=== PATIENT | female | born 1970 | race Caucasian/White ===

== ENCOUNTER → 2017-06-21 13:30 | Outpatient (CLI) | payer BC, SELFPAY | PROVIDERS: Family Provider Family Medicine; PCP Family Medicine; Visit Provider Obstetrics & Gynecology | DX: Z12.4 Encounter for screening for malignant neoplasm of cervix (principal) ==

== ENCOUNTER → 2017-08-01 10:48 | Outpatient (CLI) | payer BC, SELFPAY ==
[2017-06-20 10:54] VITALS: BP 117/71; BMI 25.2
--- NOTE | 2017-08-01 10:50 | HPBI_ITS ---
MAMMOGRAPHY - BILATERAL SCREENING 3-D DANIEL SYNTHESIS REASON FOR EXAM: Female, 47 years old. Bilateral Screening 3-D tomosynthesis PERTINENT HISTORY: Aunt with breast cancer.. TECHNIQUE: 2-D mammograms and 3-D Daniel synthesis of the breast (s) were performed. CAD was performed. COMPARISON: 05/24/2016 FINDINGS: The breast composition is heterogeneously dense that can obscure small breast masses. Scattered benign calcifications are seen. No dense spiculated masses or suspicious microcalcifications are identified. No architectural distortion is identified. There is no skin thickening or retraction. There has been no significant change since the prior study. HPBI/SCREENING MAMM (CAD), BILAT IMPRESSION: No mammographic signs of malignancy. Routine yearly mammograms recommended. ASSESSMENT CATEGORY: BIRADS Category 2: Benign. A letter regarding these results will be sent to the patient by the facility within 30 days. FOLLOW UP RECOMMENDATION: Yearly follow up mammogram recommended. (A) Approximately 10% of breast cancers are not detected by mammography. A normal mammogram should not delay biopsy of a clinically suspicious abnormality. Electronically Signed: Pete Aguiar MD at 9:35 EDT , Service support ,
== END ==
PROVIDERS: Family Provider Family Medicine; PCP Family Medicine; Visit Provider Obstetrics & Gynecology
DX: Z12.31 Encounter for screening mammogram for malignant neoplasm of breast (principal)
CPT/HCPCS: 77063; 77067

== ENCOUNTER → 2018-01-27 15:52 | Outpatient (CLI) | payer BC, SELFPAY | PROVIDERS: Family Provider Family Medicine; PCP Family Medicine; Visit Provider Nurse Practitioner Women's Health | DX: N76.0 Acute vaginitis (principal) | CPT/HCPCS: 87070; 87205 ==

== ENCOUNTER → 2018-01-29 08:58 | Outpatient (CLI) | payer BC, SELFPAY ==
--- NOTE | 2018-01-29 09:02 | BI_ITS ---
MAMMOGRAPHY - UNILATERAL DIAGNOSTIC: RIGHT BREAST REASON FOR EXAM: Female, 47 years old. 7 day history of right breast lump. History of prior breast aspiration. PERTINENT HISTORY: Aunt with breast cancer. TECHNIQUE: Digital unilateral breast richard (3D mammographic acquisition) in the CC and MLO projections. 2-D mediolateral oblique (MLO) and craniocaudad (CC) views of both breasts were obtained. CAD: Full Field Digital Mammography with Computer Added Detection was performed. COMPARISON: Comparison is made with prior examination dated August 01, 2017. FINDINGS: Breast Composition: The breasts are extremely dense, which lowers the sensitivity of mammography. The palpable abnormality corresponds to a 2.4 cm x 2.2 cm well-defined nodule in the inferior medial aspect of the right breast. Correlation with ultrasound is recommended. There is also evidence of a 2.5 cm x 1.9 cm well-defined nodule in the upper midportion of the right breast. No other significant abnormalities are identified. BI/DIAG MAMM W/CAD, UNILAT IMPRESSION: Nodular densities in the right breast as described. Correlation with ultrasound is recommended. ASSESSMENT CATEGORY: BIRADS Category 0: Incomplete. Need additional imaging evaluation. A letter regarding these results will be sent to the patient by the facility within 30 days. Approximately 10% of breast cancers are not detected by mammography. A normal mammogram should not delay biopsy of a clinically suspicious abnormality. Electronically Signed: Avery Figueroa MD at 11:11 EDT Tel [phone], Service support ,
--- NOTE | 2018-01-29 09:02 | US_ITS ---
STUDY: ULTRASOUND BREAST - RIGHT REASON FOR EXAM: Female, 47 years old. Palpable lump in the right breast. TECHNIQUE: Axial and longitudinal images of the RIGHT breast were performed with a high resolution ultrasound transducer. COMPARISON: Comparison is made with prior ultrasound of the right breast dated May 24, 2016 and prior mammogram done earlier in the day. FINDINGS: RIGHT Breast: There is a 2.2 cm x 1.7 cm x 2.2 cm cyst at the 3:00 position of the breast at 3 cm from the nipple. This also evidence of a 6 mm x 5 mm x 4 mm cyst at the 1:00 position of the breast at 2 cm from the nipple. US/Breast Limited Unilateral IMPRESSION: Dominant 2.2 cm x 1.7 cm x 2.2 cm cyst at the 3:00 position of the breast at 3 cm from the nipple. ASSESSMENT CATEGORY: BIRADS Category 2: Benign. A letter regarding these results will be sent to the patient by the facility within 30 days. Electronically Signed: Avery Figueroa MD at 10:32 EDT Tel [phone], Service support ,
== END ==
PROVIDERS: Family Provider Family Medicine; PCP Family Medicine; Visit Provider Nurse Practitioner Women's Health
DX: N63.10 Unspecified lump in the right breast, unspecified quadrant (principal)
CPT/HCPCS: 76642; 77061; 77065; G0279

== ENCOUNTER → 2018-02-14 06:37 | Outpatient (CLI) | payer BC, SELFPAY ==
--- NOTE | 2018-02-14 08:45 | BRBX_PTH ---
PATIENT: JUVENAL AMARO [id number] AGE/SX: 54/F ROOM: RE02/14/[address]: Dr. Antwan Eubanks MD : 1970 BED: DIS: SPEC #: [id number] RECD: 02/14/18 12:07 STATUS: ANDREA CHANELLE #: [id number] CAMPBELL: 02/14/18 08:[address]: Antwan Eubanks DEPT: SURGICAL PATHOLOGY RECD BY: Ulises Serrato ENTERED: 02/16/18 11:58 SP TYPE: BREAST BX OTHR DR: Dr. Warren Duarte III, MD Tissues: Right breast, NOS Procedures: Surgery Specimen Level IV HEADER OPERATION: Needle core biopsy and aspiration of right breast PRE-OP DIAGNOSIS: Abnormal mammogram of right breast TISSUE SUBMITTED: Right breast tissue ISCHEMIC TIME: 1 minute FIXATION TIME: 57.5 hours MICROSCOPIC DIAGNOSIS Right breast tissue, needle core biopsy: Fragments of benign breast tissue with acute and chronic inflammation. Negative for atypia or malignancy. SJ:marion 02/17/18 COMMENT Correlation with clinical, radiologic findings and appropriate follow up are necessary. Please also correlate with corresponding cytology ([id number]). MICROSCOPIC DESCRIPTION Slides are reviewed. GROSS DESCRIPTION Received in fixative is one container labeled with the patient's name and designated right breast. The specimen consists of two elongated fragments of zayas soft tissue measuring 0.3 and 1 cm in length and 0.1 cm in diameter. The entire specimen is submitted in one cassette. / MELISSA:marion 02/16/18 TC:3 CPT: 84980
--- NOTE | 2018-02-14 08:45 | FLU_PTH ---
PATIENT: JUVENAL AMARO [facility] U[facility][id number] AGE/SX: 54/F ROOM: RE02/14/[address]: Dr. Antwan Eubanks MD : 1970 BED: DIS: SPEC #: [id number] RECD: 02/14/18 12:07 STATUS: ANDREA CHANELLE #: [id number] CAMPBELL: 02/14/18 08:[address]: Antwan Eubanks DEPT: CYTOLOGY RECD BY: Ulises Serrato ENTERED: 02/16/18 11:14 SP TYPE: Fluid OTHR DR: Dr. Warren Duarte III, MD Tissues: Right breast, NOS Procedures: Pap Stain (control) Special Stain Group II Surgery Specimen Level IV Cell Block Cytospin Fluid HEADER OPERATION: Needle core biopsy and aspiration of right breast PRE-OP DIAGNOSIS: Abnormal mammogram of right breast TISSUE SUBMITTED: Right breast aspiration fluid for cytology DIAGNOSIS CYTOLOGY Right breast fluid, FNA (cytospin and cell block): Negative for malignant cells. Acute inflammation. See comment. SJ:rg 02/17/18 COMMENT Please also correlate with corresponding surgical specimen ([id number]), right breast tissue, needle core biopsy with diagnosis of fragments of benign breast tissue with acute and chronic inflammation and negative for malignancy. CYTOLOGY STUDY Slides are reviewed. The specimen predominantly consists of neutrophils and a few macrophages. CYTOLOGY GROSS Received is 4 ml of yellow cloudy fluid labeled with the patient's name and and designated per the requisition as right breast. Submitted for cytology preparation including cell block. / 02/16/18 TC:2 CPT: 75998, 60923
== END ==
PROVIDERS: Family Provider Family Medicine; PCP Family Medicine; Referring Provider Surgery; Visit Provider Surgery
DX: R92.8 Other abnormal and inconclusive findings on diagnostic imaging of breast (principal)
CPT/HCPCS: 88108; 88305; 88313

== ENCOUNTER → 2019-10-19 | Outpatient (CLI) | payer BC, SELFPAY ==
[2019-10-19 15:13] VITALS: BMI 25.2
[2019-10-23 11:29] LABS: HPV APTIMA, High Risk Negative (Negative)
== END | disposition home or self-care (01) ==
LOC: LABSPEC 17:28
PROVIDERS: PCP Family Medicine; Referring Provider Nurse Practitioner Women's Health; Visit Provider Nurse Practitioner Women's Health
DX: Z12.4 Encounter for screening for malignant neoplasm of cervix (principal)
CPT/HCPCS: 87624; 88175; G0145

== ENCOUNTER → 2020-02-15 | Outpatient (CLI) | payer BC, SELFPAY ==
[2019-10-19 15:13] VITALS: BMI 25.2
--- NOTE | 2020-02-15 13:51 | US_ITS ---
STUDY: ULTRASOUND BREAST - LEFT REASON FOR EXAM: Female, 49 years old. Palpable lump at the lateral inferior aspect of the left breast TECHNIQUE: Axial and longitudinal images of the LEFT breast were performed with a high resolution ultrasound transducer. # OF IMAGES: 23 COMPARISON: None. FINDINGS: LEFT Breast: There is a complex cystic lesion #1 in the lower outer quadrant. The lesion thick salvador and measures 14 x 13 x 5 mm in size. Clock notation: 3:30 o''clock position. Distance from nipple: 3 cm. Posterior Enhancement: Yes. Posterior Shadowing: None. Margins: Sharp and jagged. Echogenicity: Hypoechoic. Compression effect on Shape: No change. There is a complex cystic lesion # 2 in the lower outer quadrant. The lesion has thick salvador and measures 6 x 6 x 6 mm in size. Clock notation: 3:30 o''clock position. Distance from nipple: 4 cm. Posterior Enhancement: Yes. Posterior Shadowing: None. Margins: Sharp and jagged. Echogenicity: Hypoechoic. Compression effect on Shape: No change. US/Breast Limited Unilateral IMPRESSION: Complex cysts in the left breast. Ultrasound-guided aspiration is recommended. Should there be a soft tissue remaining after aspiration core biopsy would be recommended. ASSESSMENT CATEGORY: BIRADS Category 4: Suspicious - Biopsy Should Be Considered. A letter regarding these results will be sent to the patient by the facility within 30 days. Electronically Signed: Jeannine Valero, at 15:35 EDT Tel , Service support ,
--- NOTE | 2020-02-15 13:51 | BI_ITS ---
MAMMOGRAPHY - BILATERAL DIAGNOSTIC REASON FOR EXAM: Female, 49 years old. RT LUMP 2018 WITH TENDERNESS SAME AREA CYST 2017 ASPIRATED IN 2017 2019 LT LUMP SINCE 07/2019 LT MOLES MARKED PERTINENT HISTORY: FAM HX PAT AUNT AGE 76 TECHNIQUE: Digital bilateral breast richard (3D mammographic acquisition) in the CC and MLO projections. 2-D mediolateral oblique (MLO) and craniocaudad (CC) views of both breasts were obtained. CAD: Full Field Digital Mammography with Computer Added Detection was performed. COMPARISON: None. FINDINGS: Breast Composition: The breasts are extremely dense, which lowers the sensitivity of mammography. There are no dominant masses or suspicious calcifications. No other significant abnormalities are identified. BI/DIAG MAMM W/CAD, BILAT IMPRESSION: Further mammographic evaluation recommended, as described above. (E) ASSESSMENT CATEGORY: BIRADS Category 0: Incomplete. Need additional imaging evaluation. A letter regarding these results will be sent to the patient by the facility within 30 days. Approximately 10% of breast cancers are not detected by mammography. A normal mammogram should not delay biopsy of a clinically suspicious abnormality. Electronically Signed: Jeannine Valero, at 15:46 EDT Tel , Service support ,
== END | disposition home or self-care (01) ==
LOC: OPBI 13:51
PROVIDERS: PCP Family Medicine; Referring Provider Nurse Practitioner Women's Health; Visit Provider Nurse Practitioner Women's Health
DX: N63.20 Unspecified lump in the left breast, unspecified quadrant (principal)
CPT/HCPCS: 76642; 77062; 77066; G0279

== ENCOUNTER → 2020-11-10 07:33 | Outpatient (CLI) | payer BC, SELFPAY ==
[2020-10-30 15:01] VITALS: BMI 28.1
--- NOTE | 2020-11-10 07:42 | US_ITS ---
STUDY: ULTRASOUND OF THE FEMALE PELVIS - COMPLETE REASON FOR EXAM: Female, 50 years old. Increased abd growth LMP: 11/02/2020. TECHNIQUE: Transabdominal and Transvaginal TECHNICAL QUALITY: Adequate. COMPARISON: None. FINDINGS: The uterus is anteverted and is in a midline position. The uterus measures 7.5 cm x 5.4 cm x 3.9 cm. There is a Nabothian cyst of the cervix. The endometrium measures 2.1 mm in thickness, and is hyperechoic. There is no demonstrated endometrial mass. Heterogeneous echotexture of the uterus. Several small fibroids are seen. The largest measures 3 cm x 2.4 cm x 2.6 cm. I.U.D. - The patient does not have an I.U.D. The right ovary is visualized. The right ovary measures 2.6 cm x 2.1 cm x 1.2 cm. There is no right ovarian cyst or ovarian mass. There is no visualized right adnexal mass or complex lesion. There is normal arterial and normal venous vascularity. The left ovary is visualized. The left ovary measures 1.9 cm x 1.3 cm x 1.1 cm. There is no left ovarian cyst or ovarian mass. There is no visualized left adnexal mass or complex lesion. There is normal arterial and normal venous vascularity. There is no fluid in the cul-de-sac. The pre void volume of the bladder was 524 ml. US/Pelvic (Non ) IMPRESSION: Uterine fibroids. Electronically Signed: Avery Figueroa MD at 10:13 EDT , Service support ,
--- NOTE | 2020-11-10 07:42 | BI_ITS ---
MAMMOGRAPHY - BILATERAL SCREENING REASON FOR EXAM: Female, 50 years old. Routine annual screening examination. PERTINENT HISTORY: Non-contributory. TECHNIQUE: Digital bilateral breast daniel (3D mammographic acquisition) in the CC and MLO projections. 2-D mediolateral oblique (MLO) and craniocaudad (CC) views of both breasts were obtained. CAD: Full Field Digital Mammography with Computer Added Detection was performed. COMPARISON: Comparison is made with prior study dated 08/01/2017 and 05/24/2016. FINDINGS: Breast Composition: The breasts are extremely dense, which lowers the sensitivity of mammography. There are no dominant masses or suspicious calcifications. No other significant abnormalities are identified. There has been no significant change since the prior study. BI/SCRN MAMM (CAD)W/DANIEL BILAT IMPRESSION: Stable bilateral screening mammogram. Yearly follow-up mammogram recommended. (A) ASSESSMENT CATEGORY: BIRADS Category 1: Negative. A letter regarding these results will be sent to the patient by the facility within 30 days. Approximately 10% of breast cancers are not detected by mammography. A normal mammogram should not delay biopsy of a clinically suspicious abnormality. [id number] Electronically Signed: Avery Figueroa MD at 9:19 EDT , Service support ,
--- NOTE | 2020-11-10 07:42 | US_ITS ---
STUDY: ULTRASOUND OF THE FEMALE PELVIS - COMPLETE REASON FOR EXAM: Female, 50 years old. Increased abd growth LMP: 11/02/2020. TECHNIQUE: Transabdominal and Transvaginal TECHNICAL QUALITY: Adequate. COMPARISON: None. FINDINGS: The uterus is anteverted and is in a midline position. The uterus measures 7.5 cm x 5.4 cm x 3.9 cm. There is a Nabothian cyst of the cervix. The endometrium measures 2.1 mm in thickness, and is hyperechoic. There is no demonstrated endometrial mass. Heterogeneous echotexture of the uterus. Several small fibroids are seen. The largest measures 3 cm x 2.4 cm x 2.6 cm. I.U.D. - The patient does not have an I.U.D. The right ovary is visualized. The right ovary measures 2.6 cm x 2.1 cm x 1.2 cm. There is no right ovarian cyst or ovarian mass. There is no visualized right adnexal mass or complex lesion. There is normal arterial and normal venous vascularity. The left ovary is visualized. The left ovary measures 1.9 cm x 1.3 cm x 1.1 cm. There is no left ovarian cyst or ovarian mass. There is no visualized left adnexal mass or complex lesion. There is normal arterial and normal venous vascularity. There is no fluid in the cul-de-sac. The pre void volume of the bladder was 524 ml. US/Transvaginal Non- IMPRESSION: Uterine fibroids. Electronically Signed: Avery Figueroa MD at 10:13 EDT , Service support ,
[2020-11-10 07:46] LABS: Absolute Lymphocyte Count 2.81 X10^3/uL (0.83-4.51); Absolute Neutrophil Count 3.7 X10^3/uL (2.0-7.7); Basophil# 0.05 X10^3/uL; Basophil% 0.7 % (0-1); Eosinophils% 1.3 % (0-5); Hematocrit 34.8 % (37-47); Hemoglobin 11.1 g/dL (12.0-15.0); Lymphocyte # 2.81 X10^3/ul (0.83-4.51); Lymphocyte % 37.2 % (19-41); Mean Corp Hgb Conc 31.9 g/dL (32-36); Mean Corpuscular Hgb 28.2 pg (27.0-32.0); Mean Corpuscular Volume 88.3 fL (81-99); Mean Platelet Vol. 9.8 fl (6.2-12.0); Monocyte# 0.91 X10^3/uL; Monocyte% 12.1 % (0-10); NRBC Flagged by Analyzer 0 % (0-5); Neutrophil # 3.66 X10^3/uL (2.7-7.7); Neutrophil % 48.4 % (47-70); Platelet Count 355 K/mm3 (150-450); RBC Distribution Width CV 13.6 % (11.6-14.6); RBC Distribution Width SD 43.9 fl (35.1-43.9); Red Blood Count 3.94 M/mm3 (4.2-5.4); White Blood Count 7.6 K/mm3 (4.4-11.0)
[2020-11-10 08:23] LABS: ALB/GLOB Ratio 1.1 RATIO (0.9-2.4); AST(SGOT) 17 U/L (15-37); Alanine Aminotransfer ALT/SGPT 22 U/L (13-56); Albumin, Serum 3.8 g/dL (3.2-5.0); Alkaline Phosphatase 54 U/L (45-117); Anion Gap 5 (5-15); BUN 15 mg/dL (7-18); BUN/Creat Ratio 18.6 RATIO (10-20); Calcium,Total 8.8 mg/dL (8.5-10.1); Chloride 102 mmol/L (98-107); Cholesterol 250 mg/dL (200); Creatinine, Serum 0.81 mg/dL (0.55-1.02); EST Glomerular Filtration Rate 80 mL/min (>60); Est Glom Filt Rate - Afr Amer 97 mL/min (>60); Globulin 3.6 g/dL (2.2-4.2); Glucose 104 mg/dL (74-106); High Density Lipoprotein 63 mg/dL; Potassium 4.1 mmol/L (3.5-5.1); Protein, Total 7.4 g/dL (6.4-8.2); Sodium Level 135 mmol/L (136-145); T4 Free Direct 0.86 ng/dL (0.76-1.46); Thyroid Stim Hormone (TSH) 2.31 uIU/mL (0.358-3.74); Triglycerides 284 mg/dL; Very Low Density Lipoprotein 57 mg/dL (5-40)
== END ==
PROVIDERS: PCP Family Medicine; Referring Provider Obstetrics & Gynecology; Visit Provider Obstetrics & Gynecology
DX: R19.8 Other specified symptoms and signs involving the digestive system and abdomen (principal); Z12.31 Encounter for screening mammogram for malignant neoplasm of breast
CPT/HCPCS: 36415; 76830; 76856; 77063; 77067; 80053; 80061; 84439; 84443; 85025

== ENCOUNTER 2021-10-22 00:09 | Observation (INO) | payer BC, SELFPAY ==
[2021-10-22] VITALS (16 sets, daily range): BP systolic 110–126; BP diastolic 62–84; PULSE 17–103; RESP 16–23; TEMP 36.6–37.1; O2SAT 92–98; BMI 29.7; BMI 28.8
--- NOTE | 2021-10-22 00:40 | TELEMED_ITS ---
[facility] has confirmed receipt of a request for visit. This document confirms receipt of the order initiating the consult. To find the results of the consultation, please view the patient's reports for the scanned Telemed Consult.
--- NOTE | 2021-10-22 00:40 | EKG12_ITS ---
Test Reason : STROKE Blood Pressure : / mmHG Vent. Rate : 097 BPM Atrial Rate : 097 BPM P-R Int : 136 ms QRS Dur : 068 ms QT Int : 354 ms P-R-T Axes : 029 032 037 degrees QTc Int : 449 ms Normal sinus rhythm Low voltage QRS Borderline ECG Confirmed by GA BANKS, VASQUEZ ([id number]), assignment desk editor ANGELICA GREEN ([id number]) on 10/22/2021 11:22:35 AM Referred By: LORI Confirmed By:VASQUEZ KOROMA MD
--- NOTE | 2021-10-22 00:40 | RAD_ITS ---
EXAM: XR CHEST, 1 VIEW CLINICAL INDICATION: Neuro deficit, acute, stroke suspected TECHNIQUE: Frontal view of the chest. This report was created using [employer] report generation technology. COMPARISON: None. FINDINGS: LUNGS AND PLEURAL SPACES: Unremarkable. No consolidation or edema. No pneumothorax. No effusion. HEART: Unremarkable. Cardiac silhouette not enlarged. MEDIASTINUM: Central airways and mediastinal contour are unremarkable. BONES/JOINTS: Unremarkable. SOFT TISSUES: Unremarkable. RAD/Chest 1 View IMPRESSION: No radiographic evidence of acute cardiopulmonary disease. Electronically Signed: Ramya Josue MD at 3:11 EDT ,
--- NOTE | 2021-10-22 00:40 | CT_ITS ---
EXAM: CT HEAD WITHOUT INTRAVENOUS CONTRAST CLINICAL INDICATION: Neuro deficit, acute, stroke suspected. Difficulty finding words, other transient or resolving symptoms. TECHNIQUE: Multiple axial images were obtained of the head without intravenous contrast. This CT exam was performed using one or more of the following dose reduction techniques: automated exposure control, adjustment of the mA and/or kV according to patient size, and/or use of iterative reconstruction technique. This report was created using [employer] report generation technology. RADIATION DOSE: CTDIvol = 44.99 mGy, DLP = 779.24 mGy-cm. COMPARISON: None. FINDINGS: BRAIN AND EXTRA-AXIAL SPACES: Slight asymmetric positioning. No significant edema, hemorrhage, mass or mass effect. No dense artery sign. Posterior fossa structures are unremarkable. Ventricles are appropriate for age. No hydrocephalus. Basal cisterns are patent. BONES/JOINTS: Unremarkable. No discrete lytic or blastic abnormalities. SINUSES: Unremarkable as visualized. Clear. MASTOID AIR CELLS: Unremarkable. Clear. ORBITS: Visualized globes, extraocular muscles, optic nerves and retrobulbar fat appear unremarkable. CT/STROKE Brain/Head without Cont IMPRESSION: No acute intracranial abnormality. N.B. : The above Results were Read Back by Ramya Josue MD to Dr. Armaan MD, and understanding confirmed on 10/22/2021 01:17:47 (ET). Electronically Signed: Ramya Josue MD at 1:17 EDT ,
--- NOTE | 2021-10-22 00:44 | EX.ED.DYSGE1 ---
HPI History of Present Illness Chief Complaint: Weakness Informant: patient, spouse/S.O. and family Narrative Narrative: Patient had an episode that started not long before arrival. She had been cleaning some things in the kitchen. She came out side. People were over enjoying the evening. She had had a few glasses of wine. She evidently had an episode where she kind of shake to her vibrated all of her extremities and was kind of stiff but she remained alert. She was having trouble speaking. She was having trouble directly following commands but extremities were moving. That has gotten better and she seems to be improving now. She is now moving extremities. She is talking but she is having trouble finding the right words. It sounds like she never had any unilateral weakness. She denies any headaches chest pain or palpitations. No recent illness. They are decreasing her citalopram and starting Pristiq recently and she has had some challenges with this but nothing like this is ever happened before. She has never had a seizure. She has never had stroke or heart disease. Nothing seems to make this better or worse. Nothing specific seem to bring it on. [facility] Medical History Abnormal Pap smear of cervix Anxiety Anxiety GERD (gastroesophageal reflux disease) History of cyst of breast CHLOE III (vulvar intraepithelial neoplasia III) Home Medications sumatriptan succinate 50 mg PO PRN PRN 07/28/15 [History Last Taken Unknown] citalopram 10 mg tablet 20 mg PO QDAY tab 01/27/18 [History Last Taken Unknown] esomeprazole magnesium 40 mg capsule,delayed release 40 mg PO DAILY 10/30/20 [History Last Taken Unknown] bupropion HCl 150 mg PO DAILY 10/22/21 [History Last Taken Unknown] buspirone 5 mg PO DAILY 10/22/21 [History Last Taken Unknown] desvenlafaxine succinate 25 mg PO DAILY 10/22/21 [History Last Taken Unknown] famotidine 20 mg PO BID 10/22/21 [History Last Taken Unknown] naproxen sodium 220 mg PO Q8H PRN 10/22/21 [History Last Taken Unknown] Allergy/AdvReac Type Severity Reaction Status Date / Time No Known Allergies Allergy Verified 04/15/21 12:06 Family History Grandmother Colon cancer Heart disease Grandfather CVA (cerebral vascular accident) Cancer bladder Aunt Breast cancer Surgical History History of endometrial ablation History of tonsillectomy and adenoidectomy History of wisdom tooth extraction, class II edentulism Hx of appendectomy hx of cyst aspirartion Social History Smoking Status: Never smoker alcohol intake: current details: social substance use type: does not use caffeine: Yes what type of physical activity do you participate in: none seatbelt use: always do you feel safe at home: Yes additional social history: [employer] Patient works at [email or web address] ROS ROS ED Constitutional Constitutional ED: Denies chills or fever(s) Eyes Eyes: Denies blurry vision, change in vision or diplopia ENT ENT ED: Denies rhinorrhea Cardiovascular Cardiovascular: Denies chest pain, palpitations or racing heartbeat Respiratory/Chest Respiratory/Chest: Denies cough or dyspnea Gastrointestinal Gastrointestinal: Denies abdominal pain, nausea or vomiting Genitourinary Genitourinary ED: Denies dysuria Musculoskeletal Musculoskeletal: Denies back pain or neck pain Integumentary Denies rash Neurologic Neurologic: Reports other Details: See history of present illness. ; Denies headache(s) Psychiatric Psychiatric: Reports anxiety and other Details: Patient does have a history of significant anxiety and is going through some medication changes at this time. Endocrine Endocrinology: Denies polydipsia or polyuria Allergic/Immunologic Allergic/Immunologic ED: Denies urticaria EXAM Physical Exam Const Vital Signs: 10/22/21 00:11 10/22/21 00:18 10/22/21 00:40 Temperature 98.5 F Temperature Source Temporal Pulse Rate 95 92 Respiratory Rate 18 20 H Respiratory Effort Normal Respiratory Pattern Normal Blood Pressure 126/84 H 121/75 H Blood Pressure Mean 98 90 Pulse Ox 95 95 Oxygen Delivery Method Room Air Room Air Oxygen Flow Rate (L/min) 10/22/21 01:00 10/22/21 01:05 10/22/21 01:10 Temperature Temperature Source Pulse Rate 98 94 Respiratory Rate 20 H 16 Respiratory Effort Respiratory Pattern Blood Pressure 121/75 H 120/70 Blood Pressure Mean 90 86 Pulse Ox 95 96 Oxygen Delivery Method Room Air Room Air Nasal Cannula Oxygen Flow Rate (L/min) 2 10/22/21 01:30 Temperature Temperature Source Pulse Rate 90 Respiratory Rate 16 Respiratory Effort Respiratory Pattern Blood Pressure 119/82 H Blood Pressure Mean 94 Pulse Ox 95 Oxygen Delivery Method Nasal Cannula Oxygen Flow Rate (L/min) 2 Positive well nourished and well developed General Appearance ED: well developed and NAD; Negative for cyanotic or diaphoretic HEENT Reports moist mucous membranes Eyes General Eye ED: Negative for pale conjunctiva or scleral icterus Neck no JVD Chest Wall inspection of chest normal Resp normal respiratory effort and clear to auscultation bilaterally Effort and Inspection: Negative for pain with movement Auscultation: Negative for rales, rhonchi or wheezes Cardio regular rate and regular rhythm Rate: other Other Details: Normal peripheral pulses x4. GI normal to inspection, nondistended, normoactive bowel sounds and non-tender Palpation: soft Back/Spine no CVA tenderness Neuro oriented x3 Neuro Narrative: Patient patient is oriented x3. Every time I ask her to do an action she says U huh. But she does not do the actions. When I asked the third time she is able to do the action. This happens with both legs both arms and trying to close her eyes tightly. Everything that I ask occurs on the third request. However, it is then done correctly and normally. I get no lateralizing findings. She does sometimes have trouble finding the word for a medication. She could not remember the name of the new medicine. But she states that it is the square 1. There is no significant dysarthria. There is a little bit of receptive and expressive aphasia but then she is able to resolve that after several attempts and do well. Sensorium / Orientation: alert Psych Attitude: No agitated Mood & Affect: Negative for tearful Skin no rashes or lesions noted MDM MDM MDM Narrative Medical decision making narrative: Patient CBC shows mild anemia. Electrolytes were overall unremarkable. Lactic acid was normal. Prolactin was normal. CT of the head and CTA showed no acute process. Chest x-ray showed no acute process. I did discuss case with stroke neurologist on the telemetry stroke system. He felt tPA was not right for this patient. She was making marked improvements already and her symptoms may be more related to metabolic medication etc. Patient's symptoms did rule almost resolved here. Her speech is much more fluid. Her states its not 100% back to normal but it is close. She is still having some intermittent spasms. She will be placed in observation for further work-up. Lab Data Attestation: I reviewed the patient's lab results. Labs: Laboratory Results - last 24 hr 10/22/21 10/22/21 10/22/21 00:49 01:10 01:10 WBC 6.2 RBC 3.38 L Hgb 10.2 L Hct 31.2 L MCV 92.3 MCH 30.2 MCHC 32.7 RDW Std Deviation 42.5 RDW Coeff of Giorgio 12.7 Plt Count 336 MPV 10.0 Immature Gran % (Auto) 0.200 Neut % (Auto) 42.6 L Lymph % (Auto) 45.6 H [place] % (Auto) 8.7 Eos % (Auto) 1.9 Baso % (Auto) 1.0 Absolute Neuts (auto) 2.6 Absolute Lymphs (auto) 2.82 Nucleated RBC % 0 PT Cancelled INR Cancelled APTT Cancelled Sodium Potassium Chloride Carbon Dioxide Anion Gap BUN Creatinine Estim Creat Clear Calc Est GFR (MDRD) Af Amer Est GFR (MDRD) Non-Af BUN/Creatinine Ratio Glucose Lactic Acid Calcium Troponin I High Sens Prolactin Ethyl Alcohol POC Glucose 104 10/22/21 10/22/21 10/22/21 01:10 01:10 01:10 WBC RBC Hgb Hct MCV MCH MCHC RDW Std Deviation RDW Coeff of Giorgio Plt Count MPV Immature Gran % (Auto) Neut % (Auto) Lymph % (Auto) [place] % (Auto) Eos % (Auto) Baso % (Auto) Absolute Neuts (auto) Absolute Lymphs (auto) Nucleated RBC % PT INR APTT Sodium 140 Potassium 3.6 Chloride 109 H Carbon Dioxide 23.0 Anion Gap 8 BUN 16 Creatinine 1.05 H Estim Creat Clear Calc 59.34 Est GFR (MDRD) Af Amer 71 Est GFR (MDRD) Non-Af 59 L BUN/Creatinine Ratio 15.2 Glucose 91 Lactic Acid 1.7 Calcium 7.8 L Troponin I High Sens < 3 L Prolactin 26.7 Ethyl Alcohol 140.0 POC Glucose 10/22/21 01:35 WBC RBC Hgb Hct MCV MCH MCHC RDW Std Deviation RDW Coeff of Giorgio Plt Count MPV Immature Gran % (Auto) Neut % (Auto) Lymph % (Auto) [place] % (Auto) Eos % (Auto) Baso % (Auto) Absolute Neuts (auto) Absolute Lymphs (auto) Nucleated RBC % PT 12.7 INR 1.0 APTT 27.0 Sodium Potassium Chloride Carbon Dioxide Anion Gap BUN Creatinine Estim Creat Clear Calc Est GFR (MDRD) Af Amer Est GFR (MDRD) Non-Af BUN/Creatinine Ratio Glucose Lactic Acid Calcium Troponin I High Sens Prolactin Ethyl Alcohol POC Glucose Radiography Diagnostic Testing: Clinical Impression(s) from Imaging Studies Brain CT 10/22/21 00:40 IMPRESSION: No acute intracranial abnormality. N.B. : The above Results were Read Back by Ramya Josue MD to Dr. Armaan MD, and understanding confirmed on 10/22/2021 01:17:47 (ET). Electronically Signed: Ramya Josue MD at 1:17 EDT , Chest X-Ray 10/22/21 00:40 IMPRESSION: No radiographic evidence of acute cardiopulmonary disease. Electronically Signed: Ramya Josue MD at 3:11 EDT , Head/Neck CTA 10/22/21 01:07 IMPRESSION: Negative CTA carotid and CTA brain. C5-6 degenerative change and prominent left neural foraminal stenosis at C5-6 and C6-7. Electronically Signed: Ramya Josue MD at 1:30 EDT , ADDENDUM: 10/22/21 0142 IMPRESSION: Negative CTA carotid and CTA brain. C5-6 degenerative change and prominent left neural foraminal stenosis at C5-6 and C6-7. N.B. : The above Results were Read Back by Ramya Josue MD to Dr. Armaan MD, and understanding confirmed on 10/22/2021 01:35:26 (ET). Electronically Signed: Ramya Josue MD at 1:30 EDT , Discharge Plan Triage Chief Complaint: Weakness ED Provider: Nolan Crook Dx/Rx/DC Orders Clinical Impression: Aphasia, Muscle spasm Primary Care Provider: Mak Quezada Disposition Disposition: Acute Care Hospital [facility] Discharge Date/Time: 10/22/21 03:10
--- NOTE | 2021-10-22 00:49 | ED.RN ---
upon seeing physician orders, this RN inquires if patient is a stroke alert. Dr Crook states go ahead and call it
--- NOTE | 2021-10-22 00:59 | ED.RN ---
Physician entered order for SOC consult in error. SOC consult called and was told to cancel.
--- NOTE | 2021-10-22 01:07 | CT_ITS ---
We are attempting to reach an attending provider to discuss findings. An addendum with communication details will be sent when the communication is complete. EXAM: CT ANGIOGRAPHY HEAD AND NECK WITH INTRAVENOUS CONTRAST CLINICAL INDICATION: Neuro deficit, acute, stroke suspected TECHNIQUE: [place] [facility] [place]/head and neck CT angiography protocol performed with intravenous contrast. This CT exam was performed using one or more of the following dose reduction techniques: automated exposure control, adjustment of the mA and/or kV according to patient size, and/or use of iterative reconstruction technique. This report was created using [employer] report generation technology. MIP reconstructed images were created and reviewed. CONTRAST: IV 100mL [id number] RADIATION DOSE: CTDIvol = 22.43 mGy, DLP = 750.43 mGy-cm COMPARISON: None. FINDINGS: HEAD: RIGHT ANTERIOR CEREBRAL ARTERY: Unremarkable. No significant stenosis at the visualized segments. Anterior communicating artery is present. No aneurysm. RIGHT MIDDLE CEREBRAL ARTERY: Unremarkable. No significant stenosis at the visualized segments. No aneurysm. RIGHT POSTERIOR CEREBRAL ARTERY: Unremarkable. No occlusion or significant stenosis. No aneurysm. RIGHT INTRACRANIAL INTERNAL CAROTID ARTERY: Unremarkable. No significant stenosis. No dissection or occlusion. RIGHT INTRACRANIAL VERTEBRAL ARTERY: Unremarkable. No significant stenosis. No dissection or occlusion. LEFT ANTERIOR CEREBRAL ARTERY: Unremarkable. No significant stenosis at the visualized segments. No aneurysm. LEFT MIDDLE CEREBRAL ARTERY: Unremarkable. No significant stenosis at the visualized segments. No aneurysm. LEFT POSTERIOR CEREBRAL ARTERY: Unremarkable. No occlusion or significant stenosis. No aneurysm. LEFT INTRACRANIAL INTERNAL CAROTID ARTERY: Unremarkable. No significant stenosis. No dissection or occlusion. LEFT INTRACRANIAL VERTEBRAL ARTERY: Unremarkable. No significant stenosis. No dissection or occlusion. BASILAR ARTERY: Unremarkable. No significant stenosis. No aneurysm. OTHER VASCULATURE: No vascular malformation. The posterior inferior cerebellar arteries are patent, better seen on the right. NECK: RIGHT COMMON CAROTID ARTERY: Unremarkable. No significant stenosis. No dissection or occlusion. RIGHT EXTRACRANIAL INTERNAL CAROTID ARTERY: Unremarkable. No significant stenosis. No dissection or occlusion. RIGHT EXTERNAL CAROTID ARTERY: Unremarkable. No occlusion. RIGHT EXTRACRANIAL VERTEBRAL ARTERY: Unremarkable. No significant stenosis. No dissection or occlusion. LEFT COMMON CAROTID ARTERY: Unremarkable. No significant stenosis. No dissection or occlusion. LEFT EXTRACRANIAL INTERNAL CAROTID ARTERY: Unremarkable. No significant stenosis. No dissection or occlusion. LEFT EXTERNAL CAROTID ARTERY: Unremarkable. No occlusion. LEFT EXTRACRANIAL VERTEBRAL ARTERY: Unremarkable. No significant stenosis. No dissection or occlusion. GREAT VESSELS OF AORTIC ARCH: Unremarkable as visualized. Normal anatomy, patent. LUNG APICES: Unremarkable as visualized. HEAD and NECK: BONES/JOINTS: Moderate disc space narrowing at C5-C6 and moderate-marked bilateral C5-6 and C6-7 left neural foraminal stenosis. No discrete lytic or blastic abnormalities. SOFT TISSUES: Unremarkable. CAROTID STENOSIS REFERENCE USING NASCET CRITERIA: % ICA stenosis = (1 - narrowest ICA diameter/diameter of distal cervical ICA) x 100. Mild - <50% stenosis. Moderate - 50-69% stenosis. Severe - 70-94% stenosis. Near occlusion - 95-99% stenosis. Occluded - 100% stenosis. CT/STROKE CTA Head AND Neck W/Con IMPRESSION: Negative CTA carotid and CTA brain. C5-6 degenerative change and prominent left neural foraminal stenosis at C5-6 and C6-7. Electronically Signed: Ramya Josue MD at 1:30 EDT ,
[2021-10-22 01:11] LABS: Bedside Glucose 104 mg/dL (74-106)
[2021-10-22 01:20] LABS: Absolute Lymphocyte Count 2.82 X10^3/uL (0.83-4.51); Absolute Neutrophil Count 2.6 X10^3/uL (2.0-7.7); Basophil# 0.06 X10^3/uL; Eosinophil# 0.12 X10^3/uL; Eosinophils% 1.9 % (0-5); Hematocrit 31.2 % (37-47); Hemoglobin 10.2 g/dL (12.0-15.0); Lymphocyte # 2.82 X10^3/ul (0.83-4.51); Lymphocyte % 45.6 % (19-41); Mean Corp Hgb Conc 32.7 g/dL (32-36); Mean Corpuscular Hgb 30.2 pg (27.0-32.0); Mean Corpuscular Volume 92.3 fL (81-99); Monocyte# 0.54 X10^3/uL; Monocyte% 8.7 % (0-10); NRBC Flagged by Analyzer 0 % (0-5); Neutrophil # 2.64 X10^3/uL (2.7-7.7); Neutrophil % 42.6 % (47-70); Platelet Count 336 K/mm3 (150-450); RBC Distribution Width CV 12.7 % (11.6-14.6); RBC Distribution Width SD 42.5 fl (35.1-43.9); Red Blood Count 3.38 M/mm3 (4.2-5.4); White Blood Count 6.2 K/mm3 (4.4-11.0)
[2021-10-22 01:38] LABS: Anion Gap 8 (5-15); BUN 16 mg/dL (7-18); BUN/Creat Ratio 15.2 RATIO (10-20); Calcium,Total 7.8 mg/dL (8.5-10.1); Chloride 109 mmol/L (98-107); Creatinine, Serum 1.05 mg/dL (0.55-1.02); EST Glomerular Filtration Rate 59 mL/min (>60); Est Glom Filt Rate - Afr Amer 71 mL/min (>60); Estimated Creatinine Clearance 59.34 ml/min; Glucose 91 mg/dL (74-106); Potassium 3.6 mmol/L (3.5-5.1); Prolactin 26.7 ng/mL; Sodium Level 140 mmol/L (136-145); Troponin-I HS < 3 pg/mL (3.0-54.0)
[2021-10-22 01:46] LABS: Lactic Acid 1.7 mmol/L (0.4-1.9)
[2021-10-22 01:52] LABS: Prothrombin Time (Protime)PT. 12.7 SECONDS (11.7-14.9)
--- NOTE | 2021-10-22 02:09 | PCM.HP.STD ---
HPI - General HPI Narrative JUVENAL AMARO, is a 51 F with a significant history of anxiety disorder who presents after emergency department with shakiness of bilateral legs. Reportedly friends came over to the patient's home. As her friends were leaving patient legs began to shake. Patient's felt trapped in her body and she could not move her arms or her legs. She had difficulty finding her words. Also patient had muscle spasms. Patient denies any urinary symptoms. She reports a diagnosis of plantar fascitis and bone spurs in her left lower extremity. Of note few hours before presentation and before her symptoms started the patient taking 4 glasses of wine. Of notes patient's is being weaned off citalopram and has been started on desvenlafaxine. She is supposed to take her previous buspirone 3 times in a day as needed; and in the last 24 hours before presentation she took her buspirone 2 times. Also patient stopped taking her bupropion. [facility] Medical History Abnormal Pap smear of cervix Anxiety Anxiety GERD (gastroesophageal reflux disease) History of cyst of breast CHLOE III (vulvar intraepithelial neoplasia III) Home Medications sumatriptan succinate 50 mg PO PRN PRN 07/28/15 [History Last Taken Unknown] citalopram 10 mg tablet 20 mg PO QDAY tab 01/27/18 [History Last Taken Unknown] esomeprazole magnesium 40 mg capsule,delayed release 40 mg PO DAILY 10/30/20 [History Last Taken Unknown] bupropion HCl 150 mg PO DAILY 10/22/21 [History Last Taken Unknown] buspirone 5 mg PO DAILY 10/22/21 [History Last Taken Unknown] desvenlafaxine succinate 25 mg PO DAILY 10/22/21 [History Last Taken Unknown] famotidine 20 mg PO BID 10/22/21 [History Last Taken Unknown] naproxen sodium 220 mg PO Q8H PRN 10/22/21 [History Last Taken Unknown] Allergy/AdvReac Type Severity Reaction Status Date / Time No Known Allergies Allergy Verified 04/15/21 12:06 Family History Grandmother Colon cancer Heart disease Grandfather CVA (cerebral vascular accident) Cancer bladder Aunt Breast cancer Surgical History History of endometrial ablation History of tonsillectomy and adenoidectomy History of wisdom tooth extraction, class II edentulism Hx of appendectomy hx of cyst aspirartion Social History Smoking Status: Never smoker alcohol intake: current details: social substance use type: does not use caffeine: Yes what type of physical activity do you participate in: none seatbelt use: always do you feel safe at home: Yes additional social history: [employer] Patient works at [employer] ROS ROS Narrative Pertinent positives and pertinent negatives as noted in HPI. All other systems were reviewed and are negative. Vital Signs Vital Signs Vital Signs: 10/22/21 00:11 10/22/21 00:18 10/22/21 00:40 Temperature 98.5 F Temperature Source Temporal Pulse Rate 95 92 Respiratory Rate 18 20 H Respiratory Effort Normal Respiratory Pattern Normal Blood Pressure 126/84 H 121/75 H Blood Pressure Mean 98 90 Pulse Ox 95 95 Oxygen Delivery Method Room Air Room Air Oxygen Flow Rate (L/min) 10/22/21 01:00 10/22/21 01:05 10/22/21 01:10 Temperature Temperature Source Pulse Rate 98 94 Respiratory Rate 20 H 16 Respiratory Effort Respiratory Pattern Blood Pressure 121/75 H 120/70 Blood Pressure Mean 90 86 Pulse Ox 95 96 Oxygen Delivery Method Room Air Room Air Nasal Cannula Oxygen Flow Rate (L/min) 2 10/22/21 01:30 Temperature Temperature Source Pulse Rate 90 Respiratory Rate 16 Respiratory Effort Respiratory Pattern Blood Pressure 119/82 H Blood Pressure Mean 94 Pulse Ox 95 Oxygen Delivery Method Nasal Cannula Oxygen Flow Rate (L/min) 2 Weight Weight: 83.4 kg Body Mass Index (BMI) 29.7 Physical Exam Narrative Physical exam: General: Well-nourished, well-developed. Head: Normocephalic, atraumatic, no tenderness Eyes: Vision is grossly intact. EOMI ENT, no trauma, moist mucous membranes, no rhinorrhea Neck: Nontender, full range of motion. CVS: Regular rate and rhythm. S1-S2 present. No murmur, gallop or rub. Respiratory : clear to auscultation bilaterally, chest wall nontender, no wheezing Abdomen: Soft, nontender, nondistended, normal bowel sounds, no masses : Deferred Back: Nontender, no CVA tenderness, no midline spinal tenderness, deformities, step-offs Extremities: Nontender full range of motion, no trauma Skin: Normal color, no trauma, abrasions Neuro: Alert, oriented, cranial nerves II through XII grossly intact. Strength in left upper and left lower extremity 4 out of 5. Strength in right upper and right lower extremity 5 out of 5. No dysmetria with [id number] test and [id number] test. Psychiatry: Normal mood. Normal affect. Not depressed. Not anxious. Results Lab / Micro Data Result Diagrams: 10/22/21 01:10 10/22/21 01:10 Labs: Laboratory Results - last 24 hr 10/22/21 00:49: POC Glucose 104 10/22/21 01:10: WBC 6.2, RBC 3.38 L, Hgb 10.2 L, Hct 31.2 L, MCV 92.3, MCH 30.2, MCHC 32.7, RDW Std Deviation 42.5, RDW Coeff of Giorgio 12.7, Plt Count 336, MPV 10.0, Immature Gran % (Auto) 0.200, Neut % (Auto) 42.6 L, Lymph % (Auto) 45.6 H, [place] % (Auto) 8.7, Eos % (Auto) 1.9, Baso % (Auto) 1.0, Absolute Neuts (auto) 2.6, Absolute Lymphs (auto) 2.82, Nucleated RBC % 0 10/22/21 01:10: PT Cancelled, INR Cancelled, APTT Cancelled 10/22/21 01:10: Sodium 140, Potassium 3.6, Chloride 109 H, Carbon Dioxide 23.0, Anion Gap 8, BUN 16, Creatinine 1.05 H, Estim Creat Clear Calc 59.34, Est GFR (MDRD) Af Amer 71, Est GFR (MDRD) Non-Af 59 L, BUN/Creatinine Ratio 15.2, Glucose 91, Calcium 7.8 L, Troponin I High Sens < 3 L, Prolactin 26.7 10/22/21 01:10: Ethyl Alcohol 140.0 10/22/21 01:10: Lactic Acid 1.7 10/22/21 01:35: PT 12.7, INR 1.0, APTT 27.[address] 10/22/21 00:40 IMPRESSION: No acute intracranial abnormality. N.B. : The above Results were Read Back by Ramya Josue MD to Dr. rAmaan MD, and understanding confirmed on 10/22/2021 01:17:47 (ET). Electronically Signed: Ramya Josue MD at 1:17 EDT , Head/Neck CTA 10/22/21 01:07 IMPRESSION: Negative CTA carotid and CTA brain. C5-6 degenerative change and prominent left neural foraminal stenosis at C5-6 and C6-7. Electronically Signed: Ramya Josue MD at 1:30 EDT , ADDENDUM: 10/22/21 0142 IMPRESSION: Negative CTA carotid and CTA brain. C5-6 degenerative change and prominent left neural foraminal stenosis at C5-6 and C6-7. N.B. : The above Results were Read Back by Ramya Josue MD to Dr. Armaan MD, and understanding confirmed on 10/22/2021 01:35:26 (ET). Electronically Signed: Ramya Josue MD at 1:30 EDT , Assessment & Plan Assessment/Plan (1) Stroke-like symptoms: PLAN: Strokelike symptoms Etiology could be TIA/stroke; combination of anxiety medication and alcohol; seizure or other. Serial NINDS NIH Scale ordered Impression of head CT by radiology: No acute intracranial abnormality. Upon my personal head CT image review: I agree with radiologist interpretation Head and neck CTA is negative. Review of labs 11/10/2020 showed triglyceride of 284; cholesterol 250; LDL cholesterol 130; VLDL of 57 and HDL of 63. Lipid profile and A1c ordered. On presentation because a seizure was in the differential a prolactin level was obtained. Prolactin level of 26.7 ordered. Lactic acid normal at 1.7. Physical therapy, occupational therapy and speech therapy to work with patient. N.p.o. until bedside swallow eval. Received full dose aspirin at the emergency department. Permissive hypertension. Control blood pressure with labetalol for systolic blood pressure of more than 220 or diastolic blood pressure of more than 120. Telemetry neurologist notes were reviewed. Per recommendations MRI of brain ordered. Aspirin and high intensity statin ordered Echocardiogram ordered. Hypocalcemia Calcium 7.8. Will check albumin level. Anxiety disorder Continue home medications of buspirone. Although patient is allowed buspirone 5 mg 3 times daily as needed discussed with patient that buspirone will be ordered 5 mg p.o. daily as needed. Ordered as stated Continue a taper dose of citalopram. Desvenlafaxine continued DVT prophylaxis SCD ordered. Charges/Coding Visit Charges OBSV E&M: 87804 Initial observation care L3
[2021-10-22] MEDS: Aspirin 325 MG Tablet PO (02:20)
--- NOTE | 2021-10-22 02:50 | ED.RN ---
Per Dr Crook we can stop NIH in ER and patient is awaiting admit to floor.
--- NOTE | 2021-10-22 03:32 | MRI_ITS ---
STUDY: MRI BRAIN WITHOUT CONTRAST REASON FOR EXAM: Female, 51 years old. CVA TECHNIQUE: Standardized multiplanar fat and water weighted pulse sequences were obtained. COMPARISON: CT earlier today FINDINGS: Normal size of the ventricles and extra-axial spaces for the patient''s age. Normal white matter tracts of the supratentorial brain. There is no evidence for recent intracranial ischemia or other cause of cytotoxic edema on diffusion weighted imaging (DWI). Normal T2* images of the brain without demonstrated susceptibility artifact. There is no demonstrated hemosiderin stain. Normal bilateral basal ganglia. Normal thalami. There is no extra-axial fluid accumulation. Normal flow voids within the major intracranial circulation suggesting patency by spin echo criteria. Normal sella turcica, pituitary gland, infundibular stalk, optic chiasm and hypothalamus. Normal tectal plate and pineal gland. Normal midbrain, darby and medulla. Normal cerebellum. Normal basal cisterns. 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 Normal bilateral internal auditory canals. No demonstrated orbital abnormality, within the constraints of a routine brain study. Normal visualized paranasal sinuses. Normal calvarium and skull base. Normal visualized soft tissue structures. Normal visualized upper cervical spine. MRI/Brain without Contrast IMPRESSION: Normal unenhanced MRI of the brain. Electronically Signed: Corona Marsh MD at 13:55 EDT ,
--- NOTE | 2021-10-22 03:32 | ECHOCS_ITS ---
Reason For Study: TIA/CVA Procedure This was a 2D Doppler, Color Flow transthoracic echocardiogram. The study was technically difficult. Contrast injection was performed. Exam performed portable in patient room. Left Ventricle Normal LV size. The estimated ejection fraction is 65 %. Normal diastology for age. No regional wall motion abnormalities noted. Right Ventricle Normal RV size. Normal systolic function. Atria Normal left atrium. Normal right atrium. Bubble contrast study negative for right to left interatrial shunt. Mitral Valve Normal mitral valve. Tricuspid Valve Normal tricuspid valve. Aortic Valve Normal aortic valve. Trisinus/trileaflet aortic valve. Pulmonic Valve Normal pulmonic valve. Great Vessels Normal aortic root. The pulmonary artery is normal size. Normal inferior vena cava. Pericardium/Pleural No pericardial effusion. Medication Diluted definity 2ml given slow IV push to enhance endocardial definition. MMode/2D Measurements & Calculations RVDd: 2.6 cm Ao root diam: 2.9 cm LAV(MOD-sp2): 33.5 ml LVAd ap4: 22.5 cm2 SV(MOD-sp4): 45.5 ml SV(sp4-el): 46.9 ml LVLd ap4: 6.6 cm EDV(MOD-sp4): 63.0 ml EDV(sp4-el): 65.1 ml LVAs ap4: 11.3 cm2 LVLs ap4: 5.9 cm ESV(MOD-sp4): 17.5 ml ESV(sp4-el): 18.3 ml EF(MOD-sp4): 72.2 % EF(sp4-el): 71.9 % LA A4 area: 16.8 cm2 LA dimension(2D): 3.6 cm RA A4 area: 11.7 cm2 Doppler Measurements & Calculations MV E max margarito: 104.4 cm/sec Lat Peak E' Margarito: 9.8 cm/sec Med Peak E' Margarito: 9.5 cm/sec MV A max margarito: 101.8 cm/sec E/E' lat: 10.6 E/E' med: 11.0 MV E/A: 1.0 Ao V2 max: 166.6 cm/sec LV V1 max: 144.6 cm/sec PA V2 max: 109.8 cm/sec Ao max P.1 mmHg LV V1 max P.4 mmHg ECHO/Echo Complete W/ Contrast Interpretation Summary Normal LV size. The estimated ejection fraction is 65 %. No regional wall motion abnormalities noted. Bubble contrast study negative for right to left interatrial shunt. Normal diastology for age. Ordering Physician: Stefan Lofton Performed By: Darleen Parham RCS
[2021-10-22 05:22] LABS: Absolute Lymphocyte Count 2.95 X10^3/uL (0.83-4.51); Absolute Neutrophil Count 2.4 X10^3/uL (2.0-7.7); Basophil# 0.07 X10^3/uL; Basophil% 1.1 % (0-1); Eosinophil# 0.15 X10^3/uL; Eosinophils% 2.4 % (0-5); Hematocrit 31.8 % (37-47); Hemoglobin 10.3 g/dL (12.0-15.0); Lymphocyte # 2.95 X10^3/ul (0.83-4.51); Lymphocyte % 47.7 % (19-41); Mean Corp Hgb Conc 32.4 g/dL (32-36); Mean Corpuscular Hgb 29.9 pg (27.0-32.0); Mean Corpuscular Volume 92.4 fL (81-99); Mean Platelet Vol. 9.8 fl (6.2-12.0); Monocyte# 0.58 X10^3/uL; Monocyte% 9.4 % (0-10); NRBC Flagged by Analyzer 0 % (0-5); Neutrophil # 2.42 X10^3/uL (2.7-7.7); Neutrophil % 39.2 % (47-70); POSITIVE MORPHOLOGY YES; Platelet Count 329 K/mm3 (150-450); RBC Distribution Width CV 12.7 % (11.6-14.6); RBC Distribution Width SD 42.5 fl (35.1-43.9); Red Blood Count 3.44 M/mm3 (4.2-5.4); White Blood Count 6.2 K/mm3 (4.4-11.0)
[2021-10-22 05:37] LABS: Differential Indicated SCAN CRITERIA MET
[2021-10-22 06:03] LABS: ALB/GLOB Ratio 1.1 RATIO (0.9-2.4); AST(SGOT) 20 U/L (15-37); Alanine Aminotransfer ALT/SGPT 24 U/L (13-56); Albumin, Serum 3.4 g/dL (3.2-5.0); Alkaline Phosphatase 60 U/L (45-117); Anion Gap 7 (5-15); BUN 15 mg/dL (7-18); BUN/Creat Ratio 17.4 RATIO (10-20); Calcium,Total 8.4 mg/dL (8.5-10.1); Chloride 108 mmol/L (98-107); Cholesterol 221 mg/dL (200); Creatinine, Serum 0.86 mg/dL (0.55-1.02); EST Glomerular Filtration Rate 74 mL/min (>60); Est Glom Filt Rate - Afr Amer 89 mL/min (>60); Estimated Creatinine Clearance 72.45 ml/min; Globulin 3.2 g/dL (2.2-4.2); Glucose 93 mg/dL (74-106); High Density Lipoprotein 36 mg/dL; Potassium 3.9 mmol/L (3.5-5.1); Protein, Total 6.6 g/dL (6.4-8.2); Sodium Level 139 mmol/L (136-145); Triglycerides 630 mg/dL
[2021-10-22 06:15] LABS: Differential Comment SCANNED
[2021-10-22 07:42] LABS: Hemoglobin A1c 5.6 % (3.8-5.6)
[2021-10-22] MEDS: Famotidine 20 MG Tablet PO (07:49)
[2021-10-22] MEDS: Aspirin 81 MG TAB.CHEW PO (07:49)
[2021-10-22] MEDS: busPIRone 5 MG Tablet PO (12:40)
--- NOTE | 2021-10-22 15:13 | CHAPLAIN ---
Type of Pastoral Visit _x__ Initial Visit ___ Follow-up Visit ___ On-call Visit ___ General Patient Visit ___ Spiritual Assessment ___ Family Conference ___ Bereavement ___ Rapid Response ___ Code Blue ___ Other (describe below) Pastoral Care Referral From _x__ Patient ___ Family ___ Nurse ___ Physician ___ Range Mechanic ___ Business Control Specialist ___ Other (describe below) Sacrament/Intervention _x__ Active listening ___ Anointing ___ Tenriism ___ Bereavement ___ Communion ___ Kirsten exploration ___ ___ Life review _x__ Prayer ___ Reconciliation ___ Sacrament of Sick ___ Supportive presence ___ Wedding ___ Other (describe below) Pastoral Comments patient feels like much of her problem is from anxiety and she talks about some of the causes of that anxiety; pt mostly hopeful about getting home and things improving for her health; pt welcomes presence and prayer
--- NOTE | 2021-10-22 15:36 | PCM.DC ---
Discharge Instructions Diet Discharge Diet: No restrictions Activity Discharge Activity: Return to Normal Activity Weight Bearing Status: Full weight bearing Follow Up Care Test Results: Test results from this visit will be discussed in further detail at your follow-up appointment, if applicable. Discharge Plan Admission Admit Date/Time: 10/22/21 02:00 Primary Reason for Your Visit: parathesias of the legs Attending Provider: Fitz Doran Primary Care Provider: Mak Quezada Consulting Providers: Stefan Lofton Discharge Orders/Prescriptions Prescriptions: New citalopram 10 mg Tablet 10 mg PO DAILY Qty: 0 RF: 0 Continued esomeprazole magnesium [Nexium] 40 mg capsule,delayed release(DR/EC) 40 mg PO DAILY RF: 0 sumatriptan succinate 50 MG tablet 50 mg PO PRN PRN (Reason: Headache) RF: 0 buspirone 5 mg tablet 5 mg PO DAILY RF: 0 famotidine 20 mg tablet 20 mg PO BID RF: 0 naproxen sodium 220 mg Tablet 220 mg PO Q8H PRN (Reason: Pain) RF: 0 bupropion HCl 150 mg tablet extended release 24 hr 150 mg PO DAILY RF: 0 desvenlafaxine succinate 25 mg tablet extended release 24 hr 25 mg PO DAILY RF: 0 Discontinued citalopram [Celexa] 10 mg tablet 20 mg PO QDAY RF: 0 Referrals / Follow Up: Mak Quezada MD [Primary Care Provider] - In 1 Week Disposition Disposition (needs filled in before D/C Order can be placed): Home, Self Care
--- NOTE | 2021-10-22 15:57 | CASEMGMT ---
Per therapy, no further therapy recommended. SStaten RN CM
--- NOTE | 2021-10-22 20:20 | PCM.DC.SUM ---
Providers Date of Admission: 10/22/21 Date of Discharge: 10/22/21 Primary Care Physician: Dr. Mak Quezada MD Reason For Visit: STROKE-LIKE SYMPTOMS Diagnosis Discharge Diagnosis (1) Stroke-like symptoms: Status: Acute Code(s): R29.90 - Unspecified symptoms and signs involving the nervous system Plan: 1. Conversion disorder #2 chronic anxiety disorder Medications at Discharge Home Medications sumatriptan succinate 50 mg tablet 50 mg PO PRN PRN Headache 07/28/15 esomeprazole magnesium 40 mg capsule,delayed release (Nexium) 40 mg PO DAILY reflux 10/30/20 bupropion HCl 150 mg 24 hr tablet, extended release 150 mg PO DAILY 10/22/21 buspirone 5 mg tablet 5 mg PO DAILY mental health 10/22/21 citalopram 10 mg tablet 10 mg PO DAILY #0 tabs 10/22/21 desvenlafaxine succinate 25 mg tablet,extended release 24 hr 25 mg PO DAILY mental health 10/22/21 famotidine 20 mg tablet 20 mg PO BID reflux 10/22/21 naproxen sodium 220 mg tablet 220 mg PO Q8H PRN Pain 10/22/21 Hospital Course Operations None Procedures 2-D Echocardiogram Summary of Care Provided Minutes Spent on Discharge: 30 Hospital Course: This 51-year-old white female was seen in the emergency room at [facility] for evaluation of shakiness and tremor in her legs, work-up was performed in the emergency room including a CT of the head which showed no acute abnormality, patient also had a CTA of the neck and had that was also negative. Patient's labs were largely unremarkable, patient was placed in observation status on PCU and underwent an MRI of the brain which showed no evidence of acute stroke. On 10/22/2021, patient was seen and examined: On examination she appeared in good health and spirits, she does not appear to be in any distress. Vital signs as documented. Skin warm and dry and without overt rashes. Neck without JVD, thyroid appears normal, trachea is midline, neck is supple. Lungs clear, normal air movement was noted. Heart exam notable for regular rhythm, normal sounds and absence of murmurs, rubs or gallops. Abdomen unremarkable and without evidence of organomegaly, masses, or abdominal aortic enlargement, bowel sounds are present in all 4 quadrants, no abdominal tenderness was noted. Extremities nonedematous, no cyanosis was noted, no clubbing was noted. Neuro: Cranial nerves II through XII are grossly intact, no focal motor deficits were noted, sensation to light touch and pinprick is intact, motor exam 5/5 throughout. Psych: Patient is alert and oriented x3, she does not appear anxious or depressed, she does not appear agitated. Patient was discharged home in stable condition on 10/22/2021 Weight / BMI Weight Weight: 81.1 kg Body Mass Index (BMI) 28.8 ABG / Lab / Microbiology Data Result Diagrams: 10/22/21 05:10 10/22/21 05:10 Laboratory: Laboratory Results - last 24 hr 10/22/21 00:49: POC Glucose 104 10/22/21 01:10: WBC 6.2, RBC 3.38 L, Hgb 10.2 L, Hct 31.2 L, MCV 92.3, MCH 30.2, MCHC 32.7, RDW Std Deviation 42.5, RDW Coeff of Giorgio 12.7, Plt Count 336, MPV 10.0, Immature Gran % (Auto) 0.200, Neut % (Auto) 42.6 L, Lymph % (Auto) 45.6 H, Otoe % (Auto) 8.7, Eos % (Auto) 1.9, Baso % (Auto) 1.0, Absolute Neuts (auto) 2.6, Absolute Lymphs (auto) 2.82, Nucleated RBC % 0 10/22/21 01:10: PT Cancelled, INR Cancelled, APTT Cancelled 10/22/21 01:10: Sodium 140, Potassium 3.6, Chloride 109 H, Carbon Dioxide 23.0, Anion Gap 8, BUN 16, Creatinine 1.05 H, Estim Creat Clear Calc 59.34, Est GFR (MDRD) Af Amer 71, Est GFR (MDRD) Non-Af 59 L, BUN/Creatinine Ratio 15.2, Glucose 91, Calcium 7.8 L, Troponin I High Sens < 3 L, Prolactin 26.7 10/22/21 01:10: Ethyl Alcohol 140.0 10/22/21 01:10: Lactic Acid 1.7 10/22/21 01:35: PT 12.7, INR 1.0, APTT 27.0 10/22/21 05:10: WBC 6.2, RBC 3.44 L, Hgb 10.3 L, Hct 31.8 L, MCV 92.4, MCH 29.9, MCHC 32.4, RDW Std Deviation 42.5, RDW Coeff of Giorgio 12.7, Plt Count 329, MPV 9.8, Immature Gran % (Auto) 0.200, Neut % (Auto) 39.2 L, Lymph % (Auto) 47.7 H, Otoe % (Auto) 9.4, Eos % (Auto) 2.4, Baso % (Auto) 1.1 H, Absolute Neuts (auto) 2.4, Absolute Lymphs (auto) 2.95, Nucleated RBC % 0, Differential Comment SCANNED 10/22/21 05:10: Sodium 139, Potassium 3.9, Chloride 108 H, Carbon Dioxide 24.0, Anion Gap 7, BUN 15, Creatinine 0.86, Estim Creat Clear Calc 72.45, Est GFR (MDRD) Af Amer 89, Est GFR (MDRD) Non-Af 74, BUN/Creatinine Ratio 17.4, Glucose 93, Calcium 8.4 L, Total Bilirubin 0.10 L, AST 20, ALT 24, Alkaline Phosphatase 60, Total Protein 6.6, Albumin 3.4, Globulin 3.2, Albumin/Globulin Ratio 1.1, Triglycerides 630 H, Cholesterol 221 H, LDL Cholesterol TNP, VLDL Cholesterol TNP, HDL Cholesterol 36 L 10/22/21 05:10: Hemoglobin A1c 5.6 Radiography Diagnostic Testing: Radiology Impression Brain CT 10/22/21 00:40 IMPRESSION: No acute intracranial abnormality. N.B. : The above Results were Read Back by Ramya Josue MD to Dr. Armaan MD, and understanding confirmed on 10/22/2021 01:17:47 (ET). Electronically Signed: Ramya Josue MD at 1:17 EDT Reading Location ID and State: [facility] / [place] Tel , Service support , Chest X-Ray 10/22/21 00:40 IMPRESSION: No radiographic evidence of acute cardiopulmonary disease. Electronically Signed: Ramya Josue MD at 3:11 EDT , Head/Neck CTA 10/22/21 01:07 IMPRESSION: Negative CTA carotid and CTA brain. C5-6 degenerative change and prominent left neural foraminal stenosis at C5-6 and C6-7. Electronically Signed: Ramya Josue MD at 1:30 EDT , ADDENDUM: 10/22/21 0142 IMPRESSION: Negative CTA carotid and CTA brain. C5-6 degenerative change and prominent left neural foraminal stenosis at C5-6 and C6-7. N.B. : The above Results were Read Back by Ramya Josue MD to Dr. Armaan MD, and understanding confirmed on 10/22/2021 01:35:26 (ET). Electronically Signed: Ramya Josue MD at 1:30 EDT , Brain MRI 10/22/21 03:32 IMPRESSION: Normal unenhanced MRI of the brain. Electronically Signed: Corona Marsh MD at 13:55 EDT , Echocardiogram 10/22/21 03:32 Interpretation Summary Normal LV size. The estimated ejection fraction is 65 %. No regional wall motion abnormalities noted. Bubble contrast study negative for right to left interatrial shunt. Normal diastology for age. Ordering Physician: Stefan Lofton Performed By: Darleen Parham RCS D/C Instructions Discharge Diet: No restrictions Weight Bearing Status: Full weight bearing Meaningful Use Info Meaningful Use Diagnoses (Choose all that apply): None applicable Discharge Plan Admission Admit Date/Time: 10/22/21 02:00 Primary Reason for Your Visit: parathesias of the legs Attending Provider: Fitz Doran Primary Care Provider: Mak Quezada Consulting Providers: Stefan Lofton Discharge Orders/Prescriptions Prescriptions: New citalopram 10 mg Tablet 10 mg PO DAILY Qty: 0 0RF Continued esomeprazole magnesium [Nexium] 40 mg capsule,delayed release(DR/EC) 40 mg PO DAILY sumatriptan succinate 50 MG tablet 50 mg PO PRN PRN (Reason: Headache) buspirone 5 mg tablet 5 mg PO DAILY famotidine 20 mg tablet 20 mg PO BID Label Comments: TAKE 1 TABLET BY MOUTH TWICE A DAY naproxen sodium 220 mg Tablet 220 mg PO Q8H PRN (Reason: Pain) bupropion HCl 150 mg tablet extended release 24 hr 150 mg PO DAILY Label Comments: TAKE 1 TABLET BY MOUTH EVERY DAY desvenlafaxine succinate 25 mg tablet extended release 24 hr 25 mg PO DAILY Label Comments: TAKE 1 TABLET BY MOUTH EVERY DAY Discontinued citalopram [Celexa] 10 mg tablet 20 mg PO QDAY Referrals / Follow Up: Mak Quezada MD [Primary Care Provider] - In 1 Week Disposition Disposition (needs filled in before D/C Order can be placed): Home, Self Care Charges/Coding Visit Charges OBSV E&M: 54651 Observation care discharge
== END 2021-10-22 15:43 | disposition home or self-care (01) ==
LOC: ED 01:39 → PCU 02:59
PROVIDERS: Admitting Provider Hospitalist; Emergency Provider Emergency Medicine; PCP Family Medicine; Visit Provider Internal Medicine
DX: R20.2 Paresthesia of skin (principal); R47.01 Aphasia; M47.812 Spondylosis without myelopathy or radiculopathy, cervical region; M62.838 Other muscle spasm; D64.9 Anemia, unspecified; F41.9 Anxiety disorder, unspecified; Z79.899 Other long term (current) drug therapy; K21.9 Gastro-esophageal reflux disease without esophagitis; E83.51 Hypocalcemia; I10 Essential (primary) hypertension; R53.1 Weakness; R41.82 Altered mental status, unspecified; R29.701 NIHSS score 1
CPT/HCPCS: 36415; 70450; 70496; 70498; 70551; 71045; 80048; 80053; 80061; 82077; 82962; 83036; 83605; 84146; 84484; 85025; 85610; 85730; 92610; 93005; 93306; 94762; 97161; 97166; 99218; 99285; Q9957; A4216; C8929; G0378

== ENCOUNTER → 2021-11-01 | Outpatient (CLI) | payer BC, SELFPAY ==
--- NOTE | 2021-11-01 | VUL_PTH ---
PATIENT: JUVENAL AMARO LOC: [facility] U#:[id number] AGE/SX: 51/F ROOM: RE11/01/[address]: Dr. Sandra Kemp MD : 1970 BED: DIS: 11/01/2021 SPEC #: [id number] RECD: 11/01/21 10:18 STATUS: ANDREA REElias #: [id number] CAMPBELL: 11/01/21 00:[address]: Sandar Kemp DEPT: SURGICAL PATHOLOGY RECD BY: Celena Hayden ENTERED: 11/01/21 11:58 SP TYPE: VULVA BX OTHR DR: Dr. Mak Quezada MD Tissues: Vulva, NOS Procedures: Surgery Specimen Level IV HEADER OPERATION: Vulvar biopsy PRE-OP DIAGNOSIS: Vulvar lesion TISSUE SUBMITTED: Vulva MICROSCOPIC DIAGNOSIS Vulvar lesion, biopsy: Acanthosis, extensive hyperkeratosis and parakeratosis. Negative for dysplasia/malignancy. See comment. SJ:marion 11/02/2021 COMMENT Clinical correlation and appropriate follow up are necessary. MICROSCOPIC DESCRIPTION Slides are reviewed. GROSS DESCRIPTION Received is one container labeled with the patient's name and not further designated. The specimen consists of a piece of zayas-white skin measuring 0.3 x 0.3 x 0.1 cm. The specimen is totally submitted in one cassette. / MELISSA:marion 11/01/2021 TC:5 CPT: 31911
[2021-11-05 17:19] LABS: HPV APTIMA, High Risk Negative (Negative)
== END | disposition home or self-care (01) ==
LOC: LABSPEC 11-08 12:30
PROVIDERS: PCP Family Medicine; Visit Provider Obstetrics & Gynecology
DX: Z12.4 Encounter for screening for malignant neoplasm of cervix (principal); N76.89 Other specified inflammation of vagina and vulva
CPT/HCPCS: 87624; 88175; 88305; G0145

== ENCOUNTER → 2021-11-13 | Outpatient (CLI) | payer BC, SELFPAY ==
--- NOTE | 2021-11-13 08:26 | BI_ITS ---
MAMMOGRAPHY - BILATERAL SCREENING REASON FOR EXAM: Female, 51 years old. Routine annual screening examination. PERTINENT HISTORY: Aunt with breast cancer. TECHNIQUE: Digital bilateral breast daniel (3D mammographic acquisition) in the CC and MLO projections. 2-D mediolateral oblique (MLO) and craniocaudad (CC) views of both breasts were obtained. CAD: Full Field Digital Mammography with Computer Added Detection was performed. COMPARISON: Comparison is made with prior study dated 11/10/2020 and 02/15/2020. FINDINGS: Breast Composition: The breasts are extremely dense, which lowers the sensitivity of mammography. There are no dominant masses or suspicious calcifications. Stable bilateral scattered calcifications No other significant abnormalities are identified. There has been no significant change since the prior study. BI/SCRN MAMM (CAD)W/DANIEL BILAT IMPRESSION: Stable bilateral screening mammogram. Yearly follow-up mammogram recommended. (A) ASSESSMENT CATEGORY: BIRADS Category 2: Benign. A letter regarding these results will be sent to the patient by the facility within 30 days. Approximately 10% of breast cancers are not detected by mammography. A normal mammogram should not delay biopsy of a clinically suspicious abnormality. [id number] Electronically Signed: Avery Figueroa MD at 9:41 EDT ,
== END | disposition home or self-care (01) ==
LOC: OPBI 08:24
PROVIDERS: PCP Family Medicine; Visit Provider Obstetrics & Gynecology
DX: Z12.31 Encounter for screening mammogram for malignant neoplasm of breast (principal)
CPT/HCPCS: 77063; 77067

== ENCOUNTER 2024-12-29 21:35 | Observation (INO) | payer BC, SELFPAY ==
[2024-12-29 21:35] VITALS: BP 109/68; PULSE 90; RESP 14; TEMP 36.8; O2SAT 94; BMI 27.1
[2024-12-29 22:09] LABS: Hematocrit 38.3 % (37-47); Hemoglobin 13.2 g/dL (12.0-15.0); Immature Granulocytes Count 0.050 X10^3/uL (0.0-0.0); Mean Corp Hgb Conc 34.5 g/dL (32-36); Mean Corpuscular Volume 92.1 fL (81-99); Mean Platelet Vol. 9.9 fl (6.2-12.0); NRBC Flagged by Analyzer 0 % (0-5); Platelet Count 385 K/mm3 (150-450); RBC Distribution Width CV 12.4 % (11.6-14.6); RBC Distribution Width SD 41.6 fl (35.1-43.9); Red Blood Count 4.16 M/mm3 (4.2-5.4); White Blood Count 14.9 K/mm3 (4.4-11.0)
[2024-12-29 22:17] LABS: AST(SGOT) 12 U/L (<=31); Alanine Aminotransfer ALT/SGPT 14 U/L (<=34); Albumin, Serum 4.3 g/dL (3.5-5.0); Alkaline Phosphatase 55 U/L (35-104); Anion Gap 15 (5-15); BUN 10 mg/dL (4-19); BUN/Creat Ratio 11.5 RATIO (10-20); Calcium,Total 9.7 mg/dL (7.6-11.0); Carbon Dioxide 20.8 mmol/L (21.0-32.0); Chloride 101 mmol/L (98-108); Estimated Creatinine Clearance 75.36 ml/min (50-250); Globulin 3.2 g/dL (2.2-4.2); Glucose 131 mg/dL (70-99); Lipase 11 U/L (13-75); Potassium 4.2 mmol/L (3.3-5.1)
[2024-12-29 22:23] LABS: Internal QC Validated? YES +Cl - CLEAR BKGD; Pregnancy, Serum, hCG Quali. NEGATIVE Negative; Record Kit Lot#, Serum Preg. 962302
[2024-12-29] MEDS: 0.9% Normal Saline (1000mL) 1,000 ML 999 ML IV (22:35)
--- OUTSIDE RECORDS SUMMARY | 2024-12-29 22:37 | XMS RPT_ITS | CCD ---
Author Organization [facility] Care Team Providers Care Pencil Sorter Name Role Phone Mak Luevano MD Primary Care Provider Dr. Mak Luevano Primary Care Provider Dr. Nolan Crook Emergency Provider Dr. Stefan Lofton Admit Provider Dr. Stefan Lofton Attending Provider Dr. Stefan Lofton Other Provider Dr. Vince Chacon Attending Provider Dr. Mak Luevano Referring Provider Dr. Sandra Kemp Attending Provider Mak Luevano MD Primary Care Provider Mak Luevano MD Primary Care Provider Mak Luevano MD Primary Care Provider Mak Luevano MD Primary Care Provider Mak Luevano Primary Care Unavailable Judah Martínez Attending Unavailable Mak Luevano Referring Unavailable Judah Martínez Attending Unavailable Mak Luevano Referring Unavailable Mak Luevano Primary Care Unavailable Sandra Kemp Attending Unavailable Mak Luevano Referring Unavailable Mak Luevano Primary Care Unavailable Mak Luevano Primary Care Unavailable Judah Martínez Referring Unavailable Judah Martínez Attending Unavailable Hajody 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.DIRECTOR STATE [facility]ARMAC[facility], Dee Unavailable Suppan 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.DIRECTOR STATE PHARMACY, Elsie A Unavailable Suppan 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.DIRECTOR STATE PHARMACY, Elsie A Unavailable MAK LUEVANO Primary Care Unavailable YULIET KRUSE Referring Unavailable DEE SEAMAN Referring Unavailable YULIET KRUSE Attending Unavailable MAK LUEVANO Primary Care Unavailable DEE SEAMAN Attending Unavailable MAK LUEVANO Primary Care Unavailable MAK LUEVANO Primary Care Unavailable YULIET KRUSE Referring Unavailable Medications Current Medications Medication Drug Class(es) Dates Sig (Normalized) Sig (Original) acetaminophen 500 mg oral tablet (20 sources) acetaminophen (TYLENOL ORAL) Take 500 mg by mouth as needed. Active Comment on above: Take 500 mg by mouth as needed. amoxicillin 875 mg oral tablet (5 sources) Penicillin-class Antibacterial Start: 08-15-2021 End: 08-25-2021 take 1 tablet by mouth twice daily amoxicillin (AMOXIL) 875 mg tablet Indications: Acute sinusitis, recurrence not specified, unspecified location Take 1 tablet by mouth twice daily for 10 days. 20 tablet 0 08/15/2021 08/25/2021 Active Comment on above: Take 1 tablet by nargis th twice daily for 10 days. busPIRone hydrochloride 5 mg oral tablet (11 sources) Start: 10-22-2021 End: 11-01-2021 take 5 mg by mouth once daily Buspirone Active 5 MG PO DAILY October 22, 2021 12:20am Start: 10-01-2021 End: 01-29-2022 take 1 tablet by mouth three times daily busPIRone (BUSPAR) 5 mg tablet Take 1 tablet by mouth three times daily. 30 tablet 2 10/01/2021 01/29/2022 Discontinued Comment on above: Take 1 tablet by nargis three times daily. citalopram 10 mg oral tablet (20 sources) Serotonin Reuptake Inhibitor Start: 10-22-2021 End: 11-01-2021 take 10 mg by mouth once daily Citalopram Active 10 MG PO DAILY 0 October 22, 2021 3:40pm Start: 02-19-2021 End: 01-29-2022 take 1 tablet by mouth once daily citalopram (CELEXA) 20 mg tablet Take 1 tablet by mouth once daily. 90 tablet 3 02/19/2021 01/29/2022 Discontinued Start: 01-27-2018 End: 10-22-2021 take 2 tablets by mouth once daily Citalopram (Celexa) 10 mg tablet Discontinued 20 MG PO daily January 27, 2018 1:20pm October 22, 2021 3:42pm Start: 06-20-2017 End: 01-27-2018 take 1 tablet by mouth once daily Citalopram (Celexa) 10 mg tablet Discontinued 10 MG PO daily June 20, 2017 11:54am January 27, 2018 1:20pm Comment on above: Take 1 tablet by nargis th once daily. CPAP (17 sources) Start: 07-02-2023 CPAP Indications: JOSE (obstructive sleep apnea) Initiate Auto PAP @ 5-20 cm of water with humidification. Mask (per patient preference) optional chin strap (if indicated) , filters, tubing, humidifier and lifetime supplies. 1 Each 07/02/2023 Active Start: 07-02-2023 CPAP Indicatio ns: JOSE (obstructive sleep apnea) Initiate Auto PAP @ 5-20 cm of water with humidification. Mask (per patient preference) optional chin strap (if indicated) , filters, tubing, humidifier and lifetime supplies. 1 Each 0 07/02/2023 Active Comment on above: Initiate Auto PAP @ 5-20 cm of water with humidification. Mask (per patient preference) optional chin strap (if indicated) , filters, tubing, humidifier and lifetime supplies. CPAP/BIPAP/OTHER (6 sources) Start: 03-15-2024 End: 07-31-2051 CPAP/BIPAP/OTHER autoCPAP 5-10 cmH2O DME DASCO 1 Each 03/15/2024 07/31/2051 Active Start: 04-18-2023 End: 07-02-2023 CPAP/BIPAP/OTHER Indications : JOSE (obstructive sleep apnea) Type .CPAPSettings into a note to see current settings/supplies/DME information. 1 Each 0 04/18/2023 07/02/2023 Discontinued Comment on above: Type .CPAPSettings i nto a note to see current settings/supplies/DME information. 24 hr desvenlafaxine succinate 50 mg extended release oral tablet (20 sources) Serotonin and Norepinephrine Reuptake Inhibitor Start: 2021 End: 2023 take 1 tablet by mouth once daily desvenlafaxine ER (PRISTIQ) 50 mg 24 hr tablet Indications: Anxiety Take 1 tablet by mouth once daily. 90 tablet 3 03/15/2024 Active Start: 10-01-2021 End: 01-29-2022 take 1 tablet by mouth once daily desvenlafaxine ER (PRISTIQ) 25 mg 24 hr tablet Take 1 tablet by mouth once daily. 30 tablet 2 10/01/2021 12/31/2021 Discontinued Comment on above: Take 1 tablet by nargis th once daily. doxycycline hyclate 100 mg oral tablet (1 source) Tetracycline-class Drug Start: 3 End: 3 take 1 tablet by mouth twice daily doxycycline (VIBRA-TABS) 100 mg tablet Indications: Sinobronchitis Take 1 tablet by mouth twice daily for 10 days. 20 tablet 0 07/05/2022 07/15/2022 Active Comment on above: Take 1 tablet by nargis th twice daily for 10 days. esomeprazole 40 mg delayed release oral capsule (3 sources) Proton Pump Inhibitor Start: 1 take 1 capsule by mouth once daily Esomeprazole Magnesium (Nexium) 40 mg capsule,delayed release(DR/EC) Active 40 MG PO DAILY October 30, 2020 3:07pm estradiol 1 mg oral tablet (20 sources) Estrogen Start: 4 End: 5 take 1.5 tablets by mouth once daily estradiol (ESTRACE) 1 mg tablet Take 1.5 tablets by mouth once daily. 135 tablet 1 11/20/2023 Active Start: 07-05-2022 take 3 tablets by mo uth once daily Estradiol (ESTRACE) 0.5 mg tablet Take 3 tablets by mouth once daily. 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 180 tablet 5 03/15/2024 Active Comment on above: Take 1 tablet by nargis th twice daily. Take 1 tablet by nargis th two times a day. naproxen sodium 220 mg oral tablet (3 sources) Nonsteroidal Anti-inflammatory Drug Start: 10-23-19 End: 11-02-19 take 220 mg by mouth every eight hours Naproxen Sodium Active 220 MG PO Q8H October 22, 2021 12:21am omeprazole 40 mg delayed release oral capsule (20 sources) Proton Pump Inhibitor Start: 02-20-20 End: 03-15-20 take 1 capsule by mouth twice daily omeprazole (PRILOSEC) 40 mg capsule Indications: Gastroesophageal reflux disease with esophagitis Take 1 capsule by mouth two times a day. 180 capsule 5 03/15/2024 Active Comment on above: Take 1 capsule by mo uth twice daily. Take 1 capsule by mo uth two times a day. SUMAtriptan 50 mg oral tablet (20 sources) Serotonin-1b and Serotonin-1d Receptor Agonist Start: 07-15-19 End: 03-15-20 take 1 tablet by mouth every two hours SUMAtriptan (IMITREX) 50 mg tablet Indications: Migraine without status migrainosus, not intractable, unspecified migraine type TAKE 1 TABLET BY MOUTH. START AT ONSET OF HEADACHE. MAY REPEAT DOSE AFTER 2 HOURS. 9 tablet 11 03/15/2024 Active Start: 07-28-2015 End: 06-03-2022 take 1 tablet by mouth every two hours SUMAtriptan (IMITREX) 50 mg tablet Indications: Migraine without status migrainosus, not intractable, unspecified migraine type TAKE 1 TABLET BY MOUTH. START AT ONSET OF HEADACHE. MAY REPEAT DOSE AFTER 2 HOURS. 9 tablet 11 04/17/2021 06/03/2022 Discontinued Comment on above: TAKE 1 TABLET BY NARGIS TH. START AT ONSET OF HEADACHE. MAY REPEAT DOSE AFTER 2 HOURS. Completed/Discontinued Medications Medication Drug Class(es) Dates Sig (Normalized) Sig (Original) benzonatate 100 mg oral capsule (4 sources) Non-narcotic Antitussive Start: 07-05-2022 End: 03-10-2023 take 1 capsule by mouth three times daily as needed for cough benzonatate (TESSALON PERLES) 100 mg capsule Indications: Acute cough , Sinobronchitis Take 1 capsule by mouth three times daily as needed for cough. 20 capsule 1 07/05/2022 03/10/2023 Discontinued Comment on above: Take 1 capsule by mo [facility] three times daily as needed for cough. 24 hr buPROPion hydrochloride 150 mg extended release oral tablet (13 sources) Aminoketone Start: 08-15-2021 End: 08-15-2022 take 1 tablet by mouth once daily buPROPion XL (WELLBUTRIN XL) 150 mg 24 hr tablet Indications: Anxiety , Fatigue, unspecified type Take 1 tablet by mouth once daily. 30 tablet 11 08/15/2021 10/25/2021 Discontinued (Discontinued by another Health Care Provider) Comment on above: Take 1 tablet by nargis once daily. cimetidine 200 mg oral tablet (3 sources) Histamine-2 Receptor Antagonist Start: 06-20-2017 End: 10-30-2020 take 200 mg by mouth once Cimetidine Discontinued 200 MG PO ONCE June 20, 2017 11:55am October 30, 2020 3:07pm fluconazole 150 mg oral tablet (3 sources) Azole Antifungal Start: 01-27-2018 End: 10-19-2019 Fluconazole Discontinued 150 MG PO .COMPLEX 2 January 27, 2018 3:51pm October 19, 2019 2:57pm 150 mg PO take one po now and repeat in 3 days ibuprofen 400 mg oral tablet (20 sources) Nonsteroidal Anti-inflammatory Drug Start: 07-28-2015 End: 10-30-2020 take 400 mg by mouth every four hours as needed Ibuprofen Discontinued 400 MG PO EVERY 4 HOURS NEEDED July 28, 2015 10:22am October 30, 2020 3:07pm take 1 tablet by nargis every six hours as needed ibuprofen (ADVIL) 200 mg tablet Take 200 mg by mouth every 6 hours as needed. Active Comment on above: Take 200 mg by mouth every 6 hours as needed. IBUPROFEN/DIPHENHYDRAM INE CIT (ADVIL PM ORAL) (7 sources) End: 10-01-2021 IBUPROFEN/DIPHENHYDRAMINE CIT (ADVIL PM ORAL) Take by mouth once daily. 0 10/01/2021 Discontinued (Discontinued by Patient) IBUPROFEN/DIPHEN HYDRAMINE CIT (ADVIL PM ORAL) Take by mouth once daily. 0 Active Comment on above: Take by mouth once d aily. pantoprazole 40 mg delayed release oral tablet (3 sources) Proton Pump Inhibitor Start: 6 End: 1 take 40 mg by mouth once daily Pantoprazole Discontinued 40 MG PO DAILY July 28, 2015 10:22am October 30, 2020 3:07pm polyethylene glycol 3350 47290 mg powder for oral solution (20 sources) Osmotic Laxative Start: 8 End: 1 Polyethylene Glycol 3350 (Miralax) 17 gram/dose powder Discontinued 17 GM PO Q10M June 20, 2017 11:54am October 30, 2020 3:07pm Comment on above: Take 17 g by mouth o nce daily. Take 17 g by mouth a s needed. 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] Onset: 4 08-13-2013 Chronic Deficiency and other anemia (1 source) Anemia; Translations: [Anemia, unspecified] Episodic Disorders of lipid metabolism (2 sources) Hypertriglyceridemia; Translations: [Pure hyperglyceridemia] Onset: 4 03-15-2024 Chronic Disorders of teeth and jaw (4 sources) Temporomandibular joint disorder; Translations: [Unspecified temporomandibular joint disorder, unspecified side] Episodic Esophageal disorders (20 sources) Gastroesophageal reflux disease; Translations: [Gastro-esophageal reflux disease without esophagitis] Onset: 0 05-03-2010 Chronic Headache; including migraine (20 sources) Migraine; Translations: [Migraine, unspecified, not intractable, without status migrainosus] Onset: 0 05-03-2010 Chronic Immunizations and screening for infectious disease (1 source) Patient encounter status; Translations: [Encounter for immunization] 03-10-2023 Episodic Malaise and fatigue (1 source) Fatigue; Translations: [Other fatigue] Episodic Miscellaneous mental health disorders (1 source) Psychologic conversion disorder; Translations: [Dissociative and conversion disorder, unspecified] Chronic Other connective tissue disease (1 source) Plantar fasciitis; Translations: [Plantar fascial fibromatosis] Episodic Other connective tissue disease (2 sources) Pain of left heel; Translations: [Pain in left foot] Episodic Other connective tissue disease (3 sources) Neurological symptom; Translations: [Unspecified symptoms and signs involving the nervous system] Episodic Other connective tissue disease (3 sources) Unspecified symptoms and signs involving the nervous system; Translations: [Other symptoms involving nervous and musculoskeletal systems] Episodic Other connective tissue disease (2 sources) Spasm; Translations: [Other muscle spasm] Episodic Other connective tissue disease (2 sources) Other muscle spasm; Translations: [Spasm of muscle] Episodic Other connective tissue disease (1 source) Diastasis recti; Translations: [Separation of muscle (nontraumatic), other site] Episodic Other eye disorders (20 sources) Exophthalmos; 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] Onset: 1 01-24-2021 Chronic Other gastrointestinal disorders (3 sources) Finding of measures of abdomen; Translations: [Other specified symptoms and signs involving the digestive system and abdomen] Episodic Other lower respiratory disease (1 source) Cough; Translations: [Acute cough] Episodic Other nervous system disorders (2 sources) Aphasia; Translations: [Aphasia] Chronic Other nervous system disorders (2 sources) Aphasia; Translations: [Aphasia] Chronic Other nutritional; endocrine; and metabolic disorders (1 source) Body mass index 30+ - obesity; Translations: [Body mass index (BMI) 30.0-30.9, adult] Chronic Other skin disorders (3 sources) H/O: breast problem; Translations: [Personal history of diseases of the skin and subcutaneous tissue] Episodic Other upper respiratory disease (20 sources) Allergic rhinitis; Translations: [Allergic rhinitis, unspecified] Onset: 2 11-01-2011 Chronic Other upper respiratory infections (1 source) Chronic sinusitis; Translations: [Chronic sinusitis, unspecified] Chronic Other upper respiratory infections (1 source) Acute sinusitis; Translations: [Acute sinusitis, unspecified] Episodic Otitis media and related conditions (1 source) Dysfunction of bilateral eustachian tubes; Translations: [Other specified disorders of Eustachian tube, bilateral] Episodic Residual codes; unclassified (4 sources) Obstructive sleep apnea syndrome; Translations: [Obstructive sleep apnea (adult) (pediatric)] 03-10-2023 Chronic Residual codes; unclassified (3 sources) Hypersomnia; Translations: [Hypersomnia, unspecified] 03-15-2024 Chronic Residual codes; unclassified (1 source) Hypersomnia, unspecified; Translations: [Hypersomnia] Onset: 4 Chronic Residual codes; unclassified (1 source) Obstructive sleep apnea (adult) (pediatric); Translations: [JOSE (obstructive sleep apnea)] Onset: 4 Chronic Thyroid disorders (20 sources) Graves' disease; Translations: [Thyrotoxicosis with diffuse goiter without thyrotoxic crisis or storm] Onset: 0 01-24-2021 Chronic Viral infection (3 sources) Disease caused by 2019-nCoV; Translations: [COVID-19] Episodic Past or Other Problems Problem Classification Problem Date Documented Da te Episodic/Chronic Anal and rectal conditions (17 sources) Anal fissure; Translations: [Anal fissure, unspecified] Onset: 06-26-2012 Resolved: 02-20-2017 02-20-2017 Episodic Esophageal disorders (17 sources) Esophagitis; Translations: [Esophagitis, unspecified] Onset: 07-03-2012 Resolved: 01-06-2019 01-06-2019 Episodic Hemorrhoids (17 sources) Hemorrhoids; Translations: [Unspecified hemorrhoids] Onset: 06-26-2012 Resolved: 01-06-2019 01-06-2019 Episodic Nonmalignant breast conditions (17 sources) Breast lump; Translations: [Unspecified lump in unspecified breast] Onset: 07-25-2017 Resolved: 01-06-2019 01-06-2019 Episodic Other and unspecified benign neoplasm (20 sources) Benign neoplasm of stomach; Translations: [Benign neoplasm of stomach] Onset: 07-03-2012 07-03-2012 Episodic Other connective tissue disease (17 sources) Tendinitis of hand; Translations: [Other enthesopathies, not elsewhere classified] Onset: 12-24-2013 Resolved: 01-06-2019 01-06-2019 Episodic Other connective tissue disease (17 sources) Impingement syndrome of left shoulder region; Translations: [Impingement syndrome of left shoulder] Onset: 09-18-2019 Resolved: 01-24-2021 01-24-2021 Episodic Other eye disorders (17 sources) Pain of left eye; Translations: [Ocular pain, left eye] Onset: 09-18-2019 Resolved: 01-24-2021 01-24-2021 Episodic Other gastrointestinal disorders (17 sources) Chronic constipation; Translations: [Other constipation] Onset: 06-26-2012 Resolved: 01-06-2019 01-06-2019 Episodic Other nervous system disorders (17 sources) Carpal tunnel syndrome of left wrist; Translations: [Carpal tunnel syndrome, left upper limb] Onset: 12-24-2013 Resolved: 01-06-2019 01-06-2019 Chronic Other screening for suspected conditions (not mental disorders or infectious disease) (12 sources) Abnormal cervical Papanicolaou smear; Translations: [Unspecified abnormal cytological findings in specimens from cervix uteri] Onset: 03-15-2024 Episodic Residual codes; unclassified (20 sources) Family history of cancer of colon; Translations: [Family history of malignant neoplasm of digestive organs] Onset: 10-31-2017 10-31-2017 Episodic Spondylosis; intervertebral disc disorders; other back problems (20 sources) Cervical radiculopathy; Translations: [Radiculopathy, cervical region] Onset: 09-18-2019 09-18-2019 Episodic Sprains and strains (17 sources) Strain of neck muscle; Translations: [Strain of muscle, fascia and tendon at neck level, initial encounter] Onset: 09-18-2019 Resolved: 01-24-2021 01-24-2021 Episodic Unclassified (3 sources) GERDS Unclassified (3 sources) hx of cyst aspirartion Unclassified (3 sources) uterine ablation Unclassified (1 source) Patient encounter status 09-21-2024 Results Test Name Value Interpretation Reference Range Facility [facility] 06-24-2024 CNPN Telephone (SLEWST) JUVENAL AMARO ([id number]) 1970 F NFR Date Time Provider Department 06/24/24 YULIET KRUSE During your visit today, we recorded the following information about you: Yuliet Kruse APRN.ANIBAL 06/24/2024 3:20 PM Signed ----- Message from Gloria Nunez sent at 06/24/2024 3:15 PM EST ----- Regarding: actigraphy Hi, This patient already completed an actigraphy but rescheduled her PSG/MSLT. Do you want her to repeat again? If so, we will need a new order. Thanks, Yuliet Montelongo APRN.CNP 06/24/2024 3:23 PM Signed Actigraphy ordered, she will be able to get at least a week before the MSLT Yuliet Kruse APRN.CNP Allergies As of Date: 06/24/2024 (No Known Allergies) Date Reviewed: 03/15/2024 Reviewed by: Yuliet Kruse APRN.CNP - Fully Assessed Primary Visit Diagnosis:Hypersomnia [G47.10] Order(s):ACTIGRAPHY TESTING [[id number]] Order #: [id number] FUTURE Prescriptions as of 06/24/2024 - omeprazole (PRILOSEC) 40 mg capsule Take 1 capsule by mouth two times a day. - famotidine (PEPCID) 20 mg tablet Take 1 tablet by mouth two times a day. - desvenlafaxine ER (PRISTIQ) 50 mg 24 hr tablet Take 1 tablet by mouth once daily. - SUMAtriptan (IMITREX) 50 mg tablet TAKE 1 TABLET BY MOUTH. START AT ONSET OF HEADACHE. MAY REPEAT DOSE AFTER 2 HOURS. - CPAP/BIPAP/OTHER autoCPAP 5-10 cmH2O DME DASCO - estradiol (ESTRACE) 1 mg tablet Take 1.5 tablets by mouth once daily. - CPAP Initiate Auto PAP @ 5-20 cm of water with humidification. Mask (per patient preference) optional chin strap (if indicated) , filters, tubing, humidifier and lifetime supplies. - acetaminophen (TYLENOL ORAL) Take 500 mg by mouth as needed. - ibuprofen (ADVIL) 200 mg tablet Take 200 mg by mouth every 6 hours as needed. - polyethylene glycol 3350 (MIRALAX, GLYCOLAX) 17 gram packet Take 17 g by mouth as needed. Meds Comments as of 01/24/2021: OTC use of Melatonin. Occasional Tylenol/Ibuprofen Problem List As Of Date 06/24/2024 Noted Resolved Migraine headache [G43.909] 05/03/2010 GERD (gastroesophageal reflux disease) [K21.9] 05/03/2010 Allergic rhinitis [J30.9] 11/01/2011 Hemorrhoids [K64.9] 06/26/2012 01/06/2019 Perineal fissure [K60.2] 06/26/2012 02/20/2017 Constipation, chronic [K59.09] 06/26/2012 01/06/2019 Benign neoplasm of stomach [D13.1] 07/03/2012 Esophagitis, unspecified [K20.90] 07/03/2012 01/06/2019 BRIAN III (vulvar intraepithelial neoplasia III) *08/13/2013 Carpal tunnel syndrome of left wrist [G56.02] 12/24/2013 01/06/2019 Tendinitis of thumb [M77.8] 12/24/2013 01/06/2019 Anxiety [F41.9] 07/25/2017 Breast lump [N63.0] 07/25/2017 01/06/2019 Family history of colon cancer [Z80.0] 10/31/2017 Eye pain, left [H57.12] 09/18/2019 01/24/2021 Cervical radiculopathy [M54.12] 09/18/2019 Cervical strain [S16.1XXA] 09/18/2019 01/24/2021 Shoulder impingement syndrome, left [M75.42] 09/18/2019 01/24/2021 New daily persistent headache [G44.52] 09/18/2019 Graves disease [E05.00] 04/04/2020 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 [facility] Comment on above: Performed By: #### L [id number] #### [facility] [address] [place], [place], [id number] QFT NIL VALUE 0.02 IU/mL Normal . [facility] Comment on above: Performed By: #### L [id number] #### [facility] [address] [place], [place], [id number] QFT TB GOLD+ Comment Normal . [facility] Comment on above: Result Comment: Cole tiFERON-TB Gold Plus is a qualitative indirect test for M tuberculosis infection (including disease) and is intended for use in conjunction with risk assessment, radiography, and other medical and diagnostic evaluations. The QuantiFERON-TB Gold Plus result is determined by subtracting the Nil value from either TB antigen (Ag) value. The Mitogen tube serves as a control for the test. Performed By: #### L [id number] #### [facility] [address] [place], [address] (738 QFT TB POS CRIT Negative Normal Negative [facility] Comment on above: Result Comment: No r esponse to M tuberculosis antigens detected. Infection with M tuberculosis is unlikely, but high risk individuals should be considered for additional testing (ATS/IDSA/CDC Clinical Practice Guidelines, 2017). The reference range is an Antigen minus Nil result of <0.35 IU/mL. The specimen received for QuantiFERON testing was incubated by the ordering institution. Specific procedures outlined in our Directory of Services and in the package insert for the QuantiFERON Gold (In Tube) test must be followed to enable for proper stimulation of cells for the production of interferon gamma. Chemiluminescence immunoassay methodology Performed at: [facility] [id number] Critical Power Install Technician: Carrington Osman PhD, Phone: [phone] Performed By: #### L [id number] #### [facility] [address] [place], [place], [id number] ([address] QFT TB1+ AG BERHANE 0.04 IU/mL Normal . [facility] [facility] Comment on above: Performed By: #### L 3400.8000 #### [facility] [address] [place], [place], [address] QFT TB2+ AG BERHANE 0.09 IU/mL Normal . [facility] Comment on above: Performed By: #### L 3400.8000 #### [facility] [address] [place], [address] Office Visit Reporton 2023 Office Visit Report [facility] [address] [place] [address] OFFICE VISIT Date of Service: 04/05/24 MR#: [id number] Acct: [id number] Patient: JUVENAL AMARO Rep #: [id number] : 1970 Provider: BRENDAN Rush Age/Sex: 53/F Location: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 average risk for developing breast cancer - guidelines that are based on both evidence and opinion, yet differ on when to start and how often to screen for breast cancer. With representation from Breast Imaging, Internal Medicine, Women's Health, Family Medicine, and Medical/Surgical Oncology, the [facility] has carefully reviewed the data and reached the following consensus: 1) All women should engage in shared decision-making with their providers to decide when to start and how often to screen; 2) All women should have the opportunity to start screening mammography at age 40; 3) For women ages 45-55, we recommend annual screening mammograms; 4) For women ages 55 and over, we support both the transition from an annual to a biennial interval if this aligns more with patient's values and preferences, or continuation with annual screening; 5) All women should discuss with their providers when to stop screening mammograms. Copier Technician: Deangelo Transcribe Date/Time: Oct 22 2023 9:11A Dictated by : ANTWAN ALCALA MD This examination was interpreted and the report reviewed and electronically signed by: ANTWAN ALCALA MD on Oct 22 2023 9:19AM EST DIVISION OF RADIOLOGY * * *Final Report* * * DATE OF EXAM: Oct 22 2023 9:11AM [facility] [id number] - [facility] US BREAST LTD RT / PROCEDURE REASON: Inconclusive mammogram * * * * Physician Interpretation * * * * #[id number] - [facility] BREAST [facility] RT LIMITED ULTRASOUND OF RIGHT BREAST: 10/22/2023 HISTORY: Inconclusive Mammogram. RESULT: Comparison is made to exams dated: 10/22/2023 mammogram, 04/15/2023 mammogram, and 04/15/2023 [facility]. Color flow and real-time ultrasound of the right breast 4 o'clock region were performed. Aponte scale images of the real-time examination were reviewed. There is a 0.7 cm x 0.3 cm x 0.6 cm lobulated cyst with a septated internal wall in the right breast at 4 o'clock posterior depth 4 cm from the nipple. This lobulated cyst is hypoechoic with internal echoes and posterior acoustic enhancement. This abnormality is not significantly changed. Color flow imaging demonstrates that there is no vascularity present. DIVISION OF RADIOLOGY Provider, [facility] - 10/22/2023 * * *Final Report* * * DATE OF EXAM: Oct 22 2023 9:11AM [facility] 0594 - [facility] manetch BREAST [facility] RT / PROCEDURE REASON: Inconclusive mammogram * * * * Physician Interpretation * * * * #[id number] - [facility] BREAST [facility] RT LIMITED ULTRASOUND OF RIGHT BREAST: 10/22/2023 HISTORY: Inconclusive Mammogram. RESULT: Comparison is made to exams dated: 10/22/2023 mammogram, 04/15/2023 mammogram, and 04/15/2023 [facility]. Color flow and real-time ultrasound of the right breast 4 o'clock region were performed. Aponte scale images of the real-time examination were reviewed. There is a 0.7 cm x 0.3 cm x 0.6 cm lobulated cyst with a septated internal wall in the right breast at 4 o'clock posterior depth 4 cm from the nipple. This lobulated cyst is hypoechoic with internal echoes and posterior acoustic enhancement. This abnormality is not significantly changed. Color flow imaging demonstrates that there is no vascularity present. IMPRESSION IMPRESSION: PROBABLY BENIGN - SHORT TERM INTERVAL FOLLOW-UP RECOMMENDED The 0.7 cm x 0.3 cm x 0.6 cm lobulated cyst in the right breast is consistent with a complicated cyst and is probably benign. A follow-up mammogram and an ultrasound in 6 months is recommended to demonstrate stability. Antwan oleary/deangelo:10/22/2023 09:19:58 Government Professor(s): [facility] Ultrasound BI-RADS: 3 Probably benign finding - short term interval follow-up recommended Multiple national specialty organizations have released breast cancer screening guidelines for women at average risk for developing breast cancer - guidelines that are based on both evidence and opinion, yet differ on when to start and how often to screen for breast cancer. With representation from Breast Imaging, Internal Medicine, Women's Health, Family Medicine, and Medical/Surgical Oncology, the [facility] has carefully reviewed the data and reached the following consensus: 1) All women should engage in shared decision-making with their providers to decide when to start and how often to screen; 2) All women should have the opportunity to start screening mammography at age 40; 3) For women ages 45-55, we recommend annual screening mammograms; 4) For women ages 55 and over, we support both the transition from an annual to a biennial interval if this aligns more with patient's values and preferences, or continuation with annual screening; 5) All women should discuss with their providers when to stop screening mammograms. Copier Technician: Deangelo Transcribe Date/Time: Oct 22 2023 9:11A Dictated by : ANTWAN ALCALA MD This examination was interpreted and the report reviewed and electronically signed by: ANTWAN ALCALA MD on Oct 22 2023 9:19AM EST [facility] US Breast - right limitedOrd ered By: [facility] Provider on 10-22-2023 [facility] KESHIA LEEon 12-0 [facility] Cervical or vagninal specime n microscopic examination by cytology stain (reported ason 11-01-2021 Cytology report Cyto stain Doc (Cvx/Vag) Comment . [facility] Work Phone: Comment on above: The Pap smear is a s creening test designed to aid in thedetection of premalignant and malignant conditions of theuterine cervix. It is not a diagnostic procedure andshould not be used as the sole means of detecting cervicalcancer. Both false-positive and false-negative reports dooccur. Detection in cervical specim en of any of human papilloma virus (HPV) 16, 18, 31, 33,on 11-01-2021 HPV 16+18+31+33+35+39+45 +51+52+56+58+59+66+6 8 DNA Probe+sig amp Ql (Cvx) Negative Negative [facility] Work Phone: Comment on above: This nucleic acid am plification test detects fourteen high- risk HPV types (16,18,31,33,35,39,45,51,52,56,58,59,66,68)without differentiation.Performed at: - [facility] [id number] Director: Terra Mcgovern MD, Phone: [phone] at: = - [facility] [address] [id number] Director: Terra Mcgovern MD, Phone: [phone] Laboratory - Cytologyon 10-11 [facility] Cyto stain Nom (Cvx/Vag) [ID] Comment . [facility] Work Phone: Comment on above: Mary Vazquez, Cytot echnologist (ASCP) Laboratory - Miscellaneous t estson 11-01-2021 Service comment (Unsp spec) [Interp] Comment . [facility] Work Phone: Comment on above: This liquid based Th inPrep(R) pap test was screened withthe use of an image guided system. Service comment (Unsp spec) [Interp] . . [facility] Work Phone: No Panel Informationon 11-01 Pap Smear QC Review Comment . [facility] Work Phone: Comment on above: Elias Babcock totechnologist (ASCP) Pathology report final diagnosis Narrative Comment . [facility] Work Phone: Comment on above: NEGATIVE FOR INTRAEP ITHELIAL LESION OR MALIGNANCY.THIS SPECIMEN WAS RESCREENED PART OF OUR LEAD PROGRAMMER ANALYST PROGRAM. Absolute lymphocyte counton 10-22-2021 Lymphocytes Auto (Unsp spec) [#/Vol] 2.95 10*3/uL 0.83-4.[address] [facility] Work Phone: Lymphocytes Auto (Unsp spec) [#/Vol] 2.82 10*3/uL 0.83-4.[address] [facility] Work Phone: Basophil percentageon 2021 Basophils/100 WBC (Bld) 1.1 % 0-[address] [facility] Work Phone: Bilirubin [Mass/Vol] 0.10 mg/dL 0.20-1.00 [facility] Work Phone: Comment on above: For patients on eltr ombopag therapy, use of Dimension [place] TBIL is not recommended. Chloride [Moles/Vol] 108 mmol/L 98-107 [facility] Work Phone: Cholesterol [Mass/Vol] 221 mg/dL <[address] [facility] Work Phone: Comment on above: <200 mg/dL Desirable 200-240 mg/dL Borderline >240 mg/dL High Risk Eosinophils/100 WBC (Bld) 2.4 % 0-[address] [facility] Work Phone: Glucose [Mass/Vol] 93 mg/dL 74-106 [facility] Work Phone: Neutrophils (Bld) [#/Vol] 2.4 10*3/uL 2.0-7.[address] [facility] Work Phone: Neutrophils/100 WBC (Bld) 39.2 % 47-[address] [facility] Work Phone: Potassium [Moles/Vol] 3.9 mmol/L 3.5-5.[address] [facility] Work Phone: Comment on above: Slight Hemolysis, Re sult may be falsely increased. Protein [Mass/Vol] 6.6 g/dL 6.4-8.2 [facility] Work Phone: Sodium [Moles/Vol] 139 mmol/L 136-145 [facility] Work Phone: Triglyceride [Mass/Vol] 630 mg/dL <[address] [facility] Work Phone: Comment on above: The drugs N-Acetylcy steine and Metamizole may falsely depress this assay. TRIGLYCERIDE IS GREATER THAN 400 mg/dL. LDL RESULT IS INVALID AND WILL NOT BE REPORTED.Serum Triglycerides Reference Interval Normal <150 mg/dL Borderline high 150 - 199 mg/dL High 200 - 499 mg/dL Very High > or = 500 mg/dL WBC (Bld) [#/Vol] 6.2 10*3/uL 4.4-11.0 [facility] Work Phone: Basophils/100 WBC (Bld) 1.0 % 0-[address] [facility] Work Phone: Chloride [Moles/Vol] 109 mmol/L 98-107 [facility] Work Phone: Eosinophils/100 WBC (Bld) 1.9 % 0-[address] [facility] Work Phone: Glucose [Mass/Vol] 91 mg/dL 74-106 [facility] Work Phone: Lactate [Moles/Vol] 1.7 mmol/L 0.4-2.0 [facility] Work Phone: Neutrophils (Bld) [#/Vol] 2.6 10*3/uL 2.0-7.[address] [facility] Work Phone: Neutrophils/100 WBC (Bld) 42.6 % 47-[address] [facility] Work Phone: Potassium [Moles/Vol] 3.6 mmol/L 3.5-5.[address] [facility] Work Phone: Sodium [Moles/Vol] 140 mmol/L 136-145 [facility] Work Phone: WBC (Bld) [#/Vol] 6.2 10*3/uL 4.4-11.0 [facility] Work Phone: Blood erythrocytes count (nu mber/volume)on 10-22-2021 RBC (Bld) [#/Vol] 3.44 10*6/uL 4.2-5.4 [facility] Work Phone: RBC (Bld) [#/Vol] 3.38 10*6/uL 4.2-5.4 [facility] Work Phone: Blood hemoglobin measurement (mass/volume)on 10-22-2021 Hemoglobin (Bld) [Mass/Vol] 10.3 g/dL 12.0-15.[address] [facility] Work Phone: Hemoglobin (Bld) [Mass/Vol] 10.2 g/dL 12.0-15.[address] [facility] Work Phone: Blood lymphocytes/100 leukoc yteson 10-22-2021 Lymphocytes/100 WBC (Bld) 47.7 % - [facility] Work Phone: Lymphocytes/100 WBC (Bld) 45.6 % - [facility] Work Phone: Blood manual differential co mment interpretation (narrative result)on 10-22-2021 Manual differential comment Anderson (Bld) [Interp] SCANNED [facility] Work Phone: Blood monocytes/100 leukocyt eson 10-22-2021 Monocytes/100 WBC (Bld) 9.4 % 0-[address] [facility] Work Phone: Monocytes/100 WBC (Bld) 8.7 % 0-[address] [facility] Work Phone: Blood platelet mean volumeon 10-22-2021 Platelet mean volume (Bld) [Entitic vol] 9.8 fL 6.2-12.[address] [facility] Work Phone: Platelet mean volume (Bld) [Entitic vol] 10.0 fL 6.2-12.[address] [facility] Work Phone: Determination of erythrocyte mean corpuscular volume (MCV)on 10-22-2021 MCV (RBC) [Entitic vol] 92.4 fL 81-[address] [facility] Work Phone: MCV (RBC) [Entitic vol] 92.3 fL 81-[address] [facility] Work Phone: Glucose Glucometer (BldC) [M ass/Vol]on 10-22-2021 Glucose [Mass/Vol] 104 mg/dL 74-106 [facility] Work Phone: Comment on above: MANAGEMENT OF PATIEN T CARE PER NURSING PROTOCOL Hematocrit Auto (Bld) [Volum e fraction]on 10-22-2021 Hematocrit (Bld) [Volume fraction] 31.8 % 37-[address] [facility] Work Phone: Hematocrit (Bld) [Volume fraction] 31.2 % 37-[address] [facility] Work Phone: INR in Blood by Coagulation assayon 10-22-2021 INR Coag (Bld) [Relative time] 1.0 {INR} [facility] Work Phone: Laboratory - Chemistry and C hemistry - challengeon 10-22-2021 ALP [Catalytic activity/Vol] 60 U/L 45-[address] [facility] Work Phone: ALT [Catalytic activity/Vol] 24 U/L 13-[address] [facility] Work Phone: CO2 [Moles/Vol] 24.0 mmol/L 21.0-32.[address] [facility] Work Phone: Globulin (S) [Mass/Vol] 3.2 g/dL 2.2-4.[address] [facility] Work Phone: Urea nitrogen/Creatinine [Mass ratio] 17.4 mg/mg [address] [facility] Work Phone: CO2 [Moles/Vol] 23.0 mmol/L 21.0-32.[address] [facility] Work Phone: Urea nitrogen/Creatinine [Mass ratio] 15.2 mg/mg [address] [facility] Work Phone: Laboratory - Coagulationon 0 10-22-2021 aPTT Coag (Bld) [Time] 27.0 s 24.1-36.[address] [facility] Work Phone: PT Coag (PPP) [Time] 12.7 s 11.7-14.9 [facility] Work Phone: Laboratory - Hematology and Cell countson 10-22-2021 Erythrocyte distribution width (RBC) [Entitic vol] 42.5 fL 35.1-43.[address] [facility] Work Phone: Erythrocyte distribution width (RBC) [Ratio] 12.7 % 11.6-14.[address] [facility] Work Phone: Immature granulocytes/100 WBC (Bld) 0.200 % 0.0-0.[address] [facility] Work Phone: Comment on above: IG% - Immature Granu locytes (promyelocytes, myelocytes and metamyelocytes) > 1% indicates that a LEFT SHIFT is Present. MCH (RBC) [Entitic mass] 29.9 pg 27.0-32.[address] [facility] Work Phone: Nucleated RBC/100 WBC (Bld) [Ratio] 0 % 0-[address] [facility] Work Phone: Erythrocyte distribution width (RBC) [Entitic vol] 42.5 fL 35.1-43.[address] [facility] Work Phone: Erythrocyte distribution width (RBC) [Ratio] 12.7 % 11.6-14.[address] [facility] Work Phone: Immature granulocytes/100 WBC (Bld) 0.200 % 0.0-0.[address] [facility] Work Phone: Comment on above: IG% - Immature Granu locytes (promyelocytes, myelocytes and metamyelocytes) > 1% indicates that a LEFT SHIFT is Present. MCH (RBC) [Entitic mass] 30.2 pg 27.0-32.[address] [facility] Work Phone: Nucleated RBC/100 WBC (Bld) [Ratio] 0 % 0-[address] [facility] Work Phone: MCHC Auto (RBC) [Mass/Vol]on 10-22-2021 MCHC (RBC) [Mass/Vol] 32.4 g/dL 32-[address] [facility] Work Phone: MCHC (RBC) [Mass/Vol] 32.7 g/dL - [facility] Work Phone: No Panel Informationon 10-22 Estimated Creatinine Clearance Calc 72.45 ml/min [facility] Work Phone: Estimated GFR (MDRD) Amer 89 mL/min >[address] [facility] Work Phone: Comment on above: GFR Calc Estimated GFR (MDRD) Non-Af Amer 74 mL/min >[address] [facility] Work Phone: Comment on above: Non- GFR Calc Estimated Creatinine Clearance Calc 59.34 ml/min [facility] Work Phone: Estimated GFR (MDRD) Amer 71 mL/min >[address] [facility] Work Phone: Comment on above: GFR Calc Estimated GFR (MDRD) Non-Af Amer 59 mL/min >[address] [facility] Work Phone: Comment on above: Non- GFR Calc Ethyl Alcohol Level 140.0 mg/dL [facility] Work Phone: Comment on above: The serum:whole bloo d ethanol ratio is approximately 1.14and varies slightly with hematocrit. Medical Alcohol reference interval and critical value innon-tolerant individuals; 50 - 100 Impairment 100 Intoxication 100 - 250 Severe Poisoning 250 - 400 Deep/possible fatal coma Troponin I High Sensitivity < 3 pg/mL 3.0-54.[address] [facility] Work Phone: Comment on above: Please Note: New Tara t Units and Gender Specific Reference Ranges. For more information see Policy Stat Procedure [place] High Sensitivity Troponin (TNIH) and attachments. Platelets bldon 10-22-2021 Platelets (Bld) [#/Vol] 329 10*3/uL 150-[address] [facility] Work Phone: Platelets (Bld) [#/Vol] 336 10*3/uL 150-[address] [facility] Work Phone: Serum or plasma albumin tom urement (mass/volume)on 10-22-2021 Albumin [Mass/Vol] 3.4 g/dL 3.2-5.0 [facility] Work Phone: Serum or plasma albumin/glob ulin mass ratioon 10-22-2021 Albumin/Globulin [Mass ratio] 1.1 {ratio} 0.9-2.[address] [facility] Work Phone: Serum or plasma calcium tom urement (mass/volume)on 10-22-2021 Calcium [Mass/Vol] 8.4 mg/dL 8.5-10.1 [facility] Work Phone: Calcium [Mass/Vol] 7.8 mg/dL 8.5-10.1 [facility] [place] Work Phone: Serum or plasma cholesterol in HDL measurement (mass/volume)on 10-22-2021 Cholesterol in HDL [Mass/Vol] 36 mg/dL >[address] [facility] Work Phone: Comment on above: The drugs N-Acetylcy steine and Metamizole may falsely depress this assay. Reference Range HDL <40 mg/dL Low HDL Cholesterol HDL >or= 60 mg/dL High HDL Cholesterol Serum or plasma cholesterol in VLDL measurement (mass/volume)on 10-22-2021 Cholesterol in VLDL [Mass/Vol] TNP [facility] Work Phone: Comment on above: Test not performed Serum or plasma creatinine m easurement (mass/volume)on 10-22-2021 Creatinine [Mass/Vol] 0.86 mg/dL 0.55-1.[address] [facility] Work Phone: Comment on above: The validity of the calculated GFR & GFRAA in patients over 70 years has not been determined. Clinical correlation is essential. Creatinine [Mass/Vol] 1.05 mg/dL 0.55-1.[address] [facility] Work Phone: Comment on above: The validity of the calculated GFR & GFRAA in patients over 70 years has not been determined. Clinical correlation is essential. Serum or plasma low density lipoprotein (LDL) cholesterol measurement (mass/volume)on 10-22-2021 Cholesterol in LDL [Mass/Vol] TNP [facility] Work Phone: Comment on above: Test not performed Serum or plasma prolactin me asurement (mass/volume)on 10-22-2021 Prolactin [Mass/Vol] 26.7 ng/mL [facility] Work Phone: Comment on above: NORMAL REFERENCE RAN GES FEMALE NON- 2.2 - 30.3 ng/mL 8.1 - 347.6 ng/mL POST-MENOPAUSAL 0.7 - 31.5 ng/mL MALE 2.5 - 17.4 ng/mL Serum or plasma urea nitroge n measurement (mass/volume)on 10-22-2021 Urea nitrogen [Mass/Vol] 15 mg/dL 7-[address] [facility] Work Phone: Urea nitrogen [Mass/Vol] 16 mg/dL -[address] [facility] Work Phone: Thin prep Papanicolaou smear with manual screeningon 10-22-2021 Thin prep Papanicolaou smear with manual screening 20 U/L 15-[address] [facility] Work Phone: Comment on above: Slight Hemolysis, Re sult may be falsely increased. Thin prep Papanicolaou smear with manual screening 7 5-[address] [facility] Work Phone: Thin prep Papanicolaou smear with manual screening 8 5-[address] [facility] Work Phone: Whole blood hemoglobin A1c/t otal hemoglobin ratio (mass fraction)on 10-22-2021 HbA1c (Bld) [Mass fraction] 5.6 % 3.8-5.[address] [facility] Work Phone: Comment on above: Normal < 5.7 % Predi abetic 5.7 - 6.4 % Diabetic >or= 6.5 % Please note range changes. XR CALCANEUS 2V AXIAL/LAT LE FTon 10-01-2021 [facility] XR Calcaneus - left 2 Viewso n 10-01-2021 IMPRESSION: Plantar calcaneal enthesopathy. Copier Technician: MIREYA Transcribe Date/Time: Oct 01 2021 1:43P Dictated by : YUE PRASAD MD This examination was interpreted and the report reviewed and electronically signed by: YUE PRASAD MD on Oct 01 2021 1:44PM EST [facility]_DO_NOT_USE _DIVISION OF RADIOLOGY * * *Final Report* * * DATE OF EXAM: Oct 01 2021 9:57AM [facility]OX [id number] - XR CALCANEUS 2V AXIAL/LAT LT / PROCEDURE REASON: Pain of left heel * * * * Physician Interpretation * * * * CLINICAL INDICATION: Heel pain TECHNIQUE: Two-view radiographic study of the left calcaneus. COMPARISON: None FINDINGS: No acute fracture or dislocation identified. Miniscule plantar calcaneal enthesophyte. [facility]_DO_NOT_USE _DIVISION OF RADIOLOGY Provider, Elsa Padilla - 10/01/2021 * * *Final Report* * * DATE OF EXAM: Oct 01 2021 9:57AM [facility] [id number] - XR CALCANEUS 2V AXIAL/LAT LT / PROCEDURE REASON: Pain of left heel * * * * Physician Interpretation * * * * CLINICAL INDICATION: Heel pain TECHNIQUE: Two-view radiographic study of the left calcaneus. COMPARISON: None FINDINGS: No acute fracture or dislocation identified. Miniscule plantar calcaneal enthesophyte. IMPRESSION IMPRESSION: Plantar calcaneal enthesopathy. Copier Technician: MIREYA Transcribe Date/Time: Oct 01 2021 1:43P Dictated by : YUE PRASAD MD This examination was interpreted and the report reviewed and electronically signed by: YUE PRASAD MD on Oct 01 2021 1:44PM EST [facility] Radiology Study observation (narrative) [facility] XR Calcaneus - left 2 ViewsO rdered By: [facility] Provider on 10-01-2021 [facility] Vital Signs Date Time Vital Sign Value Performing Clinician Joseph sarabia 03-15-2024 15:53-0500 Body mass index (BMI) [Ratio] 29.04 kg/m2 Dee Seaman APRN.CNP Work Phone: [facility] 03-15-2024 15:53-0500 Body weight 83.92 kg Dee Seaman APRN.CNP Work Phone: [facility] 03-15-2024 15:53-0500 Diastolic blood pressure 90 mm[Hg] Dee Haagen 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 Work Phone: [facility] 03-15-2024 15:53-0500 Heart rate 76 /min Dee Haagen 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.DIRECTOR [employer] Work Phone: [facility] 03-15-2024 15:53-0500 Respiratory rate 16 /min Dee Haagen 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.DIRECTOR [employer] Work Phone: [facility] 03-15-2024 15:53-0500 SaO2% (BldA) [Mass fraction] 92 % Dee Haagen 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.DIRECTOR [employer] Work Phone: [facility] 03-15-2024 15:53-0500 Systolic blood pressure 132 mm[Hg] Dee Haagen 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.DIRECTOR [employer] Work Phone: [facility] 03-15-2024 14:29-0500 Body mass index (BMI) [Ratio] 29.2 kg/m2 Yuliet Uriah 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.DIRECTOR [employer] Work Phone: [facility] 03-15-2024 14:29-0500 Body weight 84.4 kg Yuliet Uriah 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.DIRECTOR [employer] Work Phone: [facility] 03-15-2024 14:29-0500 Diastolic blood pressure 83 mm[Hg] Yuliet Uriah 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.DIRECTOR [employer] Work Phone: [facility] 03-15-2024 14:29-0500 Heart rate 98 /min Yuliet Uriah 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.DIRECTOR [employer] Work Phone: [facility] 03-15-2024 14:29-0500 Respiratory rate 16 /min Yuliet Uriah 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.DIRECTOR [employer] Work Phone: [facility] 03-15-2024 14:29-0500 SaO2% (BldA) [Mass fraction] 97 % Yuliet Uriah 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.[employer]OR [employer] Work Phone: [facility] 03-15-2024 14:29-0500 Systolic blood pressure 119 mm[Hg] Yuliet Uriah 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.[employer]OR [employer] Work Phone: [facility] 03-10-2023 15:27-0400 Body height 170 cm Dee Haagen 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.DIRECTOR [employer] Work Phone: [facility] 03-10-2023 15:27-0400 Body weight 82.56 kg Dee Haagen 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.[employer]OR [employer] Work Phone: [facility] 03-10-2023 15:27-0400 Diastolic blood pressure 80 mm[Hg] Dee Haagen 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.[employer]OR [employer] Work Phone: [facility] 03-10-2023 15:27-0400 Heart rate 101 /min Dee Haagen 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.DIRECTOR [employer] Work Phone: [facility] 03-10-2023 15:27-0400 Respiratory rate 16 /min Dee Haagen 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.DIRECTOR [employer] Work Phone: [facility] 03-10-2023 15:27-0400 SaO2% (BldA) [Mass fraction] 93 % Dee Haagen 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.DIRECTOR [employer] Work Phone: [facility] 03-10-2023 15:27-0400 Systolic blood pressure 108 mm[Hg] Dee Haagen 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.DIRECTOR [employer] Work Phone: [facility] 07-05-2022 11:06-0500 Body weight 81.97 kg Fitz Bragg MD Work Phone: [facility] 07-05-2022 11:06-0500 Diastolic blood pressure 74 mm[Hg] Fitz Bragg MD Work Phone: [facility] 07-05-2022 11:06-0500 Heart rate 84 /min Fitz Bragg MD Work Phone: [facility] 07-05-2022 11:06-0500 Respiratory rate 16 /min Fitz Bragg MD Work Phone: [facility] 07-05-2022 11:06-0500 SaO2% (BldA) [Mass fraction] 96 % Fitz Bragg MD Work Phone: [facility] 07-05-2022 11:06-0500 Systolic blood pressure 120 mm[Hg] Fitz Bragg MD Work Phone: [facility] 02-19-2022 08:11-0400 Body height 165.1 cm Myriam Myers MD Work Phone: [facility] 02-19-2022 08:11-0400 Body temperature 97.5 [degF] Myriam Myers MD Work Phone: [facility] 02-19-2022 08:11-0400 Body weight 84.37 kg Myriam Myers MD Work Phone: [facility] 02-19-2022 08:11-0400 Diastolic blood pressure 90 mm[Hg] Myriam Myers MD Work Phone: [facility] 02-19-2022 08:11-0400 Heart rate 95 /min Myriam Myers MD Work Phone: [facility] 02-19-2022 08:11-0400 SaO2% (BldA) [Mass fraction] 94 % Myriam Myers MD Work Phone: [facility] 02-19-2022 08:11-0400 Systolic blood pressure 128 mm[Hg] Myriam Myers MD Work Phone: [facility] 01-29-2022 16:44-0400 Body height 168.9 cm Mak Luevano MD Work Phone: [facility] 01-29-2022 16:44-0400 Body weight 84.01 kg Mak Luevano MD Work Phone: [facility] 01-29-2022 16:44-0400 Diastolic blood pressure 88 mm[Hg] Mak Luevano MD Work Phone: [facility] 01-29-2022 16:44-0400 Heart rate 93 /min Mak Luevano MD Work Phone: [facility] 01-29-2022 16:44-0400 SaO2% (BldA) [Mass fraction] 96 % Mak Luevano MD Work Phone: [facility] 01-29-2022 16:44-0400 Systolic blood pressure 118 mm[Hg] Mak Luevano MD Work Phone: [facility] 11-01-2021 08:44-0400 Body height 167.[address] Mak Luevano Work Phone: [facility] Work Phone: 11-01-2021 08:42-0400 Body mass index (BMI) [Ratio] 29.2 kg/m2 Dr. Mak Luevano Work Phone: [facility] Work Phone: 11-01-2021 08:42-0400 Body weight 82.[address] Mak Luevano Work Phone: [facility] Work Phone: 11-01-2021 08:42-0400 Diastolic blood pressure 82 mm[Hg] Dr. Mak Luevano Work Phone: [facility] Work Phone: 11-01-2021 08:42-0400 Systolic blood pressure 100 mm[Hg] Dr. Mak Luevano Work Phone: [facility] Work Phone: 10-25-2021 14:46-0400 Body weight 82.1 kg NA Kumari PA-C Work Phone: [facility] 10-25-2021 14:46-0400 Diastolic blood pressure 64 mm[Hg] NA Kumari PA-C Work Phone: [facility] 10-25-2021 14:46-0400 Heart rate 73 /min NA Kumari PA-C Work Phone: [facility] 10-25-2021 14:46-0400 Respiratory rate 16 /min NA Kumari PA-C Work Phone: [facility] 10-25-2021 14:46-0400 SaO2% (BldA) [Mass fraction] 96 % NA Kumari PA-C Work Phone: [facility] 10-25-2021 14:46-0400 Systolic blood pressure 116 mm[Hg] ISAIAH Kmuari PA-C Work Phone: [facility] 10-22-2021 16:14-0400 Body mass index (BMI) [Ratio] 28.8 kg/m2 Dr. Mak Luevano Work Phone: [facility] Work Phone: 10-22-2021 15:00-0400 Heart rate 78 /min Dr. Mak Luevano Work Phone: [facility] Work Phone: 10-22-2021 11:26-0400 Body temperature 97.9 [degF] Dr. Mak Luevano Work Phone: [facility] Work Phone: 10-22-2021 11:26-0400 Diastolic blood pressure 76 mm[Hg] Dr. Mak Luevano Work Phone: [facility] Work Phone: 10-22-2021 11:26-0400 Respiratory rate 16 /min Dr. Mak Luevano Work Phone: [facility] Work Phone: 10-22-2021 11:26-0400 SaO2% (BldA) [Mass fraction] 92 % Dr. Mak Luevano Work Phone: [facility] Work Phone: 10-22-2021 11:26-0400 Systolic blood pressure 120 mm[Hg] Dr. Mak Luevano Work Phone: [facility] Work Phone: 10-22-2021 03:28-0400 Body height 167.[address] Mak Luevano Work Phone: [facility] Work Phone: 10-22-2021 03:28-0400 Body weight 81.[address] Mak Luevano Work Phone: [facility] Work Phone: 10-22-2021 02:54-0400 Body temperature 98.7 [degF] Dr. Mak Luevano Work Phone: [facility] Work Phone: 10-22-2021 02:54-0400 Diastolic blood pressure 66 mm[Hg] Dr. Mak Luevano Work Phone: [facility] Work Phone: 10-22-2021 02:54-0400 Heart rate 17 /min Dr. Mak Luevano Work Phone: [facility] Work Phone: 10-22-2021 02:54-0400 Respiratory rate 16 /min Dr. Mak Luevano Work Phone: [facility] Work Phone: 10-22-2021 02:54-0400 SaO2% (BldA) [Mass fraction] 98 % Dr. Mak Luevano Work Phone: [facility] Work Phone: 10-22-2021 02:54-0400 Systolic blood pressure 114 mm[Hg] Dr. Mak Luevano Work Phone: [facility] Work Phone: 10-22-2021 01:30-0400 Inhaled oxygen flow rate 2 L/min Dr. Mak Luevano Work Phone: [facility] Work Phone: 10-22-2021 00:11-0400 Body height 167.[address] Mak Luevano Work Phone: [facility] Work Phone: 10-22-2021 00:11-0400 Body mass index (BMI) [Ratio] 29.7 kg/m2 Dr. Mak Luevano Work Phone: [facility] Work Phone: 10-22-2021 00:11-0400 Body weight 83.[address] Mak Luevano Work Phone: [facility] Work Phone: 10-01-2021 08:48-0400 Body weight 82.1 kg NA Kumari PA-C Work Phone: [facility] 10-01-2021 08:48-0400 Diastolic blood pressure 68 mm[Hg] NA Kumari PA-C Work Phone: [facility] 10-01-2021 08:48-0400 Heart rate 68 /min NA Kumari PA-C Work Phone: [facility] 10-01-2021 08:48-0400 Respiratory rate 16 /min NA Kumari PA-C Work Phone: [facility] 10-01-2021 08:48-0400 SaO2% (BldA) [Mass fraction] 98 % NA Kumari PA-C Work Phone: [facility] 10-01-2021 08:48-0400 Systolic blood pressure 120 mm[Hg] NA Kumari PA-C Work Phone: [facility] 08-15-2021 14:46-0400 Body weight 83.46 kg Mak Luevano MD Work Phone: [facility] 08-15-2021 14:46-0400 Diastolic blood pressure 70 mm[Hg] Mak Luevano MD Work Phone: [facility] 08-15-2021 14:46-0400 Heart rate 80 /min Mak Luevano MD Work Phone: [facility] 08-15-2021 14:46-0400 Systolic blood pressure 118 mm[Hg] Mak Luevano MD Work Phone: [facility] Encounters Encounter Date Encounter Type Care Provider Facility Start: 09-21-2024 End: 10-22-2024 ambulatory Mak Luevano MD Work Phone: [facility] Start: 06-24-2024 End: 06-25-2024 ambulatory MAK LUEVANO Facility:[facility] Start: 06-24-2024 End: 06-29-2024 Chart abstracting Actigraphy Neur (Hist) Neurology Start: 06-24-2024 End: 06-24-2024 Telephone encounter Yuliet Uriah 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.DIRECTOR [employer] Work Phone: Neurology Start: 05-06-2024 End: 05-18-2024 Chart abstracting Actigraphy Neur (Hist) Neurology Start: 05-06-2024 End: 05-07-2024 ambulatory MAK LUEVANO Facility:[facility] Start: 04-05-2024 End: 04-05-2024 ambulatory [facility] Facility:[facility] Start: 03-15-2024 End: 03-15-2024 Patient encounter status Dee Seaman APRN.DIRECTOR [employer] Work Phone: [facility] Start: 03-15-2024 End: 03-15-2024 Periodic preventive med est patient 40-64yrs Dee Seaman APRN.[employer]OR [employer] Work Phone: Family [facility] Comment on above: Wellness examination (Primary Dx); Gastroesophageal reflux disease with esophagitis; Anxiety; Migraine without status migrainosus, not intractable, unspecified migraine type; Elevated platelet count; Graves disease; Hypertriglyceridemia Start: 03-15-2024 End: 03-15-2024 Patient encounter procedure Yuliet Kruse APRN.DIRECTOR [employer] Work Phone: Neurology Comment on above: Hypersomnia (Primary Dx); JOSE (obstructive sleep apnea) Start: 03-15-2024 End: 03-15-2024 ambulatory [facility] Facility:[facility] Start: 03-15-2024 Encounter for genera l adult medical examination without abnormal findings [facility] Start: 12-26-2023 End: 12-26-2023 ambulatory Sandra Smallstoryjing Facility:[facility] Start: 11-20-2023 Refill Mak Luevano MD Work Phone: [facility] Comment on above: Refill Request Start: 11-19-2023 Refill Mak Luevano MD Work Phone: Family [facility] [place] Comment on above: Refill Request Start: 11-17-2023 Telephone encounter Dee vera APRN.[employer]OR [employer] Work Phone: [facility] [place] Comment on above: Orders Start: 10-22-2023 Telephone encounter Mak Luevano MD Work Phone: [facility] Comment on above: Results Start: 10-22-2023 End: 10-22-2023 Subsequent hospital visit by physician Diagnostic Mammo [facility] Comment on above: Inconclusive mammogr am [R92.2] Start: 09-03-2023 Refill Dee Seaman APRN.[employer]OR [employer] Work Phone: [facility] Comment on above: Refill Request [place] patient [place] Start: 09-01-2023 Refill Mak Luevano MD Work Phone: [facility] Comment on above: Refill Request Start: 07-02-2023 ambulatory Dee Seaman APRN.[employer]OR [employer] Work Phone: [facility] [place] Comment on above: Cpap and DME Start: 04-17-2023 Telephone encounter Palmer Kumari PA-C Work Phone: [facility] [place] Start: 04-15-2023 End: 04-15-2023 Subsequent hospital visit by physician Diagnostic [facility] Start: 04-04-2023 Chart abstracting [facility] Work Phone: Neurology Start: 03-21-2023 Documentation procedure Mammog tamar Coordinator [facility] Start: 03-21-2023 Letter encounter Mammography Coordinator [facility] Department Start: 03-10-2023 End: 03-10-2023 Patient encounter status Dee Seaman APRN.[employer]OR [employer] Work Phone: [facility] Start: 03-10-2023 End: 03-10-2023 Periodic preventive med est patient 40-64yrs Dee Seaman APRN.[employer]OR [employer] Work Phone: [facility] [place] Comment on above: Wellness examination (Primary Dx); JOSE (obstructive sleep apnea); Gastroesophageal reflux disease with esophagitis; Anxiety; Migraine without status migrainosus, not intractable, unspecified migraine type; Encounter for immunization; Graves disease Start: 03-10-2023 Telephone encounter Dee vera APRN.CNP Work Phone: [facility] [place] Comment on above: Orders Start: 03-04-2023 Get Medical Advice Mak Luevano MD Work Phone: [facility] [place] Comment on above: Medications that jamel alanis refilled Start: 07-05-2022 End: 07-05-2022 Patient encounter procedure Fitz Bragg MD Work Phone: [facility] [place] Comment on above: Sinobronchitis (Prim malia Dx); Acute cough Start: 06-05-2022 ambulatory Mak Luevano MD Work Phone: [facility] [place] Comment on above: omeprazole authoriza tion Start: 06-05-2022 E-mail encounter fro m caregiver Mak Luevano MD Work Phone: [facility] Start: 06-04-2022 Telephone encounter Mak Luevano MD Work Phone: [facility] [place] Comment on above: Insurance Authorizat ion (Omeprazole ) Start: 06-03-2022 Refill Mak Luevano MD Work Phone: [facility] [place] Comment on above: Refill Request Start: 03-01-2022 Refill Mak Luevano MD Work Phone: [facility] [place] Comment on above: Refill Request Start: 02-19-2022 End: 02-19-2022 Patient encounter procedure Myriam Myers MD Work Phone: General Surgery Comment on above: Umbilical hernia wit hout obstruction or gangrene; Rectus diastasis; BMI 30.0-30.9,adult Start: 01-29-2022 End: 01-29-2022 Patient encounter procedure Mak Luevano MD Work Phone: [facility] [place] Comment on above: Anxiety (Primary Dx) ; Umbilical hernia without obstruction or gangrene Start: 12-31-2021 Refill Palmer Boggs on PA-C Work Phone: [facility] [place] Comment on above: Refill Request Start: 11-20-2021 ambulatory Palmer Boggs on PA-C Work Phone: [facility] [place] Comment on above: Virtual Appt. Start: 11-20-2021 E-mail encounter fro m caregiver Mak Luevano MD Work Phone: [facility] Start: 11-20-2021 Follow-up encounter Mak Luevano MD Work Phone: [facility] Comment on above: Follow up Start: 11-13-[address] Mak Luevano Work Phone: [facility]-Outpatient Breast Imaging Start: 11-01-2021 End: 11-01-[address] Mak Luevano Work Phone: [facility]-Laboratory, Specimen Start: 11-01-2021 End: 11-01-[address] Mak Luevano Work Phone: [facility] Start: 10-25-2021 End: 10-25-2021 Patient encounter procedure Palmer Kumari PA-C Work Phone: [facility] Comment on above: Anxiety (Primary Dx) ; Conversion reaction Start: 10-22-2021 End: 10-22-2021 Evaluation and management of inpatient Dr. [facility] Start: 10-22-2021 Non-patient / Non-visit Dr. Ankur Luevano Work Phone: [facility] Start: 10-22-2021 Non-patient / Non-visit Dr. Ankur Luevano Work Phone: [facility] Start: 10-01-2021 End: 10-01-2021 Subsequent hospital visit by physician [facility] Work Phone: Radiology Comment on above: Pain of left heel [M 79.672] Start: 10-01-2021 End: 10-01-2021 Patient encounter procedure Palmer Kumari PA-C Work Phone: [facility] Comment on above: Exophthalmos (Primar y Dx); Graves disease; Anxiety; Gastroesophageal reflux disease with esophagitis without hemorrhage; Migraine without status migrainosus, not intractable, unspecified migraine type; TMJ dysfunction; Cervical radiculopathy; Plantar fasciitis; Pain of left heel Start: 08-27-2021 ambulatory Mak Luevano MD Work Phone: [facility] Comment on above: Ear issue Start: 08-21-2021 ambulatory Mak Luevano MD Work Phone: [facility] [place] Comment on above: Antibiotic Start: 08-17-2021 Chart abstracting Miriam WHITEHEAD Work Phone: Adult Psychology Start: 08-17-2021 Telephone encounter Mak Luevano MD Work Phone: [facility] [place] Comment on above: Results Start: 08-16-2021 Chart abstracting Miriam WHITEHEAD Work Phone: Adult [facility] Start: 08-15-2021 E-mail encounter fro m caregiver Dorcas Ramo [facility] Start: 08-15-2021 End: 08-15-2021 Patient encounter procedure Mak Luevano MD Work Phone: [facility] [place] Comment on above: Anxiety (Primary Dx) ; Fatigue, unspecified type; Acute sinusitis, recurrence not specified, unspecified location Appointment Procedures Date Procedure Procedure Detail Performing Clinician Start: 10-22-2023 breast uni real time with image limited Mak Luevano MD Work Phone: Start: 10-22-2023 Digital breast tomosynthesis unilateral Mak Luevano MD Work Phone: Start: 04-15-2023 Digital breast tomosynthesis unilateral M Chano Kumari PA-C Work Phone: Start: 03-10-2023 Lipid 1996 panel - Serum or Plasma Dee Seaman APRN.CNP Work Phone: Start: 11-13-2021 End: 11-13-[address] Mak Luevano Work Phone: Start: 10-25-2021 Adult depression screening assessment ISAIAH Kumari PA-C Work Phone: Start: 10-22-2021 MRI of brain without contrast Dr. Mak Luevano Work Phone: Start: 10-22-2021 CT angiography of head and neck Dr. Mak Luevano Work Phone: Start: 10-22-2021 CT of head without contrast Dr. Mak Luevano Work Phone: Start: 10-22-2021 Plain chest X-ray Dr. Mak Luevano Work Phone: Start: 10-01-2021 Radex calcaneus minimum 2 views M Chano Kumari PA-C Work Phone: Start: 08-15-2021 Lipid 1996 panel - Serum or Plasma Mak Luevano MD Work Phone: Start: 01-24-2021 Adult depression screening assessment Mak Luevano MD Work Phone: Start: 11-10-2020 Mammography Mak Luevano MD Work Phone: Start: 04-15-2016 Colonoscopy Mak Luevano MD Work Phone: History of appendectomy Hx of appendectom y Dr. Mak Luevano Work Phone: History of tonsillectomy History of tonsillectomy and adenoidectomy Dr. Mak Luevano Work Phone: Plan of Treatment Date Care Activity Detail Author Start: 03-10-2033 Urine microalbumin profile DTaP,Tdap,Td Vaccine (2 - Td or Tdap) [facility] Start: 03-10-2028 Lipid 1996 panel - Serum or Plasma Lipid Screening [facility] Start: 03-10-2028 Lipid panel Lipid Screening [facility] Start: 08-15-2026 Lipid 1996 panel - Serum or Plasma Lipid Screening [facility] Start: 08-15-2026 LIPID SCREEN LIPID SCREEN [facility] Start: 04-15-2026 Colonoscopy COLONOSCOPY [facility] Start: 04-15-2026 COLORECTAL CANCER SCREENING COLORECTAL CANCER SCREENING [facility] Start: 04-15-2026 Screening for malignant neoplasm of colon [facility] Start: 03-10-2026 Diabetes Screening Diabetes Screening [facility] Start: 03-15-2025 Covid-19 Vaccine ( season) Covid-19 Vaccine ( season) [facility] Comment on above: Postponed from 01/11/2024 (Declined at t his time) Start: 03-15-2025 Hepatitis B Vaccine (1 of 3 - 19+ 3-dose series) Hepatitis B Vaccine (1 of 3 - 19+ 3-dose series) [facility] Comment on above: Postponed from 1989 (Declined at t his time) Start: 01-10-2025 Influenza vaccination Influenza Vaccine (Season Ended) [facility] Start: 11-08-2024 Influenza vaccination Influenza Vaccine (#1) [facility] Comment on above: Postponed from 01/11/2024 (Declined at t his time) Start: 10-19-2024 HPV TESTING HPV TESTING [facility] Start: 10-19-2024 PAP TESTING PAP TESTING [facility] Start: 10-19-2024 Screening for malignant neoplasm of cervix [facility] Start: 09-12-2024 End: 12-12-2024 TOXICOLOGY SCREEN, ROUTINE URINE TOXICOLOGY SCREEN, ROUTINE URINE Lab Routine Hypersomnia Expected: 09/12/2024, Expires: 12/12/2024 [facility] Comment on above: Expected: 09/12/2024, Expires: Start: 08-15-2024 DIABETES SCREEN DIABETES SCREEN [facility] Start: 08-15-2024 Diabetes Screening Diabetes Screening [facility] Start: 07-05-2024 End: 07-05-2024 Patient encounter procedure 07/05/2024 8:15 AM EST Office Visit Neurology [address] [place] [address] [facility] Comment on above: [facility] Start: 07-04-2024 End: 07-04-2024 Patient encounter procedure 07/04/2024 9:00 PM EST Office Visit Neurology [address] [place] [address] Main, Psg Neur [address] [place] [address] PSG w/ [facility] Comment on above: PSG w/ [facility] Start: 06-25-2024 End: 06-25-2024 Patient encounter procedure 06/25/2024 8:00 AM EST Office Visit Neurology [address] [place] [address] [facility] Comment on above: [facility] Start: 03-20-2024 Mammography Mammogram Screening [facility] Start: 03-20-2024 Screening for malignant neoplasm of breast Mammogram Screening [facility] Start: 03-15-2024 End: 03-15-2024 Patient encounter procedure [facility] Comment on above: physical JOSE (obstructive sle ep apnea) [G47.33] Start: 03-15-2024 End: 06-14-2024 CBC W Auto Differential panel - Blood COMPLETE BLOOD COUNT AND DIFFERENTIAL Lab Routine Elevated platelet count Expected: 03/15/2024, Expires: 06/14/2024 [facility] Comment on above: Expected: 03/15/2024, Expires: Start: 03-15-2024 End: 06-14-2024 Comprehensive metabolic 2000 panel - Serum or Plasma COMPREHENSIVE METABOLIC PANEL Lab Routine Hypertriglyceridemia Expected: 03/15/2024, Expires: 06/14/2024 [facility] Comment on above: Expected: 03/15/2024, Expires: Start: 03-15-2024 End: 06-14-2024 Lipid 1996 panel - Serum or Plasma LIPID PANEL BASIC Lab Routine Hypertriglyceridemia Expected: 03/15/2024, Expires: 06/14/2024 [facility] Work Phone: Comment on above: Expected: 03/15/2024, Expires: Start: 03-15-2024 End: 06-14-2024 Magnesium [Mass/volume] in Serum or Plasma MAGNESIUM Lab Routine Gastroesophageal reflux disease with esophagitis Expected: 03/15/2024, Expires: 06/14/2024 [facility] Comment on above: Expected: 03/15/2024, Expires: Start: 03-15-2024 End: 06-14-2024 Thyrotropin [Units/volume] in Serum or Plasma THYROID STIMULATING HORMONE Lab Routine Graves disease Expected: 03/15/2024, Expires: 06/14/2024 [facility] Comment on above: Expected: 03/15/2024, Expires: Start: 03-10-2024 Covid-19 Vaccine (4 - 2023-24 season) Covid-19 Vaccine ( season) [facility] Comment on above: Postponed from 01/10/2023 (Declined at t his time) Start: 03-10-2024 Hepatitis B Vaccine (1 of 3 - 19+ 3-dose series) Hepatitis B Vaccine (1 of 3 - 19+ 3-dose series) [facility] Comment on above: Postponed from 1989 (Declined at t his time) Start: 03-10-2024 Hepatitis B Vaccine (1 of 3 - 3-dose series) Hepatitis B Vaccine (1 of 3 - 3-dose series) [facility] Comment on above: Postponed from 1970 (Declined at t his time) Start: 01-11-2024 Covid-19 Vaccine ( season) Covid-19 Vaccine ( season) [facility] Start: 01-11-2024 Influenza vaccination [facility] Start: 11-09-2023 Influenza vaccination Influenza Vaccine (#1) [facility] Comment on above: Postponed from 01/10/2023 (Declined at t his time) Start: 10-22-2023 End: 10-22-2023 Patient encounter procedure Mammogram Comment on above: Inconclusive mammogram [R92.2] Start: 10-17-2023 End: 05-16-2024 ALEJANDRO DIAGNOSTIC LEFT ALEJANDRO DIAGNOSTIC LEFT Radiology Routine Inconclusive mammogram Expected: 10/17/2023, Expires: 05/16/2024 [facility] Work Phone: Comment on above: Expected: 10/17/2023, Expires: Start: 10-17-2023 End: 05-16-2024 US BREAST LTD LEFT US BREAST LTD LEFT Radiology Routine Inconclusive mammogram Expected: 10/17/2023, Expires: 05/16/2024 [facility] Work Phone: Comment on above: Expected: 10/17/2023, Expires: Start: 05-12-2023 Behavioral Health Screening Behavioral Health Screening [facility] Start: 05-12-2023 Depression Assessment Depression Assessment [facility] Start: 03-10-2023 End: 06-09-2023 Thyrotropin [Units/volume] in Serum or Plasma TSH BLD Lab Routine Graves disease Expected: 03/10/2023, Expires: 06/09/2023 [facility] Work Phone: Comment on above: Expected: 03/10/2023, Expires: Start: 01-10-2023 Covid-19 Vaccine () Covid-19 Vaccine () [facility] Start: 01-10-2023 Influenza vaccination Influenza Vaccine (#1) [facility] Start: 11-13-2022 Mammography [facility] Start: 10-25-2022 Adult depression screening assessment DEPRESSION SCREENING [facility] Start: 05-12-2022 DEPRESSION ASSESSMENT DEPRESSION ASSESSMENT [facility] Start: 01-24-2022 Adult depression screening assessment DEPRESSION SCREENING [facility] Start: 01-10-2022 Influenza vaccination [facility] Start: 11-10-2021 Mammography MAMMOGRAM [facility] Start: 10-22-2021 Patient discharge [facility] Work Phone: Start: 10-22-2021 Admission procedure [facility] Work Phone: Start: 10-22-2021 Following clinical pathway protocol [facility] Work Phone: Start: 10-22-2021 Assessment of risk of venous thromboembolism [facility] Work Phone: Start: 10-22-2021 Cardiac monitoring [facility] Work Phone: Start: 10-22-2021 Catheterization of vein [facility] Work Phone: Start: 10-22-2021 Continuous pulse oximetry [facility] Work Phone: Start: 10-22-2021 Elevation of head of bed [facility] Work Phone: Start: 10-22-[address] [facility] Work Phone: Start: 10-22-2021 Implementation of planned interventions [facility] Work Phone: Start: 10-22-2021 Insertion of catheter into peripheral vein [facility] Work Phone: Start: 10-22-2021 Measuring intake and output [facility] Work Phone: Start: 10-22-2021 Notification of physician [facility] Work Phone: Start: 10-22-2021 Oxygen therapy [facility] Work Phone: Start: 10-22-2021 Providing care according to standard [facility] Work Phone: Start: 10-22-2021 Provision of activity privileges [facility] Work Phone: Start: 10-22-2021 Referral to occupational therapist [facility] Work Phone: Start: 10-22-2021 Referral to service [facility] Work Phone: Start: 10-22-2021 Speech therapy assessment [facility] Work Phone: Start: 10-22-2021 Tobacco use cessation education [facility] Work Phone: Start: 10-22-[address] [facility] Work Phone: Start: 10-22-2021 Plain chest X-ray Chest [address] [facility] Work Phone: Start: 10-22-[address] [facility] Work Phone: Start: 08-17-2021 End: 08-17-2022 CBC W Auto Differential panel - Blood CBC + DIFF Lab Routine Anemia, unspecified type Expected: 08/17/2021, Expires: 08/17/2022 [facility] Work Phone: Comment on above: Expected: 08/17/2021, Expires: Start: 08-17-2021 End: 08-17-2022 FERRITIN BLD FERRITIN BLD Lab Routine Anemia, unspecified type Expected: 08/17/2021, Expires: 08/17/2022 [facility] Work Phone: Comment on above: Expected: 08/17/2021, Expires: 3 Start: 08-17-2021 End: 08-17-2022 Folate [Mass/volume] in Serum or Plasma FOLATE SERUM Lab Routine Anemia, unspecified type Expected: 08/17/2021, Expires: 08/17/2022 [facility] Work Phone: Comment on above: Expected: 08/17/2021, Expires: 3 Start: 08-17-2021 End: 08-17-2022 Hemoglobin.gastrointest inal.lower [Presence] in Stool by Immunoassay FECAL OCCULT BLOOD TEST Lab Routine Anemia, unspecified type Expected: 08/17/2021, Expires: 08/17/2022 [facility] Work Phone: Comment on above: Expected: 08/17/2021, Expires: 3 Start: 08-17-2021 End: 08-17-2022 IRON + TIBC IRON + TIBC Lab Routine Anemia, unspecified type Expected: 08/17/2021, Expires: 08/17/2022 [facility] Work Phone: Comment on above: Expected: 08/17/2021, Expires: 3 Start: 08-17-2021 End: 08-17-2022 VITAMIN B12 BLOOD VITAMIN B12 BLOOD Lab Routine Anemia, unspecified type Expected: 08/17/2021, Expires: 08/17/2022 [facility] Work Phone: Comment on above: Expected: 08/17/2021, Expires: 3 Start: 08-15-2021 End: 10-15-2021 Heterophile Ab [Presence] in Serum by Latex agglutination MONOTEST, INFECTIOUS MONO Lab Routine Fatigue, unspecified type Expected: 08/15/2021, Expires: 10/15/2021 [facility] Work Phone: Comment on above: Expected: 08/15/2021, Expires: 2 Start: 05-12-2021 DEPRESSION ASSESSMENT DEPRESSION ASSESSMENT [facility] Start: 02-09-2021 COVID-19 VACCINE (4 - Booster for Pfizer series) COVID-19 VACCINE (4 - Booster for Pfizer series) [facility] Start: 01-25-2021 COVID-19 VACCINE (3 - Booster for Pfizer series) COVID-19 VACCINE (3 - Booster for Pfizer series) [facility] Start: 12-05-2020 COVID-19 VACCINE (4 - Booster for Pfizer series) COVID-19 VACCINE (4 - Booster for Pfizer series) [facility] Start: 2020 Pneumococcal Vaccine: 50+ (1 of 1 - PCV) Pneumococcal Vaccine: 50+ (1 of 1 - PCV) [facility] Start: 2020 SHINGRIX VACCINE (1 of 2) SHINGRIX VACCINE (1 of 2) [facility] Start: 04-08-2017 FECAL OCCULT BLOOD FECAL OCCULT BLOOD [facility] Start: 04-08-2017 Screening for malignant neoplasm of colon Fecal Occult Blood [facility] Start: 2015 COLOGUARD (FIT-DNA) COLOGUARD (FIT-DNA) [facility] Start: [address] COLONOGRAPHY [facility] Start: 2015 Screening for malignant neoplasm of colon [facility] Start: 2015 SIGMOIDOSCOPY SIGMOIDOSCOPY [facility] Start: 1989 Urine microalbumin profile [facility] Start: 1988 Depression Screening Depression Screening [facility] Start: 1988 HEPATITIS C SCREENING HEPATITIS C SCREENING [facility] Start: 1988 HIV SCREENING HIV SCREENING [facility] Start: 1970 HEPATITIS B (1 of 3 - 3-dose series) HEPATITIS B (1 of 3 - 3-dose series) [facility] Start: 1970 Hepatitis B Vaccine (1 of 3 - 3-dose series) Hepatitis B Vaccine (1 of 3 - 3-dose series) [facility] ACTIGRAPHY TESTING ACTIGRAPHY TE STING Procedures Routine Hypersomnia 1 Occurrences starting 03/15/2024 [facility] Comment on above: 1 Occurrences starting 03/15/2024 ACTIGRAPHY TESTING ACTIGRAPHY TE STING Procedures Routine Hypersomnia 1 Occurrences starting 06/24/2024 [facility] Work Phone: Comment on above: 1 Occurrences starting 06/24/2024 End: 10-21-2025 DBT Breast - bilateral screening ALEJANDRO SCREENING W DANIEL Radiology Routine Encounter for screening mammogram for breast cancer 1 Occurrences starting 09/21/2024 until 10/21/2025 [facility] Work Phone: Comment on above: 1 Occurrences starting 09/21/2024 until 10/21/2025 End: 03-09-2024 HOME SLEEP APNEA TEST (HSAT) HOME SLEEP APNEA TEST (HSAT) Procedures Routine JOSE (obstructive sleep apnea) 1 Occurrences starting 03/10/2023 until 03/09/2024 [facility] Work Phone: Comment on above: 1 Occurrences starting 03/10/2023 until 03/09/2024 End: 11-20-2024 MG Breast - bilateral Diagnostic ALEJANDRO DIAGNOSTIC BILATERAL Radiology Routine Abnormal mammogram 1 Occurrences starting 10/22/2023 until 11/20/2024 [facility] Comment on above: 1 Occurrences starting 10/22/2023 until 11/20/2024 End: 03-15-2025 MULTIPLE SLEEP LATENCY TEST MULTIPLE SLEEP LATENCY TEST Procedures Routine Hypersomnia 1 Occurrences starting 03/15/2024 until 03/15/2025 [facility] Comment on above: 1 Occurrences starting 03/15/2024 until 03/15/2025 Patient referral [facility] Work Phone: End: 03-15-2025 Polysomnogram POLYSOMNOGRAM (PSG) Procedures Routine Hypersomnia 1 Occurrences starting 03/15/2024 until 03/15/2025 [facility] Work Phone: Comment on above: 1 Occurrences starting 03/15/2024 until 03/15/2025 End: 11-20-2024 US Breast - left limited US BREAST LTD LEFT Radiology Routine Abnormal mammogram 1 Occurrences starting 10/22/2023 until 11/20/2024 [facility] Comment on above: 1 Occurrences starting 10/22/2023 until 11/20/2024 End: 11-20-2024 US Breast - right limited US BREAST LTD RIGHT Radiology Routine Abnormal mammogram 1 Occurrences starting 10/22/2023 until 11/20/2024 [facility] Work Phone: Comment on above: 1 Occurrences starting 10/22/2023 until 11/20/2024 [facility] Immunizations Immunization Date Immunization Notes Care Provider Nicole buck 03-10-2023 tetanus toxoid, redu tashia diphtheria toxoid, and acellular pertussis vaccine, adsorbed Dee Haagen 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.[employer] Work Phone: [facility] 10-10-2020 Covid (Pfizer) Dr. Mak poon Work Phone: [facility] 04-07-2018 influenza virus vacc ine, unspecified formulation Mak Luevano MD Work Phone: [facility] Payers Date Payer Category Payer Self-pay [id number] 2015 [employer] BLUE CARD PPO OOS [id number] 2015 Unknown ANTHEM BLUE CARD PPO OOS [id number] 2015-Present [phone] [place] [address] PPO [id number] 2015 Unknown [employer]THEM BLUE CARD PPO OOS [id number] 2015-Present [phone] [place] [id number] PPO [id number] 2015 Unknown [id number] Unknown [id number] Unknown [id number] Unknown [id number] Unknown [id number] Social History Date Type Detail Facility Start: 05-17-2011 End: 03-15-2024 Tobacco smoking status NHIS Ex-smoker [facility] End: 07-29-2002 History of tobacco use Current smoker [facility] Work Phone: Start: 08-15-2021 End: 03-15-2024 Alcohol intake Current drinker of alcohol (finding) [facility] Start: 01-24-2021 History SDOH Alcohol Frequency 4 [facility] Start: 01-24-2021 History SDOH Alcohol Std Drinks 1 [facility] Start: 01-24-2021 End: 04-19-2021 History SDOH Alcohol Binge 2 [facility] Start: 07-22-2014 History SDOH Alcohol Comment Occasionally [facility] Start: 01-24-2021 History SDOH Social Connections Phone 5 [facility] Start: 01-24-2021 History SDOH Social Connections Yazdanism 3 [facility] Start: 01-24-2021 History SDOH Physica l Activity DPW 0 [facility] Start: 09-17-2019 Education 15 [facility] Start: 1970 Sex Assigned At Female C [facility] Start: 08-05-2021 End: 02-19-2022 Exposure to SARS-CoV-2 (event) Not sure [facility] Start: 10-22-2021 End: 11-01-2021 Tobacco smoking status UTIS Unknown if ever smoked [facility] Work Phone: Start: 10-22-2021 Cigarettes [place] [facility] Work Phone: Start: 11-09-2021 End: 11-19-2021 Exposure to SARS-CoV-2 (event) Yes [facility] End: 07-29-2002 History of tobacco use Cigarette Smoker [facility] Start: 05-17-2011 End: 03-15-2024 Tobacco use and exposure Smokeless tobacco non-user [facility] Start: 01-24-2021 End: 03-10-2023 History of Social function [facility] Start: 01-24-2021 End: 03-10-2023 Social connection and isolation panel [facility] Are you now , , , , never or living with a partner? [facility] How often to you hav e a drink containing alcohol? 2-3 time sa week [facility] How many standard drinks containing alcohol do you have on a typical day? 1 or 2 [facility] How often do you hav e 6 or more drinks on 1 occasion? Less than monthly [facility] How hard is it for y ou to pay for the very basics like food, housing, medical care, and heating Not hard at all [facility] Do you feel stress - tense, restless, nervous, or anxious, or unable to sleep at night because your mind is troubled all the time - these days [OSQ] Very much [facility] (I/We) worried oumar er (my/our) food would run out before (I/we) got money to buy more. Never true [facility] In the past 12 month s, was there a time when you were not able to pay the mortgage or rent on time? No [facility] Start: 03-28-2020 Gender identity Identifies as female gender (finding) [facility] Start: 03-28-2020 Sexual orientation Heterosexual (vika daniel) [facility] How hard is it for y ou to pay for the very basics like food, housing, medical care, and heating Not very hard [facility] Do you feel stress - tense, restless, nervous, or anxious, or unable to sleep at night because your mind is troubled all the time - these days [OSQ] Rather much [facility] Goals Date Patient Goal Desired Activity /State Functional Status Date Assessment Result Facility 10-22-2021 Functional status Ambulates;Sunil r;Bathroom Privilege [facility] Work Phone: 09-16-2014 Are you deaf, or do you have serious difficulty hearing No 09/16/2014 10:52 AM Krystyna Madison Ma [facility] Work Phone: 09-16-2014 Are you blind, or do you have serious difficulty seeing, even when wearing glasses No 09/16/2014 10:52 AM Krystyna Madison Ma [facility] 09-16-2014 Do you have serious difficulty walking or climbing stairs No 09/16/2014 10:52 AM Krystyna Madison Ma [facility] 09-16-2014 Do you have difficul ty dressing or bathing No 09/16/2014 10:52 AM Krystyna Madison Ma [facility] 09-16-2014 Because of a physica l, mental, or emotional condition, do you have difficulty doing errands alone such as visiting a physician's office or shopping No 09/16/2014 10:52 AM Krystyna Madison Ma [facility] Mental Status Date Assessment Result Facility 10-22-2021 Cognitive function Voice/Name [facility] Work Phone: 10-22-2021 Cognitive function Voice/Name [facility] Work Phone: 09-16-2014 Because of a physica l, mental, or emotional condition, do you have serious difficulty concentrating, remembering, or making decisions No 09/16/2014 10:52 AM Krystyna Madison Ma [facility] Clinical Notes 09-18-2019 to 09-21-2024 Savana Aj - 06/29/2024 12:22 PM Everton Azevedo - 06/24/2024 3:12 PM ESTTelephone Encounter - Yuliet Kruse APRN.CNP - 06/24/2024 3:22 PM Gloria Antonio - 05/18/2024 10:48 AM EST Note Date & Type Note Facility 09-21-2024 Note Patient Outreach (FA MPWS) SWAPNAJUVENAL LINDSEY ([id number]) 1970 F NFR Date Time Provider Department 09/21/24 MAK LUEVANO During your visit today, we recorded the following information about you: Allergies As of Date: 09/21/2024 (No Known Allergies) Date Reviewed: 03/15/2024 Reviewed by: Yuliet Kruse APRN.[facility] - Fully Assessed Visit Diagnosis:Encounter for screening mammogram for breast cancer [Z12.31] Order(s):ALEJANDRO SCREENING W DANIEL [[id number]] Order #: [id number] FUTURE Prescriptions as of 10/22/2024 - omeprazole (PRILOSEC) 40 mg capsule Take 1 capsule by mouth two times a day. - famotidine (PEPCID) 20 mg tablet Take 1 tablet by mouth two times a day. - desvenlafaxine ER (PRISTIQ) 50 mg 24 hr tablet Take 1 tablet by mouth once daily. - SUMAtriptan (IMITREX) 50 mg tablet TAKE 1 TABLET BY MOUTH. START AT ONSET OF HEADACHE. MAY REPEAT DOSE AFTER 2 HOURS. - CPAP/BIPAP/OTHER autoCPAP 5-10 cmH2O DME DASCO - estradiol (ESTRACE) 1 mg tablet Take 1.5 tablets by mouth once daily. - CPAP Initiate Auto PAP @ 5-20 cm of water with humidification. Mask (per patient preference) optional chin strap (if indicated) , filters, tubing, humidifier and lifetime supplies. - acetaminophen (TYLENOL ORAL) Take 500 mg by mouth as needed. - ibuprofen (ADVIL) 200 mg tablet Take 200 mg by mouth every 6 hours as needed. - polyethylene glycol 3350 (MIRALAX, GLYCOLAX) 17 gram packet Take 17 g by mouth as needed. Meds Comments as of 01/24/2021: OTC use of Melatonin. 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] 07/03/2012 Esophagitis, unspecified [K20.90] 07/03/2012 01/06/2019 BRIAN III (vulvar intraepithelial neoplasia III) *08/13/2013 Carpal tunnel syndrome of left wrist [G56.02] 12/24/2013 01/06/2019 Tendinitis of thumb [M77.8] 12/24/2013 01/06/2019 Anxiety [F41.9] 07/25/2017 Breast lump [N63.0] 07/25/2017 01/06/2019 Family history of colon cancer [Z80.0] 10/31/2017 Eye pain, left [H57.12] 09/18/2019 01/24/2021 Cervical radiculopathy [M54.12] 09/18/2019 Cervical strain [S16.1XXA] 09/18/2019 01/24/2021 Shoulder impingement syndrome, left [M75.42] 09/18/2019 01/24/2021 New daily persistent headache [G44.52] 09/18/2019 Graves disease [E05.00] 04/04/2020 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 Service: ? Author Type: ? Type: Progress Notes Filed: 06/29/2024 12:23 Note Text: Returned no logs [facility] 06-29-2024 History of Present illness Narrative Returned no logs ACTIGRAPHY DEVICE # [id number] Date shipped out 06/24/2024 [employer] MAIL OUT TRACKING NUMBER [id number] [employer] RETURN TRACKING NUMBER [id number], Tina Sent via [employer]ex documented in this encounter [facility] 06-24-2024 Telephone encounter Note Actigraphy ordered, she will be able to get at least a week before the MSLT Yuliet Kruse APRN.CNP [facility] 06-24-2024 Miscellaneous Notes Actigraphy ordered, she will be able to get at least a week before the MSLT Yuliet Kruse APRN.CNP ----- Message from Gloria Nunez sent at 06/24/2024 3:15 PM EST ----- Regarding: actigraphy Hi, This patient already completed an actigraphy but rescheduled her PSG/MSLT. Do you want her to repeat again? If so, we will need a new order. Gloria Aranda documented in this encounter [facility] 06-24-2024 Telephone encounter Note ----- Message from Gloria Nunez sent at 06/24/2024 3:15 PM EST ----- Regarding: actigraphy Hi, This patient already completed an actigraphy but rescheduled her PSG/MSLT. Do you want her to repeat again? If so, we will need a new order. Gloria Aranda [facility] 06-24-2024 Note HNO ID: [id number] Author: ?, ?, ? Service: ? Author Type: ? Type: Progress Notes Filed: 06/29/2024 12:23 Note Text: ACTIGRAPHY DEVICE # [id number] Date shipped out 06/24/2024 [employer] MAIL OUT TRACKING NUMBER [id number] [employer] RETURN TRACKING NUMBER [id number], Tina Sent via [employer]ex [facility] 05-18-2024 Note HNO ID: [id number] Author: ?, ?, ? Service: ? Author Type: ? Type: Progress Notes Filed: 05/18/2024 11:55 Note Text: Returned with logs [facility] 05-18-2024 History of Present illness Narrative Returned with logs ACTIGRAPHY DEVICE # [id number] Date shipped out 05/06/2024 [employer] MAIL OUT TRACKING NUMBER [id number] [employer] RETURN TRACKING NUMBER [id number], Tina documented in this encounter [facility] 05-06-2024 Note HNO ID: [id number] Author: ?, ?, ? Service: ? Author Type: ? Type: Progress Notes Filed: 05/18/2024 11:55 Note Text: ACTIGRAPHY DEVICE # [id number] Date shipped out 05/06/2024 [employer] MAIL OUT TRACKING NUMBER [id number] [employer] RETURN TRACKING NUMBER [id number], Tina [facility] 03-15-2024 Instructions Dee Seaman APRN.[facility] - 03/15/2024 4:55 PM EST Get fasting labwork (10-12 hours, but you can have water and black coffee). Get mammogram in April. Check w/ insurance re: shingrix. Health Promotion: - Eat healthy -- go to ChooseMyPlate.gov to get started - Have a yearly physical - Mammogram yearly after age 40 - Get at least 30 minutes of physical activity daily - Get at least 7 to 8 hours of sleep each night - Reach and maintain a healthy weight - Get help to quit or don't start smoking - Limit alcohol use to one drink or less - Do not use illegal drugs or misuse prescription drugs - Wear a helmet when riding a bike and wear protective gear for sports - Wear a seatbelt in cars and not text and drive - Wear sunscreen documented in this encounter [facility] 03-15-2024 Note HNO ID: [id number] Author: DEE SEAMAN APRN.ANIBAL Service: ? Author Type: Nurse Practitioner Type: Progress Notes Filed: 03/16/2024 18:48 Note Text: This is a 53 year old female who presents today with: Patient presents with: Physical HISTORY OF PRESENT ILLNESS: Juvenal Amaro is a 53 year old female. Patient presents with: Physical Pt presents today for physical. No problems/concerns. She is currently being evaluated by sleep med for fatigue and sleep apnea. REVIEW OF SYSTEMS GENERAL: No weight loss, malaise or fevers/chills. +fatigue. HEENT: Negative for frequent or significant headaches, No changes in hearing or vision. + migraines (1-2 / month -- imitrex effective). NECK: Negative for lumps, goiter, pain and significant neck swelling RESPIRATORY: Negative for cough, hemoptysis, wheezing, dyspnea or shortness of breath CARDIOVASCULAR: Negative for chest pain, leg swelling, orthopnea, or palpitations GI: No nausea, vomiting, or diarrhea/constipation. No hematochezia/melena. + GERD - controlled w/ medication. Last colonoscopy 2015 -- 10 year clearance. : No history of dysuria, frequency or incontinence MUSCULOSKELETAL: Negative for joint pain or swelling. SKIN: Negative for lesions, rash, and itching ENDOCRINE: Negative for cold or heat intolerance, polyuria, polydipsia and goiter NEURO: No history of syncope, paralysis, seizures or tremors PAST MEDICAL HISTORY: 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 PAST SURGICAL HISTORY Procedure Laterality Date ADENOIDECTOMY HX APPENDECTOMY COLONOSCOPY FLX DX W/COLLJ SPEC WHEN PFRMD 04/15/2016 Colonoscopy ESOPHAGOGASTRODUODENOSCOPY TRANSORAL DIAGNOSTIC 07/03/2012 EGD ESOPHAGOGASTRODUODENOSCOPY TRANSORAL DIAGNOSTIC 04/15/2016 EGD EXTRACTION, ERUPTED TOOTH OR EXPOSED ROOT (ELEVATION AND/OR FORCEPS REMOVAL) S LASER CO2 08/2013 treatment BRIAN III SEPTOPLASTY TONSILLECTOMY HX ALLERGIES Patient has no known allergies. MEDICATIONS Current Outpatient Medications Medication Sig estradiol (ESTRACE) 1 mg tablet Take 1.5 tablets by mouth once daily. SUMAtriptan (IMITREX) 50 mg tablet TAKE 1 TABLET BY MOUTH. START AT ONSET OF HEADACHE. MAY REPEAT DOSE AFTER 2 HOURS. CPAP Initiate Auto PAP @ 5-20 cm of water with humidification. Mask (per patient preference) optional chin strap (if indicated) , filters, tubing, humidifier and lifetime supplies. (Patient not taking: Reported on 03/15/2024) omeprazole (PRILOSEC) 40 mg capsule Take 1 capsule by mouth two times a day. famotidine (PEPCID) 20 mg tablet Take 1 tablet by mouth two times a day. desvenlafaxine ER (PRISTIQ) 50 mg 24 hr tablet Take 1 tablet by mouth once daily. acetaminophen (TYLENOL ORAL) Take 500 mg by mouth as needed. ibuprofen (ADVIL) 200 mg tablet Take 200 mg by mouth every 6 hours as needed. polyethylene glycol 3350 (MIRALAX, GLYCOLAX) 17 gram packet Take 17 g by mouth as needed. No current facility-administered medications for this visit. FAMILY HISTORY Problem Relation Age of Onset None Mother other (migraine headache) Father other (colon polyps) Brother MAP(MYH-associated polyposis) Cancer Maternal Grandmother lung cancer,MA Cancer Maternal Grandfather prostate cancer,CVA Cancer Paternal Grandmother colon cancer other (bleeding disorder) Paternal Grandfather Breast Cancer Paternal Aunt Social History Tobacco Use Smoking status: Former Current packs/day: 0.00 Types: Cigarettes Quit date: 07/29/2002 Years since quittin.6 Smokeless tobacco: Never Vaping Use Vaping status: Never Used Substance Use Topics Alcohol use: Yes Alcohol/week: 3.0 - 4.0 standard drinks of alcohol Types: 3 - 4 Glasses of Wine (5oz) per week Comment: Occasionally Drug use: No EXAM: BP 132/90 Pulse 76 Resp 16 Wt 83.9 kg (185 lb) LMP 05/29/2021 SpO2 92% BMI 29.04 kg/m? PHYSICAL EXAM: General Appearance: Well appearing, alert, in no acute distress, well-hydrated, well nourished.. Skin: Skin color, texture, turgor normal, no suspicious rashes or lesions. Head: Normocephalic, no masses, lesions, tenderness or abnormalities. Eyes: Anicteric sclera. Pupils are equally round and reactive to light. Extraocular movements are intact. . Ears: External ears normal, canals clear. Normal TMs bilaterally. Oropharynx: Lips, mucosa, and tongue normal, teeth and gums normal, oropharynx normal. Neck: Supple, no adenopathy; thyroid symmetric, normal size, no bruits. Lungs: Lungs clear to auscultation. No wheezing, rhonchi, rales.. Heart: RRR without murmur, gallop, or rubs. No ectopy. Abdomen: Abdomen soft, non-tender. Bowel sounds no (more content not included)... [facility] 03-15-2024 History of Present illness Narrative This is a 53 year old female who presents today with: Patient presents with: Physical HISTORY OF PRESENT ILLNESS: Juvenal Amaro is a 53 year old female. Patient presents with: Physical Pt presents today for physical. No problems/concerns. She is currently being evaluated by sleep med for fatigue and sleep apnea. REVIEW OF SYSTEMS GENERAL: No weight loss, malaise or fevers/chills. +fatigue. HEENT: Negative for frequent or significant headaches, No changes in hearing or vision. + migraines (1-2 / month -- imitrex effective). NECK: Negative for lumps, goiter, pain and significant neck swelling RESPIRATORY: Negative for cough, hemoptysis, wheezing, dyspnea or shortness of breath CARDIOVASCULAR: Negative for chest pain, leg swelling, orthopnea, or palpitations GI: No nausea, vomiting, or diarrhea/constipation. No hematochezia/melena. + GERD - controlled w/ medication. Last colonoscopy 2015 -- 10 year clearance. : No history of dysuria, frequency or incontinence MUSCULOSKELETAL: Negative for joint pain or swelling. SKIN: Negative for lesions, rash, and itching ENDOCRINE: Negative for cold or heat intolerance, polyuria, polydipsia and goiter NEURO: No history of syncope, paralysis, seizures or tremors PAST MEDICAL HISTORY: 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 PAST SURGICAL HISTORY Procedure Laterality Date ADENOIDECTOMY HX APPENDECTOMY COLONOSCOPY FLX DX W/COLLJ SPEC WHEN PFRMD 04/15/2016 Colonoscopy ESOPHAGOGASTRODUODENOSCOPY TRANSORAL DIAGNOSTIC 07/03/2012 EGD ESOPHAGOGASTRODUODENOSCOPY TRANSORAL DIAGNOSTIC 04/15/2016 EGD EXTRACTION, ERUPTED TOOTH OR EXPOSED ROOT (ELEVATION AND/OR FORCEPS REMOVAL) S LASER CO2 08/2013 treatment BRIAN III SEPTOPLASTY TONSILLECTOMY HX ALLERGIES Patient has no known allergies. MEDICATIONS Current Outpatient Medications Medication Sig estradiol (ESTRACE) 1 mg tablet Take 1.5 tablets by mouth once daily. SUMAtriptan (IMITREX) 50 mg tablet TAKE 1 TABLET BY MOUTH. START AT ONSET OF HEADACHE. MAY REPEAT DOSE AFTER 2 HOURS. CPAP Initiate Auto PAP @ 5-20 cm of water with humidification. Mask (per patient preference) optional chin strap (if indicated) , filters, tubing, humidifier and lifetime supplies. (Patient not taking: Reported on 03/15/2024) omeprazole (PRILOSEC) 40 mg capsule Take 1 capsule by mouth two times a day. famotidine (PEPCID) 20 mg tablet Take 1 tablet by mouth two times a day. desvenlafaxine ER (PRISTIQ) 50 mg 24 hr tablet Take 1 tablet by mouth once daily. acetaminophen (TYLENOL ORAL) Take 500 mg by mouth as needed. ibuprofen (ADVIL) 200 mg tablet Take 200 mg by mouth every 6 hours as needed. polyethylene glycol 3350 (MIRALAX, GLYCOLAX) 17 gram packet Take 17 g by mouth as needed. No current facility-administered medications for this visit. FAMILY HISTORY Problem Relation Age of Onset None Mother other (migraine headache) Father other (colon polyps) Brother MAP(MYH-associated polyposis) Cancer Maternal Grandmother lung cancer,MA Cancer Maternal Grandfather prostate cancer,CVA Cancer Paternal Grandmother colon cancer other (bleeding disorder) Paternal Grandfather Breast Cancer Paternal Aunt Social History Tobacco Use Smoking status: Former Current packs/day: 0.00 Types: Cigarettes Quit date: 07/29/2002 Years since quittin.6 Smokeless tobacco: Never Vaping Use Vaping status: Never Used Substance Use Topics Alcohol use: Yes Alcohol/week: 3.0 - 4.0 standard drinks of alcohol Types: 3 - 4 Glasses of Wine (5oz) per week Comment: Occasionally Drug use: No EXAM: BP 132/90 Pulse 76 Resp 16 Wt 83.9 kg (185 lb) LMP 05/29/2021 SpO2 92% BMI 29.04 kg/m PHYSICAL EXAM: General Appearance: Well appearing, alert, in no acute distress, well-hydrated, well nourished.. Skin: Skin color, texture, turgor normal, no suspicious rashes or lesions. Head: Normocephalic, no masses, lesions, tenderness or abnormalities. Eyes: Anicteric sclera. Pupils are equally round and reactive to light. Extraocular movements are intact. . Ears: External ears normal, canals clear. Normal TMs bilaterally. Oropharynx: Lips, mucosa, and tongue normal, teeth and gums normal, oropharynx normal. Neck: Supple, no adenopathy; thyroid symmetric, normal size, no bruits. Lungs: Lungs clear to auscultation. No wheezing, rhonchi, rales.. Heart: RRR without murmur, gallop, or rubs. No ectopy. Abdomen: Abdomen soft, non-tender. Bowel sounds normal. No masses, organomegaly. Extremities: No deformities, edema, skin discoloration, clubbing or cyanosis. Good capillary refill. . Neurologic: Gait normal. ASSESSMENT/PLAN: 1. Wellness examination - ICD9: V70.0, ICD10: Z00.00 (primary diagnosis) Health Promotion: - Eat healthy -- go to [email or web address] to get started - Have a yearly physical - Mammogram yearly after age 40 - Get at least 30 minutes of physical activity daily - Get at least 7 to 8 hours of sleep each night - Reach and maintain a healthy weight - Get help to quit or don't start smoking - Limit alcohol use to one drink or less - Do not use illegal drugs or misuse prescription drugs - Wear a helmet when riding a bike and wear protective gear for sports - Wear a seatbelt in cars and not text and drive - Wear sunscreen 2. Gastroesophageal reflux disease with esophagitis - ICD9: 530.11, ICD10: K21.00 Stable. - MAGNESIUM - OMEPRAZOLE 40 MG CAPSULE,DELAYED RELEASE - FAMOTIDINE 20 MG TABLET 3. Anxiety - ICD9: 300.00, ICD10: F41.9 Controlled on current medication regimen. - DESVENLAFAXINE SUCCINATE ER 50 MG TABLET,EXTENDED RELEASE 24 HR 4. Migraine without status migrainosus, not intractable, unspecified migraine type - ICD9: 346.90, ICD10: G43.909 Stable. Refill: - SUMATRIPTAN 50 MG TABLET 5. Elevated platelet count - ICD9: 790.6, ICD10: R79.89 recheck - COMPLETE BLOOD COUNT AND DIFFERENTIAL 6. Graves disease - ICD9: 242.00, ICD10: E05.00 Stable. - THYROID STIMULATING HORMONE 7. Hypertriglyceridemia - ICD9: 272.1, ICD10: E78.1 - Control undetermined, due for labs - LIPID PANEL BASIC - COMPREHENSIVE METABOLIC PANEL Discussed treatment plan and patient voices understanding. Patient's questions answered appropriately. Medications and potential side effects were discussed and patient voices understanding. Return to the office as scheduled or as needed for worsening/no improvement. Dee Seaman APRN.[facility] [facility] documented in this encounter [facility] 03-15-2024 History of Present illness Narrative Images from the original note were not included. [facility] New Patient Evaluation PATIENT NAME: Juvenal Amaro DATE OF SERVICE: March 14,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 Indications for study: JOSE suspected without comorbid medical or sleep disorders Sleep study to be performed: Home Sleep Apnea Test (HSAT) Special instructions: None-follow laboratory protocol Gloria Agrawal Sleep Medicine Staff Note: I have read the above protocol, edited as needed, and agree to the plan. Adelina Del Real MD 12:56 PM, 04/09/2023 Nomad# [id number] , Date shipped out: 04/09/23 SENT FEDEX DELIVERY - FEDEX RETURN Tracking mailout: [phone] Tracking return: [phone] April 04, 2023 An order has been received for Home Sleep Apnea Test (HSAT) from Dee Cordero APRN.blanche BARNETT. [facility] Staff. Visit prep complete. Comments :No The sleep study is scheduled for 04/10. Insurance: Payor: ANTHEM / Plan: BLUE CARD PPO OOS / Product Type: PPO / Payer/Plan Subscr Sex Relation Sub. Ins. ID Effective Group Num 1. ANTHEM - BLUE* STEFAN AMARO 03/[birth year]/1969 Male Spouse [id number] 05/[birth year] [id number] [id number] Olive Figueroa documented in this encounter [facility] 03-21-2023 Miscellaneous Notes March 21, 2023 PID: [id number] Juvenal Amaro [address] [place] [address] Dear Ms. Amaro, Your recent breast imaging exam on 03/20/2023 showed a possible finding that requires additional imaging studies for a complete evaluation. Most such findings are probably benign (not cancer). Your mammogram demonstrates that you have dense breast tissue, which could hide abnormalities. Dense breast tissue, in and of itself, is a relatively common condition. Therefore, this information is not provided to cause undue concern; rather, it is to raise your awareness and promote discussion with your health care provider regarding the presence of dense breast tissue in addition to other risk factors. If you have a healthcare provider who ordered/prescribed your screening mammogram: Please call [phone] or [phone]: [phone] to schedule an appointment for your additional imaging (if you have not already done so). If you DO NOT have a healthcare provider (ie you did not have an order/prescription for your screening mammogram): Please call to schedule an appointment for your additional imaging (if you have not already done so). You must have an order/prescription from your physician when calling to schedule your appointment. If your order/prescription is not electronic, you must bring the hard copy with you on the day of your exam to avoid delays. Your imaging studies and reports are kept on file at [facility] as part of your permanent medical record, and are available for your continuing care. Thank you for allowing us to help in meeting your health care needs. Sincerely, Dr. 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 Spoke with Milvia and TSH order can be added to labs that have been drawn. Call ended 4:28 pm. Melody Frederick Ma Can we please see if lab can add a tsh onto today's labs. documented in this encounter [facility] 03-10-2023 History of Present illness Narrative This is a 52 year old female who presents today with: Patient presents with: Yearly Exam HISTORY OF PRESENT ILLNESS: Juvenal Amaro is a 52 year old female. Patient presents with: Yearly Exam Patient here for wellness exam. She was dx'd with Graves Disease 3 years ago. TSH is WNL. Her eyes give her trouble with orientation and having blurred vision. Got blood drawn earlier today. Patient refers to being chronically fatigued. She was on a vacation and a friend observed apneic episodes, she snores, and >50 years and wants to get a sleep study. Migraines: Doing well on medication. Does not maker her feel foggy or fatigued. Able to drive. Rarely has to take a second dose for relief. 2 migraines a month. GERD: Doing well on both prilosec and pepsid. Wants to keep treatment the same. 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 MEDICATIONS Current Outpatient Medications Medication Sig omeprazole (PRILOSEC) 40 mg capsule Take 1 capsule by mouth two times a day. famotidine (PEPCID) 20 mg tablet Take 1 tablet by mouth two times a day. desvenlafaxine ER (PRISTIQ) 50 mg 24 hr tablet Take 1 tablet by mouth once daily. Estradiol (ESTRACE) 0.5 mg tablet Take 3 tablets by mouth once daily. 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 START AT ONSET OF HEADACHE. MAY REPEAT DOSE AFTER 2 HOURS. acetaminophen (TYLENOL ORAL) Take 500 mg by mouth as needed. ibuprofen (ADVIL) 200 mg tablet Take 200 mg by mouth every 6 hours as needed. polyethylene glycol 3350 (MIRALAX, GLYCOLAX) 17 gram packet Take 17 g by mouth as needed. benzonatate (TESSALON PERLES) 100 mg capsule Take 1 capsule by mouth three times daily as needed for cough. No current facility-administered medications for this visit. FAMILY HISTORY Problem Relation Age of Onset None Mother other (migraine headache) Father other (colon polyps) Brother MAP(MYH-associated polyposis) Cancer Maternal Grandmother lung cancer,MA Cancer Maternal Grandfather prostate cancer,CVA Cancer Paternal Grandmother colon cancer other (bleeding disorder) Paternal Grandfather Breast Cancer Paternal Aunt Social History Tobacco Use Smoking status: Former Types: Cigarettes Quit date: 07/29/2002 Years since quittin.6 Smokeless tobacco: Never Vaping Use Vaping Use: Never used Substance Use Topics Alcohol use: Yes Alcohol/week: 7.5 - 10.0 standard drinks of alcohol Types: 3 - 4 Glasses of Wine (5oz) per week Comment: Occasionally Drug use: No REVIEW OF SYSTEMS PAIN ASSESSMENT: Negative for pain, history of chronic pain, or current treatment for a chronic pain condition. GENERAL: No weight loss, malaise or fevers HEENT: Negative for frequent or significant headaches, No changes in hearing or vision, no nose bleeds or other nasal problems NECK: Negative for lumps, goiter, pain and significant neck swelling RESPIRATORY: Negative for cough, hemoptysis, wheezing, COPD, dyspnea or shortness of breath CARDIOVASCULAR: Negative for chest pain, leg swelling, hypertension, CHF or palpitations GI: No nausea, vomiting, or diarrhea : No history of dysuria, frequency or incontinence SPRAY PAINTER HELPER: Negative for abnormal vaginal bleeding, abnormal vaginal discharge MUSCULOSKELETAL: Negative for joint pain or swelling, back pain or muscle pain SKIN: Negative for lesions, rash, and itching PSYCH: Negative for sleep disturbance, mood disorder and recent psychosocial stressors HEMATOLOGY/LYMPHOLOGY: Negative for prolonged bleeding, bruising easily or swollen nodes ENDOCRINE: Negative for cold or heat intolerance, polyuria, polydipsia and goiter NEURO: Migraine headaches All other reviewed and negative other than HPI. EXAM: BP 108/80 Pulse 101 Resp 16 Ht 170 cm (5' 6.93) Wt 82.6 kg (182 lb) LMP 05/29/2021 SpO2 93% BMI 28.57 kg/m PHYSICAL EXAM: General Appearance: Well appearing, alert, in no acute distress, well-hydrated, well nourished.. Skin: Skin color, texture, turgor normal, no suspicious rashes or lesions. Head: Normocephalic, no masses, lesions, tenderness or abnormalities. Eyes: Anicteric sclera. Pupils are equally round and reactive to light. Extraocular movements are intact. . Ears: External ears normal, canals clear.TM pearly nielson Nose/Sinuses: Nares normal, septum midline, mucosa normal, no drainage or sinus tenderness. Oropharynx: Lips, mucosa, and tongue normal, teeth and gums normal, oropharynx normal. Lungs: Lungs clear to auscultation. No wheezing, rhonchi, rales.. Heart: RRR without murmur, gallop, or rubs. No ectopy. Musculoskeletal: No joint swelling, deformity, or tenderness. Peripheral Pulses: Normal. Lymph Nodes: No cervical lymphadenopathy, No supraclavicular lymphadenopathy, No axillary lymphadenopathy., and No inguinal lymphadenopathy.. ASSESSMENT/PLAN: 1. Wellness examination - ICD9: V70.0, ICD10: Z00.00 (primary diagnosis) - Counseled on healthy diet and regular exercise - Calcium intake with supplements or by diet of 1000 mg/day for under 50, 2133-5065 mg/day for 50+ - Mammogram ordered - exam recommended once yearly. Has one ordered. Due since . - Follow up for annual exam in one year 2. JOSE (obstructive sleep apnea) - ICD9: 327.23, ICD10: G47.33 Chronic daytime fatigue, snoring >50 and observed apnea during sleep Home sleep study ordered. 3. Gastroesophageal reflux disease with esophagitis - ICD9: 530.11, ICD10: K21.00 Continue current medications, Prilosec and Pepsid 4. Anxiety - ICD9: 300.00, ICD10: F41.9 Mood is doing well. Continue on current treatment plan 5. Migraine without status migrainosus, not intractable, unspecified migraine type - ICD9: 346.90, ICD10: G43.909 Continue on current treatment plan Discussed treatment plan and patient voices understanding. Patient's questions answered appropriately. Medications and potential side effects were discussed and patient voices understanding. Return to the office as scheduled or as needed for worsening/no improvement. Dee Seaman APRN.DIRECTOR STATE PHARMACY documented in this encounter [facility] 07-05-2022 History of Present illness Narrative Chief Complaint Patient presents with: Illness HPI Juvenal Amaro is a 52 year old female who presents here today for illness. Pt c/o cough, head congestion, fatigue, sore throat, body aches, headaches, off and on left ear pain, wheezing and SOB x 1 week. She hears the wheezing at night when laying down. Had fever of 101.0 once last week the 2nd day of sx starting. Her tongue has some spots on, feels weird but no pain. She has some side pain from coughing. Pt has had covid vaccines. Her mother was not feeling well a few weeks ago but then her and child sick started getting sick about a week before her. She has been using OTC Nyquil and Dayquil, helps her sleep. She doesn't not feel worse but does not feel like its improving. She has not tested for covid, no as anyone else in the family. Non smoker. 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 Past medical history, appointments, medications, allergies reviewed. 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 Previous Surgical History PAST SURGICAL HISTORY Procedure Laterality Date ADENOIDECTOMY HX APPENDECTOMY COLONOSCOPY FLX DX W/COLLJ SPEC WHEN PFRMD 04/15/2016 Colonoscopy ESOPHAGOGASTRODUODENOSCOPY TRANSORAL DIAGNOSTIC 07/03/2012 EGD ESOPHAGOGASTRODUODENOSCOPY TRANSORAL DIAGNOSTIC 04/15/2016 EGD EXTRACTION, ERUPTED TOOTH OR EXPOSED ROOT (ELEVATION AND/OR FORCEPS REMOVAL) S LASER CO2 08/2013 treatment BRIAN III SEPTOPLASTY TONSILLECTOMY HX Family History FAMILY HISTORY Problem Relation Age of Onset None Mother other (migraine headache) Father other (colon polyps) Brother MAP(MYH-associated polyposis) Cancer Maternal Grandmother lung cancer,MA Cancer Maternal Grandfather prostate cancer,CVA Cancer Paternal Grandmother colon cancer other (bleeding disorder) Paternal Grandfather Breast Cancer Paternal Aunt Patient Allergies ALLERGIES No Known Allergies Current Medications Current Outpatient Medications on File Prior to Visit Medication Sig SUMAtriptan (IMITREX) 50 mg tablet TAKE 1 TABLET BY MOUTH. START AT ONSET OF HEADACHE. MAY REPEAT DOSE AFTER 2 HOURS. omeprazole (PRILOSEC) 40 mg capsule Take 1 capsule by mouth twice daily. famotidine (PEPCID) 20 mg tablet Take 1 tablet by mouth twice daily. acetaminophen (TYLENOL ORAL) Take 500 mg by mouth as needed. ibuprofen (ADVIL) 200 mg tablet Take 200 mg by mouth every 6 hours as needed. desvenlafaxine ER (PRISTIQ) 50 mg 24 hr tablet Take 1 tablet by mouth once daily. polyethylene glycol 3350 (MIRALAX, GLYCOLAX) 17 gram packet Take 17 g by mouth as needed. No current facility-administered medications on file prior to visit. Social History Social History Tobacco Use Smoking status: Former Types: Cigarettes Quit date: 07/29/2002 Years since quittin.9 Smokeless tobacco: Never Vaping Use Vaping Use: Never used Substance Use Topics Alcohol use: Yes Alcohol/week: 7.5 - 10.0 standard drinks Types: 3 - 4 Glasses of Wine (5oz) per week Comment: Occasionally Drug use: No EXAM: BP 120/74 Pulse 84 Resp 16 Wt 82 kg (180 lb 11.2 oz) LMP 05/29/2021 SpO2 96% BMI 30.07 kg/m General Appearance: Well appearing, alert, in no acute distress, well-hydrated, well nourished.. Ears: External ears normal, canals clear. Oropharynx: Oropharynx normal, some patchiness to tongue Neck: Supple, no adenopathy; thyroid symmetric, normal size, no bruits. Lungs: Lungs clear to auscultation. No wheezing, rhonchi, rales.. Heart: RRR without murmur, gallop, or rubs. No ectopy. Health Maintenance List HEPATITIS B(1 of 3 - 3-dose series) Never done DTAP,TDAP,TD(1 - Tdap) Never done SHINGRIX VACCINE(1 of 2) Never done COVID-19 VACCINE(4 - Booster for Pfizer series) due on 12/05/2020 INFLUENZA(1) due on 01/10/2022 DEPRESSION ASSESSMENT Never done MAMMOGRAM due on 11/13/2022 DIABETES SCREEN due on 08/15/2024 PAP TESTING due on 10/19/2024 HPV TESTING due on 10/19/2024 COLORECTAL CANCER SCREENING due on 04/15/2026 LIPID SCREEN due on 08/15/2026 HEPATITIS C SCREENING Completed HIV SCREENING Completed Data reviewed None ASSESSMENT/PLAN: 1. Sinobronchitis - ICD9: 473.9, 490, ICD10: J32.9, J40 (primary diagnosis) - Will begin treatment with Doxycycline - The patient should also be given tessalon for the cough - Supportive care with plenty of fluids, rest, and analgesia prn. - Call in 3-5 days if symptoms persist or worsen. - BENZONATATE 100 MG CAPSULE - DOXYCYCLINE HYCLATE 100 MG TABLET 2. Acute cough - ICD9: 786.2, ICD10: R05.1 - BENZONATATE 100 MG CAPSULE I agree with the Chief Complaint, ROS, and Past Histories independently gathered by the clinical application support consultant and the remaining scribed note accurately describes my personal service to the patient. Medical Decision Making: Problems: Low: Acute, uncomplicated illness or injury Risk: Moderate: Drug management Medical Decision Making Level: 3 - Low Fitz Bragg MD The documentation for this note was completed by Sara Oconnor Ma acting as scribe for Fitz Bragg MD. July 05, 2022 11:10 AM. Sara Oconnor Ma documented in this encounter [facility] 06-05-2022 Miscellaneous Notes Images from the original note were not included. PA approved and patient notified through mychart Gabbi Roberts Ma Prior Authorization has been completed online at [employer] for omeprazole, will await response. [id number] Please keep encounter open until final decision has been received and documented from insurance company. Gabbi Roberts MA documented in this encounter [facility] 06-03-2022 Miscellaneous Notes Patient MyChart message requesting the following refill. Requested Prescriptions Pending Prescriptions Disp Refills SUMAtriptan (IMITREX) 50 mg tablet 9 tablet 11 Sig: TAKE 1 TABLET BY MOUTH. START AT ONSET OF HEADACHE. MAY REPEAT DOSE AFTER 2 HOURS. Patient last appointment: 01/29/2022 Patient Phone numbers: [phone] (home) [phone] (work) Request is for script(s) to be escript to pharmacy. Adenike Neely documented in this encounter [facility] 03-01-2022 Miscellaneous Notes Patient has been identified by name and date of : Yes Patient phones for refill(s): Requested Prescriptions Pending Prescriptions Disp Refills omeprazole (PRILOSEC) 40 mg capsule 180 capsule 3 Sig: Take 1 capsule by mouth twice daily. famotidine (PEPCID) 20 mg tablet 180 tablet 3 Sig: Take 1 tablet by mouth twice daily. Date of last office visit with pcp: 01/29/2022 Future appt: none Last 2 Encounter Wt Readings: Date: Wt: 02/19/2022 84.4 kg (186 lb) 01/29/2022 84 kg (185 lb 3.2 oz) Previous labs/tests for medication: Blood Pressure: BUN (mg/dL) Date Value 08/15/2021 14 04/08/2016 9 Sodium (mmol/L) Date Value 08/15/2021 138 04/08/2016 139 Last 1 Encounter BP Readings: Date: BP: 02/19/2022 128/90 Liver Function: ALT (U/L) Date Value 08/15/2021 12 04/08/2016 9 AST (U/L) Date Value 08/15/2021 16 04/08/2016 14 Please advise. Thank you. Jennifer Chin RN documented in this encounter [facility] 02-19-2022 History of Present illness Narrative Juvenal Amaro 1970 REFERRING PHYSICIAN: Mak Luevano MD CHIEF COMPLAINT: Consult (Hernia umbilical) HPI: The patient is a 51 year old female presents with umbilical hernia. She denies pain in the area. She denies obstructive gastrointestinal or urinary symptoms. She is concerned about the protruding nature of the lesion. 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 ibuprofen (ADVIL) 200 mg tablet Take 200 mg by mouth every 6 hours as needed. desvenlafaxine ER (PRISTIQ) 50 mg 24 hr tablet Take 1 tablet by mouth once daily. SUMAtriptan (IMITREX) 50 mg tablet TAKE 1 TABLET BY MOUTH. START AT ONSET OF HEADACHE. MAY REPEAT DOSE AFTER 2 HOURS. omeprazole (PRILOSEC) 40 mg capsule Take 1 capsule by mouth twice daily. famotidine (PEPCID) 20 mg tablet Take 1 tablet by mouth twice daily. polyethylene glycol 3350 (MIRALAX, GLYCOLAX) 17 gram packet Take 17 g by mouth as needed. ALLERGIES: Patient has no known allergies. PERSONAL HISTORY: Social History Tobacco Use Smoking status: Former Types: Cigarettes Quit date: 07/29/2002 Years since quittin.5 Smokeless tobacco: Never Vaping Use Vaping Use: Never used Substance Use Topics Alcohol use: Yes Alcohol/week: 7.5 - 10.0 standard drinks Types: 3 - 4 Glasses of Wine (5oz) per week Comment: Occasionally Drug use: No FAMILY HISTORY Problem Relation Age of Onset None Mother other (migraine headache) Father other (colon polyps) Brother MAP(MYH-associated polyposis) Cancer Maternal Grandmother lung cancer,MA Cancer Maternal Grandfather prostate cancer,CVA Cancer Paternal Grandmother colon cancer other (bleeding disorder) Paternal Grandfather Breast Cancer Paternal Aunt The review of systems data was entered by the nurse and reviewed by me Nursing Notes: Babs OlesyaLUPIS 02/19/2022 8:12 AM Signed REVIEW OF SYSTEMS: General: The patient notes fatigue, denies weight loss, notes weight gain, notes feeling hot, and denies feelings of cold. Eyes: The patient denies glaucoma, denies eye injury/surgery, does not wear glasses or contacts. Ear/Nose/Throat: The patient denies allergies, denies hayfever, denies ear infections, and denies bloody noses. Cardiovascular: The patient denies chest pain, denies heart disease, denies high blood pressure,denies cardiac stent, denies prior heart attack, denies irregular heart beat, denies high cholesterol, denies poor circulation, denies heart failure, other cardiac issues, denies claudication, denies cold feet, denies peripheral arterial stent. Respiratory: The patient denies tuberculosis, denies pneumonia, denies frequent cough, denies pulmonary embolism, denies shortness of breath, and denies coughing up blood. Gastrointestinal: The patient denies difficulty swallowing, notes acid reflux, denies ulcers, denies vomiting, denies jaundice/hepatitis, denies gallbladder problems, denies black or tarry stools, denies hemorrhoids, denies bleeding from rectum, denies diverticulitis, denies constipation, denies diarrhea, denies loss of stool control, and denies hernias. Kidney/Bladder: The patient denies kidney stones, denies urine infections, and denies bloody urine. Skin: The patient denies a history of skin cancer, denies bleeding/changing moles, and denies a history of skin rash. Neurologic: The patient denies a history of epilepsy/convulsions, notes headaches, denies head/spinal injuries, and denies stroke/TIA. Psychiatric: The patient denies psychiatric medications, notes depression, and denies voices, denies substance abuse. Endocrine: The patient denies thyroid disorders, denies diabetes, and notes hormonal problems. Hematologic: The patient denies a history of bruising, denies bleeding, and notes anemia, denies blood clots. Infections: The patient denies a history of measles and mumps, denies rheumatic fever, and denies sexually transmitted diseases. Musculoskeletal: The patient denies back pain/injury, denies back problems, denies sciatica, notes knee/foot trouble, denies arthritis, or denies gout. When was patient's last Mammogram screening? 2021 Last Colonoscopy: 2015 Babs Dacosta LPN PHYSICAL EXAMINATION: General: The patient is 51 year old female, well nourished, well hydrated in no acute distress. The patient is oriented to time, place, and person. VITALS: Blood pressure 128/90, pulse 95, temperature 36.4 C (97.5 F), height 165.1 cm (5' 5), weight 84.4 kg (186 lb), last menstrual period 05/29/2021, SpO2 94 %. Body mass index is 30.95 kg/m . Head - Normocephalic. EOM intact with sclera clear and no icterus noted. Wearing glasses Neck - supple with no jugular venous distention noted. Trachea is midline. Lungs - clear to auscultation. Normal breath sounds. No rales/rhonchi/wheezing noted. No labored breathing noted, such as retractions. No cough heard. Heart - normal S1 and S2 auscultated. No rubs/clicks/murmurs noted. Regular rate. Abdomen - soft and benign. Rectus diastasis present, umbilical hernia reducible. Extremities - no calf tenderness noted. No pitting edema noted. Skin - normal skin integrity. Neurological - gait normal, no focal deficits noted. Psych - calm and appropriate Assessment IMPRESSION: umbilical hernia in the midst of rectus diastasis PLAN: I have discussed the above with the patient. I have offered umbilical hernia repair. I have explained the procedure to the patient. I have counseled the patient as to the risks of the procedure, including but not limited to: infection, bleeding, injury to any blood vessels/nerves, scar tissue, injury to any intrabdominal organs, injury to bowel/bladder, intraabdominal abscess/bleeding, recurrence of hernia, wound infections, complications of anesthesia, etc. - the patient understands. The patient will think about it. She did not schedule for any procedure during this patient encounter. I have answered all questions to the patient s satisfaction and the patient has no furtherquestions. I have confirmed and edited as necessary, the PFSH and ROS obtained by others. Consultation requested by Dr. Mak Luevano for an opinion regarding patient's umbilical hernia. My final recommendations will be communicated back to the requesting physician by way of shared Medical record or letter to requesting physician via [place] mail. . Diagnoses: (K42.9) Umbilical hernia without obstruction or gangrene (M62.08) Rectus diastasis (Z68.30) BMI 30.0-30.9,adult Return to Clinic: The patient is encouraged to return to clinic if any worsening signs/symptoms. I spent a total of 41 minutes on the date of the service which included preparing to see the patient with review of any pertinent laboratory studies/radiological imaging/medical records, [id number] patient care, obtaining oral medical history from the patient in this encounter, performing a medically appropriate examination, counseling and educating the patient/family/caregiver, and completing appropriate medical documentation. Myriam Myers MD documented in this encounter [facility] 02-19-2022 Nurse Note REVIEW OF SYSTEMS: General: The patient notes fatigue, denies weight loss, notes weight gain, notes feeling hot, and denies feelings of cold. Eyes: The patient denies glaucoma, denies eye injury/surgery, does not wear glasses or contacts. Ear/Nose/Throat: The patient denies allergies, denies hayfever, denies ear infections, and denies bloody noses. Cardiovascular: The patient denies chest pain, denies heart disease, denies high blood pressure,denies cardiac stent, denies prior heart attack, denies irregular heart beat, denies high cholesterol, denies poor circulation, denies heart failure, other cardiac issues, denies claudication, denies cold feet, denies peripheral arterial stent. Respiratory: The patient denies tuberculosis, denies pneumonia, denies frequent cough, denies pulmonary embolism, denies shortness of breath, and denies coughing up blood. Gastrointestinal: The patient denies difficulty swallowing, notes acid reflux, denies ulcers, denies vomiting, denies jaundice/hepatitis, denies gallbladder problems, denies black or tarry stools, denies hemorrhoids, denies bleeding from rectum, denies diverticulitis, denies constipation, denies diarrhea, denies loss of stool control, and denies hernias. Kidney/Bladder: The patient denies kidney stones, denies urine infections, and denies bloody urine. Skin: The patient denies a history of skin cancer, denies bleeding/changing moles, and denies a history of skin rash. Neurologic: The patient denies a history of epilepsy/convulsions, notes headaches, denies head/spinal injuries, and denies stroke/TIA. Psychiatric: The patient denies psychiatric medications, notes depression, and denies voices, denies substance abuse. Endocrine: The patient denies thyroid disorders, denies diabetes, and notes hormonal problems. Hematologic: The patient denies a history of bruising, denies bleeding, and notes anemia, denies blood clots. Infections: The patient denies a history of measles and mumps, denies rheumatic fever, and denies sexually transmitted diseases. Musculoskeletal: The patient denies back pain/injury, denies back problems, denies sciatica, notes knee/foot trouble, denies arthritis, or denies gout. When was patient's last Mammogram screening? 2021 Last Colonoscopy: 2015 Babs Dacosta LPN documented in this encounter [facility] 01-29-2022 History of Present illness Narrative Patient presents with: Anxiety: Follow up HPI: Patient presents today for office visit for 6 month follow up. Pristiq is not working. Is on a very small dose. No side effects. Still feeling anxiety. Having a lot of worrying. No suicidal ideation. No true depression. Belly button protruding X 1 year Does not hurt but is uncomfortable and is gross. MEDICATIONS: Current Outpatient Medications Medication Sig desvenlafaxine ER (PRISTIQ) 25 mg 24 hr tablet Take 1 tablet by mouth once daily. SUMAtriptan (IMITREX) 50 mg tablet TAKE 1 TABLET BY MOUTH. START AT ONSET OF HEADACHE. MAY REPEAT DOSE AFTER 2 HOURS. omeprazole (PRILOSEC) 40 mg capsule Take 1 capsule by mouth twice daily. famotidine (PEPCID) 20 mg tablet Take 1 tablet by mouth twice daily. polyethylene glycol 3350 (MIRALAX, GLYCOLAX) 17 gram packet Take 17 g by mouth once daily. No current facility-administered medications for this visit. 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 PAST SURGICAL HISTORY Procedure Laterality Date ADENOIDECTOMY HX APPENDECTOMY COLONOSCOPY FLX DX W/COLLJ SPEC WHEN PFRMD 04/15/2016 Colonoscopy ESOPHAGOGASTRODUODENOSCOPY TRANSORAL DIAGNOSTIC 07/03/2012 EGD ESOPHAGOGASTRODUODENOSCOPY TRANSORAL DIAGNOSTIC 04/15/2016 EGD EXTRACTION, ERUPTED TOOTH OR EXPOSED ROOT (ELEVATION AND/OR FORCEPS REMOVAL) S LASER CO2 08/2013 treatment BRIAN III SEPTOPLASTY TONSILLECTOMY HX FAMILY HISTORY Problem Relation Age of Onset None Mother other (migraine headache) Father other (colon polyps) Brother MAP(MYH-associated polyposis) Cancer Maternal Grandmother lung cancer,MA Cancer Maternal Grandfather prostate cancer,CVA Cancer Paternal Grandmother colon cancer other (bleeding disorder) Paternal Grandfather Breast Cancer Paternal Aunt Social History Tobacco Use Smoking status: Former Types: Cigarettes Quit date: 07/29/2002 Years since quittin.5 Smokeless tobacco: Never Substance Use Topics Alcohol use: Yes Alcohol/week: 7.5 - 10.0 standard drinks Types: 3 - 4 Glasses of Wine (5oz) per week Comment: Occasionally Drug use: No Reviewed current medications, allergies, past medical history, surgical history, family history and social history today. REVIEW OF SYSTEMS Has had more headaches with her anxiety. All other reviewed and negative other than HPI. HEALTH MAINTENANCE: Reviewed health maintenance issues today and recommended the following in detail. HEPATITIS B(1 of 3 - 3-dose series) Never done DTAP,TDAP,TD(1 - Tdap) Never done SHINGRIX VACCINE(1 of 2) Never done COVID-19 VACCINE(4 - Booster for Pfizer series) due on 02/09/2021 INFLUENZA(1) due on 01/10/2022 VITALS: BP 118/88 Pulse 93 Ht 168.9 cm (5' 6.5) Wt 84 kg (185 lb 3.2 oz) LMP 05/29/2021 SpO2 96% BMI 29.44 kg/m Last 4 Encounter Wt Readings: Date: Wt: 10/25/2021 82.1 kg (181 lb) 10/01/2021 82.1 kg (181 lb) 08/15/2021 83.5 kg (184 lb) 07/24/2021 83 kg (183 lb) PHYSICAL EXAMINATION: General appearance: Well appearing, alert, in no acute distress, well-hydrated, well nourished. Skin: Skin color, texture, turgor normal, no suspicious rashes or lesions Head: Normocephalic, no masses, lesions, tenderness or abnormalities Neck: Supple, no adenopathy; thyroid symmetric, normal size, no bruits Lungs: Lungs clear to auscultation. No wheezing, rhonchi, rales Heart: RRR without murmur, gallop, or rubs. No ectopy Abdomen: Abdomen soft, non-tender. Bowel sounds normal. No masses, organomegaly, easily reducible umbilical hernia. Nontender. Extremities: No deformities, edema, skin discoloration, clubbing or cyanosis. Good capillary refill. Musculoskeletal: No joint swelling, deformity, or tenderness ASSESSMENT/PLAN: 1. Anxiety - ICD9: 300.00, ICD10: F41.9 (primary diagnosis) - increase dose and follow up closely. - DESVENLAFAXINE SUCCINATE ER 50 MG TABLET,EXTENDED RELEASE 24 HR 2. Umbilical hernia without obstruction or gangrene - ICD9: 553.1, ICD10: K42.9 - Red flags for re-assessment reviewed with patient in detail. - see surgery. - CONSULT TO GENERAL SURGERY Mak Luevano MD documented in this encounter [facility] 12-31-2021 Miscellaneous Notes Duplicate request. Calvin Kumar LPN documented in this encounter [facility] 12-31-2021 Miscellaneous Notes Patient phones requesting refills as follows: Requested Prescriptions Pending Prescriptions Disp Refills desvenlafaxine ER (PRISTIQ) 25 mg 24 hr tablet 30 tablet 2 Sig: Take 1 tablet by mouth once daily. [place] 11/20/21 NOV 01/29/22 Please review and advise. Calvin Kumar LPN documented in this encounter [facility] 11-20-2021 Miscellaneous Notes Patient notified by Nikki. documented in this encounter [facility] 11-01-[address] [facility] Work Phone: Pap Smear Specimen Adequacy November 01, 2021 10:08am Comment . Satisfactory for evaluation. Endocervical and/or squamous metaplasticcells (endocervical component) are present. Comment on above: Satisfactory for irineo luation. Endocervical and/or squamous metaplasticcells (endocervical component) are present. 10-25-2021 History of Presen t illness Narrative 51 year old female with c/o here for follow-up on medication changes. Patient as directed stop bupropion, begin weaning Celexa while starting desvenlafaxine at the same time. She was given a prescription for BuSpar 5 mg to use up to 3 times daily as needed for anxiety. Patient has weaned down to Celexa 10 mg every other day, uses BuSpar intermittently with only a few times taking 3 doses in 1 day. Identifies she was enjoying an evening in the sun with her , having a few glasses of wine, suddenly anxiety significantly increased, became emotionally unstable, clenching teeth, legs shaking, difficulty forming words and coordinating ideas. Patient and identified that she was breathing rapidly, had to be reminded several times to slow breathing and take regular breaths. Patient did identify carpal spasms. took her to [facility] emergency department where she was evaluated for possible seizure or stroke. 10/22/2021: MRI of brain without contrast demonstrated normal size of ventricles, no evidence of recent intracranial ischemia or other cytotoxic edema, essentially normal unenhanced MRI brain. Noncontrast CT of head: No acute abnormality. CTA head and neck with contrast: Negative CTA carotid and CTA brain, C5-6 degenerative changes with prominent left neuroforaminal stenosis at C5-6 and C6-7. EKG demonstrated normal sinus rhythm, chest x-ray: No acute disease. Echocardiogram with contrast: LV size and LV SF WNL, EF 65%, no regional wall motion abnormalities. RV normal size and normal RVSF Bilateral atria normal with negative bubble study. No valvular heart disease. Normal appearing aortic root, pulmonary artery and vena cava. No pericardial effusion. Lab work essentially normal including CBC, chemistry profile, toxicology. 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 PAST SURGICAL HISTORY Procedure Laterality Date ADENOIDECTOMY HX APPENDECTOMY COLONOSCOPY FLX DX W/COLLJ SPEC WHEN PFRMD 04/15/2016 Colonoscopy ESOPHAGOGASTRODUODENOSCOPY TRANSORAL DIAGNOSTIC 07/03/2012 EGD ESOPHAGOGASTRODUODENOSCOPY TRANSORAL DIAGNOSTIC 04/15/2016 EGD EXTRACTION, ERUPTED TOOTH OR EXPOSED ROOT (ELEVATION AND/OR FORCEPS REMOVAL) S LASER CO2 08/2013 treatment BRIAN III SEPTOPLASTY TONSILLECTOMY HX Social History Tobacco Use Smoking status: Former Smoker Quit date: 07/29/2002 Years since quittin.2 Smokeless tobacco: Never Used Substance Use Topics Alcohol use: Yes Alcohol/week: 7.5 - 10.0 standard drinks Types: 3 - 4 Glasses of Wine (5oz) per week Comment: Occasionally Drug use: No ACTIVE PROBLEM LIST Migraine Headache Gerd (Gastroesophageal Reflux Disease) Allergic Rhinitis 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 30 tablet 2 busPIRone (BUSPAR) 5 mg tablet Take 1 tablet by mouth three times daily. 30 tablet 2 SUMAtriptan (IMITREX) 50 mg tablet TAKE 1 TABLET BY MOUTH. START AT ONSET OF HEADACHE. MAY REPEAT DOSE AFTER 2 HOURS. 9 tablet 11 omeprazole (PRILOSEC) 40 mg capsule Take 1 capsule by mouth twice daily. 180 capsule 3 famotidine (PEPCID) 20 mg tablet Take 1 tablet by mouth twice daily. 180 tablet 3 citalopram (CELEXA) 20 mg tablet Take 1 tablet by mouth once daily. 90 tablet 3 polyethylene glycol 3350 (MIRALAX, GLYCOLAX) 17 gram packet Take 17 g by mouth once daily. No current facility-administered medications for this visit. DTAP,TDAP,TD(1 - Tdap) Never done SHINGRIX VACCINE(1 of 2) Never done COVID-19 VACCINE(4 - Booster for Pfizer series) due on 02/09/2021 MAMMOGRAM due on 11/10/2021 EXAM: BP 116/64 Pulse 73 Resp 16 Wt 82.1 kg (181 lb) LMP 05/29/2021 SpO2 96% BMI 28.78 kg/m Pleasant overweight adult woman in no acute distress. Alert and oriented all spheres. Mildly anxious, congruent affect, goal oriented, rational, good judgment, easy rapport, good eye contact, positive interactions with .. Skin warm, dry, pink to lips and nailbeds. Normal turgor. Respirations regular and unlabored. HEENT: NCAT. No scleral icterus or conjunctival injection. TM's clear. Nose and oropharynx free from injection or lesion. Oral membranes moist and pink. No cervical lymph nodes. Thyroid non-tender, no masses, or enlargement. Carotids pulses 2+/4+ without bruits. No JVD with HOB at 30 degrees. Chest is normal shape. Lungs are clear to all [place] with good air exchange through out. HRRR without murmur or gallop. No lifts, heaves, or rubs. Extrem: no clubbing or cyanosis. Edema: none. Extremities are warm and pink with prompt capillary refill. Neuro: No evidence currently of tremor, rigidity, cogwheeling, myoclonus. ASSESSMENT/PLAN: 1. Anxiety - ICD9: 300.00, ICD10: F41.9 (primary diagnosis) 2. 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 I suspect this is more likely a conversion reaction with hyperventilation. I did express my sorrow that she has been through the symptoms. After long discussion with both she and her , we decided that she will continue to wean off Celexa, remain off all medications over a few weeks to see what her baseline is and then reconsider possibly reintroducing desvenlafaxine. This was the patient's idea. We also discussed a little bit about marital conflict. Patient has not been able to find a provider that we will do marital counseling. I did recommend marriage and family workbook. Also offered to do some intervention in terms of problem-solving and communication skills if they would like to do so. Will follow through with phone or virtual follow-up in 4 weeks on progress. Palmer Kumari PA-C documented in this encounter [facility] 10-25-2021 Instructions Palmer Kumari PA-C - 10/25/2021 3:18 PM EDT Weaning off all medicines on current schedule. Hold Pristiq (desvenlafaxine) and Buspar (buspirone). documented in this encounter [facility] 10-01-2021 History of Presen t illness Narrative Radiology Service Progress Note PATIENT NAME: Juvenal Amaro DATE OF SERVICE: October 01, 2021 TIME: 9:50 AM PATIENT IDENTITY VERIFICATION COMPLETED USING TWO (2) IDENTIFIERS: Name and Date of confirmed by patient verbally. FALL SCREENING: Has the patient had 2 falls in the last year or 1 fall with injury or currently using an Ambulatory Assistive Device (Walker, Cane, Wheelchair, Crutches, etc.)? No PATIENT GENDER DATA: Female. status: : No status: NO. PATIENT RELEVANT IMPLANT DATA REVIEWED: Not Applicable RADIOLOGY DEPARTMENT: General X-ray: Exam(s) Completed: Lower Extremity X-Ray(s): Heel, Left PERIPHERAL IV DATA: Not applicable SIGNED BY: RT Meggan(R) October 01, 2021 9:50 AM documented in this encounter [facility] 10-01-2021 Instructions M Chano Kumari PA-C - 10/01/2021 9:21 AM EDT Wean Celexa 20mg alterate 10 x 1 week, then 10mg daily x 1 week, then every x 1 week and off. Stop wellbutrin Start desvenlafaxine daily a t the same time Use Buspar as needed if high anxiety levels. Purchase and complete The Anxiety Workbook Desvenlafaxine: Patient drug information Access [employer] Online for additional drug information, tools, and databases. Copyright 0176-3618 [employer]. All rights reserved. (For additional information see Desvenlafaxine: Drug information) You must carefully read the Consumer Information Use and Disclaimer below in order to understand and correctly use this information. Brand Names: US Khedezla [DSC]; Pristiq Brand Names: Marko APO-Desvenlafaxine; Pristiq Warning Drugs like this one have raised the chance of suicidal thoughts or actions in children and young adults. The risk may be greater in people who have had these thoughts or actions in the past. All people who take this drug need to be watched closely. Call the doctor right away if signs like low mood (depression), nervousness, restlessness, grouchiness, panic attacks, or changes in mood or actions are new or worse. Call the doctor right away if any thoughts or actions of suicide occur. This drug is not approved for use in children. Talk with the doctor. What is this drug used for? It is used to treat low mood (depression). It may be given to you for other reasons. Talk with the doctor. What do I need to tell my doctor BEFORE I take this drug? If you are allergic to this drug; any part of this drug; or any other drugs, foods, or substances. Tell your doctor about the allergy and what signs you had. If you have narrow-angle glaucoma. If you are taking any of these drugs: Linezolid or methylene blue. If you have taken certain drugs for depression or Parkinson's disease in the last 14 days. This includes isocarboxazid, phenelzine, tranylcypromine, selegiline, or rasagiline. Very high blood pressure may happen. If you are taking another drug that has the same drug in it. If you are using another drug like this one. If you are not sure, ask your doctor or pharmacist. This is not a list of all drugs or health problems that interact with this drug. Tell your doctor and pharmacist about all of your drugs (prescription or OTC, natural products, vitamins) and health problems. You must check to make sure that it is safe for you to take this drug with all of your drugs and health problems. Do not start, stop, or change the dose of any drug without checking with your doctor. What are some things I need to know or do while I take this drug? Tell all of your health care providers that you take this drug. This includes your doctors, nurses, pharmacists, and dentists. It may take several months to see full effect. Avoid driving and doing other tasks or actions that call for you to be alert until you see how this drug affects you. To lower the chance of feeling dizzy or passing out, rise slowly if you have been sitting or lying down. Be careful going up and down stairs. Do not stop taking this drug all of a sudden without calling your doctor. You may have a greater risk of side effects. If you need to stop this drug, you will want to slowly stop it as ordered by your doctor. High blood pressure has happened with this drug. Have your blood pressure checked as you have been told by your doctor. Avoid drinking alcohol while taking this drug. Talk with your doctor before you use marijuana, other forms of cannabis, or prescription or OTC drugs that may slow your actions. This drug may raise the chance of bleeding. Sometimes, bleeding can be life-threatening. Talk with the doctor. Some people may have a higher chance of eye problems with this drug. Your doctor may want you to have an eye exam to see if you have a higher chance of these eye problems. Call your doctor right away if you have eye pain, change in eyesight, or swelling or redness in or around the eye. This drug can cause low sodium levels. Very low sodium levels can be life-threatening, leading to seizures, passing out, trouble breathing, or . This drug may affect certain lab tests. Tell all of your health care providers and lab workers that you take this drug. If you are 65 or older, use this drug with care. You could have more side effects. Tell your doctor if you are , plan on getting , or are breast-feeding. You will need to talk about the benefits and risks to you and the baby. Taking this drug in the third trimester of may lead to some health problems in the . Talk with the doctor. What are some side effects that I need to call my doctor about right away? WARNING/CAUTION: Even though it may be rare, some people may have very bad and sometimes deadly side effects when taking a drug. Tell your doctor or get medical help right away if you have any of the following signs or symptoms that may be related to a very bad side effect: Signs of an allergic reaction, like rash; hives; itching; red, swollen, blistered, or peeling skin with or without fever; wheezing; tightness in the chest or throat; trouble breathing, swallowing, or talking; unusual hoarseness; or swelling of the mouth, face, lips, tongue, or throat. Signs of low sodium levels like headache, trouble focusing, memory problems, feeling confused, weakness, seizures, or change in balance. Signs of bleeding like throwing up or coughing up blood; vomit that looks like coffee grounds; blood in the urine; black, red, or tarry stools; bleeding from the gums; abnormal vaginal bleeding; bruises without a cause or that get bigger; or bleeding you cannot stop. Signs of high blood pressure like very bad headache or dizziness, passing out, or change in eyesight. Signs of lung or breathing problems like shortness of breath or other trouble breathing, cough, or fever. Chest pain or pressure. Seizures. Feeling very tired or weak. Hallucinations (seeing or hearing things that are not there). Some men have had sexual problems when taking this drug. These include lowered interest in sex and not able to get an erection. Call your doctor right away if you have sexual problems when taking this drug. A severe and sometimes deadly problem called serotonin syndrome may happen. The risk may be greater if you also take certain other drugs. Call your doctor right away if you have agitation; change in balance; confusion; hallucinations; fever; fast or abnormal heartbeat; flushing; muscle twitching or stiffness; seizures; shivering or shaking; sweating a lot; severe diarrhea, upset stomach, or throwing up; or very bad headache. What are some other side effects of this drug? All drugs may cause side effects. However, many people have no side effects or only have minor side effects. Call your doctor or get medical help if any of these side effects or any other side effects bother you or do not go away: Feeling dizzy, sleepy, tired, or weak. Upset stomach or throwing up. Constipation. Dry mouth. Trouble sleeping. Not hungry. Sweating. Shakiness. You may see something that looks like the tablet in your stool. This is normal and not a cause for concern. If you have questions, talk with your doctor. These are not all of the side effects that may occur. If you have questions about side effects, call your doctor. Call your doctor for medical advice about side effects. You may report side effects to your national health agency. How is this drug best taken? Use this drug as ordered by your doctor. Read all information given to you. Follow all instructions closely. Take with or without food. Swallow whole with fluid. Do not chew, break, crush, or dissolve. Take this drug at the same time of day. Keep taking this drug as you have been told by your doctor or other health care provider, even if you feel well. What do I do if I miss a dose? Take a missed dose as soon as you think about it. If it is close to the time for your next dose, skip the missed dose and go back to your normal time. Do not take 2 doses at the same time or extra doses. How do I store and/or throw out this drug? Store at room temperature. Store in a dry place. Do not store in a bathroom. Keep all drugs in a safe place. Keep all drugs out of the reach of children and pets. Throw away unused or drugs. Do not flush down a toilet or pour down a drain unless you are told to do so. Check with your pharmacist if you have questions about the best way to throw out drugs. There may be drug take-back programs in your area. General drug facts If your symptoms or health problems do not get better or if they become worse, call your doctor. Do not share your drugs with others and do not take anyone else's drugs. Some drugs may have another patient information leaflet. If you have any questions about this drug, please talk with your doctor, nurse, pharmacist, or other health care provider. If you think there has been an overdose, call your poison control center or get medical care right away. Be ready to tell or show what was taken, how much, and when it happened. Last Reviewed [id number] Consumer Information Use and Disclaimer This information should not be used to decide whether or not to take this medicine or any other medicine. Only the healthcare provider has the knowledge and training to decide which medicines are right for a specific patient. This information does not endorse any medicine as safe, effective, or approved for treating any patient or health condition. This is only a brief summary of general information about this medicine. It does NOT include all information about the possible uses, directions, warnings, precautions, interactions, adverse effects, or risks that may apply to this medicine. This information is not specific medical advice and does not replace information you receive from the healthcare provider. You must talk with the healthcare provider for complete information about the risks and benefits of using this medicine. The use of this information is governed by the [employer] End User License Agreement, available at https://www.[facility].[employer]/en/so lutions/[employer]/about/kristi. 2020 [employer]. and its affiliates and/or licensors. All rights reserved. Use of [employer] is subject to the Subscription and License Agreement. Topic 49531 Version 147.0 Buspirone (Patient Education - Adult Medication) You must carefully read the Consumer Information Use and Disclaimer below in order to understand and correctly use this information Pronunciation (byoo SPYE brendon) Brand Names: [place]O-BusPIRone; CO BusPIRone; DOM-BusPIRone; GMD-Buspirione; NU-BusPIRone [DSC]; PMS-BusPIRone; JEANNINE-BusPIRone [DSC]; TEVA-BusPIRone What is this drug used for? It is used to treat anxiety. It may be given to you for other reasons. Talk with the doctor. What do I need to tell my doctor BEFORE I take this drug? If you have an allergy to buspirone or any other part of this drug. If you are allergic to this drug; any part of this drug; or any other drugs, foods, or substances. Tell your doctor about the allergy and what signs you had. If you have taken certain drugs for depression or Parkinson's disease in the last 14 days. This includes isocarboxazid, phenelzine, tranylcypromine, selegiline, or rasagiline. Very high blood pressure may happen. If you are taking any of these drugs: Linezolid or methylene blue. If you are taking tryptophan. If you have any of these health problems: Kidney disease or liver disease. This is not a list of all drugs or health problems that interact with this drug. Tell your doctor and pharmacist about all of your drugs (prescription or OTC, natural products, vitamins) and health problems. You must check to make sure that it is safe for you to take this drug with all of your drugs and health problems. Do not start, stop, or change the dose of any drug without checking with your doctor. What are some things I need to know or do while I take this drug? Tell all of your health care providers that you take this drug. This includes your doctors, nurses, pharmacists, and dentists. Avoid driving and doing other tasks or actions that call for you to be alert until you see how this drug affects you. Avoid drinking alcohol while taking this drug. Talk with your doctor before you use other drugs and natural products that slow your actions. If you drink grapefruit juice or eat grapefruit often, talk with your doctor. This drug may affect certain lab tests. Tell all of your health care providers and lab workers that you take this drug. Tell your doctor if you are or plan on getting . You will need to talk about the benefits and risks of using this drug while you are . Tell your doctor if you are breast-feeding. You will need to talk about any risks to your baby. What are some side effects that I need to call my doctor about right away? WARNING/CAUTION: Even though it may be rare, some people may have very bad and sometimes deadly side effects when taking a drug. Tell your doctor or get medical help right away if you have any of the following signs or symptoms that may be related to a very bad side effect: Signs of an allergic reaction, like rash; hives; itching; red, swollen, blistered, or peeling skin with or without fever; wheezing; tightness in the chest or throat; trouble breathing, swallowing, or talking; unusual hoarseness; or swelling of the mouth, face, lips, tongue, or throat. Restlessness. Trouble controlling body movements, twitching, change in balance, trouble swallowing or speaking. A severe and sometimes deadly problem called serotonin syndrome may happen. The risk may be greater if you also take certain other drugs. Call your doctor right away if you have agitation; change in balance; confusion; hallucinations; fever; fast or abnormal heartbeat; flushing; muscle twitching or stiffness; seizures; shivering or shaking; sweating a lot; severe diarrhea, upset stomach, or throwing up; or very bad headache. What are some other side effects of this drug? All drugs may cause side effects. However, many people have no side effects or only have minor side effects. Call your doctor or get medical help if any of these side effects or any other side effects bother you or do not go away: Dizziness. Feeling sleepy. Feeling nervous and excitable. Headache. Upset stomach. These are not all of the side effects that may occur. If you have questions about side effects, call your doctor. Call your doctor for medical advice about side effects. You may report side effects to your national health agency. How is this drug best taken? Use this drug as ordered by your doctor. Read all information given to you. Follow all instructions closely. Take with or without food but take the same way each time. Always take with food or always take on an empty stomach. Keep taking this drug as you have been told by your doctor or other health care provider, even if you feel well. What do I do if I miss a dose? Take a missed dose as soon as you think about it. If it is close to the time for your next dose, skip the missed dose and go back to your normal time. Do not take 2 doses at the same time or extra doses. How do I store and/or throw out this drug? Store at room temperature. Protect from light. Store in a dry place. Do not store in a bathroom. Keep all drugs in a safe place. Keep all drugs out of the reach of children and pets. Throw away unused or drugs. Do not flush down a toilet or pour down a drain unless you are told to do so. Check with your pharmacist if you have questions about the best way to throw out drugs. There may be drug take-back programs in your area. General drug facts If your symptoms or health problems do not get better or if they become worse, call your doctor. Do not share your drugs with others and do not take anyone else's drugs. Some drugs may have another patient information leaflet. If you have any questions about this drug, please talk with your doctor, nurse, pharmacist, or other health care provider. If you think there has been an overdose, call your poison control center or get medical care right away. Be ready to tell or show what was taken, how much, and when it happened. Last Reviewed Date 2018-07-21 documented in this encounter [facility] 10-01-2021 History of Presen t illness Narrative 51 year old female with c/o Current concerns: 1. Left heel pain over last month. Bottom and back. Wearing a plantar pad. 2. Left ear pain: no improvement on ATB. Went to ENT, saw Dr. Batista. Asking about manipulation. Has a friend whom I have treated who recommended she see me. Exophthalmos Graves disease Current medication: none Taking as directed on an empty stomach? N/a/. Thyroid pain: No. Mass effect: No. Change in energy level/ fatigue? No. Sleep disturbance ?No. Temperature Intolerance: cold No, hot No. In females, menstrual cycle issues? climacteric, If yes: Change in bowel habits? No. If yes: Constipation? No. If yes: Diarrhea? No. If yes: Weight changes?Yes. Memory issues: Yes. Diaphoresis: No. Numbness, tingling none Radiological imaging with contrast dyes within the last 3 months? No. History of radiation exposure to head or neck area? No. Change in hair or skin? No. If yes: Other symptoms: Last 2 Encounter Wt Readings: Date: Wt: 08/15/2021 83.5 kg (184 lb) 07/24/2021 83 kg (183 lb) Last thyroid labs: TSH Date Value 08/15/2021 3.660 mIU/L 11/10/2020 2.31 IU/ml 09/18/2019 1.890 uU/mL 06/26/2012 2.030 uU/mL ) Anxiety Current meds: Wellbutrin XL 150 mg daily Citalopram 20 mg daily Change in medication No. Currently in counseling? Yes. Follows with Miriam Sims Any Medication side effects? Persistent weight gain. No benefit in anxiety. Changes in weight? Yes, increasing Psychomotor retardation: No Suicidal thoughts: No Racing thoughts? No. Interpersonal/ family conflicts? No. Irritability? Yes. PHQ-9 Modified for Teens 1. Little interest in or pleasure doing things? 1 - Several Days 2. Feeling down, depressed, irritable or hopeless? 3 - Nearly Every Day 3. Trouble falling asleep, staying asleep, or sleeping too much? 3 - Nearly Every Day 4. Feeling tired, or having little energy? 3 - Nearly Every Day 5. Poor appetite, weight loss, or overeating? 0 - Not At All 6. Feeling bad about yourself-or feeling that you are a failure, or that you have let yourself or your family down? 3 - Nearly Every Day 7. Trouble concentrating on things like school work, reading, or watching television? 2 - More Than Half the Days 8. Moving or speaking so slowly that other people could have noticed? Or the opposite-being so fidgety or restless that you were moving around a lot more than usual? 0 - Not At All 9. Thoughts that you would be better off , or of hurting yourself in some way? 1 - Several Days 10. If you are experiencing any of the problems listed on this questionnaire, how difficult have these problems made it for you to do your work, take care of things at home or get along with other people? Somewhat difficult Score = 16 Total Score Depression Severity 1-4 Minimal depression 5-9 Mild depression 10-14 Moderate depression (> or = to 11 = Positive Score) 15-19 Moderately severe depression 20-27 Severe depression Generalized Anxiety Disorder Questionnaire (ERENDIRA-7) ERENDIRA-7 ERENDIRA-7 All Questions 10/01/2021 Nervous, anxious or on edge 3 Not being able to stop or control worrying 3 Worrying too much 3 Trouble relaxing 2 Restless 0 Annoyed or irritable 3 Afraid something awful might happen 1 ERENDIRA-7 Score 15 Gastroesophageal reflux disease with esophagitis without hemorrhage Current medication: Omeprazole 40 mg twice daily AC Famotidine 20 mg twice daily AC MiraLAX 17 g daily Current symptoms: none. Last Mg level if on PPI chronically: none. Heartburn is controlled: Yes. Dysphagia: No. Bloody or black stools: No. Bowel changes: No. Migraine without status migrainosus, not intractable, unspecified migraine type Tmj dysfunction Current medications: Sumatriptan 50 mg daily as needed may repeat once in 2 hours Cervical radiculopathy Chronic neck pain- unable to address due to time contstraints. 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 PAST SURGICAL HISTORY Procedure Laterality Date ADENOIDECTOMY HX APPENDECTOMY COLONOSCOPY FLX DX W/COLLJ SPEC WHEN PFRMD 04/15/2016 Colonoscopy ESOPHAGOGASTRODUODENOSCOPY TRANSORAL DIAGNOSTIC 07/03/2012 EGD ESOPHAGOGASTRODUODENOSCOPY TRANSORAL DIAGNOSTIC 04/15/2016 EGD EXTRACTION, ERUPTED TOOTH OR EXPOSED ROOT (ELEVATION AND/OR FORCEPS REMOVAL) S LASER CO2 08/2013 treatment BRIAN III SEPTOPLASTY TONSILLECTOMY HX Social History Tobacco Use Smoking status: Former Smoker Quit date: 07/29/2002 Years since quittin.1 Smokeless tobacco: Never Used Substance Use Topics Alcohol use: Yes Alcohol/week: 7.5 - 10.0 standard drinks Types: 3 - 4 Glasses of Wine (5oz) per week Comment: Occasionally Drug use: No ACTIVE PROBLEM LIST Migraine Headache Gerd (Gastroesophageal Reflux Disease) Allergic Rhinitis 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 30 tablet 11 SUMAtriptan (IMITREX) 50 mg tablet TAKE 1 TABLET BY MOUTH. START AT ONSET OF HEADACHE. MAY REPEAT DOSE AFTER 2 HOURS. 9 tablet 11 omeprazole (PRILOSEC) 40 mg capsule Take 1 capsule by mouth twice daily. 180 capsule 3 famotidine (PEPCID) 20 mg tablet Take 1 tablet by mouth twice daily. 180 tablet 3 citalopram (CELEXA) 20 mg tablet Take 1 tablet by mouth once daily. 90 tablet 3 IBUPROFEN/DIPHENHYDRAMINE CIT (ADVIL PM ORAL) Take by mouth once daily. polyethylene glycol 3350 (MIRALAX, GLYCOLAX) 17 gram packet Take 17 g by mouth once daily. No current facility-administered medications for this visit. DTAP,TDAP,TD(1 - Tdap) Never done SHINGRIX VACCINE(1 of 2) Never done COVID-19 VACCINE(3 - Booster for Pfizer series) due on 01/25/2021 MAMMOGRAM due on 11/10/2021 EXAM: BP 120/68 Pulse 68 Resp 16 Wt 82.1 kg (181 lb) LMP 05/29/2021 SpO2 98% BMI 28.78 kg/m Pleasant overweight adult woman in no acute distress. Alert and oriented all spheres. Normal affect and cognition. Speech normal. No deficits to learning or comprehension. Skin warm, dry, pink to lips and nailbeds. Normal turgor. Respirations regular and unlabored. HEENT: NCAT. No scleral icterus or conjunctival injection. TM's clear. Nose and oropharynx free from injection or lesion. Oral membranes moist and pink. No cervical lymph nodes. Thyroid non-tender, no masses, or enlargement. Carotids pulses 2+/4+ without bruits. TMJ with 3 finger opening, no Click. Mild asymmetry. No click. + TTPs in pterygoid bilaterally. Extrem: no clubbing or cyanosis. Edema: none. Extremities are warm and pink with prompt capillary refill. OMT: myofascial release performed with improvement and demonstrated for patient self techniques and stretching. ASSESSMENT/PLAN: 1. 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 Graves disease - ICD9: 242.00, ICD10: E05.00 No worsening, no current therapy 3. Anxiety - ICD9: 300.00, ICD10: F41.9 Persistent without improvement on Wellbutrin addition. Some improvement initially on Celexa but very dissatisfied with weight gain. 4. Gastroesophageal reflux disease with esophagitis without hemorrhage - ICD9: 530.81, 530.10, ICD10: K21.00 - Discussed lifestyle modifications including losing weight, limiting caffeine, no meals three hours before sleep and head of bed elevation - controlled on medication 5. Migraine without status migrainosus, not intractable, unspecified migraine type - ICD9: 346.90, ICD10: G43.909 6. TMJ dysfunction - ICD9: 524.60, ICD10: M26.609 Discussed options for OMT which might help with migraine improvement: will schedule 4 weeks follow up 7. Cervical radiculopathy - ICD9: 723.4, ICD10: M54.12 8. Plantar fasciitis - ICD9: 728.71, ICD10: M72.2 9. Pain of left heel - ICD9: 729.5, ICD10: M79.672 Left heel. discussed stretching, plantar Viscospot, also Posterior - XR CALCANEUS 2V AXIAL/LAT LEFT F/u on med change and OMT in 4 weeks. Palmer Kumari PA-C documented in this encounter [facility] 09-04-2021 Miscellaneous Notes Probably should be rechecked in office but I placed consult for ENT [facility] Get Medical Advice on 08/27/21 CONSULT TO ENT Eustachian tube dysfunction, bilateral (primary encounter diagnosis) Nick Aranda PA-C documented in this encounter [facility] 08-22-2021 Miscellaneous Notes See other message See both Marley Spoonhart messages. Sara Oconnor Ma documented in this encounter [facility] 08-17-2021 Miscellaneous Notes Mychart message sent Labs are ok. Other than mildly anemic and ldl is up. Send low cholesterol diet. Recheck labs including ifobt for anemia in the next week documented in this encounter [facility] 08-15-2021 Miscellaneous Notes Addended by: MAK LUEVANO on: 08/15/2021 04:44 PM Modules accepted: Orders documented in this encounter [facility] 08-15-2021 History of Presen t illness Narrative Patient presents with: Ear Pain: Patient is here for blogged ear/cough Anxiety HPI: Patient presents today for office visit for acute visit. Complains of ears clogged and cough. Has been there for several weeks. Had a sore throat initially. Mild congestion. Exposed to mono No issues with taste or smell. No nausea or vomiting. No diarrhea. No shortness of breath. No chest pain. Is on celexa for several years. She has been on it for three years. Feels like it is weaning off. She slept 33 hours over the weekend. Feels like her anxiety coming back. Not severely depressed. Is more fatigued. Angry and irritable. Tearful. Worries frequent. No suicidal ideation. MEDICATIONS: Current Outpatient Medications Medication Sig SUMAtriptan (IMITREX) 50 mg tablet TAKE 1 TABLET BY MOUTH. START AT ONSET OF HEADACHE. MAY REPEAT DOSE AFTER 2 HOURS. omeprazole (PRILOSEC) 40 mg capsule Take 1 capsule by mouth twice daily. famotidine (PEPCID) 20 mg tablet Take 1 tablet by mouth twice daily. citalopram (CELEXA) 20 mg tablet Take 1 tablet by mouth once daily. polyethylene glycol 3350 (MIRALAX, GLYCOLAX) 17 gram packet Take 17 g by mouth once daily. IBUPROFEN/DIPHENHYDRAMINE CIT (ADVIL PM ORAL) Take by mouth once daily. No current facility-administered medications for this visit. 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 PAST SURGICAL HISTORY Procedure Laterality Date ADENOIDECTOMY HX APPENDECTOMY COLONOSCOPY FLX DX W/COLLJ SPEC WHEN PFRMD 04/15/2016 Colonoscopy ESOPHAGOGASTRODUODENOSCOPY TRANSORAL DIAGNOSTIC 07/03/2012 EGD ESOPHAGOGASTRODUODENOSCOPY TRANSORAL DIAGNOSTIC 04/15/2016 EGD EXTRACTION, ERUPTED TOOTH OR EXPOSED ROOT (ELEVATION AND/OR FORCEPS REMOVAL) S LASER CO2 08/2013 treatment BRIAN III SEPTOPLASTY TONSILLECTOMY HX FAMILY HISTORY Problem Relation Age of Onset None Mother other (migraine headache) Father other (colon polyps) Brother MAP(MYH-associated polyposis) Cancer Maternal Grandmother lung cancer,MA Cancer Maternal Grandfather prostate cancer,CVA Cancer Paternal Grandmother colon cancer other (bleeding disorder) Paternal Grandfather Breast Cancer Paternal Aunt Social History Tobacco Use Smoking status: Former Smoker Quit date: 07/29/2002 Years since quittin.0 Smokeless tobacco: Never Used Substance Use Topics Alcohol use: Yes Alcohol/week: 7.5 - 10.0 standard drinks Types: 3 - 4 Glasses of Wine (5oz) per week Comment: Occasionally Drug use: No Reviewed current medications, allergies, past medical history, surgical history, family history and social history today. REVIEW OF SYSTEMS All other reviewed and negative other than HPI. VITALS: BP 118/70 (BP Site: Left Arm, BP Position: Sitting, BP Cuff Size: Regular Adult) Pulse 80 Wt 83.5 kg (184 lb) LMP 05/29/2021 BMI 29.25 kg/m Last 4 Encounter Wt Readings: Date: Wt: 08/15/2021 83.5 kg (184 lb) 07/24/2021 83 kg (183 lb) 01/24/2021 80.4 kg (177 lb 3.2 oz) 04/03/2020 78.5 kg (173 lb) PHYSICAL EXAMINATION: General appearance: Well appearing, alert, in no acute distress, well-hydrated, well nourished. Skin: Skin color, texture, turgor normal, no suspicious rashes or lesions Head: Normocephalic, no masses, lesions, tenderness or abnormalities HEENT: TM's clear, external canals unremarkable. Mouth and throat are without erythema or exudate, uvula is midline Lungs: Lungs clear to auscultation. No wheezing, rhonchi, rales Heart: RRR without murmur, gallop, or rubs. No ectopy Abdomen: Normal abdominal exam, Abdomen soft, non-tender. Bowel sounds normal. No masses, organomegaly Extremities: No deformities, edema, skin discoloration, clubbing or cyanosis. Good capillary refill. Musculoskeletal: No joint swelling, deformity, or tenderness Peripheral pulses: Normal Neuro: Negative. PSYCH:Affect normal. Normal speech. Normal eye contact ASSESSMENT/PLAN: 1. Anxiety - ICD9: 300.00, ICD10: F41.9 (primary diagnosis) - continue celexa. - Discussed risks and benefits of new medication with the patient. Advised them to call if any side effects or questions. - BUPROPION XL 150 MG TAB - willing to see counseling 2. Fatigue, unspecified type - ICD9: 780.79, ICD10: R53.83 - MONOTEST, INFECTIOUS MONO - BUPROPION XL 150 MG TAB 3. Acute sinusitis, recurrence not specified, unspecified location - ICD9: 461.9, ICD10: J01.90 - Follow up in one week if symptoms persist or worsen. - AMOXICILLIN 875 MG TABLET Mak Luevano RTO in one month and prn. documented in this encounter [facility] 09-18-2019 History of Past i llness Narrative Problem Noted Date Resolved Date Eye pain, left 09/18/2019 01/24/2021 Cervical strain 09/18/2019 01/24/2021 Shoulder impingement syndrome, left 09/18/2019 01/24/2021 Breast lump 07/25/2017 01/06/2019 Carpal tunnel syndrome of left wrist 12/24/2013 01/06/2019 Tendinitis of thumb 12/24/2013 01/06/2019 Esophagitis, unspecified 07/03/2012 019 Hemorrhoids 06/26/2012 01/06/2019 Perineal fissure 06/26/2012 02/20/2017 Constipation, chronic 06/26/2012 01/06/2019 documented as of this encounter (statuses as of 08/15/2021) [facility] History of Past illness Narrative* Problem Noted Date Resolved Date Eye pain, left 09/18/2019 01/24/2021 Cervical strain 09/18/2019 01/24/2021 Shoulder impingement syndrome, left 09/18/2019 01/24/2021 Breast lump 07/25/2017 01/06/2019 Carpal tunnel syndrome of left wrist 12/24/2013 01/06/2019 Tendinitis of thumb 12/24/2013 01/06/2019 Esophagitis, unspecified 07/03/2012 019 Hemorrhoids 06/26/2012 01/06/2019 Perineal fissure 06/26/2012 02/20/2017 Constipation, chronic 06/26/2012 01/06/2019 documented as of this encounter (statuses as of 08/16/2021) [facility] History of Past illness Narrative* Problem Noted Date Resolved Date Eye pain, left 09/18/2019 01/24/2021 Cervical strain 09/18/2019 01/24/2021 Shoulder impingement syndrome, left 09/18/2019 01/24/2021 Breast lump 07/25/2017 01/06/2019 Carpal tunnel syndrome of left wrist 12/24/2013 01/06/2019 Tendinitis of thumb 12/24/2013 01/06/2019 Esophagitis, unspecified 07/03/2012 019 Hemorrhoids 06/26/2012 01/06/2019 Perineal fissure 06/26/2012 02/20/2017 Constipation, chronic 06/26/2012 01/06/2019 documented as of this encounter (statuses as of 08/17/2021) [facility] History of Past illness Narrative* Problem Noted Date Resolved Date Eye pain, left 09/18/2019 01/24/2021 Cervical strain 09/18/2019 01/24/2021 Shoulder impingement syndrome, left 09/18/2019 01/24/2021 Breast lump 07/25/2017 01/06/2019 Carpal tunnel syndrome of left wrist 12/24/2013 01/06/2019 Tendinitis of thumb 12/24/2013 01/06/2019 Esophagitis, unspecified 07/03/2012 019 Hemorrhoids 06/26/2012 01/06/2019 Perineal fissure 06/26/2012 02/20/2017 Constipation, chronic 06/26/2012 01/06/2019 documented as of this encounter (statuses as of 08/17/2021) [facility] History of Past illness Narrative* Problem Noted Date Resolved Date Eye pain, left 09/18/2019 01/24/2021 Cervical strain 09/18/2019 01/24/2021 Shoulder impingement syndrome, left 09/18/2019 01/24/2021 Breast lump 07/25/2017 01/06/2019 Carpal tunnel syndrome of left wrist 12/24/2013 01/06/2019 Tendinitis of thumb 12/24/2013 01/06/2019 Esophagitis, unspecified 07/03/2012 019 Hemorrhoids 06/26/2012 01/06/2019 Perineal fissure 06/26/2012 02/20/2017 Constipation, chronic 06/26/2012 01/06/2019 documented as of this encounter (statuses as of 08/22/2021) [facility] History of Past illness Narrative* Problem Noted Date Resolved Date Eye pain, left 09/18/2019 01/24/2021 Cervical strain 09/18/2019 01/24/2021 Shoulder impingement syndrome, left 09/18/2019 01/24/2021 Breast lump 07/25/2017 01/06/2019 Carpal tunnel syndrome of left wrist 12/24/2013 01/06/2019 Tendinitis of thumb 12/24/2013 01/06/2019 Esophagitis, unspecified 07/03/2012 019 Hemorrhoids 06/26/2012 01/06/2019 Perineal fissure 06/26/2012 02/20/2017 Constipation, chronic 06/26/2012 01/06/2019 documented as of this encounter (statuses as of 09/04/2021) [facility] History of Past illness Narrative* Problem Noted Date Resolved Date Eye pain, left 09/18/2019 01/24/2021 Cervical strain 09/18/2019 01/24/2021 Shoulder impingement syndrome, left 09/18/2019 01/24/2021 Breast lump 07/25/2017 01/06/2019 Carpal tunnel syndrome of left wrist 12/24/2013 01/06/2019 Tendinitis of thumb 12/24/2013 01/06/2019 Esophagitis, unspecified 07/03/2012 019 Hemorrhoids 06/26/2012 01/06/2019 Perineal fissure 06/26/2012 02/20/2017 Constipation, chronic 06/26/2012 01/06/2019 documented as of this encounter (statuses as of 10/01/2021) [facility] History of Past illness Narrative* Problem Noted Date Resolved Date Eye pain, left 09/18/2019 01/24/2021 Cervical strain 09/18/2019 01/24/2021 Shoulder impingement syndrome, left 09/18/2019 01/24/2021 Breast lump 07/25/2017 01/06/2019 Carpal tunnel syndrome of left wrist 12/24/2013 01/06/2019 Tendinitis of thumb 12/24/2013 01/06/2019 Esophagitis, unspecified 07/03/2012 019 Hemorrhoids 06/26/2012 01/06/2019 Perineal fissure 06/26/2012 02/20/2017 Constipation, chronic 06/26/2012 01/06/2019 documented as of this encounter (statuses as of 10/11/2021) [facility] History of Past illness Narrative* Problem Noted Date Resolved Date Eye pain, left 09/18/2019 01/24/2021 Cervical strain 09/18/2019 01/24/2021 Shoulder impingement syndrome, left 09/18/2019 01/24/2021 Breast lump 07/25/2017 01/06/2019 Carpal tunnel syndrome of left wrist 12/24/2013 01/06/2019 Tendinitis of thumb 12/24/2013 01/06/2019 Esophagitis, unspecified 07/03/2012 019 Hemorrhoids 06/26/2012 01/06/2019 Perineal fissure 06/26/2012 02/20/2017 Constipation, chronic 06/26/2012 01/06/2019 documented as of this encounter (statuses as of 10/25/2021) [facility] History of Past illness Narrative* Problem Noted Date Resolved Date Eye pain, left 09/18/2019 01/24/2021 Cervical strain 09/18/2019 01/24/2021 Shoulder impingement syndrome, left 09/18/2019 01/24/2021 Breast lump 07/25/2017 01/06/2019 Carpal tunnel syndrome of left wrist 12/24/2013 01/06/2019 Tendinitis of thumb 12/24/2013 01/06/2019 Esophagitis, unspecified 07/03/2012 019 Hemorrhoids 06/26/2012 01/06/2019 Perineal fissure 06/26/2012 02/20/2017 Constipation, chronic 06/26/2012 01/06/2019 documented as of this encounter (statuses as of 11/20/2021) [facility] History of Past illness Narrative* Problem Noted Date Resolved Date Eye pain, left 09/18/2019 01/24/2021 Cervical strain 09/18/2019 01/24/2021 Shoulder impingement syndrome, left 09/18/2019 01/24/2021 Breast lump 07/25/2017 01/06/2019 Carpal tunnel syndrome of left wrist 12/24/2013 01/06/2019 Tendinitis of thumb 12/24/2013 01/06/2019 Esophagitis, unspecified 07/03/2012 019 Hemorrhoids 06/26/2012 01/06/2019 Perineal fissure 06/26/2012 02/20/2017 Constipation, chronic 06/26/2012 01/06/2019 documented as of this encounter (statuses as of 12/31/2021) [facility] History of Past illness Narrative* Problem Noted Date Resolved Date Eye pain, left 09/18/2019 01/24/2021 Cervical strain 09/18/2019 01/24/2021 Shoulder impingement syndrome, left 09/18/2019 01/24/2021 Breast lump 07/25/2017 01/06/2019 Carpal tunnel syndrome of left wrist 12/24/2013 01/06/2019 Tendinitis of thumb 12/24/2013 01/06/2019 Esophagitis, unspecified 07/03/2012 019 Hemorrhoids 06/26/2012 01/06/2019 Perineal fissure 06/26/2012 02/20/2017 Constipation, chronic 06/26/2012 01/06/2019 documented as of this encounter (statuses as of 12/31/2021) [facility] History of Past illness Narrative* Problem Noted Date Resolved Date Eye pain, left 09/18/2019 01/24/2021 Cervical strain 09/18/2019 01/24/2021 Shoulder impingement syndrome, left 09/18/2019 01/24/2021 Breast lump 07/25/2017 01/06/2019 Carpal tunnel syndrome of left wrist 12/24/2013 01/06/2019 Tendinitis of thumb 12/24/2013 01/06/2019 Esophagitis, unspecified 07/03/2012 019 Hemorrhoids 06/26/2012 01/06/2019 Perineal fissure 06/26/2012 02/20/2017 Constipation, chronic 06/26/2012 01/06/2019 documented as of this encounter (statuses as of 01/29/2022) [facility] History of Past illness Narrative* Problem Noted Date Resolved Date Eye pain, left 09/18/2019 01/24/2021 Cervical strain 09/18/2019 01/24/2021 Shoulder impingement syndrome, left 09/18/2019 01/24/2021 Breast lump 07/25/2017 01/06/2019 Carpal tunnel syndrome of left wrist 12/24/2013 01/06/2019 Tendinitis of thumb 12/24/2013 01/06/2019 Esophagitis, unspecified 07/03/2012 019 Hemorrhoids 06/26/2012 01/06/2019 Perineal fissure 06/26/2012 02/20/2017 Constipation, chronic 06/26/2012 01/06/2019 documented as of this encounter (statuses as of 02/23/2022) [facility] History of Past illness Narrative* Problem Noted Date Resolved Date Eye pain, left 09/18/2019 01/24/2021 Cervical strain 09/18/2019 01/24/2021 Shoulder impingement syndrome, left 09/18/2019 01/24/2021 Breast lump 07/25/2017 01/06/2019 Carpal tunnel syndrome of left wrist 12/24/2013 01/06/2019 Tendinitis of thumb 12/24/2013 01/06/2019 Esophagitis, unspecified 07/03/2012 019 Hemorrhoids 06/26/2012 01/06/2019 Perineal fissure 06/26/2012 02/20/2017 Constipation, chronic 06/26/2012 01/06/2019 documented as of this encounter (statuses as of 03/01/2022) [facility] History of Past illness Narrative* Problem Noted Date Resolved Date Eye pain, left 09/18/2019 01/24/2021 Cervical strain 09/18/2019 01/24/2021 Shoulder impingement syndrome, left 09/18/2019 01/24/2021 Breast lump 07/25/2017 01/06/2019 Carpal tunnel syndrome of left wrist 12/24/2013 01/06/2019 Tendinitis of thumb 12/24/2013 01/06/2019 Esophagitis, unspecified 07/03/2012 019 Hemorrhoids 06/26/2012 01/06/2019 Perineal fissure 06/26/2012 02/20/2017 Constipation, chronic 06/26/2012 01/06/2019 documented as of this encounter (statuses as of 06/03/2022) [facility] History of Past illness Narrative* Problem Noted Date Resolved Date Eye pain, left 09/18/2019 01/24/2021 Cervical strain 09/18/2019 01/24/2021 Shoulder impingement syndrome, left 09/18/2019 01/24/2021 Breast lump 07/25/2017 01/06/2019 Carpal tunnel syndrome of left wrist 12/24/2013 01/06/2019 Tendinitis of thumb 12/24/2013 01/06/2019 Esophagitis, unspecified 07/03/2012 019 Hemorrhoids 06/26/2012 01/06/2019 Perineal fissure 06/26/2012 02/20/2017 Constipation, chronic 06/26/2012 01/06/2019 documented as of this encounter (statuses as of 06/03/2022) [facility] History of Past illness Narrative* Problem Noted Date Resolved Date Eye pain, left 09/18/2019 01/24/2021 Cervical strain 09/18/2019 01/24/2021 Shoulder impingement syndrome, left 09/18/2019 01/24/2021 Breast lump 07/25/2017 01/06/2019 Carpal tunnel syndrome of left wrist 12/24/2013 01/06/2019 Tendinitis of thumb 12/24/2013 01/06/2019 Esophagitis, unspecified 07/03/2012 019 Hemorrhoids 06/26/2012 01/06/2019 Perineal fissure 06/26/2012 02/20/2017 Constipation, chronic 06/26/2012 01/06/2019 documented as of this encounter (statuses as of 06/05/2022) [facility] History of Past illness Narrative* Problem Noted Date Resolved Date Eye pain, left 09/18/2019 01/24/2021 Cervical strain 09/18/2019 01/24/2021 Shoulder impingement syndrome, left 09/18/2019 01/24/2021 Breast lump 07/25/2017 01/06/2019 Carpal tunnel syndrome of left wrist 12/24/2013 01/06/2019 Tendinitis of thumb 12/24/2013 01/06/2019 Esophagitis, unspecified 07/03/2012 019 Hemorrhoids 06/26/2012 01/06/2019 Perineal fissure 06/26/2012 02/20/2017 Constipation, chronic 06/26/2012 01/06/2019 documented as of this encounter (statuses as of 06/05/2022) [facility] History of Past illness Narrative* Problem Noted Date Resolved Date Eye pain, left 09/18/2019 01/24/2021 Cervical strain 09/18/2019 01/24/2021 Shoulder impingement syndrome, left 09/18/2019 01/24/2021 Breast lump 07/25/2017 01/06/2019 Carpal tunnel syndrome of left wrist 12/24/2013 01/06/2019 Tendinitis of thumb 12/24/2013 01/06/2019 Esophagitis, unspecified 07/03/2012 019 Hemorrhoids 06/26/2012 01/06/2019 Perineal fissure 06/26/2012 02/20/2017 Constipation, chronic 06/26/2012 01/06/2019 documented as of this encounter (statuses as of 07/05/2022) [facility] History of Past illness Narrative* Problem Noted Date Diagnosed Date Resolved Date Eye pain, left 09/18/2019 01/24/2021 Cervical strain 09/18/2019 01/24/2021 Shoulder impingement syndrome, left 09/18/2019 01/24/2021 Breast lump 07/25/2017 01/06/2019 Carpal tunnel syndrome of left wrist 12/24/2013 01/06/2019 Tendinitis of thumb 12/24/2013 01/07/20 19 Esophagitis, unspecified 07/03/2012 Hemorrhoids 06/26/2012 01/06/2019 Perineal fissure 06/26/2012 02/20/2017 Constipation, chronic 06/26/20122018 documented as of this encounter (statuses as of 03/04/2023) [facility] History of Past illness Narrative* Problem Noted Date Diagnosed Date Resolved Date Eye pain, left 09/18/2019 01/24/2021 Cervical strain 09/18/2019 01/24/2021 Shoulder impingement syndrome, left 09/18/2019 01/24/2021 Breast lump 07/25/2017 01/06/2019 Carpal tunnel syndrome of left wrist 12/24/2013 01/06/2019 Tendinitis of thumb 12/24/2013 01/07/20 19 Esophagitis, unspecified 07/03/2012 Hemorrhoids 06/26/2012 01/06/2019 Perineal fissure 06/26/2012 02/20/2017 Constipation, chronic 06/26/20122018 documented as of this encounter (statuses as of 03/11/2023) [facility] History of Past illness Narrative* Problem Noted Date Diagnosed Date Resolved Date Eye pain, left 09/18/2019 01/24/2021 Cervical strain 09/18/2019 01/24/2021 Shoulder impingement syndrome, left 09/18/2019 01/24/2021 Breast lump 07/25/2017 01/06/2019 Carpal tunnel syndrome of left wrist 12/24/2013 01/06/2019 Tendinitis of thumb 12/24/2013 01/07/20 19 Esophagitis, unspecified 07/03/2012 Hemorrhoids 06/26/2012 01/06/2019 Perineal fissure 06/26/2012 02/20/2017 Constipation, chronic 06/26/20122018 documented as of this encounter (statuses as of 03/11/2023) [facility] History of Past illness Narrative* Problem Noted Date Diagnosed Date Resolved Date Eye pain, left 09/18/2019 01/24/2021 Cervical strain 09/18/2019 01/24/2021 Shoulder impingement syndrome, left 09/18/2019 01/24/2021 Breast lump 07/25/2017 01/06/2019 Carpal tunnel syndrome of left wrist 12/24/2013 01/06/2019 Tendinitis of thumb 12/24/2013 01/07/20 19 Esophagitis, unspecified 07/03/2012 Hemorrhoids 06/26/2012 01/06/2019 Perineal fissure 06/26/2012 02/20/2017 Constipation, chronic 06/26/20122018 documented as of this encounter (statuses as of 03/25/2023) [facility] History of Past illness Narrative* Problem Noted Date Diagnosed Date Resolved Date Eye pain, left 09/18/2019 01/24/2021 Cervical strain 09/18/2019 01/24/2021 Shoulder impingement syndrome, left 09/18/2019 01/24/2021 Breast lump 07/25/2017 01/06/2019 Carpal tunnel syndrome of left wrist 12/24/2013 01/06/2019 Tendinitis of thumb 12/24/2013 01/07/20 19 Esophagitis, unspecified 07/03/2012 Hemorrhoids 06/26/2012 01/06/2019 Perineal fissure 06/26/2012 02/20/2017 Constipation, chronic 06/26/20122018 documented as of this encounter (statuses as of 04/15/2023) [facility] of Past illness Narrative* Problem Noted Date Diagnosed Date Resolved Date Eye pain, left 09/18/2019 01/24/2021 Cervical strain 09/18/2019 01/24/2021 Shoulder impingement syndrome, left 09/18/2019 01/24/2021 Breast lump 07/25/2017 01/06/2019 Carpal tunnel syndrome of left wrist 12/24/2013 01/06/2019 Tendinitis of thumb 12/24/2013 01/07/20 19 Esophagitis, unspecified 07/03/2012 Hemorrhoids 06/26/2012 01/06/2019 Perineal fissure 06/26/2012 02/20/2017 Constipation, chronic 06/26/20122018 documented as of this encounter (statuses as of 04/16/2023) [facility] History of Past illness Narrative* Problem Noted Date Diagnosed Date Resolved Date Eye pain, left 09/18/2019 01/24/2021 Cervical strain 09/18/2019 01/24/2021 Shoulder impingement syndrome, left 09/18/2019 01/24/2021 Breast lump 07/25/2017 01/06/2019 Carpal tunnel syndrome of left wrist 12/24/2013 01/06/2019 Tendinitis of thumb 12/24/2013 01/07/20 19 Esophagitis, unspecified 07/03/2012 Hemorrhoids 06/26/2012 01/06/2019 Perineal fissure 06/26/2012 02/20/2017 Constipation, chronic 06/26/20122018 documented as of this encounter (statuses as of 04/17/2023) [facility] History of Past illness Narrative* Problem Noted Date Diagnosed Date Resolved Date Eye pain, left 09/18/2019 01/24/2021 Cervical strain 09/18/2019 01/24/2021 Shoulder impingement syndrome, left 09/18/2019 01/24/2021 Breast lump 07/25/2017 01/06/2019 Carpal tunnel syndrome of left wrist 12/24/2013 01/06/2019 Tendinitis of thumb 12/24/2013 01/07/20 19 Esophagitis, unspecified 07/03/2012 Hemorrhoids 06/26/2012 01/06/2019 Perineal fissure 06/26/2012 02/20/2017 Constipation, chronic 06/26/20122018 documented as of this encounter (statuses as of 07/02/2023) [facility] note* Diagnosis Anxiety- Primary Anxiety state, unspecified Fatigue, unspecified type Acute sinusitis, recurrence not specified, unspecified location documented in this encounter [facility] note* Diagnosis Anemia, unspecified type- Primary [facility] encounter [facility] [place] [facility]* Diagnosis Eustachian tube dysfunction, bilateral- Primary [facility] this [facility] [place] [facility]* Diagnosis Exophthalmos- Primary Exophthalmos, unspecified Graves disease Toxic diffuse goiter without mention of thyrotoxic crisis or storm Anxiety Anxiety state, unspecified Gastroesophageal reflux disease with esophagitis without hemorrhage Migraine without status migrainosus, not intractable, unspecified migraine type TMJ dysfunction Temporomandibular joint disorders, unspecified Cervical radiculopathy Brachial neuritis or radiculitis nos Plantar fasciitis Plantar fascial fibromatosis Pain of left heel Pain in limb documented in this encounter [facility] note* Diagnosis Onset Date Resolution Status Stroke-like symptoms acute [facility] Work Phone: Evaluation note* Diagnosis Onset Date Resolution Status Aphasia acute Muscle spasm acute Stroke-like symptoms acute [facility] Work Phone: Evaluation note* Diagnosis Anxiety- Primary Anxiety state, unspecified Conversion reaction Conversion disorder [facility] [place] [facility]* Diagnosis Onset Date Resolution Status Aphasia resolved Muscle spasm resolved Stroke-like symptoms resolve d Abnormal Pap smear of cervix acute BRIAN III (vulvar intraepithelial neoplasia III) acute Anxiety chronic Encounter for routine gynecological examination noneactive [facility] Work Phone: Evaluation note* Diagnosis Anxiety- Primary Anxiety state, unspecified Umbilical hernia without obstruction or gangrene Umbilical hernia without mention of obstruction or gangrene [facility] [place] [facility]* Diagnosis Umbilical hernia without obstruction or gangrene Umbilical hernia without mention of obstruction or gangrene Rectus diastasis Diastasis of muscle BMI 30.0-30.9,adult Body Mass Index 30.0-30.9, adult [facility] [place] [facility]* Diagnosis Gastroesophageal reflux disease with esophagitis [facility] [place] [facility]* Diagnosis Migraine without status migrainosus, not intractable, unspecified migraine type [facility] [place] [facility]* Diagnosis Gastroesophageal reflux disease with esophagitis [facility] [place] [facility]* Diagnosis Sinobronchitis- Primary Unspecified sinusitis (chronic) Acute cough [facility] [place] [facility]* Diagnosis Gastroesophageal reflux disease with esophagitis Anxiety Anxiety state, unspecified [facility] [place] [facility]* Diagnosis Wellness examination- Primary JOSE (obstructive sleep apnea) Obstructive sleep apnea (adult) (pediatric) Gastroesophageal reflux disease with esophagitis Anxiety Anxiety state, unspecified Migraine without status migrainosus, not intractable, unspecified migraine type Encounter for immunization Need for other specified prophylactic vaccination against single bacterial disease Graves disease Toxic diffuse goiter without mention of thyrotoxic crisis or storm [facility] [place] [facility]* Diagnosis Inconclusive mammogram [facility] [place] [facility]* Diagnosis Inconclusive mammogram- Primary [facility] [place] [facility]* Diagnosis JOSE (obstructive sleep apnea)- Primary Obstructive sleep apnea (adult) (pediatric) [facility] [place] [facility]* Diagnosis Migraine without status migrainosus, not intractable, unspecified migraine type [facility] [place] [facility]* Diagnosis Anxiety Anxiety state, unspecified [facility] [place] [facility]* Diagnosis Abnormal mammogram- Primary Abnormal mammogram, unspecified [facility] [place] [facility]* Diagnosis Inconclusive mammogram [facility] [place] [facility]* Diagnosis Inconclusive mammogram [facility] [place] [facility]* Diagnosis JOSE (obstructive sleep apnea)- Primary Obstructive sleep apnea (adult) (pediatric) [facility] [place] [facility]* Diagnosis Migraine without status migrainosus, not intractable, unspecified migraine type [facility] Pain of left heel Pain in limb [facility] [place] [facility]* Diagnosis Hypersomnia- Primary Hypersomnia, unspecified JOSE (obstructive sleep apnea) Obstructive sleep apnea (adult) (pediatric) [facility] [place] [facility]* Diagnosis Wellness examination- Primary Gastroesophageal reflux disease with esophagitis Anxiety Anxiety state, unspecified Migraine without status migrainosus, not intractable, unspecified migraine type Elevated platelet count Essential thrombocythemia Graves disease Toxic diffuse goiter without mention of thyrotoxic crisis or storm Hypertriglyceridemia Pure hyperglyceridemia [facility] [place] [facility]* Diagnosis Hypersomnia- Primary Hypersomnia, unspecified [facility] [place] [facility]* Diagnosis Encounter for screening mammogram for breast cancer documented in this encounter [facility]: Reason for referral (narrative)* Diagnostic Procedure Only (Routine) - Closed Specialty Diagnoses / Procedures Referred By Contlola manrique Referred To Contact XR IMAGING Diagnoses Pain of left heel Procedures XR CALCANEUS 2V AXIAL/LAT LEFT RADEX CALCANEUS MINIMUM 2 VIEWS Palmer Kumari PA-C [address] [place] [address] Xr Imaging Referral ID Status Reason Start Date Expiration Date V isits Requested Visits Authorized [id number] Closed Auto-Generate d Referral 10/01/2021 10/31/2022 1 1 [facility] for referral (narrative)* Diagnostic Procedure Only (Routine) - Authorized Specialty Diagnoses / Procedures Referred By Contac t Referred To Contact [facility] Diagnoses JOSE (obstructive sleep apnea) Procedures HOME SLEEP APNEA TEST (HSAT) SLEEP STD AIRFLOW HRT RATE&O2 SAT EFFORT 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, 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.[facility] [address] [place] [address] [facility] [place] [address] [place] [address] Referral ID Status Reason Start Date Expiration Date Visits Requested Visits Authorized [id number] Authorized Auto-Generat ed Referral 03/09/2024 1 1 [facility] for referral (narrative)* Diagnostic Procedure Only (Routine) - Pending Review Specialty Diagnoses / Procedures Referred By Contac t Referred To Contact BR IMAGING Diagnoses Inconclusive mammogram Procedures US BREAST LTD LEFT US BREAST UNI REAL TIME WITH IMAGE LIMITED Palmer Kumari PA-C [address] [place] [address] [facility] [address] [place] [address] Referral ID Status Reason Start Date Expiration Date Visits Requested Visits Authorized [id number] Pending Review Auto-Generat ed Referral 10/17/2023 05/16/2024 1 1 * Diagnostic Procedure Only (Routine) - Pending Review Specialty Diagnoses / Procedures Referred By Contac t Referred To Contact BR IMAGING Diagnoses Inconclusive mammogram Procedures ALEJANDRO DIAGNOSTIC LEFT DIAGNOSTIC MAMMOGRAPHY COMPUTER-AIDED DETCJ UNI Palmer Kumari PA-C [address] [place] [address] [facility] [address] [place] [address] Referral ID Status Reason Start Date Expiration Date Visits Requested Visits Authorized [id number] Pending Review Auto-Generat ed Referral 10/17/2023 05/16/2024 1 1 [facility] for referral (narrative)* Diagnostic Procedure Only (Routine) - Pending Review Specialty Diagnoses / Procedures Referred By Contac t Referred To Contact BR IMAGING Diagnoses Abnormal mammogram Procedures US BREAST LTD LEFT US BREAST UNI REAL TIME WITH IMAGE LIMITED Mak Luevano MD [address] [place] [address] [facility] [address] [place] [address] Referral ID Status Reason Start Date Expiration Date Visits Requested Visits Authorized [id number] Pending Review Auto-Generat ed Referral 10/22/2023 11/20/2024 1 1 * Diagnostic Procedure Only (Routine) - Pending Review Specialty Diagnoses / Procedures Referred By Ayala manrique Referred To Contact BR IMAGING Diagnoses Abnormal mammogram Procedures ALEAJNDRO DIAGNOSTIC BILATERAL DIAGNOSTIC MAMMOGRAPHY COMPUTER-AIDED DETCJ BI Mak Luevano MD [facility] [place] [address] [facility] [address] [place] [address] Referral ID Status Reason Start Date Expiration Date Visits Requested Visits Authorized [id number] Pending Review Auto-Generat ed Referral 10/22/2023 11/20/2024 1 1 * Diagnostic Procedure Only (Routine) - Pending Review Specialty Diagnoses / Procedures Referred By Ayala manrique Referred To Contact BR IMAGING Diagnoses Abnormal mammogram Procedures US BREAST LTD RIGHT US BREAST UNI REAL TIME WITH IMAGE LIMITED Mak Luevano MD [facility] [place] [address] [facility] [address] [place] [address] Referral ID Status Reason Start Date Expiration Date Visits Requested Visits Authorized [id number] Pending Review Auto-Generat ed Referral 10/22/2023 11/20/2024 1 1 [facility] for referral (narrative)* Diagnostic Procedure Only (Routine) - Closed Specialty Diagnoses / Procedures Referred By Ayala manrique Referred To Contact BR IMAGING Diagnoses Inconclusive mammogram Procedures US BREAST LTD RIGHT US BREAST UNI REAL TIME WITH IMAGE LIMITED Mak Luevano MD [address] [place] [address] [facility] [address] [place] [address] Referral ID Status Reason Start Date Expiration Date V isits Requested Visits Authorized [id number] Closed Auto-Generate d Referral 06/10/2023 07/09/2024 1 1 [facility] for referral (narrative)* Diagnostic Procedure Only (Routine) - Closed Specialty Diagnoses / Procedures Referred By Ayala t Referred To Contact XR IMAGING Diagnoses Pain of left heel Procedures XR CALCANEUS 2V AXIAL/LAT LEFT RADEX CALCANEUS MINIMUM 2 VIEWS Palmer Kumari PA-C [address] [place] [address] [place] [address] Referral ID Status Reason Start Date Expiration Date V isits Requested Visits Authorized [id number] Closed Auto-Generate d Referral 10/01/2021 10/31/2022 1 1 [facility] for referral (narrative)* Diagnostic Procedure Only (Routine) - New Request Specialty Diagnoses / Procedures [facility] To [facility] Diagnoses Hypersomnia Procedures 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 SLEEP LATENCY/MAINT OF WAKEFULNESS TSTG Yuliet Kruse, [facility] [address] [place] [address] Neurological [place] [address] [place] [address] Referral ID Status Reason Start Date Expiration Date Visits Requested Visits Authorized [id number] New Request Auto-Generat ed Referral 03/15/2024 03/15/2025 1 1 [facility] for visit Narrative* Diagnostic Procedure Only (Routine) - Closed Specialty Diagnoses / Procedures [facility] Referred To Contact BR IMAG[facility] Diagnoses Inconclusive mammogram Procedures ALEJANDRO DIAGNOSTIC RIGHT DIAGNOSTIC MAMMOGRAPHY COMPUTER-AIDED DETCJ UNI Palmer Kumari PA-C [address] [place] [address] [facility] [address] [place] [address] Referral ID Status Reason Start Date Expiration Date V isits Requested Visits Authorized [id number] Closed Auto-Generate d Referral 03/22/2023 04/20/2024 1 1 [facility] for visit Narrative* Diagnostic Procedure Only (Routine) - Closed Specialty Diagnoses / Procedures Referred By Contac t Referred To Contact BR IMAGING Diagnoses Inconclusive mammogram Procedures ALEJANDRO DIAGNOSTIC RIGHT DIAGNOSTIC MAMMOGRAPHY COMPUTER-AIDED DETCJ UNI Mak Luevano MD [address] [place] [address] [facility] [address] [place] [address] Referral ID Status Reason Start Date Expiration Date V isits Requested Visits Authorized [id number] Closed Auto-Generate d Referral 06/10/2023 07/09/2024 1 1 [facility] for visit Narrative* Diagnostic Procedure Only (Routine) - Closed Specialty Diagnoses / Procedures Referred By Contac t Referred To Contact XR IMAGING Diagnoses Pain of left heel Procedures XR CALCANEUS 2V AXIAL/LAT LEFT RADEX CALCANEUS MINIMUM 2 VIEWS Palmer Kumari PA-C [address] [place] [address] [place] [address] Referral ID Status Reason Start Date Expiration Date V isits Requested Visits Authorized [id number] Closed Auto-Generate d Referral 10/01/2021 10/31/2022 1 1 [facility] Advance Directives No Advanced Directives Records FoundDocuments on File Type Date Recorded 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 Advance Directive(s) 04/15/2016 4:09 PM Documents on File Type Date Recorded 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 Advance Directive(s) 04/15/2016 4:09 PM Advance Directive Response Recorded Date/ Time Advance Directives No July 27 016 10:09am Living Will No October 22, 2021 12:18am Power of Hospice Administrator No October 22 12:18am Advance Directive Response Recorded Date/ Time Advance Directives No July 27 016 10:09am Living Will No October 22, 2021 3:28am Power of Hospice Administrator No October 22 3:28am Reason for Referral Specialty Diagnoses / Procedures Referred By Contac t Referred To Contact Ent - Otolaryngology Diagnoses Eustachian tube dysfunction, bilateral Procedures CONSULT TO ENT OFFICE/OUTPATIENT NEW HIGH MDM 60-74 MINUTES Palmer Kumari PA-C [address] [place] [phone] Referral ID Status Reason Start Date Expiration Date Visits Requested Visits Authorized [id number] Authorized PCP Requested Referral 09/04/2021 09/04/2022 1 1 Specialty Diagnoses / Procedures Referred By Contac t Referred To Contact General Surgery Diagnoses Umbilical hernia without obstruction or gangrene Procedures CONSULT TO GENERAL SURGERY OFFICE/OUTPATIENT [facility] 60-74 MINUTES Mak Luevano MD [address] [place] [phone] Referral ID Status Reason Start Date Expiration Date Visits Requested Visits Authorized [id number] Authorized PCP Requested Referral 01/29/2022 01/29/2023 1 1 Specialty Diagnoses / Procedures Referred By Contac t Referred To Contact Diagnoses JOSE (obstructive sleep apnea) Procedures CONSULT TO SLEEP MEDICINE - ADULT OFFICE/OUTPATIENT [facility] 60 MINUTES Dee Seaman APRN.CNP [address] [place] [address] Referral ID Status Reason Start Date Expiration Date Visits Requested Visits Authorized [id number] Authorized PCP Requested Referral 11/17/2023 11/16/2024 1 1 Chief Complaint and Reason for Visit Chief Complaint STROKE-LIKE SYMPTOMS STROKE-LIKE SYMPTOMS Reason for Visit Stroke-like symptoms Chief Complaint STROKE-LIKE SYMPTOMS STROKE-LIKE SYMPTOMS Reason for Visit Aphasia Muscle spasm Stroke-like symptoms Chief Complaint STROKE-LIKE SYMPTOMS STROKE-LIKE SYMPTOMS 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) VULVLAR LESION SCREENING Reason for Visit Aphasia Muscle spasm Stroke-like symptoms Abnormal Pap smear of cervix BRIAN III (vulvar intraepithelial neoplasia III) Anxiety Encounter for routine gynecological examination Family History No Family History Records Found Relationship Condition Age at Onset Recorded Date/T jenna grandmother Malignant neoplasm of colon Unknown Cardiac disease Unknown grandfather Cerebrovascular accident (CVA) Unknown Malignant neoplasm Unknown aunt Malignant neoplasm of breast Unknown Summary Purpose Additional Source Comments Source Comments (unrecognize d section and content) In the event this informatio n is protected by the Federal Confidentiality of Alcohol and Drug Abuse Patient Records regulations: The Federal rules restrict any use of the information to criminally investigate or prosecute any alcohol or drug abuse patient.[facility] event this information is protected by the Federal Confidentiality of Alcohol and Drug Abuse Patient Records regulations: The Federal rules restrict any use of the information to criminally investigate or prosecute any alcohol or drug abuse patient.[facility] the event this information is protected by the Federal Confidentiality of Alcohol and Drug Abuse Patient Records regulations: The Federal rules restrict any use of the information to criminally investigate or prosecute any alcohol or drug abuse patient.[facility] the event this information is protected by the Federal Confidentiality of Alcohol and Drug Abuse Patient Records regulations: The Federal rules restrict any use of the information to criminally investigate or prosecute any alcohol or drug abuse patient.[facility] the event this information is protected by the Federal Confidentiality of Alcohol and Drug Abuse Patient Records regulations: The Federal rules restrict any use of the information to criminally investigate or prosecute any alcohol or drug abuse patient.[facility] the event this information is protected by the Federal Confidentiality of Alcohol and Drug Abuse Patient Records regulations: The Federal rules restrict any use of the information to criminally investigate or prosecute any alcohol or drug abuse patient.[facility] the event this information is protected by the Federal Confidentiality of Alcohol and Drug Abuse Patient Records regulations: The Federal rules restrict any use of the information to criminally investigate or prosecute any alcohol or drug abuse patient.[facility] the event this information is protected by the Federal Confidentiality of Alcohol and Drug Abuse Patient Records regulations: The Federal rules restrict any use of the information to criminally investigate or prosecute any alcohol or drug abuse patient.[facility] the event this information is protected by the Federal Confidentiality of Alcohol and Drug Abuse Patient Records regulations: The Federal rules restrict any use of the information to criminally investigate or prosecute any alcohol or drug abuse patient.[facility] the event this information is protected by the Federal Confidentiality of Alcohol and Drug Abuse Patient Records regulations: The Federal rules restrict any use of the information to criminally investigate or prosecute any alcohol or drug abuse patient.[facility] the event this information is protected by the Federal Confidentiality of Alcohol and Drug Abuse Patient Records regulations: The Federal rules restrict any use of the information to criminally investigate or prosecute any alcohol or drug abuse patient.[facility] the event this information is protected by the Federal Confidentiality of Alcohol and Drug Abuse Patient Records regulations: The Federal rules restrict any use of the information to criminally investigate or prosecute any alcohol or drug abuse patient.[facility] the event this information is protected by the Federal Confidentiality of Alcohol and Drug Abuse Patient Records regulations: The Federal rules restrict any use of the information to criminally investigate or prosecute any alcohol or drug abuse patient.[facility]In the event this information is protected by the Federal Confidentiality of Alcohol and Drug Abuse Patient Records regulations: The Federal rules restrict any use of the information to criminally investigate or prosecute any alcohol or drug abuse patient.[facility]In the event this information is protected by the Federal Confidentiality of Alcohol and Drug Abuse Patient Records regulations: The Federal rules restrict any use of the information to criminally investigate or prosecute any alcohol or drug abuse patient.[facility]In the event this information is protected by the Federal Confidentiality of Alcohol and Drug Abuse Patient Records regulations: The Federal rules restrict any use of the information to criminally investigate or prosecute any alcohol or drug abuse patient.[facility] the event this information is protected by the Federal Confidentiality of Alcohol and Drug Abuse Patient Records regulations: The Federal rules restrict any use of the information to criminally investigate or prosecute any alcohol or drug abuse patient.[facility] HospitalIn the event this information is protected by the Federal Confidentiality of Alcohol and Drug Abuse Patient Records regulations: The Federal rules restrict any use of the information to criminally investigate or prosecute any alcohol or drug abuse patient.[facility] HospitalIn the event this information is protected by the Federal Confidentiality of Alcohol and Drug Abuse Patient Records regulations: The Federal rules restrict any use of the information to criminally investigate or prosecute any alcohol or drug abuse patient.[facility] HospitalIn the event this information is protected by the Federal Confidentiality of Alcohol and Drug Abuse Patient Records regulations: The Federal rules restrict any use of the information to criminally investigate or prosecute any alcohol or drug abuse patient.[facility] HospitalIn the event this information is protected by the Federal Confidentiality of Alcohol and Drug Abuse Patient Records regulations: The Federal rules restrict any use of the information to criminally investigate or prosecute any alcohol or drug abuse patient.[facility] HospitalIn the event this information is protected by the Federal Confidentiality of Alcohol and Drug Abuse Patient Records regulations: The Federal rules restrict any use of the information to criminally investigate or prosecute any alcohol or drug abuse patient.[facility]In the event this information is protected by the Federal Confidentiality of Alcohol and Drug Abuse Patient Records regulations: The Federal rules restrict any use of the information to criminally investigate or prosecute any alcohol or drug abuse patient.[facility] HospitalIn the event this information is protected by the Federal Confidentiality of Alcohol and Drug Abuse Patient Records regulations: The Federal rules restrict any use of the information to criminally investigate or prosecute any alcohol or drug abuse patient.[facility] HospitalIn the event this information is protected by the Federal Confidentiality of Alcohol and Drug Abuse Patient Records regulations: The Federal rules restrict any use of the information to criminally investigate or prosecute any alcohol or drug abuse patient.[facility] HospitalIn the event this information is protected by the Federal Confidentiality of Alcohol and Drug Abuse Patient Records regulations: The Federal rules restrict any use of the information to criminally investigate or prosecute any alcohol or drug abuse patient.[facility] HospitalIn the event this information is protected by the Federal Confidentiality of Alcohol and Drug Abuse Patient Records regulations: The Federal rules restrict any use of the information to criminally investigate or prosecute any alcohol or drug abuse patient.[facility] HospitalIn the event this information is protected by the Federal Confidentiality of Alcohol and Drug Abuse Patient Records regulations: The Federal rules restrict any use of the information to criminally investigate or prosecute any alcohol or drug abuse patient.[facility] HospitalIn the event this information is protected by the Federal Confidentiality of Alcohol and Drug Abuse Patient Records regulations: The Federal rules restrict any use of the information to criminally investigate or prosecute any alcohol or drug abuse patient.[facility] HospitalIn the event this information is protected by the Federal Confidentiality of Alcohol and Drug Abuse Patient Records regulations: The Federal rules restrict any use of the information to criminally investigate or prosecute any alcohol or drug abuse patient.[facility] HospitalIn the event this information is protected by the Federal Confidentiality of Alcohol and Drug Abuse Patient Records regulations: The Federal rules restrict any use of the information to criminally investigate or prosecute any alcohol or drug abuse patient.[facility] HospitalIn the event this information is protected by the Federal Confidentiality of Alcohol and Drug Abuse Patient Records regulations: The Federal rules restrict any use of the information to criminally investigate or prosecute any alcohol or drug abuse patient.[facility] HospitalIn the event this information is protected by the Federal Confidentiality of Alcohol and Drug Abuse Patient Records regulations: The Federal rules restrict any use of the information to criminally investigate or prosecute any alcohol or drug abuse patient.[facility] HospitalIn the event this information is protected by the Federal Confidentiality of Alcohol and Drug Abuse Patient Records regulations: The Federal rules restrict any use of the information to criminally investigate or prosecute any alcohol or drug abuse patient.[facility] HospitalIn the event this information is protected by the Federal Confidentiality of Alcohol and Drug Abuse Patient Records regulations: The Federal rules restrict any use of the information to criminally investigate or prosecute any alcohol or drug abuse patient.[facility] HospitalIn the event this information is protected by the Federal Confidentiality of Alcohol and Drug Abuse Patient Records regulations: The Federal rules restrict any use of the information to criminally investigate or prosecute any alcohol or drug abuse patient.[facility] HospitalIn the event this information is protected by the Federal Confidentiality of Alcohol and Drug Abuse Patient Records regulations: The Federal rules restrict any use of the information to criminally investigate or prosecute any alcohol or drug abuse patient.[facility] HospitalIn the event this information is protected by the Federal Confidentiality of Alcohol and Drug Abuse Patient Records regulations: The Federal rules restrict any use of the information to criminally investigate or prosecute any alcohol or drug abuse patient.[facility] HospitalIn the event this information is protected by the Federal Confidentiality of Alcohol and Drug Abuse Patient Records regulations: The Federal rules restrict any use of the information to criminally investigate or prosecute any alcohol or drug abuse patient.[facility] HospitalIn the event this information is protected by the Federal Confidentiality of Alcohol and Drug Abuse Patient Records regulations: The Federal rules restrict any use of the information to criminally investigate or prosecute any alcohol or drug abuse patient.[facility] HospitalIn the event this information is protected by the Federal Confidentiality of Alcohol and Drug Abuse Patient Records regulations: The Federal rules restrict any use of the information to criminally investigate or prosecute any alcohol or drug abuse patient.[facility] HospitalIn the event this information is protected by the Federal Confidentiality of Alcohol and Drug Abuse Patient Records regulations: The Federal rules restrict any use of the information to criminally investigate or prosecute any alcohol or drug abuse patient.[facility] HospitalIn the event this information is protected by the Federal Confidentiality of Alcohol and Drug Abuse Patient Records regulations: The Federal rules restrict any use of the information to criminally investigate or prosecute any alcohol or drug abuse patient.[facility] HospitalIn the event this information is protected by the Federal Confidentiality of Alcohol and Drug Abuse Patient Records regulations: The Federal rules restrict any use of the information to criminally investigate or prosecute any alcohol or drug abuse patient.[facility] HospitalIn the event this information is protected by the Federal Confidentiality of Alcohol and Drug Abuse Patient Records regulations: The Federal rules restrict any use of the information to criminally investigate or prosecute any alcohol or drug abuse patient.[facility] HospitalIn the event this information is protected by the Federal Confidentiality of Alcohol and Drug Abuse Patient Records regulations: The Federal rules restrict any use of the information to criminally investigate or prosecute any alcohol or drug abuse patient.[facility] Reason for Visit (unrecogniz ed section and content) Reason Comments Ear Pain Patient is here for blogged ear/cough Anxiety Reason Comments Results Reason Comments Follow Up Heel Pain left TMJ Reason Comments Follow Up Reason Onset Date Comments Refill Request 12/31/2021 Reason Comments Anxiety Follow up Reason Comments Consult Hernia umbilical Specialty Diagnoses / Procedures Referred By Ayala t Referred To Contact General Surgery Diagnoses Umbilical hernia without obstruction or gangrene Procedures CONSULT TO GENERAL SURGERY OFFICE/OUTPATIENT [facility] 60-74 MINUTES Mak Luevano MD [address] [place] [address] Referral ID Status Reason Start Date Expiration Date V isits Requested Visits Authorized [id number] Closed PCP Requested Referral 01/29/2022 01/29/2023 1 1 Reason Onset Date Comments Refill Request 03/01/2022 Reason Onset Date Comments Refill Request 06/03/2022 Reason Comments Insurance Authorization Omeprazole Reason Comments Illness Reason Comments Orders Reason Comments Yearly Exam Reason Onset Date Comments Refill Request 09/01/2023 Reason Onset Date Comments Refill Request 09/03/2023 Reason Comments Results Reason Comments Orders Reason Onset Date Comments Refill Request 11/19/2023 Reason Onset Date Comments Refill Request 11/20/2023 Reason Comments New Patient Specialty Diagnoses / Procedures Referred By Contac t Referred To Contact Diagnoses JOSE (obstructive sleep apnea) Procedures CONSULT TO SLEEP MEDICINE - ADULT OFFICE/OUTPATIENT [facility] MDM 60 MINUTES Dee Seaman APRN.[facility] [address] [place] [address] Referral ID Status Reason Start Date Expiration Date V isits Requested Visits Authorized [id number] Closed PCP Requested Referral 11/17/2023 11/16/2024 1 1 Reason Comments Physical Care Teams (unrecognized sec tion and content) Pencil Sorter Relationship Specialty Start Date End Date Mak Luevano MD [address] [place], [place] [id number] PCP - General Family Practice 01/24/21 Pencil Sorter Relationship Specialty Start Date End Date Mak Luevano MD [address] [place], [place] [id number] PCP - General Family Practice 01/24/21 Pencil Sorter Relationship Specialty Start Date End Date Mak Luevano MD [address] [place], [place] [id number] PCP - General Family Practice 01/24/21 Pencil Sorter Relationship Specialty Start Date End Date Mka Luveano MD [address] [facility] [place] [address] PCP - General Family Practice 01/24/21 Pencil Sorter Relationship Specialty Start Date End Date Mak Luevano MD [address] [facility] [place] [address] PCP - General Family Practice 01/24/21 Pencil Sorter Relationship Specialty Start Date End Date Mak Luevano MD [address] [facility] [place] [address] PCP - General Family Practice 01/24/21 Pencil Sorter Relationship Specialty Start Date End Date Mak Luevano MD [address] [facility] [place] [address] PCP - General Family Practice 01/24/21 Pencil Sorter Relationship Specialty Start Date End Date Mak Luevano MD [address] [facility] [place] [address] PCP - General Family Practice 01/24/21 Pencil Sorter Relationship Specialty Start Date End Date Mak Luevano MD [address] [facility] [place] [address] PCP - General Family Practice 01/24/21 Pencil Sorter Relationship Specialty Start Date End Date Mak Luevano MD [address] [facility] [place] [address] PCP - General Family Practice 01/24/21 Pencil Sorter Relationship Specialty Start Date End Date Mak Luevano MD [address] [facility] [place] [address] PCP - General Family Practice 01/24/21 Pencil Sorter Relationship Specialty Start Date End Date Mak Luevano MD [address] [facility] [place] [address] PCP - General Family Medicine 01/24/21 Pencil Sorter Relationship Specialty Start Date End Date Mak Luevano MD [address] [facility] [place] [address] PCP - General Family Medicine 01/24/21 Pencil Sorter Relationship Specialty Start Date End Date Mak Luevano MD [address] [facility] [place] [address] PCP - General Family Medicine 01/24/21 Pencil Sorter Relationship Specialty Start Date End Date Mak Luevano MD [address] [facility] [place] [address] PCP - General Family Medicine 01/24/21 Pencil Sorter Relationship Specialty Start Date End Date Mak Luevano MD [address] [facility] [place] [address] PCP - General Family Medicine 01/24/21 Pencil Sorter Relationship Specialty Start Date End Date Mak Luevano MD [address] [facility] [place] [address] PCP - General Family Medicine 01/24/21 Pencil Sorter Relationship Specialty Start Date End Date Mak Luevano MD [address] [facility] [place] [address] PCP - General Family Medicine 01/24/21 Pencil Sorter Relationship Specialty Start Date End Date Mak Luevano MD [address] [facility] [place] [address] PCP - General Family Medicine 01/24/21 Pencil Sorter Relationship Specialty Start Date End Date Mak Luevano MD [address] [facility] [place] [address] PCP - General Family Medicine 01/24/21 Pencil Sorter Relationship Specialty Start Date End Date Mak Luevano MD [address] [facility] [place] [address] PCP - General Family Medicine 01/24/21 Pencil Sorter Relationship Specialty Start Date End Date Mak Luevano MD [address] [place] [address] PCP - General Family Medicine 01/24/21 Pencil Sorter Relationship Specialty Start Date End Date Mak Luevano MD [address] [place] [address] PCP - General Family Medicine 01/24/21 Pencil Sorter Relationship Specialty Start Date End Date Mak Luevano MD [address] [place] [address] PCP - General Family Medicine 01/24/21 Pencil Sorter Relationship Specialty Start Date End Date Mak Luevano MD [address] [place] [address] PCP - General Family Medicine 01/24/21 Pencil Sorter Relationship Specialty Start Date End Date Mak Luevano MD [address] [place] [address] PCP - General Family Medicine 01/24/21 Pencil Sorter Relationship Specialty Start Date End Date Mak Luevano MD [address] [place] [address] PCP - General Family Medicine 01/24/21 Pencil Sorter Relationship Specialty Start Date End Date Mak Luevano MD [address] [place], [place] [address] PCP - General Family Medicine 01/24/21 Pencil Sorter Relationship Specialty Start Date End Date Mak Luevano MD [address] [place], [place] [id number] PCP - General Family Medicine 01/24/21 Pencil Sorter Relationship Specialty Start Date End Date Mak Luevano MD [address] [place], [place] [address] PCP - General Family Medicine 01/24/21 Pencil Sorter Relationship Specialty Start Date End Date Mak Luevano MD [address] [place] [address] PCP - General Family Medicine 01/24/21 Pencil Sorter Relationship Specialty Start Date End Date Mak Luevano MD [address] [place] [address] PCP - General Family Medicine 01/24/21 Pencil Sorter Relationship Specialty Start Date End Date Mak Luevano MD [address] [place] [address] PCP - General Family Medicine 01/24/21 Pencil Sorter Relationship Specialty Start Date End Date Mak Luevano MD [address] [place], [place] [address] PCP - General Family Medicine 01/24/21 Dee Seaman, LUCY.[facility] [address] [place] [address] Production Material Handler Family Medicine 04/19/24 Elsie Glaser APRN.[facility] [address] [place] [address] Production Material Handler Family Medicine 04/19/24 Pencil Sorter Relationship Specialty Start Date End Date Mak Luevano MD [address] [place] [address] PCP - General Family Medicine 01/24/21 Dee Seaman APRN.[facility] [address] [facility] [place] [address] Production Material Handler Family Medicine 04/19/24 Elsie Glaser APRN.[facility] [address] [place] [address] Production Material Handler Family Medicine 04/19/24 Pencil Sorter Relationship Specialty Start Date End Date Mak Luevano MD [address] [place] [address] PCP - General Family Medicine 01/24/21 Dee Seaman APRN.[facility] [address] [facility] [place] [address] Production Material Handler Family Medicine 04/19/24 Elsie Glaser APRN.[facility] [address] [place] [address] Production Material Handler Family Medicine 04/19/24 Pencil Sorter Relationship Specialty Start Date End Date Mak Luevano MD [address] [place] [address] PCP - General Family Medicine 01/24/21 Dee Seaman APRN.[facility] [address] [facility] [place] [address] Production Material Handler Family Medicine 04/19/24 Elsie Glaser APRN.[facility] [address] [place] [address] Production Material Handler Family Medicine 04/19/24 Goals (unrecognized section and content) Goals may be documented in a n alternate sectionGoals may be documented in an alternate section INFORMATION SOURCE (unrecogn ized section and content) DATE CREATED AUTHOR 04/08/2024 [facility] DATE CREATED AUTHOR AUTHOR'S SUHAIL NAVATIERNEY 10/24/2024 [facility] FOR RECORDS PERTAINING TO PATIENTS WHO ARE OR HAVE BEEN ENROLLED IN A CHEMICAL DEPENDENCY/SUBSTANCEABUSE PROGRAM, SOME INFORMATION MAY BE OMITTED. This clinical summary was aggregated from multiple sources. Caution should be exercised in using it in the provision of clinical care. This summary normalizes information from multiple sources, and as a consequence, information in this document may materially change the coding, format and clinical context of patient data. In addition, data may be omitted in some cases. CLINICAL DECISIONS SHOULD BE BASED ON THE PRIMARY CLINICAL RECORDS. [employer] provides no warranty or guarantee of the accuracy or completeness of information in this document.
--- NOTE | 2024-12-29 22:53 | CT_ITS ---
PROCEDURE: ABDOMEN/PELVIS W IV CONT ONLY 12/29/2024 REASON FOR EXAM: ABD PAIN TECHNIQUE: ABDOMEN/PELVIS W IV CONT ONLY Coronal and Sagittal reconstruction series were provided. CONTRAST: Isovue-350 VOLUME: 100 mL One or more dose reduction techniques were used (e.g., Automated exposure control, adjustment of the mA and/or kV according to patient size, use of iterative reconstruction technique. RADIATION DOSE SUMMARY: CTDlvol: 15.65 mGy DLP: 906 mGycm COMPARISON: None. FINDINGS: Multiple appendicoliths are noted in the enlarged, diffusely thickened appendix measuring 1.6 cm in its largest transverse dimension. Surrounding inflammatory fat stranding is noted suggestive of acute appendicitis without perforation or abscess formation. Unremarkable intrauterine device. Multiple uterine leiomyomas with the largest measuring 3.5 cm. 2.4 cm simple hepatic cyst. No follow-up is needed. Fat containing umbilical hernia without incarceration. Diffuse thickening of the stomach suggestive of gastritis. The visualized lung bases are unremarkable. Normal remaining liver. Normal gallbladder and extrahepatic biliary system. Normal spleen. Normal pancreas. Normal bilateral adrenal glands. Normal size of the right kidney. There is no right renal mass. There are no right renal calculi. There is no right hydronephrosis. Normal visualized right ureter. Normal size of the left kidney. There is no left renal mass. There are no left renal calculi. There is no left hydronephrosis. Normal visualized left ureter. Normal small intestine. Normal colon. There is no demonstrated peritoneal fluid. Normal abdominal aorta. Normal inferior vena cava. Normal retroperitoneum. Normal urinary bladder. There is no pelvic lymphadenopathy. There is no pelvic fluid. Normal abdominal wall. Normal osseous structures. CT/Abdomen/Pelvis W IV Cont ONLY IMPRESSION: Multiple appendicoliths are noted in the enlarged, diffusely thickened appendix measuring 1.6 cm in its largest transverse dimension. Surrounding inflammatory fat stranding is noted suggestive of acute appendicitis without perforation or abscess formation. Unremarkable intrauterine device. Multiple uterine leiomyomas with the largest measuring 3.5 cm. 2.4 cm simple hepatic cyst. No follow-up is needed. Fat containing umbilical hernia without incarceration. Diffuse thickening of the stomach suggestive of gastritis. Reading Location: [place] [address]
[2024-12-29 23:35] VITALS: BP 113/71; PULSE 79; RESP 18; O2SAT 96
[2024-12-29] MEDS: Ketorolac 30 MG/ML Syringe IV (23:37)
[2024-12-29 23:44] LABS: Color, Urine Yellow (Yellow); Glucose, Dipstick Normal (Normal); Ketone-Dipstick 15 mg/dl (Negative); Leukocyte Esterase-Dipstick Negative /ul (Negative); Mucous, Urine 0 SEEN /hpf (<or=2+); Nitrite-Dipstick Negative (Negative); Occult Blood-Urine 150 /ul (Negative); Protein-Dipstick 100 mg/dl (Negative); Specific Gravity, Urine 1.020 (1.002-1.030); Urine Bilirubin Dipstick Negative (Negative)
[2024-12-29 23:57] LABS: Red Blood Cells-Urine 0-5 SEEN /hpf (0-5); Squamous Epithelial Cells - UA 5-10 SEEN /hpf (5-10); Transitional Epithelial - Ur 0-5 SEEN /hpf (0-5)
[2024-12-30] VITALS (26 sets, daily range): BP systolic 90–121; BP diastolic 53–78; PULSE 77–102; RESP 9–18; TEMP 36.1–37; O2SAT 77–100; BMI 26.6
--- NOTE | 2024-12-30 00:28 | EX.ED.DYSGE1 ---
HPI History of Present Illness Chief Complaint: Abd Pain Informant: patient and spouse/S.O. Narrative Narrative: Patient is a 54-year-old female with past medical history of of anxiety GERD and migraine headache. She states that beginning around 7 PM on Friday evening she developed generalized upper abdominal pain and nausea. She states she was able to sleep but pain persisted into the morning. She states she has had subjective chills and generalized fatigue. She reports the nausea has persisted as well but vomiting has not been present. She does states she had multiple bowel movements throughout the night and states they were slightly soft but denies bright red blood or melena. She states that throughout the day the pain has moved into the lower abdomen and secondary to the persistent symptoms presents for evaluation. [facility] Medical History Migraine Physical exam, pre-employment Graves disease COVID GERD (gastroesophageal reflux disease) History of cyst of breast Anxiety CHLOE III (vulvar intraepithelial neoplasia III) Abnormal Pap smear of cervix GERDS Anxiety Home Medications ?Medication ?Instructions ?Recorded ?Last Taken ?Type sumatriptan succinate 50 mg tablet 50 mg PO PRN PRN Headache 07/28/15 Unknown History esomeprazole magnesium 40 mg 40 mg PO DAILY reflux 10/30/20 Unknown History capsule,delayed release (Nexium) famotidine 20 mg tablet 20 mg PO BID reflux 10/22/21 Unknown History desvenlafaxine succinate 50 mg 50 mg PO DAILY 04/30/22 Unknown History tablet,extended release 24 hr (Pristiq) levonorgestrel (Mirena) 1 device intrauterine ONCE 07/04/22 Unknown History estradiol 1 mg tablet 1 mg PO DAILY #90 tabs 12/26/23 Unknown Rx Allergy/AdvReac Type Severity Reaction Status Date / Time No Known Allergies Allergy Verified 12/29/24 21:36 Family History Grandmother Colon cancer Heart disease Grandfather CVA (cerebral vascular accident) Cancer bladder Aunt Breast cancer Surgical History History of endometrial ablation hx of cyst aspirartion History of wisdom tooth extraction, class II edentulism uterine ablation Hx of appendectomy History of tonsillectomy and adenoidectomy Social History (Updated 12/26/23 @ 14:05 by Catherine Marin) Smoking Status: Former smoker alcohol intake: current details: social substance use type: does not use caffeine: Yes what type of physical activity do you participate in: none seatbelt use: always do you feel safe at home: Yes additional social history: Joy Chin Stepdaughter Patient works at [employer] ROS ROS ED Constitutional Constitutional ED: Reports chills, subjective and other Details: Positive fatigue ; Denies fever(s) ENT ENT ED: Denies rhinorrhea or sore throat Cardiovascular Cardiovascular: Denies chest pain Respiratory/Chest Respiratory/Chest: Denies cough or dyspnea Gastrointestinal Gastrointestinal: Reports abdominal pain and nausea; Denies diarrhea, melena or vomiting Genitourinary Genitourinary ED: Denies dysuria or hematuria Musculoskeletal Musculoskeletal: Denies back pain Integumentary Denies rash Neurologic Neurologic: Denies headache(s) Hematologic/Lymphatic Hematologic/Lymphatic: Denies easy bleeding or easy bruising EXAM Physical Exam Const Vital Signs: 12/29/24 21:35 12/29/24 23:35 Temperature 98.3 F Temperature Source Oral Pulse Rate 90 79 Respiratory Rate 14 18 Blood Pressure 109/68 113/71 Blood Pressure Mean 81 85 Pulse Ox 94 96 Oxygen Delivery Method Room Air Room Air Positive well nourished and well developed General Appearance ED: well developed; Negative for pallor HEENT HEENT Narrative: Normocephalic atraumatic No tongue or lip swelling no oral lesions no airway edema or compromise; no secondary findings in the posterior pharynx to suggest infection Eyes PERRL and EOMs intact bilaterally General Eye ED: Negative for scleral icterus Neck supple Neck Narrative: No nuchal rigidity or meningeal signs Resp normal respiratory effort and clear to auscultation bilaterally Cardio regular rate and regular rhythm GI non-distended and no masses GI Narrative: Abdomen is soft and nondistended with normal active bowel sounds. Patient has pain with palpation in both the right lower quadrant and left lower quadrant. There is mild guarding at the sites. No peritoneal signs or rigidity or pulsatile mass. Auscultation: normoactive bowel sounds Palpation: soft Back/Spine no CVA tenderness Extremity normal to inspection Neuro oriented x3, CN's II-XII intact bilaterally and no sensory deficits noted Sensorium / Orientation: alert Motor Exam: strength 5/5 throughout Psych mental status grossly normal Skin no rashes or lesions noted and no wounds General Skin Exam: Negative for jaundice or pallor MDM MDM MDM Narrative Medical decision making narrative: Patient arrived to the ER with stable vitals. She reported roughly 24 hours of abdominal discomfort with nausea and generalized fatigue and subjective chills. Differential diagnosis is for viral stomach infection such as norovirus versus rotavirus. Patient could have potential UTI or pyelonephritis. There is concern for diverticulitis versus intestinal abscess. Patient could also have atypical presentation for biliary colic or acute cholecystitis or kidney stone. The patient states her appendix was removed at an outside hospital at age 23 and therefore I have low concern for repeat appendicitis. However as she has had persistent pain that is now migrating and guards in the lower abdomen I do feel she warrants blood work and CT scan with IV contrast. Labs showed elevation to her white blood cell count at approximately 15 but otherwise no clinically significant findings. CT scan with IV contrast shows multiple appendicoliths with surrounding dilation and inflammatory changes concerning for acute appendicitis but no perforation or abscess. As the patient states her appendix was removed at age 23 I discussed the case with the general surgeon Dr. Euceda. He states that the only reasonable explanation is that when she was 23 she did not have her entire appendix removed in this left area for it to become reinfected. At this time the patient is hemodynamically stable but due to her acute appendicitis will be started on Zosyn. The general surgeon/Dr. Euceda will admit the patient to his service with plan for surgical removal of her appendix in the morning History & Record Review Discussion w/independent historian: Patient and Significant other Lab Data Attestation: I reviewed the patient's lab results. Labs: Laboratory Results - last 24 hr 12/29/24 12/29/24 21:45 23:38 WBC 14.9 H RBC 4.16 L Hgb 13.2 Hct 38.3 MCV 92.1 MCH 31.7 MCHC 34.5 RDW Std Deviation 41.6 RDW Coeff of Giorgio 12.4 Plt Count 385 MPV 9.9 Immature Gran % (Auto) 0.300 Neut % (Auto) 72.1 H Lymph % (Auto) 18.6 L [place] % (Auto) 8.5 Eos % (Auto) 0.1 Baso % (Auto) 0.4 Absolute Neuts (auto) 10.8 H Absolute Lymphs (auto) 2.77 Nucleated RBC % 0 Sodium 137 Potassium 4.2 Chloride 101 Carbon Dioxide 20.8 L Anion Gap 15 BUN 10 Creatinine 0.89 Estim Creat Clear Calc 75.36 Est GFR (MDRD) Non-Af 78 BUN/Creatinine Ratio 11.5 Glucose 131 H Calcium 9.7 Total Bilirubin 0.52 AST 12 ALT 14 Alkaline Phosphatase 55 Total Protein 7.5 Albumin 4.3 Globulin 3.2 Albumin/Globulin Ratio 1.3 Lipase 11 L Serum , Qual NEGATIVE Urine Color Yellow Urine Clarity Sl. Cloudy Urine pH 6.0 Ur Specific [place] 1.020 Urine Protein 100 H Urine Glucose (UA) Normal Urine Ketones 15 H Urine Occult Blood 150 H Urine Nitrite Negative Urine Bilirubin Negative Urine Urobilinogen Normal Ur Leukocyte Esterase Negative Urine RBC 0-5 SEEN Urine WBC 0-5 SEEN Ur Squamous Epith Cells 5-10 SEEN Ur Transition Epith Cell 0-5 SEEN Urine Bacteria 3+ Urine Mucus 0 SEEN Radiography Diagnostic Testing: Clinical Impression(s) from Imaging Studies Abdomen/Pelvis CT 12/29/24 22:53 IMPRESSION: Multiple appendicoliths are noted in the enlarged, diffusely thickened appendix measuring 1.6 cm in its largest transverse dimension. Surrounding inflammatory fat stranding is noted suggestive of acute appendicitis without perforation or abscess formation. Unremarkable intrauterine device. Multiple uterine leiomyomas with the largest measuring 3.5 cm. 2.4 cm simple hepatic cyst. No follow-up is needed. Fat containing umbilical hernia without incarceration. Diffuse thickening of the stomach suggestive of gastritis. Reading Location: [place] [id number] Management Discussion w/another healthcare provider: [employer] Discharge Plan Triage Chief Complaint: Abd Pain ED Provider: Brian Zhao Dx/Rx/DC Orders Clinical Impression: Acute appendicitis, Anxiety, History of migraine headaches Prescriptions: No Action esomeprazole magnesium [Nexium] 40 mg capsule,delayed release(DR/EC) 40 mg PO DAILY desvenlafaxine succinate [Pristiq] 50 mg tablet extended release 24 hr 50 mg PO DAILY Mirena 21 mcg/24 hours (8 yrs) 52 mg intrauterine device 1 device intrauterine ONCE Rx Instructions: as a single dose estradiol 1 mg tablet 1 mg PO DAILY Qty: 90 4RF sumatriptan succinate 50 MG tablet 50 mg PO PRN PRN (Reason: Headache) famotidine 20 mg tablet 20 mg PO BID Patient Comments: TAKE 1 TABLET BY MOUTH TWICE A DAY Primary Care Provider: Mak Quezada Referrals: Mak Quezada MD [Primary Care Provider] - Print Language: Chinese Disposition Disposition: Acute Care Hospital [facility]
[2024-12-30] MEDS: Piperacil/Tazobactam 3.375 GM in 0.9% Normal Saline (50mL MB+) 50 ML IV ×4 (01:06→21:29)
--- OUTSIDE RECORDS SUMMARY | 2024-12-30 01:21 | XMS RPT_ITS | CCD ---
Author Organization [facility] Care Team Providers Care Multi Craft Maintenance Technician Name Role Phone Mak Luevano MD Primary [...] Attending Unavailable Mak Luevano Referring Unavailable Mak Lueavno Primary Care Unavailable Sandra Kemp Attending Unavailable Mak Luevano Referring Unavailable Mak Luevano Primary Care Unavailable Mak Luevano Primary Care Unavailable Judah Martínez Referring Unavailable Judah Martínez Attending Unavailable Hajody ZINC CHLORIDE OPERATOR.BANK REPRESENTATIVE, Dee Unavailable Suppan ZINC CHLORIDE OPERATOR.BANK REPRESENTATIVE, Elsie A Unavailable Suppan ZINC CHLORIDE OPERATOR.BANK REPRESENTATIVE, Elsie A Unavailable MAK LUEVANO Primary Care [...] Take 3 tablets by mouth once daily. MONORAIL HOOKER started her on this menopause 0 07/05/2022 Active Start: 07-04-2022 End: 07-05-2022 Estradiol (ESTRACE) 0.5 mg t ablet Comment on above: Take 3 tablets by mo uth once daily. MONORAIL HOOKER started her on this menopause famotidine 20 [...] on above: Take 1 capsule by mo [facility] three times daily as needed for cough. [...] October 30, 2020 3:07pm polyethylene glycol 3350 12660 mg powder for oral solution (20 sources) [...] Test Name Value Interpretation Reference Range Facility [facility] 06-24-2024 CNPN Telephone (SLEWST) JUVENAL AMARO ([id number]) 1970 F NFR Date Time Provider Department [...] Assessed Primary Visit Diagnosis:Hypersomnia [G47.10] Order(s):ACTIGRAPHY TESTING [[id number]] Order #: [id number] FUTURE Prescriptions as of 06/24/2024 - omeprazole [...] Status:Closed by YULIET KRUSE on 06/24/24 Normal [facility] Quantiferon TB-Gold+on 04-07 QFT MITOGEN BERHANE > 10.00 Normal . [facility] Comment on above: Performed By: #### L [id number] #### [facility] [address] [place], [place], [id number] QFT NIL VALUE 0.02 IU/mL Normal . [facility] Comment on above: Performed By: #### L 3400.8000 #### [facility] [address] [place], [place], [id number] QFT TB GOLD+ Comment Normal . [facility] Comment on above: Result Comment: Cole [...] test. Performed By: #### L 3400.8000 #### [facility] [address] [place], [address] ([address] QFT TB POS CRIT Negative Normal Negative [facility] Comment on above: Result Comment: No [...] interferon gamma. Chemiluminescence immunoassay methodology Performed at: [facility] [id number] Director Of Resource Development: Carrington Osman PhD, Phone: [phone] Performed By: #### L [id number] #### [facility] [address] [place], [place], [phone] ([address] QFT TB1+ AG BERHANE 0.04 IU/mL Normal . [facility] Comment on above: Performed By: #### L [id number] #### [facility] [address] [place], [place], [address] QFT TB2+ AG BERHANE 0.09 IU/mL Normal . [facility] Comment on above: Performed By: #### L [id number] #### [facility] [address] [place], [address] Office Visit Reporton 2023 Office Visit Report [facility] [address] [place] [address] OFFICE VISIT Date of Service: 04/05/24 MR#: [id number] Acct: [id number] Patient: JUVENAL AMARO Rep #: [id number] : 1970 Provider: BRENDAN Rush Age/Sex: 53/F Location: [facility] Status: Signed Intake Vital Signs 12/26/23 14:08 Height 5 ft 6 in Intake Visit Reasons: QUANTIFERON, FIT TEST Chief Complaint: est annual Allergies No Known Allergies Allergy (Verified 12/26/23 14:02) Office Procedures [facility] Billing Sheet Testing Pre-Employment PE: Yes Respirator Fit Testing: Yes Occquant-Quantiferon: Yes 04/06/24721 Date Judah CARDONA Cosigner Signature: Date (if applicable) CC: Normal [facility] Urgent Care Visit Reporton 1 06-05-2023 Urgent Care Visit Report [facility] [address], [address] [place] [address] OFFICE VISIT Date of Service: 04/05/24 MR#: [id number] Acct: [id number] Name: JUVENAL AMARO Rep #: [id number] : 1970 Provider: BRENDAN Rush Age/Sex: 53/F Location: [facility] Status: Signed Intake Vital Signs 12/26/23 14:08 [...] Jose PALMER Elsy Stepdaughter Patient works at [employer] HPI HPI Chief Complaint: est annual Details: [...] Cosigner Signature: Date (if applicable) CC: Normal [facility] CNOVon 03-15-2024 CNOV Office Visit (FAMPWS ) JUVENAL AMARO ([id number]) 1970 F NFR Date Time Provider Department 03/15/24 4:00 PM DEE SEAMAN During your visit today, we recorded the following information about you: Pulse Respiration Blood pressure Weight 76/minute 16/minute 132/90 83.9 kg Dee Seaman APRN.BANK REPRESENTATIVE 03/16/2024 6:48 PM Signed This is a [...] Brother MAP(MYH-associated polyposis) Cancer Maternal Grandmother lung cancer,MT Cancer Maternal Grandfather prostate cancer,CVA Cancer Paternal [...] normal, oroph (more content not included)... Normal [facility] CNOV Office Visit (SLEWST ) JUVENAL AMARO ([id number]) 1970 F NFR Date Time Provider Department 03/15/24 2:30 PM YULIET KRUSE During your visit today, we recorded the following information about you: Pulse Respiration Blood pressure Weight 98/minute 16/minute 119/83 84.4 kg Yuliet Kruse APRN.CNP 03/15/2024 5:13 PM Signed [facility] New Patient Evaluation PATIENT NAME: Juvenal Amaro DATE OF SERVICE: March 14, 2024 CONSULTING PROVIDER: Dee Seaman [address] [facility] [address] REASON FOR CONSULT: Dee Seaman sends the [...] not been a recent change in weight. [place] Sleepiness Scale: Sitting and readin Watching TV: [...] OR EXPOSED (more content not included)... Normal [facility] Branch Logistics Supervisor Office Visit Reporton 12-26-2023 Branch Logistics Supervisor Office Visit Report [facility] [place] [address] OFFICE VISIT Date of Service: 12/26/23 MR#: [id number] Acct: [id number] Name: JUVENAL AMARO Rep #: [id number] : 1970 Provider: Dr. Sandra lopez MD Age/Sex: 53/F Location: [facility] Status: Signed Intake Vital Signs 11/05/22 10:47 12/26/23 14:02 12/26/23 14:08 Height 5 ft 6 in 5 ft 6 in 5 ft 6 in Weight: 185 lb BMI 29.8 BP 138/82 H Intake Visit Reasons: Annual (MONORAIL HOOKER) Wellness Coach Required: No Is patient in pain?: No [...] at home: Yes additional social history: [email or web address] Elsy Stepdagabriella Patient works at [employer] History 1 Elective abortions Hx Para 1 [...] sin past Last mammogram: 2023 - at [facility] getting ultrasound for dense tissue and cyst [...] acute distress, well developed and well groomed [facility] Head: normal to inspection and normocephalic Ears: hearing grossly normal bilaterally and external ears normal Nose: external nose normal Face and sinus: normal facial exam Neck Neck: normal visual inspection, full ROM and no lymphadenopat (more content not included)... Normal [facility] 11-17-2023 [facility] Telephone (FAMWS) JUVENAL AMARO ([id number]) 1970 F NFR Date Time Provider Department 11/17/23 [facility] During your visit today, we recorded the following information about you: Dee Seaman APRN.[facility] 11/17/2023 11:25 AM Signed Trouble with cpap. Didn't feel better when wearing cpap. Continues with symptoms. Referral placed w/ sleep apnea. Allergies As of Date: 11/17/2023 (No Known Allergies) Date Reviewed: 06/09/2023 Reviewed by: Calvin Kumar LPN - Fully Assessed Reason for Visit: Orders [681] Primary Visit Diagnosis:JOSE (obstructive sleep apnea) [G47.33] Order(s):CONSULT TO SLEEP MEDICINE - ADULT [[id number]] Order #: [id number]: 1 FUTURE Prescriptions as of 11/17/2023 - [...] Status:Closed by DEE SEAMAN on 11/17/23 Normal [facility] DBT Breast - right diagnosti c for implanton 10-22-2023 * * *Final Report* * * DATE OF [facility]AM: Oct 22 2023 8:54AM [facility]LE[facility] DIAG W DANIEL RT / PROCEDURE REASON: Inconclusive mammogram * * * * Physician Interpretation * * * * RESULT: #[id number] - ALEJANDRO DIAG W DANIEL RT UNILATERAL [...] 04/15/2023 mammogram, 03/20/2023 mammogram, 01/22/2019 mammogram - [facility], and 09/01/2015 mammogram - [facility]. The right breast is heterogeneously dense, which [...] DATE OF EXAM: Oct 22 2023 8:54AM [facility] ALEJANDRO DIAG W DANIEL RT / PROCEDURE REASON: Inconclusive mammogram * * * * Physician Interpretation * * * * RESULT: #[id number] - ALEJANDRO DIAG W DANIEL RT UNILATERAL [...] 04/15/2023 mammogram, 03/20/2023 mammogram, 01/22/2019 mammogram - [facility], and 09/01/2015 mammogram - [facility]. The right breast is heterogeneously dense, [...] An ultrasound is recommended. Antwan oleary/deangelo:10/22/2023 09:17:42 Supervisor Concrete Stone Finishing(s): RT Navjot(R)(M), [facility] Mammogram BI-RADS: 0 Incomplete: needs additional [...] Health, Family Medicine, and Medical/Surgical Oncology, the [facility] has carefully reviewed the data and reached [...] their providers when to stop screening mammograms. Metal Ceiling Hanger: Deangelo Transcribe Date/Time: Oct 22 2023 8:20A Dictated by: ANTWAN ALCALA MD This examination was interpreted and the report reviewed and electronically signed by: ANTWAN ALCALA MD on Oct 22 2023 9:17AM [facility] DBT Breast - right diagnosti c for implantOrdered By: Ccf Provider on 10-22-2023 [facility] No Panel Informationon 10-21 Radiology Study observation (narrative) [facility] US Breast - right limitedon 10-22-2023 IMPRESSION: PROBABLY BENIGN - SHORT TERM INTERVAL FOLLOW-UP RECOMMENDED The 0.7 cm x 0.3 cm x 0.6 cm lobulated cyst in the right breast is consistent with a complicated cyst and is probably benign. A follow-up mammogram and an ultrasound in 6 months is recommended to demonstrate stability. Antwan oleary/deangelo:10/22/2023 09:19:58 Supervisor Concrete Stone Finishing(s): [facility] Ultrasound BI-RADS: 3 Probably benign finding - [...] Health, Family Medicine, and Medical/Surgical Oncology, the [facility] has carefully reviewed the data and reached [...] their providers when to stop screening mammograms. Metal Ceiling Hanger: Deangelo Transcribe Date/Time: Oct 22 2023 9:11A Dictated by : ANTWAN ALCALA MD This examination was interpreted and the report reviewed and electronically signed by: ANTWAN ALCALA MD on Oct 22 2023 9:19AM EST DIVISION OF RADIOLOGY * * *Final Report* * * DATE OF EXAM: Oct 22 2023 9:11AM [facility] 0594 - [facility] US BREAST LTD RT / PROCEDURE REASON: Inconclusive mammogram * * * * Physician Interpretation * * * * #[id number] - [facility] BREAST [facility] RT LIMITED ULTRASOUND OF RIGHT BREAST: 10/22/2023 HISTORY: Inconclusive Mammogram. RESULT: Comparison is made to exams dated: 10/22/2023 mammogram, 04/15/2023 mammogram, and 04/15/2023 [facility]. Color flow and real-time ultrasound of the [...] DATE OF EXAM: Oct 22 2023 9:11AM [facility] 0594 - [facility] Casentric BREAST [facility] RT / PROCEDURE REASON: Inconclusive mammogram * * * * Physician Interpretation * * * * #[id number] - [facility] BREAST [facility] RT LIMITED ULTRASOUND OF RIGHT BREAST: 10/22/2023 HISTORY: Inconclusive Mammogram. RESULT: Comparison is made to exams dated: 10/22/2023 mammogram, 04/15/2023 mammogram, and 04/15/2023 [facility]. Color flow and real-time ultrasound of the [...] recommended to demonstrate stability. Antwan oleary/deangelo:10/22/2023 09:19:58 Supervisor Concrete Stone Finishing(s): Pat Orlando [facility] Ultrasound BI-RADS: 3 Probably benign finding [...] Health, Family Medicine, and Medical/Surgical Oncology, the [facility] has carefully reviewed the data and reached [...] their providers when to stop screening mammograms. Metal Ceiling Hanger: Deangelo Transcribe Date/Time: Oct 22 2023 9:11A Dictated by : ANTWAN ALCALA MD This examination was interpreted and the report reviewed and electronically signed by: ANTWAN ALCALA MD on Oct 22 2023 9:19AM EST [facility] US Breast - right limitedOrd ered By: Ccf Provider on 10-22-2023 [facility] KESHIA LEEon 12-0 [facility] Cervical or vagninal specime n microscopic examination by cytology stain (reported ason 11-01-2021 Cytology report Cyto stain Doc (Cvx/Vag) Comment . [facility] Work Phone: Comment on above: The [...] DNA Probe+sig amp Ql (Cvx) Negative Negative [facility] Work Phone: Comment on above: This nucleic acid am plification test detects fourteen high- risk HPV types (16,18,31,33,35,39,45,51,52,56,58,59,66,68)without differentiation.Performed at: - [facility] [id number] Director: Terra Mcgovern MD, Phone: [phone] at: = - [facility] [address] [id number] Director: Terra Mcgovern MD, Phone: [phone] Laboratory - Cytologyon 10-11 Fire Extinguisher Charger Cyto stain Nom (Cvx/Vag) [ID] Comment . [facility] Work Phone: Comment on above: Mary Vazquez, Cytot echnologist (ASCP) Laboratory - Miscellaneous t estson 11-01-2021 Service comment (Unsp spec) [Interp] Comment . [facility] Work Phone: Comment on above: This liquid based Th inPrep(R) pap test was screened withthe use of an image guided system. Service comment (Unsp spec) [Interp] . . [facility] Work Phone: No Panel Informationon 11-01 Pap Smear QC Review Comment . [facility] Work Phone: Comment on above: Elias Babcock totechnologist (ASCP) Pathology report final diagnosis Narrative Comment . [facility] Work Phone: Comment on above: NEGATIVE FOR INTRAEP ITHELIAL LESION OR MALIGNANCY.THIS SPECIMEN WAS RESCREENED PART OF OUR MARKETING PROJECT COORDINATOR PROGRAM. Absolute lymphocyte counton 10-22-2021 Lymphocytes Auto (Unsp spec) [#/Vol] 2.95 10*3/uL 0.83-4.51 [facility] Work Phone: Lymphocytes Auto (Unsp spec) [#/Vol] 2.82 10*3/uL 0.83-4.51 [facility] Work Phone: Basophil percentageon 2021 Basophils/100 WBC (Bld) 1.1 % 0-1 [facility] Work Phone: Bilirubin [Mass/Vol] 0.10 mg/dL 0.20-1.00 [facility] Work Phone: Comment on above: For patients on eltr ombopag therapy, use of Dimension [place] TBIL is not recommended. Chloride [Moles/Vol] 108 mmol/L 98-107 [facility] Work Phone: Cholesterol [Mass/Vol] 221 mg/dL <200 [facility] Work Phone: Comment on above: <200 mg/dL Desirable 200-240 mg/dL Borderline >240 mg/dL High Risk Eosinophils/100 WBC (Bld) 2.4 % 0-5 [facility] Work Phone: Glucose [Mass/Vol] 93 mg/dL 74-[address] [facility] Work Phone: Neutrophils (Bld) [#/Vol] 2.4 10*3/uL 2.0-7.7 [facility] Work Phone: Neutrophils/100 WBC (Bld) 39.2 % 47-70 [facility] Work Phone: Potassium [Moles/Vol] 3.9 mmol/L 3.5-5.1 [facility] Work Phone: Comment on above: Slight Hemolysis, Re sult may be falsely increased. Protein [Mass/Vol] 6.6 g/dL 6.4-8.[address] [facility] Work Phone: Sodium [Moles/Vol] 139 mmol/L 136-[address] [facility] Work Phone: Triglyceride [Mass/Vol] 630 mg/dL <199 [facility] Work Phone: Comment on above: The drugs N-Acetylcy steine and Metamizole may falsely depress this assay. TRIGLYCERIDE IS GREATER THAN 400 mg/dL. LDL RESULT IS INVALID AND WILL NOT BE REPORTED.Serum Triglycerides Reference Interval Normal <150 mg/dL Borderline high 150 - 199 mg/dL High 200 - 499 mg/dL Very High > or = 500 mg/dL WBC (Bld) [#/Vol] 6.2 10*3/uL 4.4-11.[address] [facility] Work Phone: Basophils/100 WBC (Bld) 1.0 % 0-1 [facility] Work Phone: Chloride [Moles/Vol] 109 mmol/L 98-107 [facility] Work Phone: Eosinophils/100 WBC (Bld) 1.9 % 0-5 [facility] Work Phone: Glucose [Mass/Vol] 91 mg/dL 74-[address] [facility] Work Phone: Lactate [Moles/Vol] 1.7 mmol/L 0.4-2.0 [facility] Work Phone: Neutrophils (Bld) [#/Vol] 2.6 10*3/uL 2.0-7.7 [facility] Work Phone: Neutrophils/100 WBC (Bld) 42.6 % 47-70 [facility] Work Phone: Potassium [Moles/Vol] 3.6 mmol/L 3.5-5.1 [facility] Work Phone: Sodium [Moles/Vol] 140 mmol/L 136-[address] [facility] Work Phone: WBC (Bld) [#/Vol] 6.2 10*3/uL 4.4-11.[address] [facility] Work Phone: Blood erythrocytes count (nu mber/volume)on 10-22-2021 RBC (Bld) [#/Vol] 3.44 10*6/uL 4.2-5.4 [facility] Work Phone: RBC (Bld) [#/Vol] 3.38 10*6/uL 4.2-5.4 [facility] Work Phone: Blood hemoglobin measurement (mass/volume)on 10-22-2021 Hemoglobin (Bld) [Mass/Vol] 10.3 g/dL 12.0-15.0 [facility] Work Phone: Hemoglobin (Bld) [Mass/Vol] 10.2 g/dL 12.0-15.0 [facility] Work Phone: Blood lymphocytes/100 leukoc yteson 10-22-2021 Lymphocytes/100 WBC (Bld) 47.7 % - [facility] Work Phone: Lymphocytes/100 WBC (Bld) 45.6 % - [facility] Work Phone: Blood manual differential co mment interpretation (narrative result)on 10-22-2021 Manual differential comment Anderson (Bld) [Interp] SCANNED [facility] Work Phone: Blood monocytes/100 leukocyt eson 10-22-2021 Monocytes/100 WBC (Bld) 9.4 % 0-10 [facility] Work Phone: Monocytes/100 WBC (Bld) 8.7 % 0-10 [facility] Work Phone: Blood platelet mean volumeon 10-22-2021 Platelet mean volume (Bld) [Entitic vol] 9.8 fL 6.2-12.0 [facility] Work Phone: Platelet mean volume (Bld) [Entitic vol] 10.0 fL 6.2-12.0 [facility] Work Phone: Determination of erythrocyte mean corpuscular volume (MCV)on 10-22-2021 MCV (RBC) [Entitic vol] 92.4 fL 81-99 [facility] Work Phone: MCV (RBC) [Entitic vol] 92.3 fL 81-99 [facility] Work Phone: Glucose Glucometer (BldC) [M ass/Vol]on 10-22-2021 Glucose [Mass/Vol] 104 mg/dL 74-[address] [facility] Work Phone: Comment on above: MANAGEMENT OF PATIEN T CARE PER NURSING PROTOCOL Hematocrit Auto (Bld) [Volum e fraction]on 10-22-2021 Hematocrit (Bld) [Volume fraction] 31.8 % 37-47 [facility] Work Phone: Hematocrit (Bld) [Volume fraction] 31.2 % 37-47 [facility] Work Phone: INR in Blood by Coagulation assayon 10-22-2021 INR Coag (Bld) [Relative time] 1.0 {INR} [facility] Work Phone: Laboratory - Chemistry and C hemistry - challengeon 10-22-2021 ALP [Catalytic activity/Vol] 60 U/L 45-117 [facility] Work Phone: ALT [Catalytic activity/Vol] 24 U/L 13-56 [facility] Work Phone: CO2 [Moles/Vol] 24.0 mmol/L 21.0-32.0 [facility] Work Phone: Globulin (S) [Mass/Vol] 3.2 g/dL 2.2-4.2 [facility] Work Phone: Urea nitrogen/Creatinine [Mass ratio] 17.4 mg/mg 10 [facility] Work Phone: CO2 [Moles/Vol] 23.0 mmol/L 21.0-32.0 [facility] Work Phone: Urea nitrogen/Creatinine [Mass ratio] 15.2 mg/mg 1020 [facility] Work Phone: Laboratory - Coagulationon 0 10-22-2021 aPTT Coag (Bld) [Time] 27.0 s 24.1-36.2 [facility] Work Phone: PT Coag (PPP) [Time] 12.7 s 11.7-14.9 [facility] Work Phone: Laboratory - Hematology and Cell countson 10-22-2021 Erythrocyte distribution width (RBC) [Entitic vol] 42.5 fL 35.1-43.9 [facility] Work Phone: Erythrocyte distribution width (RBC) [Ratio] 12.7 % 11.6-14.6 [facility] Work Phone: Immature granulocytes/100 WBC (Bld) 0.200 % 0.0-0.9 [facility] Work Phone: Comment on above: IG% - Immature Granu locytes (promyelocytes, myelocytes and metamyelocytes) > 1% indicates that a LEFT SHIFT is Present. MCH (RBC) [Entitic mass] 29.9 pg 27.0-32.0 [facility] Work Phone: Nucleated RBC/100 WBC (Bld) [Ratio] 0 % 0-5 [facility] Work Phone: Erythrocyte distribution width (RBC) [Entitic vol] 42.5 fL 35.1-43.9 [facility] Work Phone: Erythrocyte distribution width (RBC) [Ratio] 12.7 % 11.6-14.6 [facility] Work Phone: Immature granulocytes/100 WBC (Bld) 0.200 % 0.0-0.9 [facility] Work Phone: Comment on above: IG% - Immature Granu locytes (promyelocytes, myelocytes and metamyelocytes) > 1% indicates that a LEFT SHIFT is Present. MCH (RBC) [Entitic mass] 30.2 pg 27.0-32.0 [facility] Work Phone: Nucleated RBC/100 WBC (Bld) [Ratio] 0 % 0-5 [facility] Work Phone: MCHC Auto (RBC) [Mass/Vol]on 10-22-2021 MCHC (RBC) [Mass/Vol] 32.4 g/dL 32-36 [facility] Work Phone: MCHC (RBC) [Mass/Vol] 32.7 g/dL - [facility] Work Phone: No Panel Informationon 10-22 Estimated Creatinine Clearance Calc 72.45 ml/min [facility] Work Phone: Estimated GFR (MDRD) Amer 89 mL/min >60 [facility] Work Phone: Comment on above: GFR Calc Estimated GFR (MDRD) Non-Af Amer 74 mL/min >60 [facility] Work Phone: Comment on above: Non- GFR Calc Estimated Creatinine Clearance Calc 59.34 ml/min [facility] Work Phone: Estimated GFR (MDRD) Amer 71 mL/min >60 [facility] Work Phone: Comment on above: GFR Calc Estimated GFR (MDRD) Non-Af Amer 59 mL/min >60 [facility] Work Phone: Comment on above: Non- GFR Calc Ethyl Alcohol Level 140.0 mg/dL [facility] Work Phone: Comment on above: The serum:whole bloo d ethanol ratio is approximately 1.14and varies slightly with hematocrit. Medical Alcohol reference interval and critical value innon-tolerant individuals; 50 - 100 Impairment 100 Intoxication 100 - 250 Severe Poisoning 250 - 400 Deep/possible fatal coma Troponin I High Sensitivity < 3 pg/mL 3.0-54.0 [facility] Work Phone: Comment on above: Please Note: New Tara t Units and Gender Specific Reference Ranges. For more information see Policy Stat Procedure [place] High Sensitivity Troponin (TNIH) and attachments. Platelets bldon 10-22-2021 Platelets (Bld) [#/Vol] 329 10*3/uL 150-450 [facility] Work Phone: Platelets (Bld) [#/Vol] 336 10*3/uL 150-450 [facility] Work Phone: Serum or plasma albumin tom urement (mass/volume)on 10-22-2021 Albumin [Mass/Vol] 3.4 g/dL 3.2-5.[address] [facility] Work Phone: Serum or plasma albumin/glob ulin mass ratioon 10-22-2021 Albumin/Globulin [Mass ratio] 1.1 {ratio} 0.9-2.4 [facility] Work Phone: Serum or plasma calcium tom urement (mass/volume)on 10-22-2021 Calcium [Mass/Vol] 8.4 mg/dL 8.5-10.[address] [facility] Work Phone: Calcium [Mass/Vol] 7.8 mg/dL 8.5-10.[address] [facility] Work Phone: Serum or plasma cholesterol in HDL measurement (mass/volume)on 10-22-2021 Cholesterol in HDL [Mass/Vol] 36 mg/dL >40 [facility] Work Phone: Comment on above: The drugs N-Acetylcy steine and Metamizole may falsely depress this assay. Reference Range HDL <40 mg/dL Low HDL Cholesterol HDL >or= 60 mg/dL High HDL Cholesterol Serum or plasma cholesterol in VLDL measurement (mass/volume)on 10-22-2021 Cholesterol in VLDL [Mass/Vol] [facility] Work Phone: Comment on above: Test not performed Serum or plasma creatinine m easurement (mass/volume)on 10-22-2021 Creatinine [Mass/Vol] 0.86 mg/dL 0.55-1.02 [facility] Work Phone: Comment on above: The validity of the calculated GFR & GFRAA in patients over 70 years has not been determined. Clinical correlation is essential. Creatinine [Mass/Vol] 1.05 mg/dL 0.55-1.02 [facility] Work Phone: Comment on above: The validity of the calculated GFR & GFRAA in patients over 70 years has not been determined. Clinical correlation is essential. Serum or plasma low density lipoprotein (LDL) cholesterol measurement (mass/volume)on 10-22-2021 Cholesterol in LDL [Mass/Vol] [facility] Work Phone: Comment on above: Test not performed Serum or plasma prolactin me asurement (mass/volume)on 10-22-2021 Prolactin [Mass/Vol] 26.7 ng/mL [facility] Work Phone: Comment on above: NORMAL REFERENCE RAN GES FEMALE NON- 2.2 - 30.3 ng/mL 8.1 - 347.6 ng/mL POST-MENOPAUSAL 0.7 - 31.5 ng/mL MALE 2.5 - 17.4 ng/mL Serum or plasma urea nitroge n measurement (mass/volume)on 10-22-2021 Urea nitrogen [Mass/Vol] 15 mg/dL 7-18 [facility] Work Phone: Urea nitrogen [Mass/Vol] 16 mg/dL -18 [facility] Work Phone: Thin prep Papanicolaou smear with manual screeningon 10-22-2021 Thin prep Papanicolaou smear with manual screening 20 U/L 15-37 [facility] Work Phone: Comment on above: Slight Hemolysis, Re sult may be falsely increased. Thin prep Papanicolaou smear with manual screening 7 5-15 [facility] Work Phone: Thin prep Papanicolaou smear with manual screening 8 5-15 [facility] Work Phone: Whole blood hemoglobin A1c/t otal hemoglobin ratio (mass fraction)on 10-22-2021 HbA1c (Bld) [Mass fraction] 5.6 % 3.8-5.6 [facility] Work Phone: Comment on above: Normal < 5.7 % Predi abetic 5.7 - 6.4 % Diabetic >or= 6.5 % Please note range changes. XR CALCANEUS 2V AXIAL/LAT LE FTon 10-01-2021 [facility] XR Calcaneus - left 2 Viewso n 10-01-2021 IMPRESSION: Plantar calcaneal enthesopathy. Metal Ceiling Hanger: MIREYA Transcribe Date/Time: Oct 01 2021 1:43P Dictated by : YUE PRASAD MD This examination was interpreted and the report reviewed and electronically signed by: YUE PRASAD MD on Oct 01 2021 1:44PM EST [facility]_DO_NOT_USE _DIVISION OF RADIOLOGY * * *Final Report* [...] calcaneal enthesophyte. IMPRESSION IMPRESSION: Plantar calcaneal enthesopathy. Metal Ceiling Hanger: MIREYA Transcribe Date/Time: Oct 01 2021 1:43P Dictated by : YUE PRASAD MD This examination was interpreted and the report reviewed and electronically signed by: YUE PRASAD MD on Oct 01 2021 1:44PM EST [facility] Radiology Study observation (narrative) [facility] XR Calcaneus - left 2 ViewsO rdered By: [facility] Provider on 10-01-2021 [facility] Vital Signs Date Time Vital Sign Value Performing Clinician Joseph sarabia 03-15-2024 15:53-0500 Body mass index (BMI) [Ratio] 29.04 kg/m2 Dee Seaman APRN.CNP Work Phone: [facility] 03-15-2024 15:53-0500 Body weight 83.92 kg Dee Seaman APRN.CNP Work Phone: [facility] 03-15-2024 15:53-0500 Diastolic blood pressure 90 mm[Hg] Dee Haagen ZINC CHLORIDE OPERATOR.BANK REPRESENTATIVE Work Phone: [facility] 03-15-2024 15:53-0500 Heart rate 76 /min Dee Haagen ZINC CHLORIDE OPERATOR.BANK REPRESENTATIVE Work Phone: [facility] 03-15-2024 15:53-0500 Respiratory rate 16 /min Dee Haagen ZINC CHLORIDE OPERATOR.BANK REPRESENTATIVE Work Phone: [facility] 03-15-2024 15:53-0500 SaO2% (BldA) [Mass fraction] 92 % Dee Haagen ZINC CHLORIDE OPERATOR.BANK REPRESENTATIVE Work Phone: [facility] 03-15-2024 15:53-0500 Systolic blood pressure 132 mm[Hg] Dee Haagen ZINC CHLORIDE OPERATOR.BANK REPRESENTATIVE Work Phone: [facility] 03-15-2024 14:29-0500 Body mass index (BMI) [Ratio] 29.2 kg/m2 Yuliet Uriah ZINC CHLORIDE OPERATOR.BANK REPRESENTATIVE Work Phone: [facility] 03-15-2024 14:29-0500 Body weight 84.4 kg Yuliet Uriah ZINC CHLORIDE OPERATOR.BANK REPRESENTATIVE Work Phone: [facility] 03-15-2024 14:29-0500 Diastolic blood pressure 83 mm[Hg] Yuliet Uriah ZINC CHLORIDE OPERATOR.BANK REPRESENTATIVE Work Phone: [facility] 03-15-2024 14:29-0500 Heart rate 98 /min Yuliet Uriah ZINC CHLORIDE OPERATOR.BANK REPRESENTATIVE Work Phone: [facility] 03-15-2024 14:29-0500 Respiratory rate 16 /min Yuliet Uriah ZINC CHLORIDE OPERATOR.BANK REPRESENTATIVE Work Phone: [facility] 03-15-2024 14:29-0500 SaO2% (BldA) [Mass fraction] 97 % Yuliet Uriah ZINC CHLORIDE OPERATOR.BANK REPRESENTATIVE Work Phone: [facility] 03-15-2024 14:29-0500 Systolic blood pressure 119 mm[Hg] Yuliet Uriah ZINC CHLORIDE OPERATOR.BANK REPRESENTATIVE Work Phone: [facility] 03-10-2023 15:27-0400 Body height 170 cm Dee Haagen ZINC CHLORIDE OPERATOR.BANK REPRESENTATIVE Work Phone: [facility] 03-10-2023 15:27-0400 Body weight 82.56 kg Dee Haagen ZINC CHLORIDE OPERATOR.BANK REPRESENTATIVE Work Phone: [facility] 03-10-2023 15:27-0400 Diastolic blood pressure 80 mm[Hg] Dee Haagen ZINC CHLORIDE OPERATOR.BANK REPRESENTATIVE Work Phone: [facility] 03-10-2023 15:27-0400 Heart rate 101 /min Dee Haagen ZINC CHLORIDE OPERATOR.BANK REPRESENTATIVE Work Phone: [facility] 03-10-2023 15:27-0400 Respiratory rate 16 /min Dee Haagen ZINC CHLORIDE OPERATOR.BANK REPRESENTATIVE Work Phone: [facility] 03-10-2023 15:27-0400 SaO2% (BldA) [Mass fraction] 93 % Dee Haagen ZINC CHLORIDE OPERATOR.BANK REPRESENTATIVE Work Phone: [facility] 03-10-2023 15:27-0400 Systolic blood pressure 108 mm[Hg] Dee Haagen ZINC CHLORIDE OPERATOR.BANK REPRESENTATIVE Work Phone: [facility] 07-05-2022 11:06-0500 Body weight 81.97 kg Fitz Bragg MD Work Phone: [facility] 07-05-2022 11:06-0500 Diastolic blood pressure 74 mm[Hg] Fitz rBagg MD Work Phone: [facility] 07-05-2022 11:06-0500 Heart rate 84 /min Fitz Bragg MD Work Phone: [facility] 07-05-2022 11:06-0500 Respiratory rate 16 /min Fitz Bragg MD Work Phone: [facility] 07-05-2022 11:06-0500 SaO2% (BldA) [Mass fraction] 96 % Fitz Bragg MD Work Phone: [facility] 07-05-2022 11:06-0500 Systolic blood pressure 120 mm[Hg] Fitz Bragg MD Work Phone: [facility] 02-19-2022 08:11-0400 Body height 165.1 cm Myriam Myers MD Work Phone: [facility] 02-19-2022 08:11-0400 Body temperature 97.5 [degF] Myriam Myers MD Work Phone: [facility] 02-19-2022 08:11-0400 Body weight 84.37 kg Myriam Myers MD Work Phone: [facility] 02-19-2022 08:11-0400 Diastolic blood pressure 90 mm[Hg] yMriam Myers MD Work Phone: [facility] 02-19-2022 08:11-0400 Heart rate 95 /min Myriam Myers MD Work Phone: [facility] 02-19-2022 08:11-0400 SaO2% (BldA) [Mass fraction] 94 % Myriam Myers MD Work Phone: [facility] 02-19-2022 08:11-0400 Systolic blood pressure 128 mm[Hg] Myriam Myers MD Work Phone: [facility] 01-29-2022 16:44-0400 Body height 168.9 cm Mak Luevano MD Work Phone: [facility] 01-29-2022 16:44-0400 Body weight 84.01 kg Mak Luevano MD Work Phone: [facility] 01-29-2022 16:44-0400 Diastolic blood pressure 88 mm[Hg] Mak Luevano MD Work Phone: [facility] 01-29-2022 16:44-0400 Heart rate 93 /min Mak Luevano MD Work Phone: [facility] 01-29-2022 16:44-0400 SaO2% (BldA) [Mass fraction] 96 % Mak Luevano MD Work Phone: [facility] 01-29-2022 16:44-0400 Systolic blood pressure 118 mm[Hg] Mak Luevano MD Work Phone: [facility] 11-01-2021 08:44-0400 Body height 167.[address] Mak Luevano Work Phone: [facility] Work Phone: 11-01-2021 08:42-0400 Body mass index (BMI) [Ratio] 29.2 kg/m2 Dr. Mak Luevano Work Phone: [facility] Work Phone: 11-01-2021 08:42-0400 Body weight 82.[address] Mak Luevano Work Phone: [facility] Work Phone: 11-01-2021 08:42-0400 Diastolic blood pressure 82 mm[Hg] Dr. Mak Luevano Work Phone: [facility] Work Phone: 11-01-2021 08:42-0400 Systolic blood pressure 100 mm[Hg] Dr. Mak Luevano Work Phone: [facility] Work Phone: 10-25-2021 14:46-0400 Body weight 82.1 kg NA Kumari PA-C Work Phone: [facility] 10-25-2021 14:46-0400 Diastolic blood pressure 64 mm[Hg] NA Kumari PA-C Work Phone: [facility] 10-25-2021 14:46-0400 Heart rate 73 /min NA Kumari PA-C Work Phone: [facility] 10-25-2021 14:46-0400 Respiratory rate 16 /min NA Kumari PA-C Work Phone: [facility] 10-25-2021 14:46-0400 SaO2% (BldA) [Mass fraction] 96 % NA Kumari PA-C Work Phone: [facility] 10-25-2021 14:46-0400 Systolic blood pressure 116 mm[Hg] ISAIAH Kumari PA-C Work Phone: [facility] 10-22-2021 16:14-0400 Body mass index (BMI) [Ratio] 28.8 kg/m2 Dr. Mak Luevano Work Phone: [facility] Work Phone: 10-22-2021 15:00-0400 Heart rate 78 /min Dr. Mak Luevano Work Phone: [facility] Work Phone: 10-22-2021 11:26-0400 Body temperature 97.9 [degF] Dr. Mak Luevano Work Phone: [facility] Work Phone: 10-22-2021 11:26-0400 Diastolic blood pressure 76 mm[Hg] Dr. Mak Luevano Work Phone: [facility] Work Phone: 10-22-2021 11:26-0400 Respiratory rate 16 /min Dr. Mak Luevano Work Phone: [facility] Work Phone: 10-22-2021 11:26-0400 SaO2% (BldA) [Mass fraction] 92 % Dr. Mak Luevano Work Phone: [facility] Work Phone: 10-22-2021 11:26-0400 Systolic blood pressure 120 mm[Hg] Dr. Mak Luevano Work Phone: [facility] Work Phone: 10-22-2021 03:28-0400 Body height 167.[address] Mak Luevano Work Phone: [facility] Work Phone: 10-22-2021 03:28-0400 Body weight 81.[address] Mak Luevano Work Phone: [facility] Work Phone: 10-22-2021 02:54-0400 Body temperature 98.7 [degF] Dr. Mak Luevano Work Phone: [facility] Work Phone: 10-22-2021 02:54-0400 Diastolic blood pressure 66 mm[Hg] Dr. Mak Luevano Work Phone: [facility] Work Phone: 10-22-2021 02:54-0400 Heart rate 17 /min Dr. Mak Luevano Work Phone: [facility] Work Phone: 10-22-2021 02:54-0400 Respiratory rate 16 /min Dr. Mak Luevano Work Phone: [facility] Work Phone: 10-22-2021 02:54-0400 SaO2% (BldA) [Mass fraction] 98 % Dr. Mak Luevano Work Phone: [facility] Work Phone: 10-22-2021 02:54-0400 Systolic blood pressure 114 mm[Hg] Dr. Mak Luevano Work Phone: [facility] Work Phone: 10-22-2021 01:30-0400 Inhaled oxygen flow rate 2 L/min Dr. Mak Luevano Work Phone: [facility] Work Phone: 10-22-2021 00:11-0400 Body height 167.[address] Mak Luevano Work Phone: [facility] Work Phone: 10-22-2021 00:11-0400 Body mass index (BMI) [Ratio] 29.7 kg/m2 Dr. Mak Luevano Work Phone: [facility] Work Phone: 10-22-2021 00:11-0400 Body weight 83.[address] Mak Luevano Work Phone: [facility] Work Phone: 10-01-2021 08:48-0400 Body weight 82.1 kg NA Kumari PA-C Work Phone: [facility] 10-01-2021 08:48-0400 Diastolic blood pressure 68 mm[Hg] NA Kumari PA-C Work Phone: [facility] 10-01-2021 08:48-0400 Heart rate 68 /min NA Kumari PA-C Work Phone: [facility] 10-01-2021 08:48-0400 Respiratory rate 16 /min NA Kumari PA-C Work Phone: [facility] 10-01-2021 08:48-0400 SaO2% (BldA) [Mass fraction] 98 % NA Kumari PA-C Work Phone: [facility] 10-01-2021 08:48-0400 Systolic blood pressure 120 mm[Hg] NA Kumari PA-C Work Phone: [facility] 08-15-2021 14:46-0400 Body weight 83.46 kg Mak Luevano MD Work Phone: [facility] 08-15-2021 14:46-0400 Diastolic blood pressure 70 mm[Hg] Mak Luevano MD Work Phone: [facility] 08-15-2021 14:46-0400 Heart rate 80 /min Mak Luevano MD Work Phone: [facility] 08-15-2021 14:46-0400 Systolic blood pressure 118 mm[Hg] Mak Luevano MD Work Phone: [facility] Encounters Encounter Date Encounter Type Care Provider Facility Start: 09-21-2024 End: 10-22-2024 ambulatory Mak Luevano MD Work Phone: [facility] Start: 06-24-2024 End: 06-25-2024 ambulatory MAK LUEVANO Facility:[facility] Start: 06-24-2024 End: 06-29-2024 Chart abstracting Actigraphy Neur (Hist) Neurology Start: 06-24-2024 End: 06-24-2024 Telephone encounter Yuliet Uriah ZINC CHLORIDE OPERATOR.BANK REPRESENTATIVE Work Phone: Neurology Start: 05-06-2024 End: 05-18-2024 Chart abstracting Actigraphy Neur (Hist) Neurology Start: 05-06-2024 End: 05-07-2024 ambulatory MAK LUEVANO Facility:[facility] Start: 04-05-2024 End: 04-05-2024 ambulatory [facility] Facility:[facility] Start: 03-15-2024 End: 03-15-2024 Patient encounter status Dee Seaman APRN.BANK REPRESENTATIVE Work Phone: [facility] Start: 03-15-2024 End: 03-15-2024 Periodic preventive med est patient 40-64yrs Dee Seaman APRN.BANK REPRESENTATIVE Work Phone: Family [facility] Comment on above: Wellness examination (Primary Dx); Gastroesophageal reflux disease with esophagitis; Anxiety; Migraine without status migrainosus, not intractable, unspecified migraine type; Elevated platelet count; Graves disease; Hypertriglyceridemia Start: 03-15-2024 End: 03-15-2024 Patient encounter procedure Yuliet Kruse APRN.BANK REPRESENTATIVE Work Phone: Neurology Comment on above: Hypersomnia (Primary Dx); JOSE (obstructive sleep apnea) Start: 03-15-2024 End: 03-15-2024 ambulatory [facility] Facility:[facility] Start: 03-15-2024 Encounter for genera l adult medical examination without abnormal findings [facility] Start: 12-26-2023 End: 12-26-2023 ambulatory Sandra Smallstoryjing Facility:[facility] Start: 11-20-2023 Refill Mak Luevano MD Work Phone: [facility] Comment on above: Refill Request Start: 11-19-2023 Refill Mak Luevano MD Work Phone: Family [facility] Comment on above: Refill Request Start: 11-17-2023 Telephone encounter Dee vera APRN.BANK REPRESENTATIVE Work Phone: [facility] Comment on above: Orders Start: 10-22-2023 Telephone encounter Mak Luevano MD Work Phone: [facility] Comment on above: Results Start: 10-22-2023 End: 10-22-2023 Subsequent hospital visit by physician Diagnostic Mammo [facility] Comment on above: Inconclusive mammogr am [R92.2] Start: 09-03-2023 Refill Dee Seaman APRN.BANK REPRESENTATIVE Work Phone: [facility] Comment on above: Refill Request [place] patient [place] Start: 09-01-2023 Refill Mak Luevano MD Work Phone: [facility] Comment on above: Refill Request Start: 07-02-2023 ambulatory Dee eSaman APRN.BANK REPRESENTATIVE Work Phone: [facility] Comment on above: Cpap and DME Start: 04-17-2023 Telephone encounter Palmer Kumari PA-C Work Phone: [facility] [place] Start: 04-15-2023 End: 04-15-2023 Subsequent [facility] Start: 04-04-2023 Chart abstracting [facility] Work Phone: Neurology Start: 03-21-2023 Documentation procedure Mammog tamar Coordinator [facility] Start: 03-21-2023 Letter encounter Mammography Coordinator [facility] Department Start: 03-10-2023 End: 03-10-2023 Patient encounter status Dee Seaman APRN.BANK REPRESENTATIVE Work Phone: [facility] Start: 03-10-2023 End: 03-10-2023 Periodic preventive med est patient 40-64yrs Dee Seaman APRN.BANK REPRESENTATIVE Work Phone: [facility] Comment on above: Wellness examination (Primary Dx); JOSE (obstructive sleep apnea); Gastroesophageal reflux disease with esophagitis; Anxiety; Migraine without status migrainosus, not intractable, unspecified migraine type; Encounter for immunization; Graves disease Start: 03-10-2023 Telephone encounter Dee vera APRN.CNP Work Phone: [facility] Comment on above: Orders Start: 03-04-2023 Get Medical Advice Mak Luevano MD Work Phone: Family [facility] Comment on above: Medications that jamel alanis refilled Start: 07-05-2022 End: 07-05-2022 Patient encounter procedure Fitz Bragg MD Work Phone: [facility] Comment on above: Sinobronchitis (Prim malia Dx); Acute cough Start: 06-05-2022 ambulatory Mak Luevano MD Work Phone: [facility] Comment on above: omeprazole authoriza tion Start: 06-05-2022 E-mail encounter fro m caregiver Mak Luevano MD Work Phone: [facility] Start: 06-04-2022 Telephone encounter Mak Luevano MD Work Phone: [facility] Comment on above: Insurance Authorizat ion (Omeprazole ) Start: 06-03-2022 Refill Mak Luevano MD Work Phone: [facility] Comment on above: Refill Request Start: 03-01-2022 Refill Mak Luevano MD Work Phone: [facility] Comment on above: Refill Request Start: 02-19-2022 End: 02-19-2022 Patient encounter procedure Myriam Myers MD Work Phone: General Surgery Comment on above: Umbilical hernia wit hout obstruction or gangrene; Rectus diastasis; BMI 30.0-30.9,adult Start: 01-29-2022 End: 01-29-2022 Patient encounter procedure Mak Luevano MD Work Phone: [facility] Comment on above: Anxiety (Primary Dx) ; Umbilical hernia without obstruction or gangrene Start: 12-31-2021 Refill Palmer Boggs on PA-C Work Phone: [facility] Comment on above: Refill Request Start: 11-20-2021 ambulatory Palmer Boggs on PA-C Work Phone: [facility] Comment on above: Virtual Appt. Start: 11-20-2021 E-mail encounter fro m caregiver Mak Luevano MD Work Phone: [facility] Start: 11-20-2021 Follow-up encounter Mak Luevano MD Work Phone: [facility] Comment on above: Follow up Start: 11-13-[address] Mak Luevano Work Phone: [facility]Out[facility] Breast [facility] Start: 11-01-2021 End: 11-01-[address] Mak Luevano Work Phone: [facility]-Laboratory, Specimen Start: 11-01-2021 End: 11-01-[address] Mak Luevano Work Phone: [facility] Start: 10-25-2021 End: 10-25-2021 Patient encounter procedure Palmer Kumari PA-C Work Phone: [facility] Comment on above: Anxiety (Primary Dx) ; Conversion reaction Start: 10-22-2021 End: 10-22-2021 Evaluation and management of inpatient Dr. [facility] Start: 10-22-2021 Non-patient / Non-visit Dr. Ankur Luevano Work Phone: [facility] Start: 10-22-2021 Non-patient / Non-visit Dr. Ankur Luevano Work Phone: [facility] Inpatient Physicians Start: 10-01-2021 End: 10-01-2021 Subsequent hospital visit by physician Xr [facility] Work Phone: Radiology Comment on above: Pain of left heel [M 79.672] Start: 10-01-2021 End: 10-01-2021 Patient encounter procedure Palmer Kumari PA-C Work Phone: [facility] Comment on above: Exophthalmos (Primar y Dx); Graves disease; Anxiety; Gastroesophageal reflux disease with esophagitis without hemorrhage; Migraine without status migrainosus, not intractable, unspecified migraine type; TMJ dysfunction; Cervical radiculopathy; Plantar fasciitis; Pain of left heel Start: 08-27-2021 ambulatory Mak Luevano MD Work Phone: [facility] Comment on above: Ear issue Start: 08-21-2021 ambulatory Mak Luevano MD Work Phone: [facility] Comment on above: Antibiotic Start: 08-17-2021 Chart abstracting Miriam WHITEHEAD Work Phone: Adult Psychology Start: 08-17-2021 Telephone encounter Mak Luevano MD Work Phone: [facility] Comment on above: Results Start: 08-16-2021 Chart abstracting Miriam WHITEHEAD Work Phone: Adult Psychology Start: 08-15-2021 E-mail encounter fro m caregiver Odrcas Ramo [facility] Start: 08-15-2021 End: 08-15-2021 Patient encounter procedure Mak Luevano MD Work Phone: [facility] Comment on above: Anxiety (Primary Dx) ; [...] DTaP,Tdap,Td Vaccine (2 - Td or Tdap) [facility] Start: 03-10-2028 Lipid 1996 panel - Serum or Plasma Lipid Screening [facility] Start: 03-10-2028 Lipid panel Lipid Screening [facility] Start: 08-15-2026 Lipid 1996 panel - Serum or Plasma Lipid Screening [facility] Start: 08-15-2026 LIPID SCREEN LIPID SCREEN [facility] Start: 04-15-2026 Colonoscopy COLONOSCOPY [facility] Start: 04-15-2026 COLORECTAL CANCER SCREENING COLORECTAL CANCER SCREENING [facility] Start: 04-15-2026 Screening for malignant neoplasm of colon [facility] Start: 03-10-2026 Diabetes Screening Diabetes Screening [facility] Start: 03-15-2025 Covid-19 Vaccine ( season) Covid-19 Vaccine ( season) [facility] Comment on above: Postponed from 01/11/2024 (Declined at t his time) Start: 03-15-2025 Hepatitis B Vaccine (1 of 3 - 19+ 3-dose series) Hepatitis B Vaccine (1 of 3 - 19+ 3-dose series) [facility] Comment on above: Postponed from 1989 (Declined at t his time) Start: 01-10-2025 Influenza vaccination Influenza Vaccine (Season Ended) [facility] Start: 11-08-2024 Influenza vaccination Influenza Vaccine (#1) [facility] Comment on above: Postponed from 01/11/2024 (Declined at t his time) Start: 10-19-2024 HPV TESTING HPV TESTING [facility] Start: 10-19-2024 PAP TESTING PAP TESTING [facility] Start: 10-19-2024 Screening for malignant neoplasm of cervix [facility] Start: 09-12-2024 End: 12-12-2024 TOXICOLOGY SCREEN, ROUTINE URINE TOXICOLOGY SCREEN, ROUTINE URINE Lab Routine Hypersomnia Expected: 09/12/2024, Expires: 12/12/2024 [facility] Comment on above: Expected: 09/12/2024, Expires: Start: 08-15-2024 DIABETES SCREEN DIABETES SCREEN [facility] Start: 08-15-2024 Diabetes Screening Diabetes Screening [facility] Start: 07-05-2024 End: 07-05-2024 Patient encounter procedure 07/05/2024 8:15 AM EST Office Visit Neurology [address] [place] [address] [facility] Comment on above: [facility] Start: 07-04-2024 End: 07-04-2024 Patient encounter procedure 07/04/2024 9:00 PM EST Office Visit Neurology [address] [place] [address] Main, Psg Neur [address] [place] [address] PSG w/ [facility] Comment on above: PSG w/ [facility] Start: 06-25-2024 End: 06-25-2024 Patient encounter procedure 06/25/2024 8:00 AM EST Office Visit Neurology [address] [place] [address] [facility] Comment on above: [facility] Start: 03-20-2024 Mammography Mammogram Screening [facility] Start: 03-20-2024 Screening for malignant neoplasm of breast Mammogram Screening [facility] Start: 03-15-2024 End: 03-15-2024 Patient encounter procedure [facility] [place] Comment on above: physical JOSE (obstructive sle ep apnea) [G47.33] Start: 03-15-2024 End: 06-14-2024 CBC W Auto Differential panel - Blood COMPLETE BLOOD COUNT AND DIFFERENTIAL Lab Routine Elevated platelet count Expected: 03/15/2024, Expires: 06/14/2024 [facility] Comment on above: Expected: 03/15/2024, Expires: Start: 03-15-2024 End: 06-14-2024 Comprehensive metabolic 2000 panel - Serum or Plasma COMPREHENSIVE METABOLIC PANEL Lab Routine Hypertriglyceridemia Expected: 03/15/2024, Expires: 06/14/2024 [facility] Comment on above: Expected: 03/15/2024, Expires: Start: 03-15-2024 End: 06-14-2024 Lipid 1996 panel - Serum or Plasma LIPID PANEL BASIC Lab Routine Hypertriglyceridemia Expected: 03/15/2024, Expires: 06/14/2024 [facility] Work Phone: Comment on above: Expected: 03/15/2024, Expires: Start: 03-15-2024 End: 06-14-2024 Magnesium [Mass/volume] in Serum or Plasma MAGNESIUM Lab Routine Gastroesophageal reflux disease with esophagitis Expected: 03/15/2024, Expires: 06/14/2024 [facility] Comment on above: Expected: 03/15/2024, Expires: Start: 03-15-2024 End: 06-14-2024 Thyrotropin [Units/volume] in Serum or Plasma THYROID STIMULATING HORMONE Lab Routine Graves disease Expected: 03/15/2024, Expires: 06/14/2024 [facility] Comment on above: Expected: 03/15/2024, Expires: Start: 03-10-2024 Covid-19 Vaccine (4 - 2023-24 season) Covid-19 Vaccine ( season) [facility] Comment on above: Postponed from 01/10/2023 (Declined at t his time) Start: 03-10-2024 Hepatitis B Vaccine (1 of 3 - 19+ 3-dose series) Hepatitis B Vaccine (1 of 3 - 19+ 3-dose series) [facility] Comment on above: Postponed from 1989 (Declined at t his time) Start: 03-10-2024 Hepatitis B Vaccine (1 of 3 - 3-dose series) Hepatitis B Vaccine (1 of 3 - 3-dose series) [facility] Comment on above: Postponed from 1970 (Declined at t his time) Start: 01-11-2024 Covid-19 Vaccine ( season) Covid-19 Vaccine ( season) [facility] Start: 01-11-2024 Influenza vaccination [facility] Start: 11-09-2023 Influenza vaccination Influenza Vaccine (#1) [facility] Comment on above: Postponed from 01/10/2023 (Declined at t his time) Start: 10-22-2023 End: 10-22-2023 Patient encounter procedure Mammogram Comment on above: Inconclusive mammogram [R92.2] Start: 10-17-2023 End: 05-16-2024 ALEJANDRO DIAGNOSTIC LEFT ALEJANDRO DIAGNOSTIC LEFT Radiology Routine Inconclusive mammogram Expected: 10/17/2023, Expires: 05/16/2024 [facility] Work Phone: Comment on above: Expected: 10/17/2023, Expires: Start: 10-17-2023 End: 05-16-2024 US BREAST LTD LEFT US BREAST LTD LEFT Radiology Routine Inconclusive mammogram Expected: 10/17/2023, Expires: 05/16/2024 [facility] Work Phone: Comment on above: Expected: 10/17/2023, Expires: Start: 05-12-2023 Behavioral Health Screening Behavioral Health Screening [facility] Start: 05-12-2023 Depression Assessment Depression Assessment [facility] Start: 03-10-2023 End: 06-09-2023 Thyrotropin [Units/volume] in Serum or Plasma TSH BLD Lab Routine Graves disease Expected: 03/10/2023, Expires: 06/09/2023 [facility] Work Phone: Comment on above: Expected: 03/10/2023, Expires: Start: 01-10-2023 Covid-19 Vaccine () Covid-19 Vaccine () [facility] Start: 01-10-2023 Influenza vaccination Influenza Vaccine (#1) [facility] Start: 11-13-2022 Mammography [facility] Start: 10-25-2022 Adult depression screening assessment DEPRESSION SCREENING [facility] Start: 05-12-2022 DEPRESSION ASSESSMENT DEPRESSION ASSESSMENT [facility] Start: 01-24-2022 Adult depression screening assessment DEPRESSION SCREENING [facility] Start: 01-10-2022 Influenza vaccination [facility] Start: 11-10-2021 Mammography MAMMOGRAM [facility] Start: 10-22-2021 Patient discharge [facility] Work Phone: Start: 10-22-2021 Admission procedure [facility] Work Phone: Start: 10-22-2021 Following clinical pathway protocol [facility] Work Phone: Start: 10-22-2021 Assessment of risk of venous thromboembolism [facility] Work Phone: Start: 10-22-2021 Cardiac monitoring [facility] Work Phone: Start: 10-22-2021 Catheterization of vein [facility] Work Phone: Start: 10-22-2021 Continuous pulse oximetry [facility] Work Phone: Start: 10-22-2021 Elevation of head of bed [facility] Work Phone: Start: 10-22-2021 Exercises [facility] Work Phone: Start: 10-22-2021 Implementation of planned interventions [facility] Work Phone: Start: 10-22-2021 Insertion of catheter into peripheral vein [facility] Work Phone: Start: 10-22-2021 Measuring intake and output [facility] Work Phone: Start: 10-22-2021 Notification of physician [facility] Work Phone: Start: 10-22-2021 Oxygen therapy [facility] Work Phone: Start: 10-22-2021 Providing care according to standard [facility] Work Phone: Start: 10-22-2021 Provision of activity privileges [facility] Work Phone: Start: 10-22-2021 Referral to occupational therapist [facility] Work Phone: Start: 10-22-2021 Referral to service [facility] Work Phone: Start: 10-22-2021 Speech therapy assessment [facility] Work Phone: Start: 10-22-2021 Tobacco use cessation education [facility] Work Phone: Start: 10-22-2021 [facility] Work Phone: Start: 10-22-2021 Plain chest X-ray Chest 1 View [facility] Work Phone: Start: 10-22-2021 [facility] Work Phone: Start: 08-17-2021 End: 08-17-2022 CBC W Auto Differential panel - Blood CBC + DIFF Lab Routine Anemia, unspecified type Expected: 08/17/2021, Expires: 08/17/2022 [facility] Work Phone: Comment on above: Expected: 08/17/2021, Expires: Start: 08-17-2021 End: 08-17-2022 FERRITIN BLD FERRITIN BLD Lab Routine Anemia, unspecified type Expected: 08/17/2021, Expires: 08/17/2022 [facility] Work Phone: Comment on above: Expected: 08/17/2021, Expires: 3 Start: 08-17-2021 End: 08-17-2022 Folate [Mass/volume] in Serum or Plasma FOLATE SERUM Lab Routine Anemia, unspecified type Expected: 08/17/2021, Expires: 08/17/2022 [facility] Work Phone: Comment on above: Expected: 08/17/2021, Expires: 3 Start: 08-17-2021 End: 08-17-2022 Hemoglobin.gastrointest inal.lower [Presence] in Stool by Immunoassay FECAL OCCULT BLOOD TEST Lab Routine Anemia, unspecified type Expected: 08/17/2021, Expires: 08/17/2022 [facility] Work Phone: Comment on above: Expected: 08/17/2021, Expires: 3 Start: 08-17-2021 End: 08-17-2022 IRON + TIBC IRON + TIBC Lab Routine Anemia, unspecified type Expected: 08/17/2021, Expires: 08/17/2022 [facility] Work Phone: Comment on above: Expected: 08/17/2021, Expires: 3 Start: 08-17-2021 End: 08-17-2022 VITAMIN B12 BLOOD VITAMIN B12 BLOOD Lab Routine Anemia, unspecified type Expected: 08/17/2021, Expires: 08/17/2022 [facility] Work Phone: Comment on above: Expected: 08/17/2021, Expires: 3 Start: 08-15-2021 End: 10-15-2021 Heterophile Ab [Presence] in Serum by Latex agglutination MONOTEST, INFECTIOUS MONO Lab Routine Fatigue, unspecified type Expected: 08/15/2021, Expires: 10/15/2021 [facility] Work Phone: Comment on above: Expected: 08/15/2021, Expires: 2 Start: 05-12-2021 DEPRESSION ASSESSMENT DEPRESSION ASSESSMENT [facility] Start: 02-09-2021 COVID-19 VACCINE (4 - Booster for Pfizer series) COVID-19 VACCINE (4 - Booster for Pfizer series) [facility] Start: 01-25-2021 COVID-19 VACCINE (3 - Booster for Pfizer series) COVID-19 VACCINE (3 - Booster for Pfizer series) [facility] Start: 12-05-2020 COVID-19 VACCINE (4 - Booster for Pfizer series) COVID-19 VACCINE (4 - Booster for Pfizer series) [facility] Start: 2020 Pneumococcal Vaccine: 50+ (1 of 1 - PCV) Pneumococcal Vaccine: 50+ (1 of 1 - PCV) [facility] Start: 2020 SHINGRIX VACCINE (1 of 2) SHINGRIX VACCINE (1 of 2) [facility] Start: 04-08-2017 FECAL OCCULT BLOOD FECAL OCCULT BLOOD [facility] Start: 04-08-2017 Screening for malignant neoplasm of colon Fecal Occult Blood [facility] Start: 2015 COLOGUARD (FIT-DNA) COLOGUARD (FIT-DNA) [facility] Start: [address] COLONOGRAPHY [facility] Start: 2015 Screening for malignant neoplasm of colon [facility] Start: 2015 SIGMOIDOSCOPY SIGMOIDOSCOPY [facility] Start: 1989 Urine microalbumin profile [facility] Start: 1988 Depression Screening Depression Screening [facility] Start: 1988 HEPATITIS C SCREENING HEPATITIS C SCREENING [facility] Start: 1988 HIV SCREENING HIV SCREENING [facility] Start: 1970 HEPATITIS B (1 of 3 - 3-dose series) HEPATITIS B (1 of 3 - 3-dose series) [facility] Start: 1970 Hepatitis B Vaccine (1 of 3 - 3-dose series) Hepatitis B Vaccine (1 of 3 - 3-dose series) [facility] ACTIGRAPHY TESTING ACTIGRAPHY TE STING Procedures Routine Hypersomnia 1 Occurrences starting 03/15/2024 [facility] Comment on above: 1 Occurrences starting 03/15/2024 ACTIGRAPHY TESTING ACTIGRAPHY TE STING Procedures Routine Hypersomnia 1 Occurrences starting 06/24/2024 [facility] Work Phone: Comment on above: 1 Occurrences starting 06/24/2024 End: 10-21-2025 DBT Breast - bilateral screening ALEJANDRO SCREENING W DANIEL Radiology Routine Encounter for screening mammogram for breast cancer 1 Occurrences starting 09/21/2024 until 10/21/2025 [facility] Work Phone: Comment on above: 1 Occurrences starting 09/21/2024 until 10/21/2025 End: 03-09-2024 HOME SLEEP APNEA TEST (HSAT) HOME SLEEP APNEA TEST (HSAT) Procedures Routine JOSE (obstructive sleep apnea) 1 Occurrences starting 03/10/2023 until 03/09/2024 [facility] Work Phone: Comment on above: 1 Occurrences starting 03/10/2023 until 03/09/2024 End: 11-20-2024 MG Breast - bilateral Diagnostic ALEJANDRO DIAGNOSTIC BILATERAL Radiology Routine Abnormal mammogram 1 Occurrences starting 10/22/2023 until 11/20/2024 [facility] Comment on above: 1 Occurrences starting 10/22/2023 until 11/20/2024 End: 03-15-2025 MULTIPLE SLEEP LATENCY TEST MULTIPLE SLEEP LATENCY TEST Procedures Routine Hypersomnia 1 Occurrences starting 03/15/2024 until 03/15/2025 [facility] Comment on above: 1 Occurrences starting 03/15/2024 until 03/15/2025 Patient referral [facility] Work Phone: End: 03-15-2025 Polysomnogram POLYSOMNOGRAM (PSG) Procedures Routine Hypersomnia 1 Occurrences starting 03/15/2024 until 03/15/2025 [facility] Work Phone: Comment on above: 1 Occurrences starting 03/15/2024 until 03/15/2025 End: 11-20-2024 US Breast - left limited US BREAST LTD LEFT Radiology Routine Abnormal mammogram 1 Occurrences starting 10/22/2023 until 11/20/2024 [facility] Comment on above: 1 Occurrences starting 10/22/2023 until 11/20/2024 End: 11-20-2024 US Breast - right limited US BREAST LTD RIGHT Radiology Routine Abnormal mammogram 1 Occurrences starting 10/22/2023 until 11/20/2024 [facility] Work Phone: Comment on above: 1 Occurrences starting 10/22/2023 until 11/20/20[facility] Immunizations Immunization Date Immunization Notes Care Provider Nicole buck 03-10-2023 tetanus toxoid, redu tashia diphtheria toxoid, and acellular pertussis vaccine, adsorbed Dee Haagen ZINC CHLORIDE OPERATOR.BANK REPRESENTATIVE Work Phone: [facility] 10-10-2020 Covid (Pfizer) Dr. Mak poon Work Phone: [facility] 04-07-2018 influenza virus vacc ine, unspecified formulation Mak Luevano MD Work Phone: [facility] Payers Date Payer Category Payer Self-pay [id number] 2015 [employer] BLUE CARD PPO OOS [id number] 2015 Unknown [employer]THEM BLUE CARD PPO OOS [id number] 2015-Present [phone] [address] [place] [id number] PPO [id number] 2015 Unknown [employer]M BLUE CARD PPO OOS [id number] 2015-Present [phone] [address] [place] [id number] PPO [id number] 2015 Unknown [id number] Unknown [id number] Unknown [id number] Unknown [id number] Unknown [id number] Social History Date Type Detail Facility Start: 05-17-2011 End: 03-15-2024 Tobacco smoking status NHIS Ex-smoker [facility] End: 07-29-2002 History of tobacco use Current smoker [facility] Work Phone: Start: 08-15-2021 End: 03-15-2024 Alcohol intake Current drinker of alcohol (finding) [facility] Start: 01-24-2021 History SDOH Alcohol Frequency 4 [facility] Start: 01-24-2021 History SDOH Alcohol Std Drinks 1 [facility] Start: 01-24-2021 End: 04-19-2021 History SDOH Alcohol Binge 2 [facility] Start: 07-22-2014 History SDOH Alcohol Comment Occasionally [facility] Start: 01-24-2021 History SDOH Social Connections Phone 5 [facility] Start: 01-24-2021 History SDOH Social Connections Oriental [employer] 3 [facility] Start: 01-24-2021 History SDOH Physica l Activity DPW 0 [facility] Start: 09-17-2019 Education 15 [facility] Start: 1970 Sex Assigned At Female C [facility] Start: 08-05-2021 End: 02-19-2022 Exposure to SARS-CoV-2 (event) Not sure [facility] Start: 10-22-2021 End: 11-01-2021 Tobacco smoking status PAIS Unknown if ever smoked [facility] Work Phone: Start: 10-22-2021 Cigarettes [place] [facility] Work Phone: Start: 11-09-2021 End: 11-19-2021 Exposure to SARS-CoV-2 (event) Yes [facility] End: 07-29-2002 History of tobacco use Cigarette Smoker [facility] Start: 05-17-2011 End: 03-15-2024 Tobacco use and exposure Smokeless tobacco non-user [facility] Start: 01-24-2021 End: 03-10-2023 History of Social function [facility] Start: 01-24-2021 End: 03-10-2023 Social connection and isolation panel [facility] Are you now , , , , never or living with a partner? [facility] How often to you hav e a drink containing alcohol? 2-3 time sa week [facility] How many standard drinks containing alcohol do you have on a typical day? 1 or 2 [facility] How often do you hav e 6 or more drinks on 1 occasion? Less than monthly [facility] How hard is it for y ou to pay for the very basics like food, housing, medical care, and heating Not hard at all [facility] Do you feel stress - tense, restless, nervous, or anxious, or unable to sleep at night because your mind is troubled all the time - these days [OSQ] Very much [facility] (I/We) worried oumar er (my/our) food would run out before (I/we) got money to buy more. Never true [facility] In the past 12 month s, was there a time when you were not able to pay the mortgage or rent on time? No [facility] Start: 03-28-2020 Gender identity Identifies as female gender (finding) [facility] Start: 03-28-2020 Sexual orientation Heterosexual (vika daniel) [facility] How hard is it for y ou to pay for the very basics like food, housing, medical care, and heating Not very hard [facility] Do you feel stress - tense, restless, nervous, or anxious, or unable to sleep at night because your mind is troubled all the time - these days [OSQ] Rather much [facility] Goals Date Patient Goal Desired Activity /State Functional Status Date Assessment Result Facility 10-22-2021 Functional status Ambulates;Sunil r;Bathroom Privilege [facility] Work Phone: 09-16-2014 Are you deaf, or do you have serious difficulty hearing No 09/16/2014 10:52 AM Krystyna Madison Ma [facility] Work Phone: 09-16-2014 Are you blind, or do you have serious difficulty seeing, even when wearing glasses No 09/16/2014 10:52 AM Krystyna Madison Ma [facility] 09-16-2014 Do you have serious difficulty walking or climbing stairs No 09/16/2014 10:52 AM Krystyna Madison Ma [facility] 09-16-2014 Do you have difficul ty dressing or bathing No 09/16/2014 10:52 AM Krystyna Madison Ma [facility] 09-16-2014 Because of a physica l, mental, or emotional condition, do you have difficulty doing errands alone such as visiting a physician's office or shopping No 09/16/2014 10:52 AM Krystyna Madison Ma [facility] Mental Status Date Assessment Result Facility 10-22-2021 Cognitive function Voice/Name [facility] Work Phone: 10-22-2021 Cognitive function Voice/Name [facility] Work Phone: 09-16-2014 Because of a physica l, mental, or emotional condition, do you have serious difficulty concentrating, remembering, or making decisions No 09/16/2014 10:52 AM Krystyna Madison Ma [facility] Clinical Notes 09-18-2019 to 09-21-2024 Savana Aj - 06/29/2024 12:22 PM Everton Azevedo - 06/24/2024 3:12 PM ESTTelephone Encounter - Yuliet Kruse APRN.CNP - 06/24/2024 3:22 PM Gloria Antonio - 05/18/2024 10:48 AM EST Note Date & Type Note Facility 09-21-2024 Note Patient Outreach (FA MPWS) SWAPNAJUVENAL LINDSEY ([id number]) 1970 F NFR Date Time Provider Department 09/21/24 MAK LUEVANO During your visit today, we recorded the following information about you: Allergies As of Date: 09/21/2024 (No Known Allergies) Date Reviewed: 03/15/2024 Reviewed by: Yuliet Kruse APRN.BANK REPRESENTATIVE - Fully Assessed Visit Diagnosis:Encounter for screening mammogram for breast cancer [Z12.31] Order(s):ALEJANDRO SCREENING W DANIEL [[id number]] Order #: [id number] FUTURE Prescriptions as of 10/22/2024 - omeprazole [...] Encounter Status:Closed by COURTNEY, PRODUSER on 10/22/24 [facility] 06-29-2024 Note HNO ID: [id number] Author: ?, ?, ? Service: ? Author Type: ? Type: Progress Notes Filed: 06/29/2024 12:23 Note Text: Returned no logs [facility] 06-29-2024 History of Present illness Narrative Returned no logs ACTIGRAPHY DEVICE # [id number] Date shipped out 06/24/2024 [employer] MAIL OUT TRACKING NUMBER [id number] [employer] RETURN TRACKING NUMBER [id number], Tina Sent via [employer]ex documented in this encounter [facility] 06-24-2024 Telephone encounter Note Actigraphy ordered, she will be able to get at least a week before the MSLT Yuliet Kruse APRN.CNP [facility] 06-24-2024 Miscellaneous Notes Actigraphy ordered, she will [...] order. Gloria Aranda documented in this encounter [facility] 06-24-2024 Telephone encounter Note ----- Message from Gloria Nunez sent at 06/24/2024 3:15 PM EST ----- Regarding: actigraphy Hi, This patient already completed an actigraphy but rescheduled her PSG/MSLT. Do you want her to repeat again? If so, we will need a new order. Gloria Aranda [facility] 06-24-2024 Note HNO ID: [id number] Author: ?, ?, ? Service: ? Author Type: ? Type: Progress Notes Filed: 06/29/2024 12:23 Note Text: ACTIGRAPHY DEVICE # [id number] Date shipped out 06/24/2024 [employer] MAIL OUT TRACKING NUMBER [id number] [employer] RETURN TRACKING NUMBER [id number], Tina Sent via [employer]ex [facility] 05-18-2024 Note HNO ID: [id number] Author: ?, ?, ? Service: ? Author Type: ? Type: Progress Notes Filed: 05/18/2024 11:55 Note Text: Returned with logs [facility] 05-18-2024 History of Present illness Narrative Returned with logs ACTIGRAPHY DEVICE # [id number] Date shipped out 05/06/2024 [employer] MAIL OUT TRACKING NUMBER [id number] [employer] RETURN TRACKING NUMBER [id number], Tina documented in this encounter [facility] 05-06-2024 Note HNO ID: [id number] Author: ?, ?, ? Service: ? Author Type: ? Type: Progress Notes Filed: 05/18/2024 11:55 Note Text: ACTIGRAPHY DEVICE # [id number] Date shipped out 05/06/2024 [employer] MAIL OUT TRACKING NUMBER [id number] [employer] RETURN TRACKING NUMBER [id number], Tina [facility] 03-15-2024 Instructions Dee Seaman APRN.[facility] - 03/15/2024 4:55 PM EST Get [...] - Wear sunscreen documented in this encounter [facility] 03-15-2024 Note HNO ID: [id number] Author: DEE SEAMAN APRN.ANIBAL Service: ? Author [...] Brother MAP(MYH-associated polyposis) Cancer Maternal Grandmother lung cancer,MT Cancer Maternal Grandfather prostate cancer,CVA Cancer Paternal [...] Bowel sounds no (more content not included)... [facility] 03-15-2024 History of Present illness Narrative This [...] Brother MAP(MYH-associated polyposis) Cancer Maternal Grandmother lung cancer,MT Cancer Maternal Grandfather prostate cancer,CVA Cancer Paternal [...] Promotion: - Eat healthy -- go to [employer] to get started - Have a yearly [...] as needed for worsening/no improvement. Dee Seaman APRN.BANK REPRESENTATIVE documented in this encounter [facility] 03-15-2024 History of Present illness Narrative Images from the original note were not included. [facility] New Patient Evaluation PATIENT NAME: Juvenal Amaro DATE OF SERVICE: March 14, 2024 CONSULTING PROVIDER: Dee Seaman [address] [facility] [place] [address] REASON FOR CONSULT: Dee Seaman sends the patient for an opinion about JOSE, trouble with CPAP, didn't feel better with CPAP. My findings and recommendations will be transmitted electronically via shared medical record to the consulting provider. [facility]: uJvenal Amaro is a 53 year old female. [...] not been a recent change in weight. [place] Sleepiness Scale: Sitting and readin Watching TV: [...] Brother MAP(MYH-associated polyposis) Cancer Maternal Grandmother lung cancer,MT Cancer Maternal Grandfather prostate cancer,CVA Cancer Paternal [...] narcolepsy tetrad. Lifelong hypersomnolence. - Letter to [facility] since they are looking for compliance, I expect it at her next appt - Continue Auto CPAP, pressure changed to 5-10 cmH2O since she c/o pressure blowing too high. - Remember to clean your mask and equipment regularly, as directed. - You should be eligible for new supplies approximately every 3-6 months, depending on your insurance coverage. Contact your [employer] company for new supplies as needed. - [...] them with you to give to the signal technician. - A urine tox screen will [...] which included preparing to see the patient, [id number] patient care, completing clinical documentation, obtaining and/or reviewing separately obtained history, counseling and educating the patient/family/caregiver, and ordering medications, tests, or procedures. documented in this encounter [facility] 03-15-2024 Note HNO ID: [id number] Author: YULIET KRUSE APRN.ANIBAL Service: ? Author Type: Nurse Practitioner Type: Progress Notes Filed: 03/15/2024 17:13 Note Text: [facility] New Patient Evaluation PATIENT NAME: Juvenal Amaro DATE OF SERVICE: March 14, 2024 CONSULTING PROVIDER: Dee Seaman [address] [facility] [id number] REASON FOR CONSULT: Dee Seaman sends the [...] not been a recent change in weight. [place] Sleepiness Scale: Sitting and readin Watching TV: [...] Iii (Vulvar Int (more content not included)... [facility] 11-20-2023 Telephone encounter Note The patient has [...] with this provider/department: Yes 03/15/2024 Checked with [facility] pharmacy who states patient has no more refills. Please send new Rx. Requested Prescriptions Pending Prescriptions Disp Refills estradiol (ESTRACE) 1 mg tablet 135 tablet 1 Sig: Take 1.5 tablets by mouth once daily. Palmer Gorman RN November 20, 2023 3:01 PM [facility] 11-20-2023 Miscellaneous Notes The patient has been [...] with this provider/department: Yes 03/15/2024 Checked with [facility] pharmacy who states patient has no more refills. Please send new Rx. Requested Prescriptions Pending Prescriptions Disp Refills estradiol (ESTRACE) 1 mg tablet 135 tablet 1 Sig: Take 1.5 tablets by mouth once daily. Palmer Gorman RN November 20, 2023 3:01 PM documented in this encounter [facility] 11-17-2023 Telephone encounter Note Trouble with cpap. Didn't feel better when wearing cpap. Continues with symptoms. Referral placed w/ sleep apnea. [facility] 11-17-2023 Miscellaneous Notes Trouble with cpap. Didn't feel better when wearing cpap. Continues with symptoms. Referral placed w/ sleep apnea. documented in this encounter [facility] 10-22-2023 Telephone encounter Note Patient informed and verbalized understanding. States she'll be due at same time for her yearly mammogram. Asking for that order to be placed as well so she can get them all done at same time. Adenike Neely MA [facility] 10-22-2023 Miscellaneous Notes Patient informed and verbalized [...] months. Order placed. documented in this encounter [facility] 10-22-2023 Telephone encounter Note Mammogram shows what is likely a cyst in the right breast which is usually ok. They recommend we recheck us and mammo on right breast in six months. Order placed. [facility] 10-22-2023 Note IMPRESSION: INCOMPLE TE: NEEDS ADDITIONAL IMAGING EVALUATION The stable oval asymmetry in the right breast is indeterminate. An ultrasound is recommended. Antwan oleary/deangelo:10/22/2023 09:17:42 Supervisor Concrete [employer] Finishing(s): RT Navjot(R)(M), [facility] Mammogram BI-RADS: 0 Incomplete: needs additional [...] Health, Family Medicine, and Medical/Surgical Oncology, the [facility] has carefully reviewed the data and reached [...] their providers when to stop screening mammograms. Metal Ceiling Hanger: Deangelo Transcribe Date/Time: Oct 22 2023 8:20A Dictated by: ANTWAN ALCALA MD This examination was interpreted and the report reviewed and electronically signed by: ANTWAN ALCALA MD on Oct 22 2023 9:17AM [facility] DIVISION OF RADIOLOGY 10-22-2023 History [...] PATIENT PRESENTS WITH AN IMPLANTABLE OR ATTACHED ICU TECH: No RADIOLOGY DEPARTMENT: Mammography PERIPHERAL IV DATA: Not applicable SIGNED BY: Thuy Morfin October 22, 2023 8:55 AM documented in this encounter [facility] 09-03-2023 Telephone encounter Note Patient scheduled Gabbi Roberts MA [facility] 09-03-2023 Miscellaneous Notes Patient scheduled Gabbi Roberts MA Can we please call patient and help her schedule her daughter in for a visit to establish care. Dee Seaman APRN.ANIBAL documented in this encounter [facility] 09-03-2023 Telephone encounter Note Can we please call patient and help her schedule her daughter in for a visit to establish care. Dee Seaman APRN.ANIBAL [facility] 09-01-2023 Telephone encounter Note Patient has been identified by name and date of : Yes, Provider [place] Date 09/01/23 Time 9:38 am Patient phones [...] Please advise. Thank you. Nikki Benedict MA. [facility] 09-01-2023 Miscellaneous Notes Patient has been identified [...] Nikki Benedict MA. documented in this encounter [facility] 07-02-2023 Miscellaneous Notes Order should be for full machine. Is this just for the mask then or need full cpap machine script? See pt message. Please write order for CPAP with a note stating mask of patient choice or per pt preference on order. Will fax to [employer] once ordered/signed since within pt's insurance network. Calvin Kumar LPN documented in this encounter [facility] 04-17-2023 Miscellaneous Notes Patient was made aware of the results. Patient verbalizes understanding. Nikki Benedict Ma Breast studies likely benign bit radiologist asking for recheck with mamm and US in 6 months. Please schedule Telephone on 04/17/23 [facility] LEFT US BREAST LTD LEFT Thanks, Nick Kumari PA-C documented in this encounter [facility] 04-15-2023 History of Present illness Narrative Radiology [...] DATA: Not applicable SIGNED BY: Graciela Schultz [employer] April 15, 2023 10:22 AM documented in this encounter [facility] 04-14-2023 History of Present illness Narrative Sleep [...] Del Real MD 12:56 PM, 04/09/2023 Nomad# [id number] , Date shipped out: 04/09/23 SENT FEDEX DELIVERY - FEDEX RETURN Tracking mailout: [phone] Tracking return: [phone] April 04, 2023 An order has been received for Home Sleep Apnea Test (HSAT) from Dee Coredro APRN.blanche BARNETT. [facility] Staff. Visit prep complete. Comments :No The sleep study is scheduled for 04/10. Insurance: Payor: ANTHEM / Plan: BLUE CARD PPO OOS / Product Type: PPO / Payer/Plan Subscr Sex Relation Sub. Ins. ID Effective Group Num 1. ANTHEM - BLUE* STEFAN AMARO 03/26/1969 Male Spouse [id number] 05/12/[birth year] [id number] [id number] Olive Figueroa documented in this encounter [facility] 03-21-2023 Miscellaneous Notes March 21, 2023 PID: [id number] Jvuenal Amaro [address] [place] [address] Dear Ms. Amaro, Your recent breast imaging [...] who ordered/prescribed your screening mammogram: Please call [phone] or EXT: [phone] to schedule an appointment for your additional [...] and reports are kept on file at [facility] as part of your permanent medical record, and are available for your continuing care. Thank you for allowing us to help in meeting your health care needs. Sincerely, Dr. Curtis Interpreting Radiologist 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 Spoke with Milvia and TSH order can be added to labs that have been drawn. Call ended 4:28 pm. Melody Frederick Ma Can we please see if lab can add a tsh onto today's labs. documented in this encounter [facility] 03-10-2023 History of Present illness Narrative This [...] Take 3 tablets by mouth once daily. MONORAIL HOOKER started her on this menopause SUMAtriptan (IMITREX) [...] Brother MAP(MYH-associated polyposis) Cancer Maternal Grandmother lung cancer,MT Cancer Maternal Grandfather prostate cancer,CVA Cancer Paternal [...] No history of dysuria, frequency or incontinence MONORAIL HOOKER: Negative for abnormal vaginal bleeding, abnormal vaginal [...] diet of 1000 mg/day for under 50, 4735-2696 mg/day for 50+ - Mammogram ordered - [...] as needed for worsening/no improvement. Dee Seaman APRN.BANK REPRESENTATIVE documented in this encounter [facility] 07-05-2022 History of Present illness Narrative Chief [...] the family. Non smoker. 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 Past [...] Brother MAP(MYH-associated polyposis) Cancer Maternal Grandmother lung cancer,MT Cancer Maternal Grandfather prostate cancer,CVA Cancer Paternal [...] Past Histories independently gathered by the clinical sales support consultant and the remaining scribed note [...] Sara Oconnor Ma documented in this encounter [facility] 06-05-2022 Miscellaneous Notes Images from the original note were not included. PA approved and patient notified through mychart Gabbi Roberts Ma Prior Authorization has been completed online at [employer] for omeprazole, will await response. [id number] Please keep encounter open until final decision has been received and documented from insurance company. Gabbi Roberts MA documented in this encounter [facility] 06-03-2022 Miscellaneous Notes Patient MyChart message requesting the following refill. Requested Prescriptions Pending Prescriptions Disp Refills SUMAtriptan (IMITREX) 50 mg tablet 9 tablet 11 Sig: TAKE 1 TABLET BY MOUTH. START AT ONSET OF HEADACHE. MAY REPEAT DOSE AFTER 2 HOURS. Patient last appointment: 01/29/2022 Patient Phone numbers: [phone] (home) [phone] (work) Request is for script(s) to be escript to pharmacy. Adenike Neely documented in this encounter [facility] 03-01-2022 Miscellaneous Notes Patient has been identified [...] Jennifer Chin RN documented in this encounter [facility] 02-19-2022 History of Present illness Narrative Juvenal [...] Brother MAP(MYH-associated polyposis) Cancer Maternal Grandmother lung cancer,MT Cancer Maternal Grandfather prostate cancer,CVA Cancer Paternal [...] of any pertinent laboratory studies/radiological imaging/medical records, [id number] patient care, obtaining oral medical history from the patient in this encounter, performing a medically appropriate examination, counseling and educating the patient/family/caregiver, and completing appropriate medical documentation. Myriam Myers MD documented in this encounter [facility] 02-19-2022 Nurse Note REVIEW OF SYSTEMS: General: [...] Babs Dacosta LPN documented in this encounter [facility] 01-29-2022 History of Present illness Narrative Patient [...] Brother MAP(MYH-associated polyposis) Cancer Maternal Grandmother lung cancer,MT Cancer Maternal Grandfather prostate cancer,CVA Cancer Paternal [...] Mak Luevano MD documented in this encounter [facility] 12-31-2021 Miscellaneous Notes Duplicate request. Calvin Kumar LPN documented in this encounter [facility] 12-31-2021 Miscellaneous Notes Patient phones requesting refills as follows: Requested Prescriptions Pending Prescriptions Disp Refills desvenlafaxine ER (PRISTIQ) 25 mg 24 hr tablet 30 tablet 2 Sig: Take 1 tablet by mouth once daily. SCHUYLER 11/20/21 NOV 01/29/22 Please review and advise. Calvin Kumar LPN documented in this encounter [facility] 11-20-2021 Miscellaneous Notes Patient notified by Nikki. documented in this encounter [facility] 11-01-2021 Note [facility] Work Phone: Pap Smear Specimen Adequacy [...] did identify carpal spasms. took her to [facility] emergency department where she was evaluated [...] Brother MAP(MYH-associated polyposis) Cancer Maternal Grandmother lung cancer,MT Cancer Maternal Grandfather prostate cancer,CVA Cancer Paternal [...] Palmer Kumari PA-C documented in this encounter [facility] 10-25-2021 Instructions Palmer Kumari PA-C - 10/25/2021 3:18 PM EDT Weaning off all medicines on current schedule. Hold Pristiq (desvenlafaxine) and Buspar (buspirone). documented in this encounter [facility] 10-01-2021 History of Presen t illness Narrative [...] 2021 9:50 AM documented in this encounter [facility] 10-01-2021 Instructions M Chano Kumari PA-C - 10/01/2021 9:21 AM EDT Wean Celexa 20mg alterate 10 x 1 week, then 10mg daily x 1 week, then every x 1 week and off. Stop wellbutrin Start desvenlafaxine daily a t the same time Use Buspar as needed if high anxiety levels. Purchase and complete The Anxiety Workbook Desvenlafaxine: Patient drug information Access [employer] for additional drug information, tools, and databases. Copyright 1432-9954 [employer]. All rights reserved. (For additional information see [...] much, and when it happened. Last Reviewed [id number] Consumer Information Use and Disclaimer This information [...] of this information is governed by the [employer] End User License Agreement, available at https://www.[employer].CreditCardsOnline/en/so lutions/PharmAbcine/about/kristi. 2020 [employer]. and its affiliates and/or licensors. All rights reserved. Use of [employer] is subject to the Subscription and License Agreement. Topic 93877 Version 147.0 Buspirone (Patient Education - Adult [...] Reviewed Date 2018-07-21 documented in this encounter [facility] 10-01-2021 History of Presen t illness Narrative [...] Brother MAP(MYH-associated polyposis) Cancer Maternal Grandmother lung cancer,MT Cancer Maternal Grandfather prostate cancer,CVA Cancer Paternal [...] Palmer Kumari PA-C documented in this encounter [facility] 09-04-2021 Miscellaneous Notes Probably should be rechecked in office but I placed consult for ENT [facility] Get Medical Advice on 08/27/21 CONSULT TO ENT Eustachian tube dysfunction, bilateral (primary encounter diagnosis) Nick Aranda PA-C documented in this encounter [facility] 08-22-2021 Miscellaneous Notes See other message See both [email or web address] messages. Sara Oconnor Ma documented in this encounter [facility] 08-17-2021 Miscellaneous Notes Mychart message sent Labs are ok. Other than mildly anemic and ldl is up. Send low cholesterol diet. Recheck labs including ifobt for anemia in the next week documented in this encounter [facility] 08-15-2021 Miscellaneous Notes Addended by: MAK LUEVANO on: 08/15/2021 04:44 PM Modules accepted: Orders documented in this encounter [facility] 08-15-2021 History of Presen t illness Narrative [...] Brother MAP(MYH-associated polyposis) Cancer Maternal Grandmother lung cancer,MT Cancer Maternal Grandfather prostate cancer,CVA Cancer Paternal [...] month and prn. documented in this encounter [facility] 09-18-2019 History of Past i llness Narrative [...] of this encounter (statuses as of 08/15/2021) [facility] History of Past illness Narrative* Problem Noted [...] of this encounter (statuses as of 08/16/2021) [facility] of [facility] Narrative* Problem Noted [...] of this encounter (statuses as of 08/17/2021) [facility] Narrative* Problem Noted [...] of this encounter (statuses as of 08/17/2021) [facility] Narrative* Problem Noted [...] of this encounter (statuses as of 08/22/2021) [facility] Narrative* Problem Noted [...] of this encounter (statuses as of 09/04/2021) [facility] Narrative* Problem Noted [...] of this encounter (statuses as of 10/01/2021) [facility] Narrative* Problem Noted [...] of this encounter (statuses as of 10/11/2021) [facility] Narrative* Problem Noted [...] of this encounter (statuses as of 10/25/2021) [facility] Narrative* Problem Noted [...] of this encounter (statuses as of 11/20/2021) [facility] Narrative* Problem Noted [...] of this encounter (statuses as of 12/31/2021) [facility] Narrative* Problem Noted [...] of this encounter (statuses as of 12/31/2021) [facility] Narrative* Problem Noted [...] of this encounter (statuses as of 01/29/2022) [facility] Narrative* Problem Noted [...] of this encounter (statuses as of 02/23/2022) [facility] Narrative* Problem Noted [...] of this encounter (statuses as of 03/01/2022) [facility] Narrative* Problem Noted [...] of this encounter (statuses as of 06/03/2022) [facility] N[facility]ative* Problem Noted [...] of this encounter (statuses as of 06/03/2022) [facility] Narrative* Problem Noted [...] of this encounter (statuses as of 06/05/2022) [facility] Narrative* Problem Noted [...] of this encounter (statuses as of 06/05/2022) [facility] N[facility]ative* Problem Noted [...] of this encounter (statuses as of 07/05/2022) [facility] N[facility]* Problem Noted [...] of this encounter (statuses as of 03/04/2023) [facility] N[facility]* Problem Noted [...] of this encounter (statuses as of 03/11/2023) [facility] N[facility]* Problem Noted [...] of this encounter (statuses as of 03/11/2023) [facility] N[facility]* Problem Noted [...] of this encounter (statuses as of 03/25/2023) [facility] N[facility]* Problem Noted [...] of this encounter (statuses as of 04/15/2023) [facility] N[facility]* Problem Noted [...] of this encounter (statuses as of 04/16/2023) [facility] N[facility]ative* Problem Noted [...] of this encounter (statuses as of 04/17/2023) [facility] Narrative* Problem Noted [...] of this encounter (statuses as of 07/02/2023) [facility] note* Diagnosis Anxiety- Primary Anxiety state, unspecified Fatigue, unspecified type Acute sinusitis, recurrence not specified, unspecified location documented in this encounter [facility] note* Diagnosis Anemia, unspecified type- Primary [facility] Diagnosis Eustachian tube dysfunction, bilateral- Primary [facility]* Diagnosis Exophthalmos- Primary Exophthalmos, unspecified Graves [...] Pain in limb documented in this encounter [facility] note* Diagnosis Onset Date Resolution Status Stroke-like symptoms acute [facility] Work Phone: Evaluation note* Diagnosis Onset Date Resolution Status Aphasia acute Muscle spasm acute Stroke-like symptoms acute [facility] Work Phone: Evaluation note* Diagnosis Anxiety- Primary Anxiety state, unspecified Conversion reaction Conversion disorder [facility] Diagnosis Onset Date Resolution Status Aphasia resolved Muscle spasm resolved Stroke-like symptoms resolve d Abnormal Pap smear of cervix acute BRIAN III (vulvar intraepithelial neoplasia III) acute Anxiety chronic Encounter for routine gynecological examination noneactive [facility] Work Phone: Evaluation note* Diagnosis Anxiety- Primary Anxiety state, unspecified Umbilical hernia without obstruction or gangrene Umbilical hernia without mention of obstruction or gangrene [facility] Diagnosis Umbilical hernia without obstruction or gangrene Umbilical hernia without mention of obstruction or gangrene Rectus diastasis Diastasis of muscle BMI 30.0-30.9,adult Body Mass Index 30.0-30.9, adult [facility] Diagnosis Gastroesophageal reflux disease with esophagitis [facility] Diagnosis Migraine without status migrainosus, not intractable, unspecified migraine type [facility] Diagnosis Gastroesophageal reflux disease with esophagitis [facility] Diagnosis Sinobronchitis- Primary Unspecified sinusitis (chronic) Acute cough [facility] Diagnosis Gastroesophageal reflux disease with esophagitis Anxiety Anxiety state, unspecified [facility] Diagnosis Wellness examination- Primary JOSE (obstructive sleep apnea) Obstructive sleep apnea (adult) (pediatric) Gastroesophageal reflux disease with esophagitis Anxiety Anxiety state, unspecified Migraine without status migrainosus, not intractable, unspecified migraine type Encounter for immunization Need for other specified prophylactic vaccination against single bacterial disease Graves disease Toxic diffuse goiter without mention of thyrotoxic crisis or storm [facility] Diagnosis Inconclusive mammogram [facility] Diagnosis Inconclusive mammogram- Primary [facility] Diagnosis JOSE (obstructive sleep apnea)- Primary Obstructive sleep apnea (adult) (pediatric) [facility] Diagnosis Migraine without status migrainosus, not intractable, unspecified migraine type [facility] Diagnosis Anxiety Anxiety state, unspecified [facility] Diagnosis Abnormal mammogram- Primary Abnormal mammogram, unspecified [facility] Diagnosis Inconclusive mammogram [facility] Diagnosis Inconclusive mammogram [facility] Diagnosis JOSE (obstructive sleep apnea)- Primary Obstructive sleep apnea (adult) (pediatric) [facility] Diagnosis Migraine without status migrainosus, not intractable, unspecified migraine type [facility] Pain of left heel Pain in limb [facility] Diagnosis Hypersomnia- Primary Hypersomnia, unspecified JOSE (obstructive sleep apnea) Obstructive sleep apnea (adult) (pediatric) [facility] Diagnosis Wellness examination- Primary Gastroesophageal reflux disease with esophagitis Anxiety Anxiety state, unspecified Migraine without status migrainosus, not intractable, unspecified migraine type Elevated platelet count Essential thrombocythemia Graves disease Toxic diffuse goiter without mention of thyrotoxic crisis or storm Hypertriglyceridemia Pure hyperglyceridemia [facility] Diagnosis Hypersomnia- Primary Hypersomnia, unspecified [facility] Diagnosis Encounter for screening mammogram for breast cancer documented in this encounter [facility] Phone: Reason for referral (narrative)* Diagnostic Procedure Only (Routine) - Closed Specialty Diagnoses / Procedures Referred By Contlola manrique Referred To Contact XR IMAGING Diagnoses Pain of left heel Procedures XR CALCANEUS 2V AXIAL/LAT LEFT RADEX CALCANEUS MINIMUM 2 VIEWS Palmer Kumari PA-C [address] [place] [address] Xr Imaging Referral ID Status Reason Start Date Expiration Date V isits Requested Visits Authorized [id number] Closed Auto-Generate d Referral 10/01/2021 10/31/2022 1 1 [facility] for referral (narrative)* Diagnostic Procedure Only (Routine) - Authorized Specialty Diagnoses / Procedures Referred By Contac t Referred To Contact [facility] Diagnoses JOSE (obstructive sleep apnea) Procedures HOME SLEEP APNEA TEST (HSAT) SLEEP STD AIRFLOW HRT RATE&O2 SAT EFFORT Dee Ta, ZINC CHLORIDE OPERATOR.BANK REPRESENTATIVE [address] [place] [address] [facility] [place] [address] [place] [address] Referral ID Status Reason Start Date Expiration Date Visits Requested Visits Authorized [id number] Authorized Auto-Generat ed Referral 03/09/2024 1 1 [facility] for referral (narrative)* Diagnostic Procedure Only (Routine) - Pending Review Specialty Diagnoses / Procedures Referred By Contac t Referred To Contact BR IMAGING Diagnoses Inconclusive mammogram Procedures US BREAST LTD LEFT US BREAST UNI REAL TIME WITH IMAGE LIMITED Palmer Kumari PA-C [address] [place] [address] [facility] [address] [place] [address] Referral ID Status Reason Start Date Expiration Date Visits Requested Visits Authorized [id number] Pending Review Auto-Generat ed Referral 10/17/2023 05/16/2024 1 1 * Diagnostic Procedure Only (Routine) - Pending Review Specialty Diagnoses / Procedures Referred By Contac t Referred To Contact BR IMAGING Diagnoses Inconclusive mammogram Procedures ALEJANDRO DIAGNOSTIC LEFT DIAGNOSTIC MAMMOGRAPHY COMPUTER-AIDED DETCJ UNI Palmer Kumari PA-C [address] [place] [address] [facility] [address] [place] [address] Referral ID Status Reason Start Date Expiration Date Visits Requested Visits Authorized [id number] Pending Review Auto-Generat ed Referral 10/17/2023 05/16/2024 1 1 [facility] for referral (narrative)* Diagnostic Procedure Only (Routine) - Pending Review Specialty Diagnoses / Procedures Referred By Contac t Referred To Contact BR IMAGING Diagnoses Abnormal mammogram Procedures US BREAST LTD LEFT US BREAST UNI REAL TIME WITH IMAGE LIMITED Mak Luevano MD [address] [place] [address] [facility] [address] [place] [address] Referral ID Status Reason Start Date Expiration Date Visits Requested Visits Authorized [id number] Pending Review Auto-Generat ed Referral 10/22/2023 11/20/2024 1 1 * Diagnostic Procedure Only (Routine) - Pending Review Specialty Diagnoses / Procedures Referred By Ayala manrique Referred To Contact BR IMAGING Diagnoses Abnormal mammogram Procedures ALEJANDRO DIAGNOSTIC BILATERAL DIAGNOSTIC MAMMOGRAPHY COMPUTER-AIDED DETCJ BI aMk Luevano MD [facility] [place] [address] [facility] [address] [place] [address] Referral ID Status Reason Start Date Expiration Date Visits Requested Visits Authorized [id number] Pending Review Auto-Generat ed Referral 10/22/2023 11/20/2024 1 1 * Diagnostic Procedure Only (Routine) - Pending Review Specialty Diagnoses / Procedures Referred By Ayala manrique Referred To Contact BR IMAGING Diagnoses Abnormal mammogram Procedures US BREAST LTD RIGHT US BREAST UNI REAL TIME WITH IMAGE LIMITED Mak Luevano MD [facility] [place] [address] [facility] [address] [place] [address] Referral ID Status Reason Start Date Expiration Date Visits Requested Visits Authorized [id number] Pending Review Auto-Generat ed Referral 10/22/2023 11/20/2024 1 1 [facility] for referral (narrative)* Diagnostic Procedure Only (Routine) - Closed Specialty Diagnoses / Procedures Referred By Ayala manrique Referred To Contact BR IMAGING Diagnoses Inconclusive mammogram Procedures US BREAST LTD RIGHT US BREAST UNI REAL TIME WITH IMAGE LIMITED Mak Luevano MD [address] [place] [address] [facility] [address] [place] [address] Referral ID Status Reason Start Date Expiration Date V isits Requested Visits Authorized [id number] Closed Auto-Generate d Referral 06/10/2023 07/09/2024 1 1 [facility] for referral (narrative)* Diagnostic Procedure Only (Routine) - Closed Specialty Diagnoses / Procedures Referred By Ayala t Referred To Contact XR IMAGING Diagnoses Pain of left heel Procedures XR CALCANEUS 2V AXIAL/LAT LEFT RADEX CALCANEUS MINIMUM 2 VIEWS Palmer Kumari PA-C [address] [place] [address] [place] [address] Referral ID Status Reason Start Date Expiration Date V isits Requested Visits Authorized [id number] Closed Auto-Generate d Referral 10/01/2021 10/31/2022 1 1 [facility] for referral (narrative)* Diagnostic Procedure Only (Routine) - New Request Specialty Diagnoses / Procedures [facility] Diagnoses Hypersomnia Procedures MULTIPLE SLEEP LATENCY TEST SILK SCREEN PAINTER SLEEP LATENCY/MAINT OF WAKEFULNESS TSTG Yuliet Kruse, BANK REPRESENTATIVE [address] [place] [address] [facility] [place] [address] [place] [address] Referral ID Status Reason Start Date Expiration Date Visits Requested Visits Authorized [id number] New Request Auto-Generat ed Referral 03/15/2024 03/15/2025 1 1 [facility] for visit Narrative* Diagnostic Procedure Only (Routine) - Closed Specialty Diagnoses / Procedures [facility] Referred To Contact BR IMAGING Diagnoses Inconclusive mammogram Procedures ALEJANDRO DIAGNOSTIC RIGHT DIAGNOSTIC MAMMOGRAPHY COMPUTER-AIDED DETCJ UNI Palmer Kumari PA-C [address] [place] [address] [facility] [address] [place] [address] Referral ID Status Reason Start Date Expiration Date V isits Requested Visits Authorized [id number] Closed Auto-Generate d Referral 03/22/2023 04/20/2024 1 1 [facility] for visit Narrative* Diagnostic Procedure Only (Routine) - Closed Specialty Diagnoses / Procedures Referred By Contac t Referred To Contact BR IMAGING Diagnoses Inconclusive mammogram Procedures ALEJANDRO DIAGNOSTIC RIGHT DIAGNOSTIC MAMMOGRAPHY COMPUTER-AIDED DETCJ UNI Mak Luevano MD [address] [place] [address] [facility] [address] [place] [address] Referral ID Status Reason Start Date Expiration Date V isits Requested Visits Authorized [id number] Closed Auto-Generate d Referral 06/10/2023 07/09/2024 1 1 [facility] for visit Narrative* Diagnostic Procedure Only (Routine) - Closed Specialty Diagnoses / Procedures Referred By Contac t Referred To Contact XR IMAGING Diagnoses Pain of left heel Procedures XR CALCANEUS 2V AXIAL/LAT LEFT RADEX CALCANEUS MINIMUM 2 VIEWS Palmer Kumari PA-C [address] [place] [address] [place] [address] Referral ID Status Reason Start Date Expiration Date V isits Requested Visits Authorized [id number] Closed Auto-Generate d Referral 10/01/2021 10/31/2022 1 1 [facility] Advance Directives No Advanced Directives Records FoundDocuments on File Type Date Recorded Patient Group Managing Director Expl anation Advance Directive(s) 04/15/2016 4:09 PM Documents on File Type Date Recorded Patient Group Managing Director Expl anation Advance Directive(s) 04/15/2016 4:09 PM Advance Directive Response Recorded Date/ Time Advance Directives No July 27 016 10:09am Living Will No October 22, 2021 12:18am Power of Account Services Representative No October 22 12:18am Advance Directive Response Recorded Date/ Time Advance Directives No July 27 016 10:09am Living Will No October 22, 2021 3:28am Power of Account Services Representative No October 22 3:28am Reason for Referral Specialty Diagnoses / Procedures Referred By Contac t Referred To Contact Ent - Otolaryngology Diagnoses Eustachian tube dysfunction, bilateral Procedures CONSULT TO ENT OFFICE/OUTPATIENT NEW HIGH MDM 60-74 MINUTES Palmer Kumari PA-C [address] [place] [phone] Referral ID Status Reason Start Date Expiration Date Visits Requested Visits Authorized [id number] Authorized PCP Requested Referral 09/04/2021 09/04/2022 1 1 Specialty Diagnoses / Procedures Referred By Contac t Referred To Contact General Surgery Diagnoses Umbilical hernia without obstruction or gangrene Procedures CONSULT TO GENERAL SURGERY OFFICE/OUTPATIENT [facility] 60-74 MINUTES Mak Luevano MD [address] [place] [place] [phone] Referral ID Status Reason Start Date Expiration Date Visits Requested Visits Authorized [id number] Authorized PCP Requested Referral 01/29/2022 01/29/2023 1 1 Specialty Diagnoses / Procedures Referred By Contac t Referred To Contact Diagnoses JOSE (obstructive sleep apnea) Procedures CONSULT TO SLEEP MEDICINE - ADULT OFFICE/OUTPATIENT [facility] 60 MINUTES Dee Seaman APRN.CNP [address] [place] [address] Referral ID Status Reason Start Date Expiration Date Visits Requested Visits Authorized [id number] Authorized PCP Requested Referral 11/17/2023 11/16/2024 1 1 Chief Complaint and Reason for Visit Chief Complaint STROKE-LIKE SYMPTOMS STROKE-LIKE SYMPTOMS Reason for Visit Stroke-like symptoms Chief Complaint STROKE-LIKE SYMPTOMS STROKE-LIKE SYMPTOMS Reason for Visit Aphasia Muscle spasm Stroke-like symptoms Chief Complaint STROKE-LIKE SYMPTOMS STROKE-LIKE SYMPTOMS Annual (MONORAIL HOOKER) VULVLAR LESION SCREENING Reason for Visit Aphasia [...] or prosecute any alcohol or drug abuse patient.[facility] the event this information is protected by the Federal Confidentiality of Alcohol and Drug Abuse Patient Records regulations: The Federal rules restrict any use of the information to criminally investigate or prosecute any alcohol or drug abuse patient.[facility] the event this information is protected by the Federal Confidentiality of Alcohol and Drug Abuse Patient Records regulations: The Federal rules restrict any use of the information to criminally investigate or prosecute any alcohol or drug abuse patient.[facility] Center[facility] the event this information is protected by the Federal Confidentiality of Alcohol and Drug Abuse Patient Records regulations: The Federal rules restrict any use of the information to criminally investigate or prosecute any alcohol or drug abuse patient.[facility] CenterIn the event this information is protected by the Federal Confidentiality of Alcohol and Drug Abuse Patient Records regulations: The Federal rules restrict any use of the information to criminally investigate or prosecute any alcohol or drug abuse patient.[facility] Center[facility] the event this information is protected by the Federal Confidentiality of Alcohol and Drug Abuse Patient Records regulations: The Federal rules restrict any use of the information to criminally investigate or prosecute any alcohol or drug abuse patient.[facility] CenterIn the event this information is protected by the Federal Confidentiality of Alcohol and Drug Abuse Patient Records regulations: The Federal rules restrict any use of the information to criminally investigate or prosecute any alcohol or drug abuse patient.[facility] CenterIn the event this information is protected by the Federal Confidentiality of Alcohol and Drug Abuse Patient Records regulations: The Federal rules restrict any use of the information to criminally investigate or prosecute any alcohol or drug abuse patient.[facility] CenterIn the event this information is protected by the Federal Confidentiality of Alcohol and Drug Abuse Patient Records regulations: The Federal rules restrict any use of the information to criminally investigate or prosecute any alcohol or drug abuse patient.[facility] CenterIn the event this information is protected by the Federal Confidentiality of Alcohol and Drug Abuse Patient Records regulations: The Federal rules restrict any use of the information to criminally investigate or prosecute any alcohol or drug abuse patient.[facility] CenterIn the event this information is protected by the Federal Confidentiality of Alcohol and Drug Abuse Patient Records regulations: The Federal rules restrict any use of the information to criminally investigate or prosecute any alcohol or drug abuse patient.[facility] CenterIn the event this information is protected by the Federal Confidentiality of Alcohol and Drug Abuse Patient Records regulations: The Federal rules restrict any use of the information to criminally investigate or prosecute any alcohol or drug abuse patient.[facility] CenterIn the event this information is protected by the Federal Confidentiality of Alcohol and Drug Abuse Patient Records regulations: The Federal rules restrict any use of the information to criminally investigate or prosecute any alcohol or drug abuse patient.[facility] CenterIn the event this information is protected by the Federal Confidentiality of Alcohol and Drug Abuse Patient Records regulations: The Federal rules restrict any use of the information to criminally investigate or prosecute any alcohol or drug abuse patient.[facility] CenterIn the event this information is protected by the Federal Confidentiality of Alcohol and Drug Abuse Patient Records regulations: The Federal rules restrict any use of the information to criminally investigate or prosecute any alcohol or drug abuse patient.[facility] CenterIn the event this information is protected by the Federal Confidentiality of Alcohol and Drug Abuse Patient Records regulations: The Federal rules restrict any use of the information to criminally investigate or prosecute any alcohol or drug abuse patient.[facility] CenterIn the event this information is protected by the Federal Confidentiality of Alcohol and Drug Abuse Patient Records regulations: The Federal rules restrict any use of the information to criminally investigate or prosecute any alcohol or drug abuse patient.[facility] CenterIn the event this information is protected by the Federal Confidentiality of Alcohol and Drug Abuse Patient Records regulations: The Federal rules restrict any use of the information to criminally investigate or prosecute any alcohol or drug abuse patient.[facility] CenterIn the event this information is protected by the Federal Confidentiality of Alcohol and Drug Abuse Patient Records regulations: The Federal rules restrict any use of the information to criminally investigate or prosecute any alcohol or drug abuse patient.[facility] CenterIn the event this information is protected by the Federal Confidentiality of Alcohol and Drug Abuse Patient Records regulations: The Federal rules restrict any use of the information to criminally investigate or prosecute any alcohol or drug abuse patient.[facility] CenterIn the event this information is protected by the Federal Confidentiality of Alcohol and Drug Abuse Patient Records regulations: The Federal rules restrict any use of the information to criminally investigate or prosecute any alcohol or drug abuse patient.[facility] CenterIn the event this information is protected by the Federal Confidentiality of Alcohol and Drug Abuse Patient Records regulations: The Federal rules restrict any use of the information to criminally investigate or prosecute any alcohol or drug abuse patient.[facility] CenterIn the event this information is protected by the Federal Confidentiality of Alcohol and Drug Abuse Patient Records regulations: The Federal rules restrict any use of the information to criminally investigate or prosecute any alcohol or drug abuse patient.[facility] CenterIn the event this information is protected by the Federal Confidentiality of Alcohol and Drug Abuse Patient Records regulations: The Federal rules restrict any use of the information to criminally investigate or prosecute any alcohol or drug abuse patient.[facility] CenterIn the event this information is protected by the Federal Confidentiality of Alcohol and Drug Abuse Patient Records regulations: The Federal rules restrict any use of the information to criminally investigate or prosecute any alcohol or drug abuse patient.[facility] CenterIn the event this information is protected by the Federal Confidentiality of Alcohol and Drug Abuse Patient Records regulations: The Federal rules restrict any use of the information to criminally investigate or prosecute any alcohol or drug abuse patient.[facility] CenterIn the event this information is protected by the Federal Confidentiality of Alcohol and Drug Abuse Patient Records regulations: The Federal rules restrict any use of the information to criminally investigate or prosecute any alcohol or drug abuse patient.[facility] CenterIn the event this information is protected by the Federal Confidentiality of Alcohol and Drug Abuse Patient Records regulations: The Federal rules restrict any use of the information to criminally investigate or prosecute any alcohol or drug abuse patient.[facility] CenterIn the event this information is protected by the Federal Confidentiality of Alcohol and Drug Abuse Patient Records regulations: The Federal rules restrict any use of the information to criminally investigate or prosecute any alcohol or drug abuse patient.[facility] CenterIn the event this information is protected by the Federal Confidentiality of Alcohol and Drug Abuse Patient Records regulations: The Federal rules restrict any use of the information to criminally investigate or prosecute any alcohol or drug abuse patient.[facility] CenterIn the event this information is protected by the Federal Confidentiality of Alcohol and Drug Abuse Patient Records regulations: The Federal rules restrict any use of the information to criminally investigate or prosecute any alcohol or drug abuse patient.[facility] CenterIn the event this information is protected by the Federal Confidentiality of Alcohol and Drug Abuse Patient Records regulations: The Federal rules restrict any use of the information to criminally investigate or prosecute any alcohol or drug abuse patient.[facility] CenterIn the event this information is protected by the Federal Confidentiality of Alcohol and Drug Abuse Patient Records regulations: The Federal rules restrict any use of the information to criminally investigate or prosecute any alcohol or drug abuse patient.[facility] CenterIn the event this information is protected by the Federal Confidentiality of Alcohol and Drug Abuse Patient Records regulations: The Federal rules restrict any use of the information to criminally investigate or prosecute any alcohol or drug abuse patient.[facility] CenterIn the event this information is protected by the Federal Confidentiality of Alcohol and Drug Abuse Patient Records regulations: The Federal rules restrict any use of the information to criminally investigate or prosecute any alcohol or drug abuse patient.[facility] CenterIn the event this information is protected by the Federal Confidentiality of Alcohol and Drug Abuse Patient Records regulations: The Federal rules restrict any use of the information to criminally investigate or prosecute any alcohol or drug abuse patient.[facility] CenterIn the event this information is protected by the Federal Confidentiality of Alcohol and Drug Abuse Patient Records regulations: The Federal rules restrict any use of the information to criminally investigate or prosecute any alcohol or drug abuse patient.[facility] CenterIn the event this information is protected by the Federal Confidentiality of Alcohol and Drug Abuse Patient Records regulations: The Federal rules restrict any use of the information to criminally investigate or prosecute any alcohol or drug abuse patient.[facility] CenterIn the event this information is protected by the Federal Confidentiality of Alcohol and Drug Abuse Patient Records regulations: The Federal rules restrict any use of the information to criminally investigate or prosecute any alcohol or drug abuse patient.[facility] CenterIn the event this information is protected by the Federal Confidentiality of Alcohol and Drug Abuse Patient Records regulations: The Federal rules restrict any use of the information to criminally investigate or prosecute any alcohol or drug abuse patient.[facility] CenterIn the event this information is protected by the Federal Confidentiality of Alcohol and Drug Abuse Patient Records regulations: The Federal rules restrict any use of the information to criminally investigate or prosecute any alcohol or drug abuse patient.[facility] CenterIn the event this information is protected by the Federal Confidentiality of Alcohol and Drug Abuse Patient Records regulations: The Federal rules restrict any use of the information to criminally investigate or prosecute any alcohol or drug abuse patient.[facility] CenterIn the event this information is protected by the Federal Confidentiality of Alcohol and Drug Abuse Patient Records regulations: The Federal rules restrict any use of the information to criminally investigate or prosecute any alcohol or drug abuse patient.[facility] CenterIn the event this information is protected by the Federal Confidentiality of Alcohol and Drug Abuse Patient Records regulations: The Federal rules restrict any use of the information to criminally investigate or prosecute any alcohol or drug abuse patient.[facility] CenterIn the event this information is protected by the Federal Confidentiality of Alcohol and Drug Abuse Patient Records regulations: The Federal rules restrict any use of the information to criminally investigate or prosecute any alcohol or drug abuse patient.[facility] CenterIn the event this information is protected by the Federal Confidentiality of Alcohol and Drug Abuse Patient Records regulations: The Federal rules restrict any use of the information to criminally investigate or prosecute any alcohol or drug abuse patient.[facility] Reason for Visit (unrecogniz ed section and [...] gangrene Procedures CONSULT TO GENERAL SURGERY OFFICE/OUTPATIENT [facility] 60-74 MINUTES Mak Luevano MD [address] [place] [address] Referral ID Status Reason Start Date Expiration Date V isits Requested Visits Authorized [id number] Closed PCP Requested Referral 01/29/2022 01/29/2023 1 [...] CONSULT TO SLEEP MEDICINE - ADULT OFFICE/OUTPATIENT [facility] MDM 60 MINUTES Dee Seaman APRN.BANK REPRESENTATIVE [address] [place] [address] Referral ID Status Reason Start Date Expiration Date V isits Requested Visits Authorized [id number] Closed PCP Requested Referral 11/17/2023 11/16/2024 1 1 Reason Comments Physical Care Teams (unrecognized sec tion and content) Multi Craft Maintenance Technician Relationship Specialty Start Date End Date Mak Luevano MD [address] [place] [place], [place] [id number] PCP - General Family Practice 01/24/21 Multi Craft Maintenance Technician Relationship Specialty Start Date End Date Mak Luevano MD [address] [place], [place] [id number] PCP - General Family Practice 01/24/21 Multi Craft Maintenance Technician Relationship Specialty Start Date End Date Mak Luevano MD [address] [place], [place] [id number] PCP - General Family Practice 01/24/21 Multi Craft Maintenance Technician Relationship Specialty Start Date End Date Mak Luevano MD [address] [facility] [place] [address] PCP - General Family Practice 01/24/21 Multi Craft Maintenance Technician Relationship Specialty Start Date End Date Mak Luevano MD [address] [facility] [place] [address] PCP - General Family Practice 01/24/21 Multi Craft Maintenance Technician Relationship Specialty Start Date End Date Mak Luevano MD [address] [facility] [place] [address] PCP - General Family Practice 01/24/21 Multi Craft Maintenance Technician Relationship Specialty Start Date End Date Mak Luevano MD [address] [facility] [place] [address] PCP - General Family Practice 01/24/21 Multi Craft Maintenance Technician Relationship Specialty Start Date End Date Mak Luevano MD [address] [facility] [place] [address] PCP - General Family Practice 01/24/21 Multi Craft Maintenance Technician Relationship Specialty Start Date End Date Mak Luevano MD [address] [facility] [place] [address] PCP - General Family Practice 01/24/21 Multi Craft Maintenance Technician Relationship Specialty Start Date End Date Mak Luevano MD [address] [facility] [place] [address] PCP - General Family Practice 01/24/21 Multi Craft Maintenance Technician Relationship Specialty Start Date End Date Mak Luevano MD [address] [facility] [place] [address] PCP - General Family Practice 01/24/21 Multi Craft Maintenance Technician Relationship Specialty Start Date End Date Mak Luevano MD [address] [facility] [place] [address] PCP - General Family Medicine 01/24/21 Multi Craft Maintenance Technician Relationship Specialty Start Date End Date Mak Luevano MD [address] [facility] [place] [address] PCP - General Family Medicine 01/24/21 Multi Craft Maintenance Technician Relationship Specialty Start Date End Date Mak Luevano MD [address] [facility] [place] [address] PCP - General Family Medicine 01/24/21 Multi Craft Maintenance Technician Relationship Specialty Start Date End Date Mak Luevano MD [address] [facility] [place] [address] PCP - General Family Medicine 01/24/21 Multi Craft Maintenance Technician Relationship Specialty Start Date End Date Mak Luevano MD [address] [facility] [place] [address] PCP - General Family Medicine 01/24/21 Multi Craft Maintenance Technician Relationship Specialty Start Date End Date Mak Luevano MD [address] [facility] [place] [address] PCP - General Family Medicine 01/24/21 Multi Craft Maintenance Technician Relationship Specialty Start Date End Date Mak Luevano MD [address] [facility] [place] [address] PCP - General Family Medicine 01/24/21 Multi Craft Maintenance Technician Relationship Specialty Start Date End Date Mak Luevano MD [address] [facility] [place] [address] PCP - General Family Medicine 01/24/21 Multi Craft Maintenance Technician Relationship Specialty Start Date End Date Mak Luevano MD [address] [facility] [place] [address] PCP - General Family Medicine 01/24/21 Multi Craft Maintenance Technician Relationship Specialty Start Date End Date Mak Luevano MD [address] [facility] [place] [address] PCP - General Family Medicine 01/24/21 Multi Craft Maintenance Technician Relationship Specialty Start Date End Date Mak Luevano MD [address] [place] [address] PCP - General Family Medicine 01/24/21 Multi Craft Maintenance Technician Relationship Specialty Start Date End Date Mak Luevano MD [address] [place] [address] PCP - General Family Medicine 01/24/21 Multi Craft Maintenance Technician Relationship Specialty Start Date End Date Mak Luevano MD [address] [place] [address] PCP - General Family Medicine 01/24/21 Multi Craft Maintenance Technician Relationship Specialty Start Date End Date Mak Luevano MD [address] [place] [address] PCP - General Family Medicine 01/24/21 Multi Craft Maintenance Technician Relationship Specialty Start Date End Date Mak Luevano MD [address] [place] [address] PCP - General Family Medicine 01/24/21 Multi Craft Maintenance Technician Relationship Specialty Start Date End Date Mak Luevano MD [address] [place] [address] PCP - General Family Medicine 01/24/21 Multi Craft Maintenance Technician Relationship Specialty Start Date End Date Mak Luevano MD [address] [place], [place] [address] PCP - General Family Medicine 01/24/21 Multi Craft Maintenance Technician Relationship Specialty Start Date End Date Mak Luevano MD [address] [place], [place] [id number] PCP - General Family Medicine 01/24/21 Multi Craft Maintenance Technician Relationship Specialty Start Date End Date Mak Luevano MD [address] [place], [place] [address] PCP - General Family Medicine 01/24/21 Multi Craft Maintenance Technician Relationship Specialty Start Date End Date Mak Luevano MD [address] [place] [address] PCP - General Family Medicine 01/24/21 Multi Craft Maintenance Technician Relationship Specialty Start Date End Date Mak Luevano MD [address] [place] [address] PCP - General Family Medicine 01/24/21 Multi Craft Maintenance Technician Relationship Specialty Start Date End Date Mka Luevano MD [address] [place] [address] PCP - General Family Medicine 01/24/21 Multi Craft Maintenance Technician Relationship Specialty Start Date End Date Mak Luevano MD [address], [place] [address] PCP - General Family Medicine 01/24/21 Dee Seaman, LUCY.BANK REPRESENTATIVE [address] [place] [address] Iron Pourer Family Medicine 04/19/24 Elsie Glaser APRN.BANK REPRESENTATIVE [address] [place] [address] Iron Pourer Family Medicine 04/19/24 Multi Craft Maintenance Technician Relationship Specialty Start Date End Date Mak Luevano MD [address] [place] [address] PCP - General Family Medicine 01/24/21 Dee Seaman APRN.BANK REPRESENTATIVE [address] [facility] [place] [address] Iron Pourer Family Medicine 04/19/24 Elsie Glaser APRN.BANK REPRESENTATIVE [address] [facility] [address] Iron Pourer Family Medicine 04/19/24 Multi Craft Maintenance Technician Relationship Specialty Start Date End Date Mak Luevano MD [address] [facility] [place] [address] PCP - General Family Medicine 01/24/21 Dee Seaman APRN.BANK REPRESENTATIVE [address] [facility] [place] [address] Iron Pourer Family Medicine 04/19/24 Elsie Glaser APRN.BANK REPRESENTATIVE [address] [facility] [place] [address] Iron Pourer Family Medicine 04/19/24 Multi Craft Maintenance Technician Relationship Specialty Start Date End Date Mak Luevano MD [address] [facility] [place] [address] PCP - General Family Medicine 01/24/21 Dee Seaman APRN.BANK REPRESENTATIVE [address] [facility] [place] [address] Iron Pourer Family Medicine 04/19/24 Elsie Glaser APRN.BANK REPRESENTATIVE [address] [facility] [place] [address] Iron Pourer Family Medicine 04/19/24 Goals (unrecognized section and content) Goals may be documented in a n alternate sectionGoals may be documented in an alternate section INFORMATION SOURCE (unrecogn ized section and content) DATE CREATED AUTHOR 04/08/2024 [facility] DATE CREATED AUTHOR AUTHOR'S SUHAIL NAVATIERNEY 10/24/2024 [facility] FOR RECORDS PERTAINING TO PATIENTS WHO ARE [...] BE BASED ON THE PRIMARY CLINICAL RECORDS. [employer] provides no warranty or guarantee of the accuracy or completeness of information in this document.
[2024-12-30] MEDS: Lactated Ringers 1,000 ML 100 ML IV (02:34)
[2024-12-30] MEDS: 0.9% Saline Lock 10 ML Syringe IV ×2 (02:34→20:16)
--- NOTE | 2024-12-30 02:55 | EKG12_ITS ---
Test Reason : PRE-OP Blood Pressure : */* mmHG Vent. Rate : 84 BPM Atrial Rate : 84 BPM P-R Int : 168 ms QRS Dur : 72 ms QT Int : 364 ms P-R-T Axes : 14 17 23 degrees QTcB Int : 430 ms Normal sinus rhythm Normal ECG When compared with ECG of 22-Oct-2021 00:51, No significant change was found Confirmed by ERIKA BANKS, LIDIA ([id number]), editorial cartoonist ANGELICA GREEN ([id number]) on 12/30/2024 1:38:01 PM Referred By: LUIS E Confirmed By: LIDIA JAMES MD
--- NOTE | 2024-12-30 07:27 | PCM.HP.STD ---
HPI - General General Date of Admission: 12/30/24 Date of Service: 12/30/24 Chief Complaint: Right upper and lower quadrant pain HPI Narrative JUVENAL AMARO, is a 54 F who presents with a 2 day history of abdominal pain associated with nausea and vomiting. She notes the pain started on Friday evening around 7 pm. She states she was working out and thought she may have strained a muscle as she was trying new exercises. She states she had the feeling to go to the bathroom and was unable to find relief. She noted sleeping all day yesterday and noted the pain localized on the right side of her abdomen. Patient states she had an open appendectomy somewhere in [id number]. She notes being told at that time that the appendix was really inflamed and on the verge of rupturing. She stated being hospitalized for 3 days after the procedure. She notes the only thing she can think of is that the appendix was too inflamed that the surgeon was not able to remove all of it. She voices she is very much surprised that she still has an appendix. Patient denies any cardiac history. She notes a history of sleep apnea. She does not where a CPAP machine. She is not on any blood thinners or weight loss medications. CT scan of the ab/pel demonstrated: IMPRESSION: Multiple appendicoliths are noted in the enlarged, diffusely thickened appendix measuring 1.6 cm in its largest transverse dimension. Surrounding inflammatory fat stranding is noted suggestive of acute appendicitis without perforation or abscess formation. Unremarkable intrauterine device. Multiple uterine leiomyomas with the largest measuring 3.5 cm. 2.4 cm simple hepatic cyst. No follow-up is needed. Fat containing umbilical hernia without incarceration. Diffuse thickening of the stomach suggestive of gastritis. [facility] Medical History (Updated 12/30/24 @ 08:25 by Macy CARDONA PA-C) Sleep apnea Migraine Physical exam, pre-employment Graves disease COVID GERD (gastroesophageal reflux disease) History of cyst of breast Anxiety CHLOE III (vulvar intraepithelial neoplasia III) Abnormal Pap smear of cervix GERDS Anxiety Home Medications ?Medication ?Instructions ?Recorded ?Last Taken ?Type sumatriptan succinate 50 mg tablet 50 mg PO PRN PRN Headache 07/28/15 Unknown History esomeprazole magnesium 40 mg 40 mg PO DAILY reflux 10/30/20 Unknown History capsule,delayed release (Nexium) famotidine 20 mg tablet 20 mg PO BID reflux 10/22/21 Unknown History desvenlafaxine succinate 50 mg 50 mg PO DAILY 04/30/22 Unknown History tablet,extended release 24 hr (Pristiq) levonorgestrel (Mirena) 1 device intrauterine ONCE 07/04/22 Unknown History estradiol 1 mg tablet 1 mg PO DAILY #90 tabs 12/26/23 Unknown Rx Allergy/AdvReac Type Severity Reaction Status Date / Time No Known Allergies Allergy Verified 12/29/24 21:36 Family History Grandmother Colon cancer Heart disease Grandfather CVA (cerebral vascular accident) Cancer bladder Aunt Breast cancer Surgical History History of endometrial ablation hx of cyst aspirartion History of wisdom tooth extraction, class II edentulism uterine ablation Hx of appendectomy History of tonsillectomy and adenoidectomy Social History (Updated 12/26/23 @ 14:05 by Catherine Marin) Smoking Status: Former smoker alcohol intake: current details: social substance use type: does not use caffeine: Yes what type of physical activity do you participate in: none seatbelt use: always do you feel safe at home: Yes additional social history: Owen- Jose PALMER Elsy Stepdaughter Patient works at [employer] Constitutional Constitutional: Reports systems reviewed and no addt'l complaints, except as documented Eyes Eyes: Reports systems reviewed and no addt'l complaints, except as documented ENT HEENT: Reports systems reviewed and no addt'l complaints, except as documented Cardiovascular Cardiovascular: Reports systems reviewed and no addt'l complaints, except as documented Respiratory/Chest Respiratory/Chest: Reports systems reviewed and no addt'l complaints, except as documented Gastrointestinal Gastrointestinal: Reports systems reviewed and no addt'l complaints, except as documented Genitourinary Genitourinary: Reports systems reviewed and no addt'l complaints, except as documented Musculoskeletal Musculoskeletal: Reports systems reviewed and no addt'l complaints, except as documented Integumentary Integumentary: Reports systems reviewed and no addt'l complaints, except as documented Neurologic Neurologic: Reports systems reviewed and no addt'l complaints, except as documented Psychiatric Psychiatric: Reports systems reviewed and no addt'l complaints, except as documented Endocrine Endocrinology: Reports systems reviewed and no addt'l complaints, except as documented Hematologic/Lymphatic Hematologic/Lymphatic: Reports systems reviewed and no addt'l complaints, except as documented Allergic/Immunologic Allergic/Immunologic: Reports systems reviewed and no addt'l complaints, except as documented Vital Signs Vital Signs Vital Signs: 12/29/24 21:35 12/29/24 23:35 12/30/24 01:00 Temperature 98.3 F Temperature Source Oral Pulse Rate 90 79 91 Respiratory Rate 14 18 Respiratory Effort Respiratory Depth Respiratory Pattern Blood Pressure 109/68 113/71 102/68 Blood Pressure Mean 81 85 79 Blood Pressure Source Blood Pressure Position Blood Pressure Location Pulse Ox 94 96 95 Oxygen Delivery Method Room Air Room Air Room Air 12/30/24 01:10 12/30/24 01:11 12/30/24 01:11 Temperature 98.6 F 98.6 F 98.6 F Temperature Source Oral Pulse Rate 78 78 78 Respiratory Rate 18 18 18 Respiratory Effort Respiratory Depth Respiratory Pattern Blood Pressure 102/68 102/68 102/68 Blood Pressure Mean 79 79 79 Blood Pressure Source Blood Pressure Position Blood Pressure Location Pulse Ox 100 100 100 Oxygen Delivery Method Room Air 12/30/24 02:12 12/30/24 02:23 Temperature 98.2 F Temperature Source Oral Pulse Rate 77 Respiratory Rate 16 Respiratory Effort Normal Respiratory Depth Normal Respiratory Pattern Normal Blood Pressure 99/53 L Blood Pressure Mean 68 Blood Pressure Source Monitor Blood Pressure Position Semi-Fowlers Blood Pressure Location Right Arm Pulse Ox 96 Oxygen Delivery Method Room Air Room Air Weight Weight: 164 lb 14.492 oz Body Mass Index (BMI) 26.6 Physical Exam Const alert, oriented x3 and no apparent distress HEENT normocephalic and head/scalp atraumatic Eyes PERRL Neck full ROM Resp normal respiratory effort and clear to auscultation bilaterally Cardio regular rate and regular rhythm GI GI Narrative: Abdomen- soft, tenderness with guarding of the right upper and lower quadrant of the abdomen. Positive bowel sounds. no CVA tenderness Back/Spine no CVA tenderness Extremity normal to inspection Skin no rashes or lesions noted Neuro no focal motor deficits and no sensory deficits noted Psych mental status grossly normal Results Lab / Micro Data 12/29/24 21:45 12/29/24 21:45 Labs: Laboratory Results - last 24 hr 12/29/24 21:45: WBC 14.9 H, RBC 4.16 L, Hgb 13.2, Hct 38.3, MCV 92.1, MCH 31.7, MCHC 34.5, RDW Std Deviation 41.6, RDW Coeff of Giorgio 12.4, Plt Count 385, MPV 9.9, Immature Gran % (Auto) 0.300, Neut % (Auto) 72.1 H, Lymph % (Auto) 18.6 L, [place] % (Auto) 8.5, Eos % (Auto) 0.1, Baso % (Auto) 0.4, Absolute Neuts (auto) 10.8 H, Absolute Lymphs (auto) 2.77, Nucleated RBC % 0, Sodium 137, Potassium 4.2, Chloride 101, Carbon Dioxide 20.8 L, Anion Gap 15, BUN 10, Creatinine 0.89, Estim Creat Clear Calc 75.36, Est GFR (MDRD) Non-Af 78, BUN/Creatinine Ratio 11.5, Glucose 131 H, Calcium 9.7, Total Bilirubin 0.52, AST 12, ALT 14, Alkaline Phosphatase 55, Total Protein 7.5, Albumin 4.3, Globulin 3.2, Albumin/Globulin Ratio 1.3, Lipase 11 L, Serum , Qual NEGATIVE 12/29/24 23:38: Urine Color Yellow, Urine Clarity Sl. Cloudy, Urine pH 6.0, Ur Specific [place] 1.020, Urine Protein 100 H, Urine Glucose (UA) Normal, Urine Ketones 15 H, Urine Occult Blood 150 H, Urine Nitrite Negative, Urine Bilirubin Negative, Urine Urobilinogen Normal, Ur Leukocyte Esterase Negative, Urine RBC 0-5 SEEN, Urine WBC 0-5 SEEN, Ur Squamous Epith Cells 5-10 SEEN, Ur Transition Epith Cell 0-5 SEEN, Urine Bacteria 3+, Urine Mucus 0 SEEN Imaging Radiology Impression Abdomen/Pelvis CT 12/29/24 22:53 IMPRESSION: Multiple appendicoliths are noted in the enlarged, diffusely thickened appendix measuring 1.6 cm in its largest transverse dimension. Surrounding inflammatory fat stranding is noted suggestive of acute appendicitis without perforation or abscess formation. Unremarkable intrauterine device. Multiple uterine leiomyomas with the largest measuring 3.5 cm. 2.4 cm simple hepatic cyst. No follow-up is needed. Fat containing umbilical hernia without incarceration. Diffuse thickening of the stomach suggestive of gastritis. Reading Location: [place] [address] Assessment & Plan Assessment/Plan (1) Acute appendicitis: QUALIFIERS: Acute appendicitis type: with localized peritonitis Appendicitis gangrene presence: without gangrene Appendicitis perforation presence: without perforation Appendicitis abscess presence: without abscess Qualified Code(s): K35.30 - Acute appendicitis with localized peritonitis, without perforation or gangrene PLAN: I am seeing this patient in conjunction with Dr. Euceda. He will independently evaluated this patient. Patient is a 54 y/o F who presents with a 2 day history of worsening right sided abdomen pain with associated nausea and vomiting. CT scan demonstrated acute appendicitis with appendicolith. Dr. Euceda will plan to perform a laparoscopic appendectomy. Procedure details, risks and benefits have been explained to the patient. Patient has had the opportunity to ask and have questions answered. Patient verbally understands and agrees with the plan. She is agreeable to proceed with the proposed procedure. Patient may be held onto for observation depending on her recovery. Thank you for allowing us to participate in this patient's care. Charges/Coding Visit Charges OBSV E&M: 81689 Observ/hosp same date L2
--- NOTE | 2024-12-30 11:36 | PRE.ANES_ITS ---
ASA Classification* ASA Classification ASA Classification: 2 and E Assessment & Plan Anesthesia* Anesthesia Assessment Anesthesia Assessment: Discussed sedation and/or anesthesia options, risks, benefits, and alternatives with patient/parents/legal guardian/POA. Questions invited. The patient/parents/legal guardian/POA seems to understand and agrees to proceed with anesthesia plan. Reviewed the physical assessment, medical history, allergy history and patient home medications list prior to surgery/procedure/anesthetic and documented any changes. Performed airway and anesthesia risk assessments. Anesthesia Type Anesthesia Type: General History Source History Obtained from:: Patient and Chart Anesthesia Focused Assessment* Temperature: 98.5 F Pulse Rate: 89 Blood Pressure: 105/59 Respiratory Rate: 16 Pulse Ox: 99 Oxygen Delivery Method: Room Air Airway Assessment Mouth opens: 2 cm Mallampati Score: II Teeth Condition: Intact Neck Range of motion (ROM): Full ROM Labs Anesthesia Preop lab: CBC WBC 14.9 K/mm3 (4.4-11.0) H 12/29/24 21:45 5 RBC 4.16 M/mm3 (4.2-5.4) L 12/29/24 21:45 12/29/24 Hgb 13.2 g/dL (12.0-15.0) 12/29/24 21:45 12/29/24 Hct 38.3 % (37-47) 12/29/24 21:45 12/29/24 Plt Count 385 K/mm3 (150-450) 12/29/24 21:45 12/29/24 CHEMISTRY Potassium 4.2 mmol/L (3.3-5.1) 12/29/24 21:45 12/29/24 Sodium 137 mmol/L (133-145) 12/29/24 21:45 12/29/24 BUN 10 mg/dL (4-19) 12/29/24 21:45 12/29/24 Creatinine 0.89 mg/dL (0.70-1.20) 12/29/24 21:45 12/29/24 Glucose 131 mg/dL (70-99) H 12/29/24 21:45 12/29/24 POC Glucose 104 mg/dL (74-106) 10/22/21 00:49 10/22/21 TSH 2.31 uIU/mL (0.358-3.74) 11/10/20 07:35 COAG PT 12.7 SECONDS (11.7-14.9) 10/22/21 01:35 Pre-Assessment Diagnosis/Proposed Procedure Planned Operative Procedure(s): Laparoscopic Appendectomy Anesthesia History 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 When Was Last Pacemaker Check QUESTION #4 FULL TEXT: You/Your Family Experience fever (hyperthermia) with Anesthesia Last Oral Intake Last Oral intake: Last Oral Intake NPO since Meds taken in AM with sips of water? Meds patient instructed to take am of surgery PONV PONV - associate software development engineer: PONV - associate software development engineer Female HX of Motion Sickness HX of N/V After Surgery Non-Smoker Duration of Surgery greater than 60 minutes Number of Risk Factors PONV Score Height & Weight Height & Weight: Anesthesia: Height & Weight Height 5 ft 6 in 12/30/24 02:08 Weight: 74.8 kg 12/30/24 02:08 Body Mass Index (BMI) 26.6 12/30/24 02:08 Respiratory Assessment Respiratory Assessment - associate software development engineer: Respiratory Tract Infection Hx - associate software development engineer Hx Respiratory Tract Infection No 12/30/24 02:20 STOP Sleep Apnea STOP Sleep Apnea - associate software development engineer: STOP Sleep Apnea - associate software development engineer Hx Hypertension No 12/30/24 02:13 Hx Sleep Apnea Yes 12/30/24 02:13 CPAP No 12/30/24 02:13 BIPAP No 12/30/24 02:13 Do you snore loudly (louder than talking or can be heard Do you often feel tired/ fatigued/ sleepy during daytime? Has anyone observed you stop breathing during sleep? STOP Results Positive 12/30/24 02:13 QUESTION #5 FULL TEXT : Do you snore loudly (louder than talking or can be heard through closed doors)? 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 Specify any problems Hx of Preganancy in last 3 No 12/30/24 02:13 Months Nurse Filling Out Transfusion MSTEFANIC 12/30/24 02:13 & Questions: Date: 12/30/24 12/30/24 02:13 Time: 02:14 12/30/24 02:13 Patient unable to answer at this time (ie. confused, unrespo /Reproduction History /Reproductive History - associate software development engineer: /Reproductive Hx- associate software development engineer Hx Now No 12/30/24 02:20 Gestational Age (in weeks): EDC: Hx Hx Para Hx Section SAB No 12/30/24 02:20 Active Medications Active Medications: Current Medications Generic Name Dose Route Start Last Admin Trade Name Freq PRN Reason Stop Dose Admin Acetaminophen 1,000 mg 12/30/24 06:00 12/30/24 05:22 Acetaminophen 500 Mg Tablet PO 1,000 mg Q8 DAVID Administration Lactated Ringer's 1,000 mls @ 100 mls/hr 12/30/24 02:01 12/30/24 02:34 IV 100 mls/hr .Q10H DAVID Administration Piperacillin Sod/Tazobactam 50 mls @ 12.5 mls/hr 12/30/24 06:00 12/30/24 05:22 Sod 3.375 gm/ Sodium Chloride IV 12.5 mls/hr Q8 DAVID Administration Sodium Chloride 250 mls @ 15 mls/hr 12/30/24 02:19 IV .[id number] PRN Additional IVPB Infusion Morphine Sulfate 2 - 4 mg 12/30/24 02:01 Morphine 2 Mg/Ml Syringe IV Q3H PRN PRN Pain Score 6-10 Ondansetron HCl 4 mg 12/30/24 02:01 Ondansetron 4 Mg/2 Ml Vial IV Q8H PRN PRN NAUSEA/VOMITING Oxycodone HCl 5 mg 12/30/24 02:01 Oxycodone 5 Mg Tablet PO Q4H PRN PRN Pain Score 4-10 Sodium Chloride 10 - 40 ml 12/30/24 02:19 12/30/24 02:34 0.9% Saline Lock 10 Ml Syringe IV 10 ml UD PRN Administration SALINE FLUSH PFSH Medical History (Updated 12/30/24 @ 08:25 by Macy CARDONA, PACristinaC) Sleep apnea Migraine Physical exam, pre-employment Graves disease COVID GERD (gastroesophageal reflux disease) History of cyst of breast Anxiety CHLOE III (vulvar intraepithelial neoplasia III) Abnormal Pap smear of cervix GERDS Anxiety Home Medications ?Medication ?Instructions ?Recorded ?Last Taken ?Type sumatriptan succinate 50 mg tablet 50 mg PO PRN PRN He adache 07/28/15 Unknown History esomeprazole magnesium 40 mg 40 mg PO DAILY reflux Unknown History capsule,delayed release (Nexium) famotidine 20 mg tablet 20 mg PO BID reflux 10/22/21 Unknown History desvenlafaxine succinate 50 mg 50 mg PO DAILY 04/30/22 Unknown History tablet,extended release 24 hr (Pristiq) levonorgestrel (Mirena) 1 device intrauterine ONCE 0 07/04/22 Unknown History estradiol 1 mg tablet 1 mg PO DAILY #90 tabs 12/25 Unknown Rx Allergy/AdvReac Type Severity Reaction Status Date / Time No Known Allergies Allergy Verified 12/29/24 21:36 Family History Grandmother Colon cancer Heart disease Grandfather CVA (cerebral vascular accident) Cancer bladder Aunt Breast cancer Surgical History History of endometrial ablation hx of cyst aspirartion History of wisdom tooth extraction, class II edentulism uterine ablation Hx of appendectomy History of tonsillectomy and adenoidectomy Social History (Updated 12/26/23 @ 14:05 by Catherine Marin) Smoking Status: Former smoker alcohol intake: current details: social substance use type: does not use caffeine: Yes what type of physical activity do you participate in: none seatbelt use: always do you feel safe at home: Yes additional social history: Owen- Jose PALMER Elsy Stepdaughter Patient works at [employer] Review of Systems (Anesthesia) ROS Narrative System reviewed and no additional complaints, except as documented.
[2024-12-30] MEDS: 0.9% Normal Saline (1000mL) 1,000 ML 15 ML IV (11:50)
--- NOTE | 2024-12-30 12:00 | APP_PTH ---
PATIENT: JUVENAL AMARO LOC: MS3 U#:[id number] AGE/SX: 54/F ROOM: ND315 RE12/30/[address]: Dr. Judah Euceda MD : 1970 BED: 1 DIS: 12/31/2024 SPEC #: [id number] RECD: 12/30/24 16:48 STATUS: ANDREA REElias #: [id number] CAMPBELL: 12/30/24 12:[address]: Judah Euceda DEPT: SURGICAL PATHOLOGY RECD BY: James Tejada ENTERED: 12/31/24 09:55 SP TYPE: APPENDIX OTHR DR: Dr. Mak Quezada MD Tissues: A - Appendix, NOS B - HERNIA Procedures: Surgery Specimen Level II Surgery Specimen Level III HEADER OPERATION: Laparoscopic, appendectomy with umbilical hernia repair PRE-OP DIAGNOSIS: Appendicitis, umbilical hernia TISSUE SUBMITTED: A- Appendix, B- Umbilical hernia contents MICROSCOPIC DIAGNOSIS A. Appendix, laparoscopic appendectomy: - Acute appendicitis with contained perforation. B. Hernia, umbilical, repair: - Fibroadipose tissue with attenuated mesothelium, consistent with hernia sac. MICROSCOPIC DESCRIPTION Slides are reviewed. GROSS DESCRIPTION Received in 2 formalin containers labeled with the patient's name and date of . Designated as: A. Appendix is a 4.9 x 0.6 cm zayas-iyer to red, disrupted appendix. The margin is inked black and shaved. Sectioning reveals zayas to light brown, soft and focally necrotic cut surfaces with a minimal amount of taupe fecal material within the lumen. Body And Frame Man sections are submitted in 1 cassette. B. Umbilical hernia contents is a 3.5 x 2.7 x 0.7 cm aggregate of yellow, focally congested fatty tissue. Body And Frame Man sections are submitted in 1 cassette. MO 12/31/2024PT:[id number]
[2024-12-30] MEDS: Bupiv/Epi 0.25% 30 ML Vial (12:34)
[2024-12-30] MEDS: Lidocaine 1% (5 ml sdv) 5 ML Vial 3 ML IV (12:47)
[2024-12-30] MEDS: fentaNYL 100 MCG/2 ML Ampul 150 MCG IV (12:47)
[2024-12-30] MEDS: NORMAL SALINE 2600 ML IV (14:25)
--- NOTE | 2024-12-30 14:30 | PCM.OPRPT ---
Problems Associated Problem List Diagnoses (1) Acute appendicitis: (2) Umbilical hernia: Multi Select Codes Digestive Digestive CPT Codes: 90619 Laparoscopy appendectomy and 77761 RPR AA HRN 1ST < 3 CM RDC Operative Report (Standard) Operative Information Date of Procedure: 12/30/24 Pre-Operative Diagnosis: 1. acute appendicitis 2. umbilical hernia Post-Operative Diagnosis: same Surgery/Procedure Performed: 1. laparoscopic appendectomy 2. umbilical hernia repair agricultural produce commission agent: Yes Machine Operator Replanter: Reshma Moore Tasks completed by assistant office manager: Retracting and Other Additional events and promotions assistant?: Yes Additional Registered Nurse Cardiac Telemetry #2: Anne Link Tasks completed by events and promotions assistant #2: Closing, Retracting and Other Additional events and promotions assistant?: No Type of Anesthesia: General and Local RN Documented Start/Stop Times: Operation Date: 12/30/24 12:00 Case Time Into Pre-Op 12/30/24 11:08 Anesthesia Start 12/30/24 12:42 Into Room 12/30/24 12:42 Procedure Start 12/30/24 13:07 Procedure End 12/30/24 14:35 Anesthesia End 12/30/24 14:41 Out of Room 12/30/24 14:41 Into Recovery 12/30/24 14:43 Procedure Start Time: 13:07 Procedure Stop Time: 14:00 Select all DRAINS/GRAFTS/IMPLANTS that apply: None Special Medications: Floseal Estimated Blood Loss: 15 ml Specimen collected: Yes Description of specimen(s) removed: 1. appendix 2. hernia contents Description of surgery: The patient is a 54-year-old female who was admitted through the emergency room last night with abdominal pain. She was found on imaging to have what appeared to be acute appendicitis. She reportedly had an appendectomy performed back in the mid for what was said to be near ruptured appendicitis. She really had no GI symptoms or problems until about 2 days prior. She presented emergency room was found to have an elevated white blood cell count and CT scan seem to indicate appendicitis with fecalith. She also had an umbilical hernia containing fat. I offered her a laparoscopic appendectomy as well as umbilical hernia repair surgery. We discussed the details of the planned procedure and she wished to proceed. She was brought to the operating today following informed consent. Antibiotics were given and a timeout was performed. She was placed supine on the operative table with arms outstretched on arm boards. Her left arm was then later tucked at her side. A general endotracheal anesthesia was induced. The abdomen was then prepped and draped in the usual sterile manner. A 5 mm incision was made just above the umbilicus which a 5 mm trocar was placed optically. This was placed through the small fat-containing hernia. The abdomen is then fully insufflated with CO2 gas. A 5 mm 0 degree scope was inserted. There were no signs of bowel or vascular injury. Another 5 mm trocar was placed under direct visualization in the left lower quadrant and a 12 mm trocar was placed under direct visualization in the left upper quadrant. These were all placed without difficulty. The patient was then rolled to the left slightly to improve exposure to the right lower quadrant. There appeared to be some chronic adhesions to the region of the cecum. These were taken down carefully using harmonic scalpel. Some of the lateral peritoneal attachments of the cecum were also taken down to improve mobility of the cecum. Bowel graspers were then used to traced the small bowel to the terminal ileum and this was seen going into the cecum. The terminal ileum was then reflected medially to improve exposure. At this point very careful dissection was performed to take down the adhesions and to eventually identify the appendix. This was seen to be thickened and consistent with acute appendicitis. The appendix basically came off of the cecum and was pointed directly posteriorly. It was densely adherent to the surrounding tissues. I was able to create a small window bluntly in the mesoappendix and was able to use a SILVA stapler to detach the appendix from the cecum. The stapler was fired flush with the cecum so that no appendiceal stump remained. Once the appendix was transected, blunt dissection with the suction non licensed nuclear plant operator tip was then commenced. I was able to then traced this down to its tip. There was some mild bleeding from the deeper recesses of the appendiceal bed. I was then able to use harmonic scalpel to provide hemostasis. After the appendix was freed up, it was placed into a bag and brought out through the 12 mm trocar site. The right lower quadrant was then copiously irrigated with about 2 L of saline until clear. To ensure hemostasis, hemostatic powder was placed in the right lower quadrant. Attention was then turned towards the umbilical hernia. A curvilinear incision was made around the superior aspect of the umbilicus. Bovie electrocautery was then used to dissect down through subcutaneous tissues down to the level of the fascia. Once at the fascial level of the skin of the umbilicus and hernia sac were then encircled using a Dana clamp. The overlying umbilical skin was detached from the hernia sac. The hernia sac and contents were excised and sent to pathology. The fascial defect was fairly small measuring about 5 mm in size. This was amenable to primary closure using no Nurolon. About 4 interrupted sutures were placed for this repair. This closed the fascial defect nicely. 3-0 Vicryl was then used to reaffixed the umbilical skin to the underlying fascia. 3-0 Vicryl was also used to reapproximate the subdermal layer. 4-0 Vicryl was then used to close all the skin incisions. Skin glue was applied to the incisions. A total of 30 cc of local anesthetic were injected into the incisions. The patient was awakened from anesthesia. Abdominal binder was also placed on the patient. She was taken to recovery room in good condition. Surgical Findings: see op note Complications Complications: No Admit VTE Documentation VTE Present on Admission: No VTE Mechan Device Prophylaxis: SCD's VTE Pharm Prophylaxis ordered?: No Reason prophylaxis not ordered: Treatment Not Indicated
--- NOTE | 2024-12-30 14:50 | PCM.POST.ANE ---
Anesthesia: Postop Eval I Current Vital Signs Temperature: 97.0 F Pulse Rate: 101 Blood Pressure: 107/70 Respiratory Rate: 16 Pulse Ox: 93 Oxygen Delivery Method: Nasal Cannula Oxygen Flow Rate (L/min): 4 Assessment Airway patent: Yes Spontaneous unlabored respirations: Yes Mental status: Awake and Calm nausea: No Vomiting: No Anesthesia Complication: No Fluid Hydration Crystalloid volume administer (ml): 1,600 Total IV fluid infused: 1,600 Progress Note Anesthesia document: Postop Eval 1 completed: Yes
[2024-12-30] MEDS: 0.9% Normal Saline (1000mL) 1,000 ML 100 ML IV (20:15)
[2024-12-31] VITALS (9 sets, daily range): BP systolic 100–117; BP diastolic 61–78; PULSE 83–99; RESP 17–18; TEMP 36.5–36.9; O2SAT 92–95
[2024-12-31] MEDS: Ketorolac 30 MG/ML Syringe IV ×2 (02:16→11:24)
[2024-12-31] MEDS: 0.9% Saline Lock 10 ML Syringe IV (02:18)
[2024-12-31] MEDS: Piperacil/Tazobactam 3.375 GM in 0.9% Normal Saline (50mL MB+) 50 ML IV ×2 (06:07→14:28)
[2024-12-31 06:42] LABS: Hematocrit 28.4 % (37-47); Hemoglobin 9.4 g/dL (12.0-15.0); Immature Granulocytes Count 0.060 X10^3/uL (0.0-0.0); Mean Corp Hgb Conc 33.1 g/dL (32-36); Mean Corpuscular Volume 95.3 fL (81-99); Mean Platelet Vol. 10.1 fl (6.2-12.0); NRBC Flagged by Analyzer 0 % (0-5); Platelet Count 263 K/mm3 (150-450); RBC Distribution Width CV 12.7 % (11.6-14.6); RBC Distribution Width SD 44.7 fl (35.1-43.9); Red Blood Count 2.98 M/mm3 (4.2-5.4); White Blood Count 11.8 K/mm3 (4.4-11.0)
[2024-12-31] MEDS: 0.9% Normal Saline (1000mL) 1,000 ML 100 ML IV (07:02)
[2024-12-31 08:27] LABS: Anion Gap 13 (5-15); BUN 8 mg/dL (4-19); BUN/Creat Ratio 12.0 RATIO (10-20); Calcium,Total 7.9 mg/dL (7.6-11.0); Carbon Dioxide 18.7 mmol/L (21.0-32.0); Chloride 108 mmol/L (98-108); Estimated Creatinine Clearance 100.76 ml/min (50-250); Glucose 115 mg/dL (70-99); Potassium 3.6 mmol/L (3.3-5.1)
--- NOTE | 2024-12-31 14:37 | CHAPLAIN ---
Type of Pastoral Visit _x__ Initial Visit ___ Follow-up Visit ___ On-call Visit ___ General Patient Visit ___ Spiritual Assessment ___ Family Conference ___ Bereavement ___ Rapid Response ___ Code Blue ___ Other (describe below) Pastoral Care Referral From _x__ Patient ___ Family ___ Nurse ___ Physician ___ Business Management Intern ___ Pile Driving Supervisor ___ Other (describe below) Sacrament/Intervention _x__ Active listening ___ Anointing ___ Caodaism ___ Bereavement ___ Communion ___ Kirsten exploration ___ ___ Life review ___ Prayer ___ Reconciliation ___ Sacrament of Sick ___ Supportive presence ___ Wedding ___ Other (describe below) Pastoral Comments patient and spouse are in the room; spouse is working on a computer; pt is post op and is expressing relief at surgery conclusion and the prospect of going home; pt reports on past surgery; pt speaks of a daughter in nursing school which gives some insights into medical issues; pt is pleasant and denies worries at this time; pt expresses gratitude for the offer of support
--- NOTE | 2024-12-31 16:06 | PCM.PN.SRG ---
Subjective Subjective Patient seen and examined several times throughout the day. Patient continues to be improving after laparoscopic appendectomy yesterday. Patient has been up and ambulating. Pain is been well-controlled with current pain medications. Initially she was on nasal cannula oxygen which has since been weaned off this afternoon. Patient feels comfortable with discharge home Objective Data Objective Data Vital Signs: Vital Signs Temp Pulse Resp BP Pulse Ox O2 Del Method O2 Flow Rate 97.9 F 91 18 114/78 93 Room Air 2 12/31/24 11:00 12/31/24 11:00 12/31/24 11:00 12/31/24 11:00 12/31/24 14:30 12/31/24 14:30 12/31/24 13:00 Oxygen Flow Rate (L/min) 2 Oxygen Delivery Method Room Air Weight: 164 lb 14.492 oz Body Mass Index (BMI) 26.6 Intake & Output: Intake and Output for Last 24 Hours 12/29/24 12/30/24 12/31/24 23:59 23:59 23:59 Intake Total 3150 / 3150 1350 / 1350 Output Total Balance 3120 / 3120 1350 / 1350 Lab / Micro Data 12/31/24 05:58 12/31/24 05:58 Labs: Laboratory Results - last 24 hr 12/31/24 05:58: WBC 11.8 H, RBC 2.98 L, Hgb 9.4 L, Hct 28.4 L, MCV 95.3, MCH 31.5, MCHC 33.1, RDW Std Deviation 44.7 H, RDW Coeff of Giorgio 12.7, Plt Count 263, MPV 10.1, Immature Gran % (Auto) 0.500, Neut % (Auto) 77.2 H, Lymph % (Auto) 11.9 L, Petroleum % (Auto) 9.8, Eos % (Auto) 0.3, Baso % (Auto) 0.3, Absolute Neuts (auto) 9.1 H, Absolute Lymphs (auto) 1.40, Nucleated RBC % 0, Sodium 139, Potassium 3.6, Chloride 108, Carbon Dioxide 18.7 L, Anion Gap 13, BUN 8, Creatinine 0.66 L, Estim Creat Clear Calc 100.76, Est GFR (MDRD) Non-Af 104, BUN/Creatinine Ratio 12.0, Glucose 115 H, Calcium 7.9 Physical Exam Narrative She is alert and oriented x 3. She is in no acute distress. Abdomen is soft and appropriately tender. Abdominal binder was in place. Very minimal bruising. No signs of erythema or infection. Assessment & Plan Assessment/Plan (1) Umbilical hernia: (2) Acute appendicitis: QUALIFIERS: Acute appendicitis type: with localized peritonitis Appendicitis gangrene presence: without gangrene Appendicitis perforation presence: without perforation Appendicitis abscess presence: without abscess Qualified Code(s): K35.30 - Acute appendicitis with localized peritonitis, without perforation or gangrene PLAN: Plan The patient is a 54-year-old female who is postoperative day #1 from a laparoscopic appendectomy. Patient apparently had a previous appendectomy 30 years ago. She is doing well postoperatively. An umbilical hernia repair was also performed during the operation yesterday as well. She is doing well from my standpoint and we will plan for discharge.
--- NOTE | 2024-12-31 16:08 | PCM.DC.SUM ---
Providers Date of Admission: 12/30/24 Date of Discharge: 12/31/24 Primary Care Physician: Dr. Mak Quezada MD Reason For Visit: APPENDICITIS Diagnosis Discharge Diagnosis (1) Umbilical hernia: Status: Acute Code(s): K42.9 - Umbilical hernia without obstruction or gangrene (2) Acute appendicitis: Status: Acute Code(s): K35.80 - Unspecified acute appendicitis Qualifiers: Acute appendicitis type: with localized peritonitis Appendicitis gangrene presence: without gangrene Appendicitis perforation presence: without perforation Appendicitis abscess presence: without abscess Qualified Code(s): K35.30 - Acute appendicitis with localized peritonitis, without perforation or gangrene Plan The patient is a 54-year-old female who is postoperative day #1 from a laparoscopic appendectomy. Patient apparently had a previous appendectomy 30 years ago. She is doing well postoperatively. An umbilical hernia repair was also performed during the operation yesterday as well. She is doing well from my standpoint and we will plan for discharge. Medications at Discharge Home Medications sumatriptan succinate 50 mg tablet 50 mg PO PRN PRN Headache 07/28/15 esomeprazole magnesium 40 mg capsule,delayed release (Nexium) 40 mg PO DAILY reflux 10/30/20 famotidine 20 mg tablet 20 mg PO BID reflux 10/22/21 desvenlafaxine succinate 50 mg tablet,extended release 24 hr (Pristiq) 50 mg PO DAILY 04/30/22 levonorgestrel (Mirena) 1 device intrauterine ONCE 07/04/22 estradiol 1 mg tablet 1 mg PO DAILY #90 tabs 12/26/23 oxycodone 5 mg tablet 5 mg PO Q8H PRN pain 3 days #10 tabs 12/31/24 Hospital Course Operations appendectomy Summary of Care Provided Minutes Spent on Discharge: 15 Hospital Course: The patient is a 54-year-old female who presented with right lower quadrant pain and was found to have findings consistent with acute appendicitis on CT scan. Patient underwent an open appendectomy 30 years ago at [facility]. Presumably this was near ruptured appendicitis per patient's recollection of her conversation with the surgeon at that time. Patient had had no previous GI issues or problems up until the day before presentation to the hospital. Workup in the ER revealed appendicitis. I recommended a laparoscopic appendectomy. Patient also had a small fat-containing umbilical hernia that she would like to have repaired as well. Surgery was performed and she tolerated this well. Postoperatively she continues to improve. She has been weaned off of oxygen. Pain medication has sufficiently held her pain. She is tolerating diet and wishes to go home this afternoon/evening Physical Exam Narrative Incisions are without signs of erythema or infection. Postoperative pain present to an appropriate extent Const alert and oriented x3 Weight / BMI Weight Weight: 164 lb 14.492 oz Body Mass Index (BMI) 26.6 ABG / Lab / Microbiology Data 12/31/24 05:58 12/31/24 05:58 Laboratory: Laboratory Results - last 24 hr 12/31/24 05:58: WBC 11.8 H, RBC 2.98 L, Hgb 9.4 L, Hct 28.4 L, MCV 95.3, MCH 31.5, MCHC 33.1, RDW Std Deviation 44.7 H, RDW Coeff of Giorgio 12.7, Plt Count 263, MPV 10.1, Immature Gran % (Auto) 0.500, Neut % (Auto) 77.2 H, Lymph % (Auto) 11.9 L, [place] % (Auto) 9.8, Eos % (Auto) 0.3, Baso % (Auto) 0.3, Absolute Neuts (auto) 9.1 H, Absolute Lymphs (auto) 1.40, Nucleated RBC % 0, Sodium 139, Potassium 3.6, Chloride 108, Carbon Dioxide 18.7 L, Anion Gap 13, BUN 8, Creatinine 0.66 L, Estim Creat Clear Calc 100.76, Est GFR (MDRD) Non-Af 104, BUN/Creatinine Ratio 12.0, Glucose 115 H, Calcium 7.9 D/C Instructions May shower in (days): 1 Ice area for (Minutes): 30 Lifting Restrictions: No lifting pushing or pulling more than 20 pounds for 6 weeks Additional Activity Instructions: Wear abdominal binder for comfort Call your doctor if your incision/area has: Continuous Slow Oozing, Sudden Increased Bleeding, Increased Pain/ Swelling, Increased Redness, Foul Smelling Discharge and Swelling at the incision site Call your doctor if you observe: Fever of 101 or Higher Remove Dressing in: 2 days Cleanse incision/area with: Soap & Water DC O2, CPAP, BIPAP Needs Home O2 Discharge instructions: No DC home with Oxygen: No Please Follow Up With: Judah Euceda MD When: 2 weeks. Please call office to schedule appointment. Meaningful Use Info Meaningful Use Meaningful Use Diagnoses (Choose all that apply): None applicable Discharge Plan Admission Admit Date/Time: 12/30/24 01:06 Primary Reason for Your Visit: Appendicitis Attending Provider: Judah Euceda Primary Care Provider: Mak Quezada Discharge Orders/Prescriptions Prescriptions: New oxycodone 5 mg tablet 5 mg PO Q8H PRN (Reason: pain) 3 Days Qty: 10 0RF Continued esomeprazole magnesium [Nexium] 40 mg capsule,delayed release(DR/EC) 40 mg PO DAILY desvenlafaxine succinate [Pristiq] 50 mg tablet extended release 24 hr 50 mg PO DAILY Mirena 21 mcg/24 hours (8 yrs) 52 mg intrauterine device 1 device intrauterine ONCE Rx Instructions: as a single dose estradiol 1 mg tablet 1 mg PO DAILY Qty: 90 4RF sumatriptan succinate 50 MG tablet 50 mg PO PRN PRN (Reason: Headache) famotidine 20 mg tablet 20 mg PO BID Patient Comments: TAKE 1 TABLET BY MOUTH TWICE A DAY Referrals / Follow Up: Mak Quezada MD [Primary Care Provider] - Charges/Coding Visit Charges Inpatient E&M: 73381 Disch Hosp >30min
== END 2024-12-31 18:55 | disposition home or self-care (01) ==
LOC: ED 12-30 01:08 → MS3 12-30 01:18
PROVIDERS: Admitting Provider Surgery; Emergency Provider Emergency Medicine; PCP Family Medicine; Visit Provider Surgery
PROC: 0DTJ4ZZ Resection of Appendix, Percutaneous Endoscopic Approach (ICD-10-PCS; CPT 44970; principal; 2024-12-30 11:40)
DX: K35.30 Acute appendicitis with localized peritonitis, without perforation or gangrene (principal); K42.9 Umbilical hernia without obstruction or gangrene; K21.9 Gastro-esophageal reflux disease without esophagitis; Z79.899 Other long term (current) drug therapy; Z87.891 Personal history of nicotine dependence; F41.9 Anxiety disorder, unspecified; G43.909 Migraine, unspecified, not intractable, without status migrainosus
CPT/HCPCS: 44970; 49591; 00840; 36415; 74177; 80048; 80053; 81001; 83690; 84703; 85025; 88302; 88304; 93005; 94640; 96361; 96365; 96366; 96375; 96376; 99221; 99284; Q9967; A4216; G0378; J2405